=== PATIENT | female | born 1980 | race Caucasian/White ===

== ENCOUNTER → 2018-04-04 16:51 | Outpatient (REF) | payer MEDICAID, SELFPAY ==
--- NOTE | 2018-04-04 13:45 | PAPFT_PTH ---
PATIENT: Destiney Springer LOC: [facility] U#:[id number] AGE/SX: 45/F ROOM: RE04/04/[address]: Deidra Hawkins : 1980 BED: DIS: SPEC #: [id number] RECD: 04/08/18 12:56 STATUS: NINA GRADY #: [id number] MITCH: 04/04/18 13:[address]: Deidra Hawkins DEPT: [facility], [facility] Cytology RECD BY: Jovana Levine Tissues: 1 - CX/ENDOCX FOR PAP SMEARS Procedures: PAP THIN PREP/UVM Screening HPV DNA PROBE Comments: [id number] (CHLAMYDIA/GC)
[2018-04-09 14:48] LABS: GC Result Negative; Specimen Description SEE COMMENTS
[2018-04-09 14:59] LABS: Chlamydia Result Positive
== END ==
LOC: NCHCN 16:51
PROVIDERS: PCP Nurse Practitioner Family; Visit Provider Nurse Practitioner Family
DX: Z11.3 Encounter for screening for infections with a predominantly sexual mode of transmission (principal); Z12.4 Encounter for screening for malignant neoplasm of cervix; Z11.51 Encounter for screening for human papillomavirus (HPV)
CPT/HCPCS: 87491; 87591; 88142; 87624

== ENCOUNTER 2018-06-02 12:13 | Emergency (ER) | payer MEDICAID, SELFPAY ==
[2018-06-02 12:26] VITALS: BP 118/81; PULSE 96; RESP 16; TEMP 36.7; O2SAT 100
[2018-06-02 12:40] LABS: Bilirubin Negative (Negative); Blood Small (Negative); Glucose Negative (Negative); Ketones Negative (Negative); Leukocyte Esterase Trace (Negative); Nitrite Negative (Negative); Specific Gravity >= 1.030 (1.005-1.025); pH 5.5 (5-8)
[2018-06-02 12:45] LABS: Clarity Sl Cloudy
[2018-06-02 12:59] LABS: Bacteria Moderate HPF (Negative); C & S Indicated? No/Sq. Contamination; Epithelial Cells Many HPF (Negative); Mucus Moderate (Negative)
--- NOTE | 2018-06-02 13:11 | W.ED.GENAD ---
Discharge Plan Disposition Patient Disposition: HOME Condition: Fair Discharge Details Chief Complaint: Urinary Clinical Impression: UTI (urinary tract infection) Primary Care Provider: Deidra Hawkins ED Provider: Treasure Galdamez Home Meds and New Rx's Prescriptions: New cephalexin [Keflex] 500 mg capsule 500 mg PO BID Qty: 10 RF: 0 Continue venlafaxine [Effexor XR] 150 MG capsule,extended release 24hr 150 mg PO HS RF: 0 topiramate [Topamax] 100 MG tablet 100 mg PO BID RF: 0 alprazolam [Xanax] 1 MG tablet 3 mg PO DAILY RF: 0 aripiprazole [Abilify] 5 MG tablet 10 mg PO .QHS RF: 0 Discharge Instructions Instructions: Urinary Tract Infection in Women (ED) Additional Instructions: Encourage hydration. Take Keflex as prescribed for urinary tract infection. Pyridium may be used as needed to help with symptomatic management. If you develop back pain, fevers, inability to stay hydrated or other new/worsening symptoms please seek care urgently once again. Otherwise, please follow-up with primary in 1 week if symptoms have not completely resolved Referrals: Deidra Hawkins [Primary Care Provider] - Discharge Data Discharge Date/Time-TO BE ENTERED AT DEPARTURE: 06/02/18 13:28 Medical Decision Making Patient 38-year-old female presenting today with chief complaint of urinary tract infection. She reports that she woke this morning with dysuria, increased frequency and urgency. Denies any hematuria. Denies any vaginal discharge, dyspareunia. Denies any flank pain. On exam, she appears nontoxic, resting comfortably. She does have some low central abdominal pain. No CVA tenderness. Patient is currently afebrile. Does report that she felt warm this morning. Patient has had multiple urinary tract infections in the past, none within the past several months. Urinalysis is heavily contaminated. However, she does have leukocyte esterase small amount of blood noted with moderate bacteria. I feel that given these findings as well as the patient's history and symptoms, it is appropriate to treat her at this point for urinary tract infection. Plan to send urine for culture. Plan to treat with Keflex. I encouraged hydration. Patient also be prescribed Pyridium to help with symptomatic management. She was given strict return precautions. Advise follow-up with primary care in 1 week if symptoms have not completely resolved. All of her questions and concerns were addressed and she is in agreement this plan HPI General Mode of arrival: ambulatory. Date/Time Provider Initiated Documentation: 06/02/18 12:49. Limitations to Documentation: no limitations. Information obtained by: patient. History of Present Illness 38 year old F presents to the emergency department with the chief complaint of dysurea, described as moderate, with intensity rated at 7. Quality is described as aching, and is localized to the abdomen (low central abdomen). Patient reports no radiation; denies radiation to back. Patient started experiencing this hour(s) (awoke with discomfort) and it has been constant. No relieving factors improve symptom(s), No exacerbating factors reported . Patient notes fever/chills (feels warm) and loss of appetite; denies chest pain, cough, malaise, nausea/vomiting, rash and shortness of breath. Patient did receive the following treatments prior to arrival, none Related Data Home Medications Medication Instructions Recorded Confirmed venlafaxine [Effexor XR] 150 mg PO HS 03/02/13 06/02/18 topiramate [Topamax] 100 mg PO BID 01/27/14 06/02/18 alprazolam [Xanax] 3 mg PO DAILY 09/11/14 06/02/18 aripiprazole [Abilify] 10 mg PO .QHS 11/18/17 06/02/18 cephalexin [Keflex] 500 mg PO BID #10 cap 06/02/18 Previous Rx's Medication Instructions Recorded cephalexin [Keflex] 500 mg PO BID #10 cap 06/02/18 Allergies Allergy/AdvReac Type Severity Reaction Status Date / Time No Known Allergies Allergy Unverified 06/02/18 12:29 General Stated Complaint: Urinary RAJEEV: 4 Review of Systems Constitutional Reports as per HPI Cardiovascular Reports as per HPI and Denies chest pain Respiratory Denies cough Gastrointestinal Reports as per HPI, Reports abdominal pain (low central abdominal pain over bladder), Denies change in stool character, Denies nausea and Denies vomiting Genitourinary Reports as per HPI Musculoskeletal Denies back pain Integumentary/Breasts Denies rash PFSH Medical History Endometriosis GERD (gastroesophageal reflux disease) Hiatal hernia Social History Smoking/Tobacco Use Status: Current every day Surgical History Extracorporeal shock wave lithotripsy Ligation of fallopian tube Exam Const General: cooperative, healthy appearing, comfortable, no acute distress, well developed and well groomed Nutritional Appearance: average body habitus and well nourished Orientation: alert and awake Resp Effort & Inspection: normal respiratory effort, able to speak in complete sentences and no respiratory distress Auscultation: clear to auscultation bilaterally Cardio Rate: regular rate Rhythm: regular rhythm Heart Sounds: S1 normal and S2 normal GI Inspection: no edema and non-distended Palpation: soft, no hepatosplenomegaly, no guarding and nontender Auscultation: normal bowel sounds Back/Spine/Pelvis Back: no CVA tenderness Skin General skin exam: no rashes or lesions noted Neuro General: alert and awake Cognition: normal cognition Speech: speech normal Gait: normal gait Psych Appearance: grossly normal and well kempt Mental Status: mental status grossly normal Speech and Movement: speech and movement normal Course Vital Signs Temperature 36.7 C 06/02/18 12:26 Pulse 96 H 06/02/18 12:26 Respiratory Rate 16 06/02/18 12:26 Blood Pressure 118/81 06/02/18 12:26 Pulse Oximetry 100 06/02/18 12:26 Temperature 36.7 C 06/02/18 12:26 Temperature Source Temporal Artery Scan 06/02/18 12:26 Pulse 96 H 06/02/18 12:26 Respiratory Rate 16 06/02/18 12:26 Respiratory Effort 06/02/18 12:54 Blood Pressure 118/81 06/02/18 12:26 Blood Pressure Position Sitting 06/02/18 12:26 Pulse Oximetry 100 06/02/18 12:26 Oxygen Delivery Method Room Air 06/02/18 12:26 Oxygen Flow Rate 0 06/02/18 12:26 Pain Level 7 06/02/18 12:58 Lab/Test Results Lab/Test Results: Laboratory Tests Range/Units 06/02/18 12:35 Urine Color (Yellow) Yellow Urine Clarity Sl cloudy Urine pH (5-8) 5.5 Ur Specific [place] (1.005-1.025) >= 1.030 H Urine Protein (Negative) mg/dL 30 H Urine Ketones (Negative) mg/dL Negative Urine Blood (Negative) Small H Urine Nitrite (Negative) Negative Urine Bilirubin (Negative) Negative Urine Urobilinogen (Up TO 0.2) EU/dL 1.0 H Ur Leukocyte Esterase (Negative) Trace H Urine RBC Not Applicable Urine WBC (0-5) HPF 5-10 Ur Epithelial Cells (Negative) HPF Many Urine Crystals Not Applicable Urine Bacteria (Negative) HPF Moderate Urine Mucus (Negative) Moderate Ur Culture Indicated? No/sq. contamination Urine Glucose (Negative) mg/dL Negative
== END 2018-06-02 13:28 | disposition home or self-care (01) ==
LOC: ER 13:31
PROVIDERS: Emergency Provider Physician Assistant; PCP Nurse Practitioner Family
DX: N39.0 Urinary tract infection, site not specified (principal); I10 Essential (primary) hypertension; Z87.440 Personal history of urinary (tract) infections
CPT/HCPCS: 99283; 81003; 81015

== ENCOUNTER 2018-06-25 12:52 | Outpatient (CLI) | payer MEDICAID, SELFPAY ==
[2018-06-25 14:20] LABS: ALT 17 U/L (12-78); AST 17 U/L (15-37); Albumin 3.8 g/dL (3.4-5.0); Alkaline Phosphatase 87 U/L (46-116); Anion Gap 10.1 mmol/L (3-11); BUN 8 mg/dL (7-18); Bilirubin, Total 0.4 mg/dL (0.2-1.0); CO2 23.9 mmol/L (21.0-32.0); CREATININE 0.81 mg/dL (0.55-1.02); Calcium 8.9 mg/dL (8.5-10.1); Chloride 106 mmol/L (98-107); Cholesterol 159 mg/dL (50-200); Glucose 125 mg/dL (70-100); HDL Cholesterol 40 mg/dL (40-60); LDL CHOLESTEROL 107 mg/dL (<100); Potassium 4.1 mmol/L (3.5-5.1); Sodium 140 mmol/L (136-145); Total Protein 7.1 g/dL (6.4-8.2); Triglyceride 71 mg/dL (30-150)
== END 2018-06-25 13:12 ==
PROVIDERS: PCP Nurse Practitioner Family; Visit Provider Nurse Practitioner Family
DX: F34.0 Cyclothymic disorder (principal); Z79.899 Other long term (current) drug therapy
CPT/HCPCS: 36415; 80053; 80061; 83721

== ENCOUNTER 2018-06-26 10:40 | Emergency (ER) | payer MEDICAID, SELFPAY ==
[2018-06-26 10:45] VITALS: BP 117/74; PULSE 77; RESP 16; TEMP 36.2; O2SAT 100
[2018-06-26 10:57] VITALS: PULSE 77; RESP 16; O2SAT 100
[2018-06-26] MEDS: predniSONE 20 MG TAB 60 MG PO (10:57)
[2018-06-26] MEDS: Albuterol 2.5 MG/3 ML INH SOLN VIAL UPD (10:57)
--- NOTE | 2018-06-26 10:58 | W.ED.GENAD ---
Discharge Plan Disposition Patient Disposition: HOME Condition: Good Discharge Details Chief Complaint: RespSymp Clinical Impression: Bronchitis, URI (upper respiratory infection), Sinusitis Primary Care Provider: Deidra Hawkins ED Provider: Jairo Sepulveda Home Meds and New Rx's Prescriptions: New azithromycin [Zithromax Z-Chad] 250 mg tablet See Label Instructions .ROUTE .COMPLEX Qty: 6 RF: 0 prednisone 20 mg tablet 40 mg PO DAILY Qty: 10 RF: 0 No Action venlafaxine [Effexor XR] 150 MG capsule,extended release 24hr 150 mg PO HS RF: 0 topiramate [Topamax] 100 MG tablet 100 mg PO BID RF: 0 alprazolam [Xanax] 1 MG tablet 3 mg PO DAILY RF: 0 cephalexin [Keflex] 500 mg capsule 500 mg PO BID Qty: 10 RF: 0 aripiprazole [Abilify] 5 MG tablet 10 mg PO .QHS RF: 0 Discharge Instructions Instructions: Sinusitis (ED), Upper Respiratory Infection (ED), Acute Bronchitis (ED) Referrals: [facility] Emergency Dept. [Outside] - Return if symptoms worsen Medical Decision Making Will start prednsione and albuterol here. X-ray to confirm pneumonia. Will dispense albuterol with spacer. Apprised of x-ray. RT came down and educated her on inhaler and spacer. We dispensed inhaler and assist device. Prescribed predinisone and Zithromax for the bronchitis in a smoker >1.5 weeks of symptoms. Advised to get plenty of rest and fluids. Return if symptoms worsen. Imaging Data Radiologic Study: My impression: No acute pathology Radiologist's impression: v-rad: IMPRESSION: No acute findings. HPI General Mode of arrival: ambulatory. Date/Time Provider Initiated Documentation: 06/26/18 10:45. Limitations to Documentation: no limitations. Information obtained by: patient. History of Present Illness 38 year old F presents to the emergency department with the chief complaint of URI, described as mild, HPI Narrative: 38y/o female here with c/o cough, wheezing, sinus congestion and SOB for over a week. She is a smoker. Denies fever but has felt warm. Denies CP. She tried her sons inhaler which did seem to help a little with her breathing. Related Data Home Medications Medication Instructions Recorded Confirmed venlafaxine [Effexor XR] 150 mg PO HS 03/02/13 06/26/18 topiramate [Topamax] 100 mg PO BID 01/27/14 06/26/18 alprazolam [Xanax] 3 mg PO DAILY 09/11/14 06/26/18 aripiprazole [Abilify] 10 mg PO .QHS 11/18/17 06/26/18 cephalexin [Keflex] 500 mg PO BID #10 cap 06/02/18 azithromycin [Zithromax Z-Chad] See Label Instructions .ROUTE 06/26/18 .COMPLEX #6 tab prednisone 40 mg PO DAILY #10 tab 06/26/18 Previous Rx's Medication Instructions Recorded cephalexin [Keflex] 500 mg PO BID #10 cap 06/02/18 azithromycin [Zithromax Z-Chad] See Label Instructions .ROUTE 06/26/18 .COMPLEX #6 tab prednisone 40 mg PO DAILY #10 tab 06/26/18 Allergies Allergy/AdvReac Type Severity Reaction Status Date / Time No Known Allergies Allergy Unverified 06/26/18 10:51 General Stated Complaint: RespSymp RAJEEV: 3 Review of Systems Eyes Reports system reviewed and no additional complaints, except as docu ENT Denies hoarseness, Reports nasal congestion, Reports nasal discharge and Reports sore throat Cardiovascular Reports system reviewed and no additional complaints, except as docu and Reports dyspnea Respiratory Reports cough, Reports dyspnea and Reports wheezing Gastrointestinal Reports system reviewed and no additional complaints, except as docu Genitourinary Reports system reviewed and no additional complaints, except as docu Musculoskeletal Reports system reviewed and no additional complaints, except as docu Integumentary/Breasts Reports system reviewed and no additional complaints, except as docu Neurologic Reports system reviewed and no additional complaints, except as docu Allergic/Immunologic Reports wheezing [facility] Medical History Endometriosis GERD (gastroesophageal reflux disease) Hiatal hernia Social History Smoking/Tobacco Use Status: Current every day Surgical History Extracorporeal shock wave lithotripsy Ligation of fallopian tube Exam Const General: cooperative, healthy appearing, comfortable and no acute distress Nutritional Appearance: average body habitus Orientation: alert, awake and oriented x3 HENMT Head: atraumatic Ears: hearing grossly normal bilaterally, external ears normal and TM abnormal (cerumen present in both canals) dull and with loss of landmarks General nose exam: external nose normal and nasal mucous membranes and turbinates normal Mouth: oral mucosae normal Throat: posterior oropharynx abnormal exudates Eyes General: appearance normal, both eyes and all related structures Pupils: PERRL Neck Neck: full ROM, supple and lymphadenopathy Resp Effort & Inspection: normal respiratory effort Auscultation: rhonchi and wheezes Cardio Rate: regular rate Rhythm: regular rhythm Heart Sounds: S1 normal, S2 normal and no murmurs Skin General skin exam: no rashes or lesions noted Extrem General: normal to inspection, full ROM and normal capillary refill Psych Appearance: grossly normal Speech and Movement: speech and movement normal Mood: congruent mood Affect: normal affect Attitude: cooperative Thought Process: normal Thought Content: normal Insight: insight good Judgment: judgment good Course Vital Signs Temperature 36.2 C L 06/26/18 10:45 Pulse 77 06/26/18 10:45 Respiratory Rate 16 06/26/18 10:45 Blood Pressure 117/74 06/26/18 10:45 Pulse Oximetry 100 06/26/18 10:45 Temperature 36.2 C L 06/26/18 10:45 Temperature Source Skin 06/26/18 10:45 Pulse 77 06/26/18 10:57 Respiratory Rate 16 06/26/18 10:57 Respiratory Effort 06/26/18 10:45 Blood Pressure 117/74 06/26/18 10:45 Blood Pressure Position Sitting 06/26/18 10:45 Pulse Oximetry 100 06/26/18 10:57 Oxygen Delivery Method Room Air 06/26/18 10:57 Oxygen Flow Rate 0 06/26/18 10:57 Pain Level 0 06/26/18 10:45
--- NOTE | 2018-06-26 11:03 | ED.GENADUL_ITS ---
Discharge Plan Disposition Patient Disposition: HOME Condition: Good Discharge Details Chief Complaint: RespSymp Clinical Impression: Bronchitis, URI (upper respiratory infection), Sinusitis Primary Care Provider: Deidra Hawkins ED Provider: Jairo Sepulveda Home Meds and New Rx's Prescriptions: New azithromycin [Zithromax Z-Chad] 250 mg tablet See Label Instructions .ROUTE .COMPLEX Qty: 6 RF: 0 prednisone 20 mg tablet 40 mg PO DAILY Qty: 10 RF: 0 No Action venlafaxine [Effexor XR] 150 MG capsule,extended release 24hr 150 mg PO HS RF: 0 topiramate [Topamax] 100 MG tablet 100 mg PO BID RF: 0 alprazolam [Xanax] 1 MG tablet 3 mg PO DAILY RF: 0 cephalexin [Keflex] 500 mg capsule 500 mg PO BID Qty: 10 RF: 0 aripiprazole [Abilify] 5 MG tablet 10 mg PO .QHS RF: 0 Discharge Instructions Instructions: Sinusitis (ED), Upper Respiratory Infection (ED), Acute Bronchitis (ED) Referrals: [facility] Emergency Dept. [Outside] - Return if symptoms worsen Medical Decision Making Will start prednsione and albuterol here. X-ray to confirm pneumonia. Will dispense albuterol with spacer. Apprised of x-ray. RT came down and educated her on inhaler and spacer. We dispensed inhaler and assist device. Prescribed predinisone and Zithromax for the bronchitis in a smoker >1.5 weeks of symptoms. Advised to get plenty of rest and fluids. Return if symptoms worsen. Imaging Data Radiologic Study: My impression: No acute pathology Radiologist's impression: v-rad: IMPRESSION: No acute findings. HPI General Mode of arrival: ambulatory . Date/Time Provider Initiated Documentation: 06/26/18 10:45 . Limitations to Documentation: no limitations . Information obtained by: patient . History of Present Illness 38 year old F presents to the emergency department with the chief complaint of URI, described as mild, HPI Narrative: 38y/o female here with c/o cough, wheezing, sinus congestion and SOB for over a week. She is a smoker. Denies fever but has felt warm. Denies CP. She tried her sons inhaler which did seem to help a little with her breathing. Related Data Home Medications Medication Instructions Recorded Confirmed venlafaxine [Effexor XR] 150 mg PO HS 03/02/13 06/26/18 topiramate [Topamax] 100 mg PO BID 01/27/14 06/26/18 alprazolam [Xanax] 3 mg PO DAILY 09/11/14 06/26/18 aripiprazole [Abilify] 10 mg PO .QHS 11/18/17 06/26/18 cephalexin [Keflex] 500 mg PO BID #10 cap 06/02/18 azithromycin [Zithromax Z-Chad] See Label Instructions .ROUTE 06/26/18 .COMPLEX #6 tab prednisone 40 mg PO DAILY #10 tab 06/26/18 Previous Rx's Medication Instructions Recorded cephalexin [Keflex] 500 mg PO BID #10 cap 06/02/18 azithromycin [Zithromax Z-Chad] See Label Instructions .ROUTE 06/26/18 .COMPLEX #6 tab prednisone 40 mg PO DAILY #10 tab 06/26/18 Allergies Allergy/AdvReac Type Severity Reaction Status Date / Time No Known Allergies Allergy Unverified 06/26/18 10:51 General Stated Complaint: RespSymp RAJEEV: 3 Review of Systems Eyes Reports system reviewed and no additional complaints, except as docu ENT Denies hoarseness, Reports nasal congestion, Reports nasal discharge and Reports sore throat Cardiovascular Reports system reviewed and no additional complaints, except as docu and Reports dyspnea Respiratory Reports cough, Reports dyspnea and Reports wheezing Gastrointestinal Reports system reviewed and no additional complaints, except as docu Genitourinary Reports system reviewed and no additional complaints, except as docu Musculoskeletal Reports system reviewed and no additional complaints, except as docu Integumentary/Breasts Reports system reviewed and no additional complaints, except as docu Neurologic Reports system reviewed and no additional complaints, except as docu Allergic/Immunologic Reports wheezing [facility] Medical History Endometriosis GERD (gastroesophageal reflux disease) Hiatal hernia Social History Smoking/Tobacco Use Status: Current every day Surgical History Extracorporeal shock wave lithotripsy Ligation of fallopian tube Exam Const General: cooperative, healthy appearing, comfortable and no acute distress Nutritional Appearance: average body habitus Orientation: alert, awake and oriented x3 HENMT Head: atraumatic Ears: hearing grossly normal bilaterally, external ears normal and TM abnormal ( cerumen present in both canals) dull and with loss of landmarks General nose exam: external nose normal and nasal mucous membranes and turbinates normal Mouth: oral mucosae normal Throat: posterior oropharynx abnormal exudates Eyes General: appearance normal, both eyes and all related structures Pupils: PERRL Neck Neck: full ROM, supple and lymphadenopathy Resp Effort & Inspection: normal respiratory effort Auscultation: rhonchi and wheezes Cardio Rate: regular rate Rhythm: regular rhythm Heart Sounds: S1 normal, S2 normal and no murmurs Skin General skin exam: no rashes or lesions noted Extrem General: normal to inspection, full ROM and normal capillary refill Psych Appearance: grossly normal Speech and Movement: speech and movement normal Mood: congruent mood Affect: normal affect Attitude: cooperative Thought Process: normal Thought Content: normal Insight: insight good Judgment: judgment good Course Vital Signs Temperature 36.2 C L 06/26/18 10:45 Pulse 77 06/26/18 10:45 Respiratory Rate 16 06/26/18 10:45 Blood Pressure 117/74 06/26/18 10:45 Pulse Oximetry 100 06/26/18 10:45 Temperature 36.2 C L 06/26/18 10:45 Temperature Source Skin 06/26/18 10:45 Pulse 77 06/26/18 10:57 Respiratory Rate 16 06/26/18 10:57 Respiratory Effort 06/26/18 10:45 Blood Pressure 117/74 06/26/18 10:45 Blood Pressure Position Sitting 06/26/18 10:45 Pulse Oximetry 100 06/26/18 10:57 Oxygen Delivery Method Room Air 06/26/18 10:57 Oxygen Flow Rate 0 06/26/18 10:57 Pain Level 0 06/26/18 10:45
[2018-06-26] MEDS: Inhaler, Assist Device 1 EACH MC (11:14)
[2018-06-26] MEDS: Albuterol HFA 8 GM 60 PUFF INH IH (11:14)
--- NOTE | 2018-06-26 11:25 | DI.RAD_ITS ---
SYMPTOMS/DIAGNOSIS: SHORTNESS OF BREATH, COUGH FOR OVER A WEEK PA AND LATERAL CHEST: The heart is normal in size. The lungs are clear. The mediastinal structures and pleura appear intact. CONCLUSION: Normal chest. No evidence of acute cardiopulmonary disease.
[2018-06-26] MEDS: Azithromycin 250 MG TAB 500 MG PO (11:42)
[2018-06-26 11:49] VITALS: BP 117/74; PULSE 76; RESP 16; TEMP 36.7; O2SAT 100
--- NOTE | 2018-06-26 13:04 | DI.VRAD_ITS ---
EXAM: XR Chest, 2 Views EXAM DATE/TIME: 06/26/2018 10:53 AM CLINICAL HISTORY: 38 years old, female; Signs and symptoms; Cough and shortness of breath; Patient HX: SOB and cough xover a week TECHNIQUE: XR of the chest, 2 views. COMPARISON: CR ABD FLAT UPRIGHT PA CHEST 09/11/2014 1:31 PM FINDINGS: Lungs: Unremarkable. No consolidation. Pleural space: Unremarkable. No pleural effusion. No pneumothorax. Heart/Mediastinum: Unremarkable. No cardiomegaly. Bones/joints: Unremarkable. IMPRESSION: No acute findings. Dictated and Authenticated by: Sabrina Greenfield MD. Ordering:ANNA CUEVAS MD
== END 2018-06-26 11:49 | disposition home or self-care (01) ==
PROVIDERS: Emergency Provider Nurse Practitioner Family; PCP Nurse Practitioner Family
DX: J20.9 Acute bronchitis, unspecified (principal); J01.90 Acute sinusitis, unspecified; J06.9 Acute upper respiratory infection, unspecified; F17.210 Nicotine dependence, cigarettes, uncomplicated; I10 Essential (primary) hypertension
CPT/HCPCS: 94640; 99283; 71046; J7512; J7613

== ENCOUNTER 2018-07-16 08:58 | Emergency (ER) | payer MEDICAID, SELFPAY ==
[2018-07-16 09:05] VITALS: BP 100/70; PULSE 88; RESP 16; TEMP 36.3; O2SAT 94
--- NOTE | 2018-07-16 09:32 | W.ED.GENAD ---
Discharge Plan Disposition Patient Disposition: HOME Condition: Fair Discharge Details Chief Complaint: RespSymp Clinical Impression: Bronchitis Primary Care Provider: Deidra Hawkins ED Provider: Treasure Galdamez Home Meds and New Rx's Prescriptions: New prednisone 5 mg tablet 5 mg PO DAILY Qty: 21 RF: 0 Continued venlafaxine [Effexor XR] 150 MG capsule,extended release 24hr 150 mg PO HS RF: 0 topiramate [Topamax] 100 MG tablet 100 mg PO BID RF: 0 alprazolam [Xanax] 1 MG tablet 3 mg PO DAILY RF: 0 cephalexin [Keflex] 500 mg capsule 500 mg PO BID Qty: 10 RF: 0 azithromycin [Zithromax Z-Chad] 250 mg tablet See Rx Instructions .ROUTE .COMPLEX Qty: 6 RF: 0 aripiprazole [Abilify] 5 MG tablet 10 mg PO .QHS RF: 0 Discharge Instructions Instructions: How to Stop Smoking (ED), Acute Bronchitis (ED) Additional Instructions: Encourage hydration. Stop smoking. Take prednisone as prescribed. Appointment has been made for you with PCP next Saturday at 11:20AM. If you are unable to keep this appointment or need to change, please call [phone]. If you develop shortness of breath, difficulty breathing or other new/worsening symptoms please seek care urgently once again. Referrals: Deidra Hawkins [Primary Care Provider] - Discharge Data Discharge Date/Time-TO BE ENTERED AT DEPARTURE: 07/16/18 10:51 Medical Decision Making Patient is a 38-year-old female, accompanied by her mother, with chief complaint of continued cough. Patient was seen here 3 weeks ago at which time she was diagnosed with bronchitis and given a burst of steroids and treated with azithromycin. She reports that despite these efforts, her cough has persisted and is remained unchanged. States she intermittently has sore throat, is not endorsing this at this time. Denies feeling short of breath or having chest pain. States that she does have discomfort when smoking but no pain with cough or deep inspiration. On exam, she is noted to have scattered expiratory wheezes. She has been using inhaler as prescribed which she states helped but she has not been using this frequently. Patient has history of hiatal hernia, endometriosis, GERD. Patient is status post tubal ligation. Given the length of symptoms, feel that imaging is appropriate at this time, will obtain chest x-ray. However, if this is clear, I plan to treat with steroids for persistent inflammatory response. I encouraged the patient to stop smoking X-ray reviewed by myself as well as radiology with no acute cardiopulmonary process noted. Discussed this with the patient. Advised this seems primarily inflammatory. At this point, the patient is afebrile, appears otherwise well, I do not feel that repeat antibiotics is appropriate. However, I did advise that steroid taper would likely benefit. I encouraged smoking cessation. Advise follow-up with primary care in 1 week. All of her questions and concerns were addressed and she is agreement with this plan. We discussed new/worsening symptoms and when to seek care urgently once again. HPI General Mode of arrival: ambulatory. Date/Time Provider Initiated Documentation: 07/16/18 09:23. Limitations to Documentation: no limitations. Information obtained by: patient and family (accompanied by mother). History of Present Illness 38 year old F presents to the emergency department with the chief complaint of cough, described as moderate, and is localized to the chest (has minimal discomfort when smoking, no pain at rest, no pain with inspiration or with cough). Patient reports no radiation. Patient started experiencing this month(s) (1) and it has been constant. No relieving factors improve symptom(s), Other factors that worsen symptoms (smoking) . Patient notes cough and shortness of breath (with cough); denies chest pain, fever/chills, headaches, loss of appetite, nausea/vomiting, rash and syncope. Patient did receive the following treatments prior to arrival, none Related Data Home Medications Medication Instructions Recorded Confirmed venlafaxine [Effexor XR] 150 mg PO HS 03/02/13 07/16/18 topiramate [Topamax] 100 mg PO BID 01/27/14 07/16/18 alprazolam [Xanax] 3 mg PO DAILY 09/11/14 07/16/18 aripiprazole [Abilify] 10 mg PO .QHS 11/18/17 07/16/18 cephalexin [Keflex] 500 mg PO BID #10 cap 06/02/18 07/16/18 azithromycin [Zithromax Z-Chad] See Rx Instructions .ROUTE 06/26/18 07/16/18 .COMPLEX #6 tab prednisone 5 mg PO DAILY #21 tab 07/16/18 Previous Rx's Medication Instructions Recorded cephalexin [Keflex] 500 mg PO BID #10 cap 06/02/18 azithromycin [Zithromax Z-Chad] See Rx Instructions .ROUTE 06/26/18 .COMPLEX #6 tab prednisone 5 mg PO DAILY #21 tab 07/16/18 Allergies Allergy/AdvReac Type Severity Reaction Status Date / Time No Known Allergies Allergy Unverified 07/16/18 09:09 General Stated Complaint: RespSymp RAJEEV: 4 Review of Systems Constitutional Reports as per HPI and Denies headache(s) Eyes Reports as per HPI, Denies eye discharge and Denies irritation ENT Reports as per HPI, Denies abnormal hearing, Denies ear discharge, Denies otalgia, Denies headache(s), Denies nasal congestion, Denies nasal discharge, Denies sinus pain, Denies sinus pressure and Reports sore throat (intermittent, no pain at this time) Cardiovascular Reports as per HPI, Denies chest pain and Denies dyspnea Respiratory Reports as per HPI, Reports cough, Denies hemoptysis, Denies pain on inspiration, Denies pain with cough, Denies dyspnea, Denies stridor and Reports wheezing Gastrointestinal Reports as per HPI, Denies abdominal pain, Denies change in bowel habits, Denies nausea and Denies vomiting Integumentary/Breasts Reports as per HPI and Denies rash Neurologic Denies abnormal hearing and Denies headache(s) Allergic/Immunologic Reports wheezing [facility] Medical History Endometriosis GERD (gastroesophageal reflux disease) Hiatal hernia Social History Smoking/Tobacco Use Status: Current every day Surgical History Extracorporeal shock wave lithotripsy Ligation of fallopian tube Social History Smoking/Tobacco Use Status: Current every day Exam Const General: cooperative, healthy appearing, comfortable, no acute distress, well developed and well groomed Nutritional Appearance: average body habitus and well nourished Orientation: alert and awake [facility] Head: normal to inspection, normocephalic and atraumatic Ears: hearing grossly normal bilaterally, external ears normal and TM's normal bilaterally General nose exam: external nose normal and nares normal Face and sinus: normal facial exam, sinuses nontender and face symmetric Mouth: oral mucosae normal, lip normal, tongue normal, oropharynx normal and moist mucous membranes Teeth and gingiva: dentition normal Throat: posterior oropharynx normal, tonsils normal and uvula midline Eyes General: appearance normal, both eyes and all related structures Neck Neck: normal visual inspection, full ROM, no lymphadenopathy and no meningeal signs Resp Effort & Inspection: normal respiratory effort, able to speak in complete sentences and no respiratory distress Auscultation: no rales, no rhonchi and wheezes (scattered, more on the right side) expiratory wheezes and scattered wheezes Cardio Rate: regular rate Rhythm: regular rhythm Heart Sounds: S1 normal and S2 normal Skin General skin exam: no rashes or lesions noted Neuro General: alert and awake Cognition: normal cognition Speech: speech normal Gait: normal gait Psych Appearance: grossly normal and well kempt Mental Status: mental status grossly normal Speech and Movement: speech and movement normal Course Vital Signs Temperature 36.3 C L 07/16/18 09:05 Pulse 88 07/16/18 09:05 Respiratory Rate 16 07/16/18 09:05 Blood Pressure 100/70 07/16/18 09:05 Pulse Oximetry 94 L 07/16/18 09:05 Temperature 36.3 C L 07/16/18 09:05 Temperature Source Skin 07/16/18 09:05 Pulse 88 07/16/18 09:05 Respiratory Rate 16 07/16/18 09:05 Respiratory Effort 07/16/18 09:11 Blood Pressure 100/70 07/16/18 09:05 Blood Pressure Position Supine 07/16/18 09:05 Pulse Oximetry 94 L 07/16/18 09:05 Oxygen Delivery Method Room Air 07/16/18 09:05 Oxygen Flow Rate 0 07/16/18 09:05 Pain Level 0 07/16/18 09:05 Comment 07/16/18 09:05
--- NOTE | 2018-07-16 09:38 | ED.GENADUL_ITS ---
Discharge Plan Disposition Patient Disposition: HOME Condition: Fair Discharge Details Chief Complaint: RespSymp Clinical Impression: Bronchitis Primary Care Provider: Deidra Hawkins ED Provider: Treasure Galdamez Home Meds and New Rx's Prescriptions: New prednisone 5 mg tablet 5 mg PO DAILY Qty: 21 RF: 0 Continued venlafaxine [Effexor XR] 150 MG capsule,extended release 24hr 150 mg PO HS RF: 0 topiramate [Topamax] 100 MG tablet 100 mg PO BID RF: 0 alprazolam [Xanax] 1 MG tablet 3 mg PO DAILY RF: 0 cephalexin [Keflex] 500 mg capsule 500 mg PO BID Qty: 10 RF: 0 azithromycin [Zithromax Z-Chad] 250 mg tablet See Rx Instructions .ROUTE .COMPLEX Qty: 6 RF: 0 aripiprazole [Abilify] 5 MG tablet 10 mg PO .QHS RF: 0 Discharge Instructions Instructions: How to Stop Smoking (ED), Acute Bronchitis (ED) Additional Instructions: Encourage hydration. Stop smoking. Take prednisone as prescribed. Appointment has been made for you with PCP next Saturday at 11:20AM. If you are unable to keep this appointment or need to change, please call [phone]. If you develop shortness of breath, difficulty breathing or other new/worsening symptoms please seek care urgently once again. Referrals: Deidra Hawkins [Primary Care Provider] - Discharge Data Discharge Date/Time-TO BE ENTERED AT DEPARTURE: 07/16/18 10:51 Medical Decision Making Patient is a 38-year-old female, accompanied by her mother, with chief complaint of continued cough. Patient was seen here 3 weeks ago at which time she was diagnosed with bronchitis and given a burst of steroids and treated with azithromycin. She reports that despite these efforts, her cough has persisted and is remained unchanged. States she intermittently has sore throat, is not endorsing this at this time. Denies feeling short of breath or having chest pain. States that she does have discomfort when smoking but no pain with cough or deep inspiration. On exam, she is noted to have scattered expiratory wheezes. She has been using inhaler as prescribed which she states helped but s he has not been using this frequently. Patient has history of hiatal hernia, endometriosis, GERD. Patient is status post tubal ligation. Given the length of symptoms, feel that imaging is appropriate at this time, will obtain chest x- ray. However, if this is clear, I plan to treat with steroids for persistent inflammatory response. I encouraged the patient to stop smoking X-ray reviewed by myself as well as radiology with no acute cardiopulmonary process noted. Discussed this with the patient. Advised this seems primarily inflammatory. At this point, the patient is afebrile, appears otherwise well, I do not feel that repeat antibiotics is appropriate. However, I did advise that steroid taper would likely benefit. I encouraged smoking cessation. Advise follow-up with primary care in 1 week. All of her questions and concerns were addressed and she is agreement with this plan. We discussed new/worsening symptoms and when to seek care urgently once again. HPI General Mode of arrival: ambulatory . Date/Time Provider Initiated Documentation: 07/16/18 09:23 . Limitations to Documentation: no limitations . Information obtained by: patient and family (accompanied by mother) . History of Present Illness 38 year old F presents to the emergency department with the chief complaint of cough, described as moderate, and is localized to the chest (has minimal discomfort when smoking, no pain at rest, no pain with inspiration or with cough). Patient reports no radiation. Patient started experiencing this month(s) (1) and it has been constant. No relieving factors improve symptom(s), Other factors that worsen symptoms (smoking) . Patient notes cough and shortness of breath (with cough); denies chest pain, fever/chills, headaches, loss of appetite, nausea/vomiting, rash and syncope. Patient did receive the following treatments prior to arrival, none Related Data Home Medications Medication Instructions Recorded Confirmed venlafaxine [Effexor XR] 150 mg PO HS 03/02/13 07/16/18 topiramate [Topamax] 100 mg PO BID 01/27/14 07/16/18 alprazolam [Xanax] 3 mg PO DAILY 09/11/14 07/16/18 aripiprazole [Abilify] 10 mg PO .QHS 11/18/17 07/16/18 cephalexin [Keflex] 500 mg PO BID #10 cap 06/02/18 07/16/18 azithromycin [Zithromax Z-Chad] See Rx Instructions .ROUTE 06/26/18 07/16/18 .COMPLEX #6 tab prednisone 5 mg PO DAILY #21 tab 07/16/18 Previous Rx's Medication Instructions Recorded cephalexin [Keflex] 500 mg PO BID #10 cap 06/02/18 azithromycin [Zithromax Z-Chad] See Rx Instructions .ROUTE 06/26/18 .COMPLEX #6 tab prednisone 5 mg PO DAILY #21 tab 07/16/18 Allergies Allergy/AdvReac Type Severity Reaction Status Date / Time No Known Allergies Allergy Unverified 07/16/18 09:09 General Stated Complaint: RespSymp RAJEEV: 4 Review of Systems Constitutional Reports as per HPI and Denies headache(s) Eyes Reports as per HPI, Denies eye discharge and Denies irritation ENT Reports as per HPI, Denies abnormal hearing, Denies ear discharge, Denies otalgia, Denies headache(s), Denies nasal congestion, Denies nasal discharge, Denies sinus pain, Denies sinus pressure and Reports sore throat (intermittent, no pain at this time) Cardiovascular Reports as per HPI, Denies chest pain and Denies dyspnea Respiratory Reports as per HPI, Reports cough, Denies hemoptysis, Denies pain on inspiration, Denies pain with cough, Denies dyspnea, Denies stridor and Reports wheezing Gastrointestinal Reports as per HPI, Denies abdominal pain, Denies change in bowel habits, Denies nausea and Denies vomiting Integumentary/Breasts Reports as per HPI and Denies rash Neurologic Denies abnormal hearing and Denies headache(s) Allergic/Immunologic Reports wheezing [facility] Medical History Endometriosis GERD (gastroesophageal reflux disease) Hiatal hernia Social History Smoking/Tobacco Use Status: Current every day Surgical History Extracorporeal shock wave lithotripsy Ligation of fallopian tube Social History Smoking/Tobacco Use Status: Current every day Exam Const General: cooperative, healthy appearing, comfortable, no acute distress, well developed and well groomed Nutritional Appearance: average body habitus and well nourished Orientation: alert and awake [facility] Head: normal to inspection, normocephalic and atraumatic Ears: hearing grossly normal bilaterally, external ears normal and TM's normal bilaterally General nose exam: external nose normal and nares normal Face and sinus: normal facial exam, sinuses nontender and face symmetric Mouth: oral mucosae normal, lip normal, tongue normal, oropharynx normal and moist mucous membranes Teeth and gingiva: dentition normal Throat: posterior oropharynx normal, tonsils normal and uvula midline Eyes General: appearance normal, both eyes and all related structures Neck Neck: normal visual inspection, full ROM, no lymphadenopathy and no meningeal signs Resp Effort & Inspection: normal respiratory effort, able to speak in complete sentences and no respiratory distress Auscultation: no rales, no rhonchi and wheezes (scattered, more on the right side) expiratory wheezes and scattered wheezes Cardio Rate: regular rate Rhythm: regular rhythm Heart Sounds: S1 normal and S2 normal Skin General skin exam: no rashes or lesions noted Neuro General: alert and awake Cognition: normal cognition Speech: speech normal Gait: normal gait Psych Appearance: grossly normal and well kempt Mental Status: mental status grossly normal Speech and Movement: speech and movement normal Course Vital Signs Temperature 36.3 C L 07/16/18 09:05 Pulse 88 07/16/18 09:05 Respiratory Rate 16 07/16/18 09:05 Blood Pressure 100/70 07/16/18 09:05 Pulse Oximetry 94 L 07/16/18 09:05 Temperature 36.3 C L 07/16/18 09:05 Temperature Source Skin 07/16/18 09:05 Pulse 88 07/16/18 09:05 Respiratory Rate 16 07/16/18 09:05 Respiratory Effort 07/16/18 09:11 Blood Pressure 100/70 07/16/18 09:05 Blood Pressure Position Supine 07/16/18 09:05 Pulse Oximetry 94 L 07/16/18 09:05 Oxygen Delivery Method Room Air 07/16/18 09:05 Oxygen Flow Rate 0 07/16/18 09:05 Pain Level 0 07/16/18 09:05 Comment 07/16/18 09:05
--- NOTE | 2018-07-16 09:56 | DI.RAD_ITS ---
SYMPTOM/DIAGNOSIS: COUGH PA AND LATERAL CHEST: Comparison is made with 06/26/18. The heart is normal in size. The lungs are clear. The mediastinal structures and pleura appear intact. CONCLUSION: Normal chest.
[2018-07-16 10:50] VITALS: RESP 16; TEMP 36.4
== END 2018-07-16 10:51 | disposition home or self-care (01) ==
PROVIDERS: Emergency Provider Physician Assistant; PCP Nurse Practitioner Family
DX: J20.9 Acute bronchitis, unspecified (principal); F17.210 Nicotine dependence, cigarettes, uncomplicated; I10 Essential (primary) hypertension
CPT/HCPCS: 99283; 71046

== ENCOUNTER 2018-07-21 13:38 | Outpatient (REF) | payer MEDICAID, SELFPAY ==
[2018-07-23 15:58] LABS: Chlamydia Result Negative; GC Result Negative; Specimen Description URINE
== END 2018-07-21 13:58 ==
LOC: NCHCN 13:38
PROVIDERS: PCP Nurse Practitioner Family; Visit Provider Nurse Practitioner Family
DX: A56.2 Chlamydial infection of genitourinary tract, unspecified (principal); R30.0 Dysuria
CPT/HCPCS: 87077; 87491; 87591; 87086

== ENCOUNTER 2018-10-08 11:59 | Emergency (ER) | payer MEDICAID, SELFPAY ==
[2018-10-08 12:10] VITALS: BP 124/91; PULSE 82; RESP 16; TEMP 36.5
[2018-10-08 13:10] LABS: Abs Immature Grans 0.02 k/cumm (0.0-0.09); Absolute Basophil Count 0.04 k/cumm (0.0-0.2); Absolute Eosinophil Count 0.04 k/cumm (0.0-0.7); Absolute Lymphocyte Count 2.68 k/cumm (1.2-3.4); Absolute Monocyte Count 0.91 k/cumm (0.11-0.7); Absolute Neutrophil Count 9.44 k/cumm (1.2-6.7); Basophils % 0.3; Eosinophils % 0.3; HCT 41.5 % (36.0-46.0); Immature Grans % 0.2; Lymphocytes % 20.4; Mean Corp. HGB Concentration 33.7 g/dL (32.0-36.0); Mean Corpuscular Hemoglobin 29.9 pg (27.0-33.0); Mean Corpuscular Volume 88.5 fL (80-95); Mean Platelet Volume 9.8 fL (8.0-11.0); Monocytes % 6.9; Neutrophils % 71.9; Platelet Count 314 x1000/uL (130-400); RBC 4.69 m/cumm (4.00-5.20); RBC Distribution Width 12.6 % (11.7-14.6); White Blood Cell Count 13.13 k/cumm (4.4-10.8)
[2018-10-08 13:21] LABS: ALT 15 U/L (12-78); AST 12 U/L (15-37); Albumin 4.1 g/dL (3.4-5.0); Alkaline Phosphatase 77 U/L (46-116); BUN 6 mg/dL (7-18); Bilirubin, Total 0.5 mg/dL (0.2-1.0); Calcium 9.1 mg/dL (8.5-10.1); Chloride 99 mmol/L (98-107); Glucose 100 mg/dL (70-100); Lipase 44 U/L (73-393); Potassium 3.1 mmol/L (3.5-5.1); Sodium 138 mmol/L (136-145); Total Protein 7.6 g/dL (6.4-8.2)
[2018-10-08 13:25] LABS: Bilirubin Small (Negative); Blood Trace-lysed (Negative); Clarity Cloudy; Glucose Negative (Negative); Ketones 15 mg/dL (Negative); Leukocyte Esterase Small (Negative); Nitrite Negative (Negative); Specific Gravity >= 1.030 (1.005-1.025)
[2018-10-08] MEDS: Ondansetron 4 MG/2 ML VIAL IVP (13:33)
[2018-10-08 13:35] LABS: C & S Indicated? No/Sq. Contamination; Epithelial Cells Many HPF (Negative)
--- NOTE | 2018-10-08 13:36 | NUR.NOTE ---
patient medicated per MD order Nursing Note:
[2018-10-08 14:14] VITALS: BP 121/83; PULSE 74; RESP 18; TEMP 36.8; O2SAT 97
--- NOTE | 2018-10-08 14:14 | NUR.NOTE ---
patient reports nausea improved Nursing Note:
[2018-10-08] MEDS: Omnipaque 350 MG/ML 100 ML BTL IJ (15:39)
--- NOTE | 2018-10-08 15:40 | DI.CT_ITS ---
SYMPTOMS/DIAGNOSIS: UPPER ABDOMINAL PAIN CT SCAN OF THE ABDOMEN AND PELVIS: CT scan of the abdomen and pelvis was performed following the uneventful administration of intravenous contrast material. Comparisons are 11/18/17 and 04/02/14. The visualized lung bases are clear. The liver is normal in size. There is focal fatty infiltration seen at the falciform ligament. No suspicious hepatic mass is seen. The portal, superior mesenteric and splenic veins are patent. The gallbladder is negative. There is no biliary ductal dilatation. The pancreas, spleen and adrenal glands are unremarkable. The kidneys show normal and symmetric enhancement. No evidence of a solid renal mass is seen. There are two nonobstructing stones seen in the mid pole of the left kidney and three small nonobstructing stones seen in the mid and lower pole of the right kidney. No ureterolithiasis or hydronephrosis is identified. The urinary bladder is intact. The reproductive organs are grossly unremarkable as visualized. There is a trace amount of free fluid in the cul-de-sac, which is likely physiologic. The abdominal aorta is of normal caliber. No significant abdominal or pelvic adenopathy or pneumoperitoneum is present. The bowel shows no evidence of obstruction or inflammation. There is a normal appendix present. IMPRESSION: No evidence of an acute abdomen. The findings were discussed with the Emergency Department on the date of the examination.
--- NOTE | 2018-10-08 16:12 | ED.GENADUL_ITS ---
Discharge Plan Disposition Patient Disposition: HOME Condition: Stable Discharge Details Chief Complaint: Abd Prob Clinical Impression: Abdominal pain Primary Care Provider: Deidra Hawkins ED Provider: Nicole Vora Home Meds and New Rx's Prescriptions: New pantoprazole [Protonix] 40 mg tablet,delayed release (DR/EC) 40 mg PO DAILY Qty: 30 RF: 0 ondansetron 4 mg tablet,disintegrating 4 mg PO .q8hr PRN (Reason: nausea and vomiting) Qty: 6 RF: 0 Continued venlafaxine [Effexor XR] 150 MG capsule,extended release 24hr 150 mg PO HS RF: 0 topiramate [Topamax] 100 MG tablet 100 mg PO BID RF: 0 alprazolam [Xanax] 1 MG tablet 3 mg PO DAILY RF: 0 aripiprazole [Abilify] 5 MG tablet 10 mg PO .QHS RF: 0 No Action famotidine [Pepcid] 20 mg tablet 20 mg PO BID 42 Days Qty: 84 RF: 0 Discharge Instructions Instructions: Diet for Stomach Ulcers and Gastritis (ED), Acute Nausea and Vomiting (ED), Abdominal Pain (ED) Additional Instructions: Please return immediately to the emergency department if you develop any new or worsening symptoms or if you become otherwise concerned. It is extremely important that you make an appointment to be seen in follow-up this visit as soon as possible by your primary care doctor and by a tone regulator. Referrals: Deidra Hawkins [Primary Care Provider] - Discharge Data Discharge Date/Time-TO BE ENTERED AT DEPARTURE: 10/08/18 16:25 Medical Decision Making Destiney Springer 38-year-old woman with history of hypertension, kidney stones, peptic ulcer disease in the past p who presented to the emergency department with chronic epigastric pain over the past few months worse in the past week and also vomiting the past 2-3 days. On exam patient is well and nontoxic appearing. She has tenderness across the upper abdomen without peritoneal signs. Concern for gastritis, peptic ulcer disease, metabolic/lyte, pancreatitis, bowel obstruction, less likely biliary disease, other. Exam/history not consistent with ACS, PE, sepsis, acute emergent intracranial process, gynecologic etiology. Plan for screening labs, CT abdomen/pelvis, IV fluid hydration, IV morphine, IV Zofran. Will monitor and reassess. Labs show hypokalemia, mild leukocytosis. CT abdomen pelvis negative per radiology. Patient reports feeling much better after medication and would like to go. Passed p.o. challenge without issue. Patient given GI cocktail, plan for outpatient Protonix for suspected gastritis versus PUD, and outpatient follow-up with surgery/GI for EGD. I had a lengthy discussion with the patient regarding return to emergency department precautions and importance of outpatient follow-up with PCP and GI/surgery. Patient verbalized understanding of plan and is amenable. All questions were answered. Potassium was not repleted during ED visit, and and her hypokalemia was not noted in her discharge instructions although we did discuss it prior to her discharge. I called the patient at home several hours after discharge from the emergency department. She reported that she was feeling very well without pain or nausea and has been eating and drinking without issue. I again discussed hypokalemia and need for repletion, potassium prescription was called in by me to [facility] as patient requested. All questions were answered. Medical Records Medical records reviewed: Yes I reviewed the patient's medical records. Imaging Data Radiologic Study: Attestation: I personally reviewed and interpreted this imaging study as follows: Radiologist's impression: CT SCAN OF THE ABDOMEN AND PELVIS: CT scan of the abdomen and pelvis was performed following the uneventful administration of intravenous contrast material. Comparisons are 11/18/17 and 04/02/14. The visualized lung bases are clear. The liver is normal in size. There is focal fatty infiltration seen at the falciform ligament. No suspicious hepatic mass is seen. The portal, superior mesenteric and splenic veins are patent. The gallbladder is negative. There is no biliary ductal dilatation. The pancreas, spleen and adrenal glands are unremarkable. The kidneys show normal and symmetric enhancement. No evidence of a solid renal mass is seen. There are two nonobstructing stones seen in the mid pole of the left kidney and three small nonobstructing stones seen in the mid and lower pole of the right kidney. No ureterolithiasis or hydronephrosis is identified. The urinary bladder is intact. The reproductive organs are grossly unremarkable as visualized. There is a trace amount of free fluid in the cul-de-sac, which is likely physiologic. The abdominal aorta is of normal caliber. No significant abdominal or pelvic adenopathy or pneumoperitoneum is present. The bowel shows no evidence of obstruction or inflammation. There is a normal appendix present. IMPRESSION: No evidence of an acute abdomen. Lab Data Lab results reviewed: Yes I reviewed the patient's lab results. HPI General Mode of arrival: ambulatory . Date/Time Provider Initiated Documentation: 10/08/18 12:18 . Limitations to Documentation: no limitations . Information obtained by: patient, RN notes reviewed and old records reviewed . HPI Narrative: Destiney Springer is a 48-year-old woman with history of depression, hypertension, kidney stones in the past, peptic ulcer disease who presents the emergency department epigastric pain and vomiting. Patient reports she has had 2 months of intermittent epigastric pain, this is similar to pain that she had the past when she was diagnosed with peptic ulcer disease. Patient reports that for the past 2 or 3 days she has been vomiting, and has been unable to hold food or fluids down. She reports that her epigastric pain has become much worse. She denies shortness of breath, cough, fevers, diarrhea, rash, any other pain. She has been constipated, and does not know when her last bowel movement was but believes it was several days ago. No history of abdominal surgery in the past. No other recent illness or recent travel. Related Data Home Medications Medication Instructions Recorded Confirmed venlafaxine [Effexor XR] 150 mg PO HS 03/02/13 10/09/18 topiramate [Topamax] 100 mg PO BID 01/27/14 10/09/18 alprazolam [Xanax] 3 mg PO DAILY 09/11/14 10/09/18 aripiprazole [Abilify] 10 mg PO .QHS 11/18/17 10/09/18 ondansetron 4 mg PO .q8hr PRN #6 tab 10/08/18 10/09/18 pantoprazole [Protonix] 40 mg PO DAILY #30 tab 10/08/18 10/09/18 famotidine [Pepcid] 20 mg PO BID 42 Days #84 tab 10/09/18 Previous Rx's Medication Instructions Recorded ondansetron 4 mg PO .q8hr PRN #6 tab 10/08/18 pantoprazole [Protonix] 40 mg PO DAILY #30 tab 10/08/18 famotidine [Pepcid] 20 mg PO BID 42 Days #84 tab 10/09/18 Allergies Allergy/AdvReac Type Severity Reaction Status Date / Time No Known Allergies Allergy Unverified 10/09/18 15:22 General Stated Complaint: Abd Prob RAJEEV: 3 Review of Systems Review of Systems Constitutional: denies fevers Eyes: denies eye pain ENT: denies facial pain, dental pain, sore throat Cardiovascular: denies chest pain, edema Respiratory: denies SOB, cough GI: Reports abdominal pain, vomiting constipation, denies diarrhea : denies flank pain, dysuria MSK: denies back pain, neck pain, arthralgias, myalgias Skin: denies rash Neuro: denies headaches, numbness, weakness PFSH Medical History Endometriosis GERD (gastroesophageal reflux disease) Hiatal hernia Social History Smoking/Tobacco Use Status: Current every day Drug use: Occasionally Do you feel safe in your relationship?: Yes Exam Narrative Exam Narrative: Constitutional: well and [id number], pleasant, conversing normally HENT: head atraumatic/normocephalic/normal inspection, mucous membranes moist Eyes: conjunctiva normal, sclera normal, pupils 3mm b/l Neck: no stridor, normal ROM, trachea midline Chest: normal inspection Resp: normal work of breathing, LCTAB Cardio: normal rate, normal rhythm, no murmur appreciated GI: abdomen soft, non-distended, tender across the upper abdomen, negative Alvarez sign, no rebound or guarding Back: normal inspection, no rash Skin: warm, dry, normal color, no rash Neuro: alert, not altered, grossly non-focal, normal tone Ext: no edema Psych: normal mood, normal affect, normal behavior
[2018-10-08 16:14] VITALS: O2SAT 97
[2018-10-08] MEDS: Mylanta Suspension 30 ML CUP (16:15)
[2018-10-08] MEDS: Ondansetron O.D.T. 4 MG TABEF (16:16)
[2018-10-08] MEDS: Lidocaine 2% Viscous 15 ML CUP (16:16)
== END 2018-10-08 16:25 | disposition home or self-care (01) ==
PROVIDERS: Emergency Provider Student in an Organized Health Care Education/Training Program; PCP Nurse Practitioner Family
DX: R10.13 Epigastric pain (principal); R11.2 Nausea with vomiting, unspecified; E87.6 Hypokalemia; I10 Essential (primary) hypertension
CPT/HCPCS: 36415; 80053; 81025; 83690; 96374; 96375; 99285; 74177; 81003; 81015; 85025; 99284; J2405; J3490

== ENCOUNTER 2018-10-09 11:13 | Emergency (ER) | payer MEDICAID, SELFPAY ==
[2018-10-09] VITALS (52 sets, daily range): BP systolic 108–166; BP diastolic 77–120; PULSE 51–98; RESP 9–23; TEMP 36.5–36.9; O2SAT 95–100
[2018-10-09] MEDS: Lactated Ringers 1,000 ML 1000 ML IV ×2 (11:55→13:39)
[2018-10-09] MEDS: Mylanta Suspension 30 ML CUP PO (12:04)
[2018-10-09] MEDS: Ondansetron 4 MG/2 ML VIAL IVP (12:04)
[2018-10-09 12:06] LABS: Abs Immature Grans 0.05 k/cumm (0.0-0.09); Absolute Eosinophil Count 0.14 k/cumm (0.0-0.7); Absolute Monocyte Count 0.84 k/cumm (0.11-0.7); Absolute Neutrophil Count 14.72 k/cumm (1.2-6.7); Basophils % 0.2; Eosinophils % 0.8; HCT 44.8 % (36.0-46.0); HGB 15.2 g/dL (12.0-15.5); Immature Grans % 0.3; Lymphocytes % 9.4; Mean Corp. HGB Concentration 33.9 g/dL (32.0-36.0); Mean Corpuscular Hemoglobin 29.9 pg (27.0-33.0); Mean Corpuscular Volume 88.2 fL (80-95); Mean Platelet Volume 10.1 fL (8.0-11.0); Monocytes % 4.8; Neutrophils % 84.5; Platelet Count 340 x1000/uL (130-400); RBC 5.08 m/cumm (4.00-5.20); RBC Distribution Width 12.6 % (11.7-14.6); White Blood Cell Count 17.42 k/cumm (4.4-10.8)
[2018-10-09 12:07] LABS: Absolute Basophil Count 0.03 k/cumm (0.0-0.2); Absolute Lymphocyte Count 1.64 k/cumm (1.2-3.4)
[2018-10-09] MEDS: FAMOTIDINE 20 MG/50 ML BAG 200 MG IVPB (12:08)
[2018-10-09 12:21] LABS: Lipase 56 U/L (73-393)
[2018-10-09 12:24] LABS: ALT 21 U/L (12-78); AST 16 U/L (15-37); Albumin 4.4 g/dL (3.4-5.0); Alkaline Phosphatase 83 U/L (46-116); Anion Gap 10.9 mmol/L (3-11); BUN 8 mg/dL (7-18); Bilirubin, Total 0.5 mg/dL (0.2-1.0); CO2 30.1 mmol/L (21.0-32.0); CREATININE 1.05 mg/dL (0.55-1.02); Calcium 9.3 mg/dL (8.5-10.1); Chloride 99 mmol/L (98-107); Estimated GFR 58.97 (mL/min/1.73m2); Glucose 100 mg/dL (70-100); Magnesium 1.9 mg/dL (1.8-2.4); Sodium 140 mmol/L (136-145); Total Protein 8.1 g/dL (6.4-8.2)
[2018-10-09] MEDS: POTASSIUM CHLORIDE 20 MEQ/100 ML BAG 50 MEQ IVPB ×2 (12:24→14:54)
--- NOTE | 2018-10-09 12:38 | ED.GENADUL_ITS ---
Discharge Plan Disposition Patient Disposition: HOME Discharge Details Chief Complaint: Abd Prob Clinical Impression: Epigastric abdominal pain, History of peptic ulcer disease Primary Care Provider: Deidra Hawkins ED Provider: Itz Vora Home Meds and New Rx's Prescriptions: New famotidine [Pepcid] 20 mg tablet 20 mg PO BID 42 Days Qty: 84 RF: 0 Continued venlafaxine [Effexor XR] 150 MG capsule,extended release 24hr 150 mg PO HS RF: 0 topiramate [Topamax] 100 MG tablet 100 mg PO BID RF: 0 alprazolam [Xanax] 1 MG tablet 3 mg PO DAILY RF: 0 pantoprazole [Protonix] 40 mg tablet,delayed release (DR/EC) 40 mg PO DAILY Qty: 30 RF: 0 ondansetron 4 mg tablet,disintegrating 4 mg PO .q8hr PRN (Reason: nausea and vomiting) Qty: 6 RF: 0 aripiprazole [Abilify] 5 MG tablet 10 mg PO .QHS RF: 0 Discharge Instructions Instructions: Epigastric Pain (ED) Additional Instructions: Please contact your primary care physician to arrange follow-up. Please contact gastroenterology to arrange follow-up. Please take medication as prescribed. Maintain a clear liquid diet tonight and tomorrow. Tomorrow evening, if you are feeling better, you can advance her diet slowly to bland soft foods. Return to the ER for any worsening or new concerning symptoms. Referrals: Deidra Hawkins [Primary Care Provider] - Discharge Data Discharge Date/Time-TO BE ENTERED AT DEPARTURE: 10/09/18 21:03 Medical Decision Making 12:00-- 38yo f with history of peptic ulcer disease, GERD, hypertension, here today with recurrent epigastric abdominal pain and tenderness with nausea and vomiting. Patient has no peritoneal findings on exam. Yesterday she had a CT of the abdomen pelvis was interpreted as follows: CT SCAN OF THE ABDOMEN AND PELVIS: CT scan of the abdomen and pelvis was performed following the uneventful administration of intravenous contrast material. Comparisons are 11/18/17 and 04/02/14. The visualized lung bases are clear. The liver is normal in size. There is focal fatty infiltration seen at the falciform ligament. No suspicious hepatic mass is seen. The portal, superior mesenteric and splenic veins are patent. The gallbladder is negative. There is no biliary ductal dilatation. The pancreas, spleen and adrenal glands are unremarkable. The kidneys show normal and symmetric enhancement. No evidence of a solid renal mass is seen. There are two nonobstructing stones seen in the mid pole of the left kidney and three small nonobstructing stones seen in the mid and lower pole of the right kidney. No ureterolithiasis or hydronephrosis is identified. The urinary bladder is intact. The reproductive organs are grossly unremarkable as visualized. There is a trace amount of free fluid in the cul-de-sac, which is likely physiologic. The abdominal aorta is of normal caliber. No significant abdominal or pelvic adenopathy or pneumoperitoneum is present. The bowel shows no evidence of obstruction or inflammation. There is a normal appendix present. IMPRESSION: No evidence of an acute abdomen. I suspect she is suffering from gastritis and that she needs longer bowel rest. She did have hypokalemia yesterday and is yet to start potassium. I will give her potassium IV at this time. Patient is having active nausea vomiting. I will give Zofran IV. Patient be treated with Pepcid IV. I will reassess. 13:00 --labs reviewed: LFTs and lipase normal, she continues to have jair kocytosis On reassessment, patient continues to have discomfort and is requesting opioid analgesia. Will give low-dose morphine and obtain upright chest x-ray. 14:52 -- Patient reassessed and was resting. Now with nausea again. Will give reglan. Labs reviewed and persistent hypokalemia. Will give additional potassium 20meq IV. cxr interpreted by radiology: PA CHEST: The heart is normal in size. The lungs are clear. The mediastinal structures and pleura appear intact Impression: Normal chest. FLAT AND UPRIGHT ABDOMEN: No pneumoperitoneum or organomegaly is seen. No evidence of bowel obstruction is present. The bones appear intact. Impression: No evidence of an acute abdomen. -- Patient given compazine and benadryl. 19:35 -- Pt reassessed multiple times. She has improved. Abdomen reexamined: continues to have pain epigastric, no tenderness, no rebound, soft. Patient tolerating PO fluids and ambulating to bathroom with no discomfort. Patient notes that she is feeling well enough to go home and would prefer to be discharged. Disposition decision was made weighing the risks and benefits of hospitalization versus outpatient treatment, the risk for further decompensation, and the patient's wishes. The patient was stable and requested discharge. Prior to discharge, my usual and customary return precautions were reviewed with the patient - this included follow-up instructions and reason to return to the emergency department if condition worsens, does not improve as expected, or other new concerns arise. Plan to continue PPI and start pepcid. Patient was advised to follow-up with gastroenterology at [facility] where she is been seen in the past for endoscopy. I will ask care management to assist in arranging this follow-up. HPI General Mode of arrival: ambulatory . Date/Time Provider Initiated Documentation: 10/09/18 11:16 . Limitations to Documentation: no limitations . Information obtained by: patient . HPI Narrative: 38-year-old female with history of peptic ulcer disease, GERD, hypertension, renal stones, presents today with chief complaint of epigastric abdominal pain. Patient notes pain is been worsening for the past few days. She was seen here yesterday in the emerge department for the same pain. She had a CT of the abdomen pelvis that was nondiagnostic. Laboratory workup did reveal mild hypokalemia. She was given analgesia, antiacids and antiemetic yesterday and significantly improved. She notes that she was doing well last night and advanced her diet and this morning after waking up she again developed recurrent pain same as yesterday as well as nausea. Patient denies melena or bright red blood per rectum. Related Data Home Medications Medication Instructions Recorded Confirmed venlafaxine [Effexor XR] 150 mg PO HS 03/02/13 10/09/18 topiramate [Topamax] 100 mg PO BID 01/27/14 10/09/18 alprazolam [Xanax] 3 mg PO DAILY 09/11/14 10/09/18 aripiprazole [Abilify] 10 mg PO .QHS 11/18/17 10/09/18 ondansetron 4 mg PO .q8hr PRN #6 tab 10/08/18 10/09/18 pantoprazole [Protonix] 40 mg PO DAILY #30 tab 10/08/18 10/09/18 famotidine [Pepcid] 20 mg PO BID 42 Days #84 tab 10/09/18 Previous Rx's Medication Instructions Recorded ondansetron 4 mg PO .q8hr PRN #6 tab 10/08/18 pantoprazole [Protonix] 40 mg PO DAILY #30 tab 10/08/18 famotidine [Pepcid] 20 mg PO BID 42 Days #84 tab 10/09/18 Allergies Allergy/AdvReac Type Severity Reaction Status Date / Time No Known Allergies Allergy Unverified 10/09/18 15:22 General Stated Complaint: Abd Prob RAJEEV: 3 Review of Systems Review of Systems All systems reviewed & are unremarkable except as noted in HPI and below Gastrointestinal Reports as per HPI, Reports abdominal pain, Denies melena, Denies hematochezia, Denies coffee ground emesis, Reports vomiting and Denies hematemesis PFSH Medical History Endometriosis GERD (gastroesophageal reflux disease) Hiatal hernia Surgical History Extracorporeal shock wave lithotripsy Ligation of fallopian tube Social History Smoking and Tabacco status: Current every day Exam Const General: cooperative and no acute distress HENMT Mouth: mucous membranes dry Eyes Conjunctivae: normal conjunctivae Sclera: normal sclerae EOM: EOM intact bilaterally Neck Neck: trachea midline and supple Resp Auscultation: clear to auscultation bilaterally, no rales, no rhonchi and no wheezes Cardio Jugular venous pressure: no JVD Rate: regular rate and not tachycardic Rhythm: regular rhythm GI Inspection: non-distended Palpation: soft, not firm, no guarding, no masses, not rigid and tender in the epigastrum Skin General skin exam: no rashes or lesions noted Neuro General: alert, awake, oriented x3 and tone normal Extrem General: no edema Psych Appearance: grossly normal Course Vital Signs Temperature 36.5 C 10/09/18 11:17 Pulse 81 10/09/18 11:17 Respiratory Rate 14 10/09/18 11:17 Blood Pressure 150/108 H 10/09/18 11:17 Pulse Oximetry 98 10/09/18 11:17 Temperature 36.6 C 10/09/18 12:30 Temperature Source Skin 10/09/18 12:30 Pulse 67 10/09/18 12:30 Respiratory Rate 12 10/09/18 12:30 Respiratory Effort Non-Labored 10/09/18 11:23 Blood Pressure 129/78 10/09/18 12:30 Blood Pressure Position Sitting 10/09/18 11:17 Pulse Oximetry 97 10/09/18 12:30 Oxygen Delivery Method Room Air 10/09/18 12:30 Oxygen Flow Rate 0 10/09/18 12:30 Pain Level 9 10/09/18 12:30 Lab/Test Results Lab/Test Results: Laboratory Tests Range/Units 10/09/18 10/09/18 10/09/18 11:55 11:55 11:55 WBC (4.4-10.8) k/cumm 17.42 H D RBC (4.00-5.20) m/cumm 5.08 Hgb (12.0-15.5) g/dL 15.2 Hct (36.0-46.0) % 44.8 MCV (80-95) fL 88.2 MCH (27.0-33.0) pg 29.9 MCHC (32.0-36.0) g/dL 33.9 RDW (11.7-14.6) % 12.6 Plt Count (130-400) x1000/uL 340 MPV (8.0-11.0) fL 10.1 Immature Gran % 0.3 Neutrophils % 84.5 Lymphocytes % 9.4 Monocytes % 4.8 Eosinophils % 0.8 Basophils % 0.2 Absolute Neutrophils (1.2-6.7) k/cumm 14.72 H Absolute Lymphocytes (1.2-3.4) k/cumm 1.64 Absolute Monocytes (0.11-0.7) k/cumm 0.84 H Absolute Eosinophils (0.0-0.7) k/cumm 0.14 Absolute Basophils (0.0-0.2) k/cumm 0.03 Sodium (136-145) mmol/L 140 Potassium (3.5-5.1) mmol/L 3.0 L Chloride (98-107) mmol/L 99 Carbon Dioxide (21.0-32.0) mmol/L 30.1 Anion Gap (3-11) mmol/L 10.9 BUN (7-18) mg/dL 8 Creatinine (0.55-1.02) mg/dL 1.05 H Estimated GFR/1.73 m2 (mL/min/1.73m2) 58.97 Glucose (70-100) mg/dL 100 Calcium (8.5-10.1) mg/dL 9.3 Magnesium (1.8-2.4) mg/dL 1.9 Total Bilirubin (0.2-1.0) mg/dL 0.5 AST (15-37) U/L 16 ALT (12-78) U/L 21 Alkaline Phosphatase (46-116) U/L 83 Troponin I Cancelled Total Protein (6.4-8.2) g/dL 8.1 Albumin (3.4-5.0) g/dL 4.4 Lipase (73-393) U/L 56 L
--- NOTE | 2018-10-09 12:38 | DI.RAD_ITS ---
SYMPTOMS/DIAGNOSIS: EPIGASTRIC ABDOMINAL PAIN, PUD ACUTE ABDOMINAL SERIES: Comparison 07/16/18. PA CHEST: The heart is normal in size. The lungs are clear. The mediastinal structures and pleura appear intact. IMPRESSION: Normal chest. FLAT AND UPRIGHT ABDOMEN: No pneumoperitoneum or organomegaly is seen. No evidence of bowel obstruction is present. The bones appear intact. IMPRESSION: No evidence of an acute abdomen.
[2018-10-09] MEDS: MORPHine 10 MG/ML VIAL 2 MG IVP (12:47)
[2018-10-09] MEDS: Lactated Ringers 1,000 ML 150 ML IV (14:48)
[2018-10-09] MEDS: Acetaminophen 325 MG TAB 650 MG PO (15:20)
[2018-10-09] MEDS: diphenhydrAMINE 50 MG/ML VIAL 25 MG IVP (15:32)
[2018-10-09] MEDS: Prochlorperazine 10 MG/2 ML VIAL IVP (15:34)
--- NOTE | 2018-10-09 18:52 | NUR.NOTE ---
Pt tolerating po fluids - water
[2018-10-09] MEDS: Famotidine 20 MG TAB PO (19:56)
--- NOTE | 2018-10-10 08:07 | CMPROGNOTE_ITS ---
Care Management Progress Note 10/10-Dr. Shaista Vora requested assistance with a PCP (Ross) f/u as soon as possible for peptic ulcer disease. Patient has been seen two consecutive days in the ED regarding this issue. Referral faxed to [facility] this am.
--- NOTE | 2018-10-10 20:48 | W.ED.FU ---
Mom called the ER multiple times today stating that patient had several episodes of vomiting. She stated that she only took the Zofran once today. She was instructed that she could take the 4 mg tab of Zofran she was given every 6-8 hours if needed. She was instructed to wait 20-30 minutes, and then to attempt p.o. Mom had requested an anti-emetic suppository. Upon review of patient medication list, there is an interaction of Effexor with Compazine or Phenergan suppository with risk of serotonin syndrome. Upon review of chart from 2 separate ED visits this week for vomiting and abdominal pain, she was noted to have a negative CT abdomen and chest and abdominal x-ray as well as leukocytosis and hypokalemia. Patient was prescribed Zofran after her ED visit this week. She has been otherwise tolerating it well with no complaint of other acute symptoms suggestive of serotonin syndrome per mom. Discussed with mom that if she is concerned about patient's persistent symptoms, and inability to take p.o., she should return patient immediately to the emergency department. Mom would rather not return to the ED at this time and instead is requesting an additional prescription for Zofran. I discussed that there is a risk of serotonin syndrome with Zofran and Effexor, but as she has previously tolerated this this week, will send a prescription to [facility] for an additional 5 tabs. She is instructed to have patient follow-up with primary care doctor as soon as possible and to return here immediately with any worsening symptoms.
== END 2018-10-09 21:03 | disposition home or self-care (01) ==
PROVIDERS: Emergency Provider Student in an Organized Health Care Education/Training Program; PCP Nurse Practitioner Family
DX: R10.13 Epigastric pain (principal); R11.2 Nausea with vomiting, unspecified; I10 Essential (primary) hypertension; K21.9 Gastro-esophageal reflux disease without esophagitis; Z87.11 Personal history of peptic ulcer disease
CPT/HCPCS: 36415; 80053; 83690; 96361; 96365; 96366; 96367; 96375; 99284; 74022; 83735; 84484; 85025; J0780; J1200; J2270; J2405; J3480

== ENCOUNTER 2018-10-14 16:54 | Outpatient (REF) | payer MEDICAID, SELFPAY ==
[2018-10-14 21:57] LABS: Bilirubin Small (Negative); Blood Trace-intact (Negative); Clarity Cloudy; Glucose Negative (Negative); Ketones 15 mg/dL (Negative); Leukocyte Esterase Trace (Negative); Nitrite Negative (Negative); Specific Gravity >= 1.030 (1.005-1.025); Urobilinogen 0.2 EU/dL (Up TO 0.2); pH 6.5 (5-8)
[2018-10-14 22:04] LABS: C & S Indicated? No/Sq. Contamination
== END 2018-10-14 17:14 ==
LOC: NCHCN 16:54
PROVIDERS: PCP Nurse Practitioner Family; Visit Provider Nurse Practitioner Family
DX: R10.9 Unspecified abdominal pain (principal)
CPT/HCPCS: 81003; 81015

== ENCOUNTER 2019-01-03 12:17 | Emergency (ER) | payer MEDICAID, SELFPAY ==
[2019-01-03 12:23] VITALS: BP 136/91; PULSE 112; RESP 16; TEMP 36.6; O2SAT 98
--- NOTE | 2019-01-03 12:51 | NUR.NOTE ---
Nursing Note: Per [facility] the patient stated to them that she did not have time to wait and left without being seen. Jessica Root.
== END 2019-01-03 12:45 | disposition left before discharge ==
PROVIDERS: PCP Nurse Practitioner Family
DX: Z53.21 Procedure and treatment not carried out due to patient leaving prior to being seen by health care provider (principal)

== ENCOUNTER 2019-01-04 11:04 | Emergency (ER) | payer MEDICAID, SELFPAY ==
--- NOTE | 2019-01-04 11:13 | NUR.NOTE ---
pt has had significant pain in top right molar for past month pt has anointment to have ti removed on Saturday. pt states that pain has greatly increased past 4 days
[2019-01-04 11:14] VITALS: BP 114/74; PULSE 88; RESP 17; TEMP 36.7; O2SAT 96
[2019-01-04 12:39] VITALS: RESP 16
--- NOTE | 2019-01-04 12:45 | ED.GENADUL_ITS ---
Discharge Plan Disposition Patient Disposition: HOME Condition: Stable Discharge Details Chief Complaint: DentalOral Clinical Impression: Pain due to dental caries Primary Care Provider: Deidra Hawkins ED Provider: John Luque Home Meds and New Rx's Prescriptions: Continued venlafaxine [Effexor XR] 150 MG capsule,extended release 24hr 150 mg PO HS RF: 0 topiramate [Topamax] 100 MG tablet 100 mg PO BID RF: 0 alprazolam [Xanax] 1 MG tablet 3 mg PO DAILY RF: 0 pantoprazole [Protonix] 40 mg tablet,delayed release (DR/EC) 40 mg PO DAILY Qty: 30 RF: 0 aripiprazole [Abilify] 5 MG tablet 10 mg PO .QHS RF: 0 Discharge Instructions Instructions: Dental Caries (ED) Additional Instructions: Return to the emergency department if you develop a fever, swelling to your face, significant change your symptoms. Otherwise continue to use acetaminophen 650 mg along with 600mg of ibuprofen every 6 hour. Keep your appointment with your oral surgeon as previously arranged for definitive treatment of your tooth. Referrals: Deidra Hawkins [Primary Care Provider] - (As needed for reassessment) Discharge Data Discharge Date/Time-TO BE ENTERED AT DEPARTURE: 01/04/19 12:53 Medical Decision Making Dental pain for 4 days now in right upper jaw. Patient states that she had seen a dentist and informed that she had a tooth extraction and was referred to a oral surgeon. Patient states increase of pain over these past 4 days. Patient denies any fever, swelling to the face, difficulty swallowing. She does state some of the pain radiates into the ear and neck. Physical exam shows a significant dental carry of tooth #2 with tooth loss. There is no erythema fluctuance or swelling surrounding the tooth and no signs of infection. Patient has no other emergent findings, no retropharyngeal or peritonsillar abscess, no Henry's angina, otherwise unremarkable exam. I feel that patient's discomfort is more associated to dental caries and tooth loss and possible nerve exposure. I do not feel the patient needs antibiotics at this time and she does state that she already has appointment arranged for oral surgeon on Saturday. I feel that it is appropriate to wait to start antibiotic unless patient has worsening symptoms or more obvious findings for infection. Patient was agreeable to dental block and gave verbal consent after discussion of risk versus benefit. And she was injected with 1.8 mL's of 1% lidocaine mixed with 0.5 of bupivacaine. Patient tolerated procedure well and had full resolution of pain after procedure. Patient encouraged use [id number] pain medication and return precautions were discussed HPI General Mode of arrival: ambulatory . Date/Time Provider Initiated Documentation: 01/04/19 12:45 . Limitations to Documentation: no limitations . Information obtained by: patient . History of Present Illness 38 year old F presents to the emergency department with the chief complaint of Dental pain, described as severe, with intensity rated at 8. Quality is described as sharp, and is localized to the mouth. Patient started experiencing this day(s) (4) and it has been constant. No relieving factors improve symptom(s), Patient notes no other symptoms.. Patient did receive the following treatments prior to arrival, NSAID Related Data Home Medications Medication Instructions Recorded Confirmed venlafaxine [Effexor XR] 150 mg PO HS 03/02/13 01/04/19 topiramate [Topamax] 100 mg PO BID 01/27/14 01/04/19 alprazolam [Xanax] 3 mg PO DAILY 09/11/14 01/04/19 aripiprazole [Abilify] 10 mg PO .QHS 11/18/17 01/04/19 pantoprazole [Protonix] 40 mg PO DAILY #30 tab 10/08/18 01/04/19 Previous Rx's Medication Instructions Recorded pantoprazole [Protonix] 40 mg PO DAILY #30 tab 10/08/18 Allergies Allergy/AdvReac Type Severity Reaction Status Date / Time No Known Allergies Allergy Unverified 01/04/19 11:16 General Stated Complaint: DentalOral RAJEEV: 3 Review of Systems Constitutional Denies chills and Denies fever(s) ENT Reports as per HPI, Denies change in voice, Reports dental pain, Denies dysphagia, Denies throat swelling and Denies tongue swelling Cardiovascular Denies chest pain and Denies dyspnea Respiratory Denies dyspnea, Denies stridor and Denies wheezing Gastrointestinal Denies abdominal pain, Denies dysphagia, Denies nausea and Denies vomiting Integumentary/Breasts Denies rash Allergic/Immunologic Denies throat swelling, Denies tongue swelling and Denies wheezing [facility] Social History Smoking/Tobacco Use Status: Current every day Tobacco Type: cigarettes Alcohol Intake: never Drug use: Occasionally Substance use type: does not use Do you feel safe at home: Yes Do you feel safe in your relationship?: Yes Exam Const General: cooperative Orientation: alert, awake and oriented x3 Limitations: mental status not altered [facility] Head: normal to inspection, normocephalic and atraumatic Ears: hearing grossly normal bilaterally, normal mastoids bilaterally and no periauricular adenopathy General nose exam: external nose normal Mouth: oropharynx normal, no drooling, no muffled voice, normal tongue and no trismus Teeth and gingiva: caries, poor dentition and other (Partially fractured tooth #2 ) Throat: posterior oropharynx normal, tonsils normal and uvula midline Eyes General: appearance normal, both eyes and all related structures Pupils: PERRL Neck Neck: normal visual inspection, full ROM, no lymphadenopathy, no meningeal signs, trachea midline, supple, no anterior neck swelling and no midline deformity Resp Effort & Inspection: normal respiratory effort and able to speak in complete sentences Course Vital Signs Temperature 36.7 C 01/04/19 11:14 Pulse 88 01/04/19 11:14 Respiratory Rate 17 01/04/19 11:14 Blood Pressure 114/74 01/04/19 11:14 Pulse Oximetry 96 01/04/19 11:14 Temperature 36.7 C 01/04/19 11:14 Temperature Source Skin 01/04/19 11:14 Pulse 88 01/04/19 11:14 Respiratory Rate 16 01/04/19 12:39 Respiratory Effort 01/04/19 11:17 Blood Pressure 114/74 01/04/19 11:14 Blood Pressure Position Sitting 01/04/19 11:14 Pulse Oximetry 96 01/04/19 11:14 Oxygen Delivery Method Room Air 01/04/19 11:14 Oxygen Flow Rate 0 01/04/19 11:14 Pain Level 8 01/04/19 11:14
[2019-01-04 12:57] VITALS: BP 114/74; PULSE 88; RESP 16; TEMP 36.7; O2SAT 96
== END 2019-01-04 12:53 | disposition home or self-care (01) ==
PROVIDERS: Emergency Provider Nurse Practitioner Family; PCP Nurse Practitioner Family
DX: K08.89 Other specified disorders of teeth and supporting structures (principal); K02.9 Dental caries, unspecified
CPT/HCPCS: 64400

== ENCOUNTER 2019-05-29 09:23 | Emergency (ER) | payer MEDICAID, SELFPAY ==
[2019-05-29 09:28] VITALS: BP 127/76; PULSE 101; RESP 18; TEMP 37.1; O2SAT 97
--- NOTE | 2019-05-29 09:37 | W.ED.GENAD ---
Discharge Plan Disposition Patient Disposition: HOME Condition: Stable Discharge Details Chief Complaint: RespSymp Clinical Impression: Bronchitis Primary Care Provider: Deidra Hawkins ED Provider: Jairo Hernández Home Meds and New Rx's Prescriptions: New prednisone 20 mg tablet 60 mg PO DAILY 4 Days Qty: 12 RF: 0 azithromycin 250 mg tablet See Rx Instructions .ROUTE .COMPLEX Qty: 6 RF: 0 Continued venlafaxine [Effexor XR] 150 MG capsule,extended release 24hr 150 mg PO HS RF: 0 topiramate [Topamax] 100 MG tablet 100 mg PO BID RF: 0 alprazolam [Xanax] 1 MG tablet 3 mg PO DAILY RF: 0 pantoprazole [Protonix] 40 mg tablet,delayed release (DR/EC) 40 mg PO DAILY Qty: 30 RF: 0 aripiprazole [Abilify] 5 MG tablet 10 mg PO .QHS RF: 0 Discharge Instructions Instructions: Acute Bronchitis (ED) Additional Instructions: drink fluids to stay hydrated if not better by next week see your primary care provider if you feel more ill or have worsening shortness of breath return to the emergency department Stand Alone Forms: Work Release Medical Decision Making 39 yo male with no chronic medical problems comes in with a week of productive cuogh. Denies any high fevers or recent travel. She is speaking in full sentences on exam in n odistress. Does have some mild wheezing at the right lung base otherwise clear lungs, does have clear rhinorrhea. Has stable vital signs and normal oxygenation so do not feel xray indicated. Will start on azithromycin to cover for mycoplasma and also prednisone. Advised f/u with pcp and return precautions given Differential Diagnosis Differential Diagnosis: uri, bronchitis, pna HPI General Mode of arrival: ambulatory. Date/Time Provider Initiated Documentation: 05/29/19 09:24. Limitations to Documentation: no limitations. Information obtained by: patient. History of Present Illness 39 year old F presents to the emergency department with the chief complaint of cough, described as moderate, Patient started experiencing this week(s) (1) and it has been constant. No relieving factors improve symptom(s), No exacerbating factors reported . Patient did receive the following treatments prior to arrival, none Related Data Home Medications Medication Instructions Recorded Confirmed venlafaxine [Effexor XR] 150 mg PO HS 03/02/13 05/29/19 topiramate [Topamax] 100 mg PO BID 01/27/14 05/29/19 alprazolam [Xanax] 3 mg PO DAILY 09/11/14 05/29/19 aripiprazole [Abilify] 10 mg PO .QHS 11/18/17 05/29/19 pantoprazole [Protonix] 40 mg PO DAILY #30 tab 10/08/18 01/04/19 azithromycin See Rx Instructions .ROUTE 05/29/19 .COMPLEX #6 tab prednisone 60 mg PO DAILY 4 Days #12 tab 05/29/19 Previous Rx's Medication Instructions Recorded pantoprazole [Protonix] 40 mg PO DAILY #30 tab 10/08/18 azithromycin See Rx Instructions .ROUTE 05/29/19 .COMPLEX #6 tab prednisone 60 mg PO DAILY 4 Days #12 tab 05/29/19 Allergies Allergy/AdvReac Type Severity Reaction Status Date / Time No Known Allergies Allergy Unverified 01/04/19 11:16 General Stated Complaint: RespSymp RAJEEV: 4 Review of Systems All systems reviewed & are unremarkable except as noted in HPI and below Constitutional Constitutional: Denies fever(s) and Denies weakness Cardiovascular Cardiovascular: Denies chest pain Gastrointestinal Gastrointestinal: Denies abdominal pain, Denies nausea and Denies vomiting Musculoskeletal Musculoskeletal: Denies joint swelling Neurologic Neurologic: Denies weakness [facility] Social History Smoking/Tobacco Use Status: Current every day Tobacco Type: cigarettes Alcohol Intake: never Substance use type: does not use Do you feel safe at home: Yes Do you feel safe in your relationship?: Yes Exam Const General: no acute distress Orientation: alert [facility] Head: normal to inspection Ears: external ears normal General nose exam: external nose normal Mouth: moist mucous membranes Eyes General: appearance normal, both eyes and all related structures Neck Neck: normal visual inspection Resp Effort & Inspection: normal respiratory effort and able to speak in complete sentences Cardio Rate: regular rate Skin General skin exam: no rashes or lesions noted Neuro General: alert and oriented x3 Extrem General: normal to inspection Psych Mental Status: mental status grossly normal Course Vital Signs Vital signs: Vital Signs Temperature 37.1 C 05/29/19 09:28 Pulse 101 H 05/29/19 09:28 Respiratory Rate 18 05/29/19 09:28 Blood Pressure 127/76 05/29/19 09:28 Pulse Oximetry 97 05/29/19 09:28 Temperature 37.1 C 05/29/19 09:28 Temperature Source Temporal Artery Scan 05/29/19 09:28 Pulse 101 H 05/29/19 09:28 Respiratory Rate 18 05/29/19 09:28 Respiratory Effort Non-Labored 05/29/19 09:28 Blood Pressure 127/76 05/29/19 09:28 Blood Pressure Position Sitting 05/29/19 09:28 Pulse Oximetry 97 05/29/19 09:28 Oxygen Delivery Method Room Air 05/29/19 09:28 Oxygen Flow Rate 0 05/29/19 09:28 Pain Level 6 05/29/19 09:28
== END 2019-05-29 09:45 | disposition home or self-care (01) ==
PROVIDERS: Emergency Provider Emergency Medicine; PCP Nurse Practitioner Family
DX: J20.9 Acute bronchitis, unspecified (principal)
CPT/HCPCS: 99283

== ENCOUNTER 2019-07-17 15:16 | Emergency (ER) | payer MEDICAID, SELFPAY ==
[2019-07-17 15:18] VITALS: BP 125/76; PULSE 104; RESP 14; TEMP 36.7; O2SAT 100
--- NOTE | 2019-07-17 16:19 | ED.GENADUL_ITS ---
Discharge Plan Disposition Patient Disposition: HOME Condition: Good Discharge Details Chief Complaint: Orthopedic Clinical Impression: Ankle sprain Primary Care Provider: Deidra Hawkins ED Provider: Treasure Galdamez Home Meds and New Rx's Prescriptions: Continued venlafaxine [Effexor XR] 150 MG capsule,extended release 24hr 150 mg PO HS RF: 0 topiramate [Topamax] 100 MG tablet 100 mg PO BID RF: 0 alprazolam [Xanax] 1 MG tablet 3 mg PO DAILY RF: 0 aripiprazole [Abilify] 5 MG tablet 10 mg PO .QHS RF: 0 Discharge Instructions Instructions: Ankle Sprain (ED) Additional Instructions: Encourage rest, ice, elevation. Tylenol and/or ibuprofen as needed for discomfort. Please continue with the brace while pain persists. Follow-up with primary care in 2 weeks if not improving. Develop new or worsening symptoms please seek care urgently once again. Avoid activities that has increased pain. Referrals: Deidra Hawkins [Primary Care Provider] - Medical Decision Making Patient is a 39-year-old female, status post tubal ligation, presenting today with chief complaint of right lateral ankle pain. She reports the pain began last night after a rotational injury. She reports that she was sitting on her bed last night and her right leg fell asleep. She states that when she stood up she suffered an internal rotational injury and since that time has had severe pain over the lateral malleolus. She denies any other injury at the time of the incident. Denies any numbness or tingling. No previous surgeries or injuries to this ankle. On exam, patient has swelling of the lateral malleolus and is point tender over this area. Pain is maximal over the ATFL. She has pain primarily with dorsiflexion. No pain or abnormality with palpation over the Achilles. No pain to palpation over the foot, no pain over the proximal fifth metatarsal. No pain over the proximal fibula. Plan for x-ray. She is been taken anything for discomfort. Patient is resting, icing, elevating and will g prashant ibuprofen. FINDINGS: Bones/joints: No acute fracture. Joint spaces are maintained. Trace ankle joint effusion. Soft tissues: Soft tissue swelling about the lateral malleolus. IMPRESSION: Soft tissue swelling about the lateral malleolus without underlying fracture or traumatic joint malalignment. Trace ankle joint effusion. Discussed these findings with the patient. Again, she was maximally tender over the ATFL making diagnosis of sprain most likely. Encourage rest, ice, elevation. Tylenol and/or ibuprofen as needed for discomfort. Patient will be fitted with a lace up ankle brace to help with discomfort. She will follow-up primary care in 2 weeks if not improving. I did discuss ankle strengthening exercises to begin once the pain begins to diminish. She was given return precautions. All of her questions and concerns were addressed and she is in agreement this plan. HPI General Mode of arrival: ambulatory . Date/Time Provider Initiated Documentation: 07/17/19 16:18 . Limitations to Documentation: no limitations . Information obtained by: patient and RN notes reviewed . History of Present Illness 39 year old F presents to the emergency department with the chief complaint of Right ankle pain, described as severe, with intensity rated at 8. Quality is described as aching, and is localized to the right and lower extremity. Patient reports no radiation. Patient started experiencing this day(s) (1) and it has been constant. Immobilization improves symptom(s), Movement worsens symptoms . Patient notes no other symptoms.. Patient did receive the following treatments prior to arrival, none Related Data Home Medications Medication Instructions Recorded Confirmed venlafaxine [Effexor XR] 150 mg PO HS 03/02/13 07/17/19 topiramate [Topamax] 100 mg PO BID 01/27/14 07/17/19 alprazolam [Xanax] 3 mg PO DAILY 09/11/14 07/17/19 aripiprazole [Abilify] 10 mg PO .QHS 11/18/17 07/17/19 Allergies Allergy/AdvReac Type Severity Reaction Status Date / Time No Known Allergies Allergy Unverified 07/17/19 15:22 General Stated Complaint: Orthopedic RAJEEV: 4 Review of Systems Constitutional Constitutional: Reports as per HPI, Denies chills, Denies fever(s), Denies headache(s) and Denies weakness ENT Ears, Nose, Mouth, and Throat: Denies headache(s) Cardiovascular Cardiovascular: Reports as per HPI Respiratory Respiratory: Reports as per HPI and Denies cough Musculoskeletal Musculoskeletal: Reports as per HPI and Denies tingling Integumentary/Breasts Skin/Breast: Reports as per HPI, Denies rash and Denies wounds Neurologic Neurologic: Reports as per HPI, Denies headache(s), Denies tingling, Denies paresthesias and Denies weakness [facility] Medical History Endometriosis GERD (gastroesophageal reflux disease) Hiatal hernia Surgical History Extracorporeal shock wave lithotripsy Ligation of fallopian tube Social History Smoking/Tobacco Use Status: Current every day Tobacco Type: cigarettes Alcohol Intake: never Drug use: Never Substance use type: does not use Do you feel safe at home: Yes Do you feel safe in your relationship?: Yes Exam Const General: cooperative, healthy appearing, comfortable, no acute distress, well developed and well groomed Nutritional Appearance: average body habitus and well nourished Orientation: alert and awake Resp Effort & Inspection: normal respiratory effort, able to speak in complete sentences and no respiratory distress Cardio Rate: regular rate Rhythm: regular rhythm Skin General skin exam: no rashes or lesions noted Lesions: no lesions Rashes: no rashes Trauma: no lacerations or abrasions Neuro General: alert and awake Cognition: normal cognition Speech: speech normal Gait: normal gait Motor: muscle tone normal throughout Sensory Exam: no sensory deficits noted Extrem General: normal capillary refill, no pedal edema, no calf tenderness, normal gait and no calf tenderness bilaterally Right lower extremity: normal capillary refill, lower leg Details: normal to inspection; no tenderness (No pain over proximal fibula), ankle Details: tenderness Location: of the lateral malleolus and of the anterior talofibular ligament; not of the achilles tendon, not anteromedially, not anterolaterally, not posteriorly and not anteriorly, swelling Details: laterally, no edema and ecchymosis (Over the lateral malleolus); inspection normal (Notable swelling to the lateral malleolus), ROM abnormal (Pain worse with dorsiflexion), no unusual warmth, no abrasions, no lacerations, no crepitus and achilles tendon exam normal and foot Details: normal capillary refill, normal to inspection, toes with normal ROM, no edema, vascular exam Details: dorsalis pedis pulse present and normal capillary refill and motor-sensory exam Details: light-touch normal; no tenderness, no unusual warmth, no abrasion, no laceration, no ecchymosis and no crepitus; abnormal to inspection and ROM limited Psych Appearance: grossly normal and well kempt Mental Status: mental status grossly normal Speech and Movement: speech and movement normal Course Vital Signs Vital signs: Vital Signs Temperature 36.7 C 07/17/19 15:18 Pulse 104 H 07/17/19 15:18 Respiratory Rate 14 07/17/19 15:18 Blood Pressure 125/76 07/17/19 15:18 Pulse Oximetry 100 07/17/19 15:18 Temperature 36.7 C 07/17/19 15:18 Temperature Source Skin 07/17/19 15:18 Pulse 104 H 07/17/19 15:18 Respiratory Rate 14 07/17/19 15:18 Respiratory Effort 07/17/19 15:23 Blood Pressure 125/76 07/17/19 15:18 Blood Pressure Position Sitting 07/17/19 15:18 Pulse Oximetry 100 07/17/19 15:18 Oxygen Delivery Method Room Air 07/17/19 15:18 Oxygen Flow Rate 0 07/17/19 15:18 Pain Level 8 07/17/19 15:18 Comment no ice 07/17/19 15:18
--- NOTE | 2019-07-17 16:50 | DI.RAD_ITS ---
EXAM: XR ANKLE RT COMPLETE INDICATION: lateral malleolar pain after rotational injury. COMPARISON: No exams were available for comparison TECHNIQUE: 2D digital imaging was performed. FINDINGS: There is soft tissue swelling around the lateral malleolus. No fracture or ankle mortise widening i s seen. No talar dome defect is present. IMPRESSION: Soft tissue swelling.
--- NOTE | 2019-07-17 16:59 | DI.VRAD_ITS ---
PROCEDURE INFORMATION: Exam: XR Right Ankle Exam date and time: 07/17/2019 4:27 PM Age: 39 years old Clinical history: Ankle; Right; Patient HX: Lateral malleolar pain after rotational injury TECHNIQUE: Imaging protocol: XR Right ankle. Views: 3 or more views. COMPARISON: No relevant prior studies available. FINDINGS: Bones/joints: No acute fracture. Joint spaces are maintained. Trace ankle joint effusion. Soft tissues: Soft tissue swelling about the lateral malleolus. IMPRESSION: Soft tissue swelling about the lateral malleolus without underlying fracture or traumatic joint malalignment. Trace ankle joint effusion. Dictated and Authenticated by: Troy Noyola MD. Ordering:MAYRA Amanda MD
== END 2019-07-17 17:17 | disposition home or self-care (01) ==
PROVIDERS: Emergency Provider Physician Assistant; PCP Nurse Practitioner Family
DX: S93.491A Sprain of other ligament of right ankle, initial encounter (principal); X50.9XXA Other and unspecified overexertion or strenuous movements or postures, initial encounter
CPT/HCPCS: 29515; 99284; 73610; 99283; L1902

== ENCOUNTER 2019-09-11 10:50 | Emergency (ER) | payer MEDICAID, SELFPAY ==
[2019-09-11 10:54] VITALS: BP 128/83; PULSE 97; RESP 18; TEMP 36.4; O2SAT 100
--- NOTE | 2019-09-11 11:02 | ED.GENADUL_ITS ---
Discharge Plan Disposition Patient Disposition: HOME Condition: Stable Discharge Details Chief Complaint: EarProblem Clinical Impression: Acute otalgia Primary Care Provider: Deidra Hawkins ED Provider: Arelis Wallis Home Meds and New Rx's Prescriptions: New amoxicillin-pot clavulanate [Augmentin] 875-125 mg tablet 1 tab PO BID 7 Days Qty: 14 RF: 0 Continued venlafaxine [Effexor XR] 150 MG capsule,extended release 24hr 150 mg PO HS RF: 0 topiramate [Topamax] 100 MG tablet 100 mg PO BID RF: 0 alprazolam [Xanax] 1 MG tablet 3 mg PO DAILY RF: 0 aripiprazole [Abilify] 5 MG tablet 10 mg PO .QHS RF: 0 Discharge Instructions Instructions: Earache (ED) Additional Instructions: Follow up with primary care provider in 3-5 days. Return to ED sooner if any worsening or concerns. Increase oral fluids. Please take Tylenol or Ibuprofen with food every 4-6 hours as needed for pain and swelling. Referrals: Deidra Hawkins [Primary Care Provider] - Medical Decision Making 39-year-old female presents with right ear pain began this morning. On exam unable to visualize tympanic membrane on the right due to cerumen impaction. Discussed irrigation or manual removal of cerumen which patient refused at this time due to tenderness. Will presume otitis media and treat as such. Patient verbalizes understanding. HPI General Mode of arrival: ambulatory . Date/Time Provider Initiated Documentation: 09/11/19 10:51 . Limitations to Documentation: no limitations . Information obtained by: patient . HPI Narrative: 39-year-old female presents with right ear pain which began suddenly this morning. She also states that she was coughing yesterday. Denies fever, shortness of breath, chest pain or any other symptoms. On exam the right ear canal is impacted with cerumen unable to visualize TM. Left tympanic membrane is within normal limits landmarks identified non-erythemic. No mastoid tenderness, no redness around the ear, no cervical lymphadenopathy. Related Data Home Medications Medication Instructions Recorded Confirmed venlafaxine [Effexor XR] 150 mg PO HS 03/02/13 07/17/19 topiramate [Topamax] 100 mg PO BID 01/27/14 07/17/19 alprazolam [Xanax] 3 mg PO DAILY 09/11/14 07/17/19 aripiprazole [Abilify] 10 mg PO .QHS 11/18/17 07/17/19 amoxicillin-pot clavulanate 1 tab PO BID 7 Days #14 tab 09/11/19 [Augmentin] Previous Rx's Medication Instructions Recorded amoxicillin-pot clavulanate 1 tab PO BID 7 Days #14 tab 09/11/19 [Augmentin] Allergies Allergy/AdvReac Type Severity Reaction Status Date / Time No Known Allergies Allergy Unverified 09/11/19 10:57 General Stated Complaint: EarProblem RAJEEV: 4 Review of Systems Narrative: Constitutional: Negative for weight loss, alert and oriented, well groomed, normal body habitus, appears comfortable. HEENT: Denies trauma, headaches, blurry vision, nasal discharge, sore throat, trouble swallowing. Positive ear pain. Chest: Denies chest pain, palpitations, irregular rhythm, hypertension. Respiratory: Denies Shortness of breath, cough, hemoptysis. GI: Denies abdominal pain, nausea, vomiting, diarrhea, constipation. : Denies dysuria, hematuria, flank pain, rectal bleeding. Neuro: Denies dizziness, blurry vision, weakness, syncope, headache or facial numbness. Hematologic: Denies easy bruising, intolerance to heat or cold, hair loss. [facility] Medical History Endometriosis GERD (gastroesophageal reflux disease) Hiatal hernia Surgical History Extracorporeal shock wave lithotripsy Ligation of fallopian tube Social History Smoking/Tobacco Use Status: Current every day Tobacco Type: cigarettes Alcohol Intake: never Drug use: Occasionally Substance use type: marijuana Do you feel safe at home: Yes Do you feel safe in your relationship?: Yes Exam Narrative Exam Narrative: Constitutional: Allert and oriented x3. Appears stated age. Normal body habitus. Head: Normocephalic, no trauma. Eyes: Pupils PERRLA, Red reflex noted, EOM's intact. Eyelids symmetrical withour lesions, discharge, or swelling. ENT: Right TM not visualized due to cerumen impaction. Ear is tender to the touch. Left tympanic membrane within normal limits, no erythema landmarks identified., External ear normal to inspection, no mastoid TTP, swelling, Nasal turbinates WNL, no nasal discharge. Normal dentition, Posterior pharynx WNL, no exudate. Chest: RRR, Normal S1, S2, distal pulses intact. Resp: Lungs clear to auscultation bilaterally, no wheezes, rales, or rhonchi. Musculoskeletal: Normal gait, 5/5 strength to all four extremities. Skin: No suspicious rashes or lesions. Capillary refill ?2 sec. Neurologic: Cranial nerves II-XII intact. Alert and oriented x 3. DTR's intact. Hematologic/Lymphatic: No ecchymosis, no lymphadenopathy. Course Vital Signs Vital signs: Vital Signs Temperature 36.4 C L 09/11/19 10:54 Pulse 97 H 09/11/19 10:54 Respiratory Rate 18 09/11/19 10:54 Blood Pressure 128/83 09/11/19 10:54 Pulse Oximetry 100 09/11/19 10:54 Temperature 36.4 C L 09/11/19 10:54 Temperature Source Temporal Artery Scan 09/11/19 10:54 Pulse 97 H 09/11/19 10:54 Respiratory Rate 18 09/11/19 10:54 Respiratory Effort Non-Labored 09/11/19 10:58 Blood Pressure 128/83 09/11/19 10:54 Blood Pressure Position Supine 09/11/19 10:54 Pulse Oximetry 100 09/11/19 10:54 Oxygen Delivery Method Room Air 09/11/19 10:54 Oxygen Flow Rate 0 09/11/19 10:54 Pain Level 7 09/11/19 10:54
== END 2019-09-11 11:15 | disposition home or self-care (01) ==
PROVIDERS: Emergency Provider Registered Nurse Emergency; PCP Nurse Practitioner Family
DX: H66.91 Otitis media, unspecified, right ear (principal); H61.21 Impacted cerumen, right ear
CPT/HCPCS: 99283

== ENCOUNTER 2019-12-02 06:36 | Emergency (ER) | payer MEDICAID, SELFPAY ==
[2019-12-02 06:38] VITALS: BP 136/95; PULSE 102; RESP 16; TEMP 36.1; O2SAT 98
--- NOTE | 2019-12-02 06:42 | W.ED.GENAD ---
Discharge Plan Disposition Patient Disposition: HOME Condition: Good Discharge Details Chief Complaint: Orthopedic Clinical Impression: Chronic left shoulder pain Primary Care Provider: Deidra Hawkins ED Provider: Jesus Han Home Meds and New Rx's Prescriptions: New carisoprodol 250 mg tablet 250 mg PO QID PRNQty: 20 RF: 0 Continued venlafaxine [Effexor XR] 150 MG capsule,extended release 24hr 150 mg PO HS RF: 0 topiramate [Topamax] 100 MG tablet 100 mg PO BID RF: 0 alprazolam [Xanax] 1 MG tablet 3 mg PO DAILY RF: 0 clonidine HCl 0.2 mg Tablet 0.2 mg PO QHS RF: 0 aripiprazole [Abilify] 5 MG tablet 10 mg PO QHS RF: 0 Discharge Instructions Additional Instructions: Continue taking ibuprofen and acetaminophen as previously directed. Add the carisoprodol on a as needed basis but there may be interaction with your other medications which could make you sleepy so obviously no driving or working. Contact primary care to see if they can help get your orthopedic referral moved up. Return to ED for discoloration of your hand, persistent numbness, weakness. Referrals: Deidra Hawkins [Primary Care Provider] - Medical Decision Making Patient here with worsening left chronic shoulder pain. Not tolerating the cyclobenzaprine previously tried. Gabapentin and lidocaine patches with little relief. Continues ibuprofen and acetaminophen. Has orthopedic referral but not for a few weeks. She is neurovascularly intact distally. There were no acute traumatic injuries requiring imaging. She wants an injection but this should be determined by orthopedics whether would even be beneficial. Cannot prescribe narcotics for chronic pain. Agreed to try a different muscle relaxer. After interaction check with her chronic psychiatric meds best possible choice would be Robaxin or Soma. Insurance will cover for Soma. Prescription written. Patient asked to contact primary care to see if they could help get her into orthopedics sooner. Return to ED for persistent numbness distally, discoloration distally, weakness. HPI General Mode of arrival: ambulatory. Date/Time Provider Initiated Documentation: 12/02/19 06:40. Limitations to Documentation: no limitations. Information obtained by: patient and RN notes reviewed. HPI Narrative: Patient presents to ED for evaluation of left shoulder pain. Patient has had this pain for months. She has tried ibuprofen, acetaminophen, cyclobenzaprine, gabapentin, lidocaine patches with essentially no relief. She has been referred to orthopedics but does not see them until the . She has chronic pain in the left shoulder which is getting increasingly worse. It inhibits her ability to work. Lifting or reaching causes increased pain in the shoulder. She occasionally has shooting pain down the arm. She sometimes has numbness in her hands though it resolved. She has no weakness. There is no direct injury. This morning her pain was so bad she could not go to work and came here in hopes of finding some resolution. Related Data Home Medications Medication Instructions Recorded Confirmed venlafaxine [Effexor XR] 150 mg PO HS 03/02/13 12/02/19 topiramate [Topamax] 100 mg PO BID 01/27/14 12/02/19 alprazolam [Xanax] 3 mg PO DAILY 09/11/14 12/02/19 aripiprazole [Abilify] 10 mg PO QHS 11/18/17 12/02/19 carisoprodol 250 mg PO QID PRN #20 tab 12/02/19 clonidine HCl 0.2 mg PO QHS 12/02/19 12/02/19 Previous Rx's Medication Instructions Recorded carisoprodol 250 mg PO QID PRN #20 tab 12/02/19 Allergies Allergy/AdvReac Type Severity Reaction Status Date / Time No Known Allergies Allergy Unverified 09/11/19 10:57 General Stated Complaint: Orthopedic RAJEEV: 4 Review of Systems Cardiovascular Cardiovascular: Denies chest pain and Denies dyspnea Respiratory Respiratory: Denies dyspnea Musculoskeletal Musculoskeletal: Denies back pain, Reports arthralgias, Reports limited range of motion and Reports numbness Neurologic Neurologic: Reports numbness [facility] Medical History (Updated 12/02/19 @ 07:15 by Jesus Han MD) Endometriosis GERD (gastroesophageal reflux disease) Hiatal hernia Psychiatric disorder (Chronic) Surgical History Extracorporeal shock wave lithotripsy Ligation of fallopian tube Social History Smoking/Tobacco Use Status: Current every day Tobacco Type: cigarettes Alcohol Intake: never Drug use: Occasionally Substance use type: marijuana Do you feel safe at home: Yes Do you feel safe in your relationship?: Yes Exam Narrative Exam Narrative: Vitals: Afebrile. Slight elevated blood pressure and heart rate. Normal room air pulse oximetry. Const: WDWN female in NAD. HEENT: NC/AT. Normal facial exam. Eyes: Normal conjunctiva and sclera. Neck: Supple. Trachea midline. Lungs: Normal respiratory effort. Cor: Good radial pulses. Neuro: A+O x 3. Normal speech, mentation, gait. Cranial nerves II - XII grossly intact. No gross motor or sensory deficit. Ext: Decreased range of motion left shoulder. Able to get above her head but with significant difficulty due to pain. Tenderness along the anterior superior aspect of the left shoulder. Has 5 out of 5 strength distally. Has sensation distally. Has normal pulses and cap refill distally. Course Vital Signs Vital signs: Vital Signs Temperature 97.0 F L 12/02/19 06:38 Pulse 102 H 12/02/19 06:38 Respiratory Rate 16 12/02/19 06:38 Blood Pressure 136/95 H 12/02/19 06:38 Pulse Oximetry 98 12/02/19 06:38 Temperature 97.0 F L 12/02/19 06:38 Temperature Source Skin 12/02/19 06:38 Pulse 102 H 12/02/19 06:38 Respiratory Rate 16 12/02/19 06:38 Blood Pressure 136/95 H 12/02/19 06:38 Blood Pressure Position Supine 12/02/19 06:38 Pulse Oximetry 98 12/02/19 06:38 Oxygen Delivery Method Room Air 12/02/19 06:38 Oxygen Flow Rate 0 12/02/19 06:38 Pain Level 9 12/02/19 06:38
== END 2019-12-02 07:22 | disposition home or self-care (01) ==
LOC: ER 07:16
PROVIDERS: Emergency Provider Emergency Medicine; PCP Nurse Practitioner Family
DX: M25.512 Pain in left shoulder (principal); G89.29 Other chronic pain
CPT/HCPCS: 99283

== ENCOUNTER 2019-12-08 11:41 | Outpatient (CLI) | payer MEDICAID, SELFPAY ==
--- NOTE | 2019-12-08 11:29 | DI.RAD_ITS ---
EXAM: XR SHOULDER LT COMPLETE 2+V CLINICAL HISTORY: L shoulder pain. TECHNIQUE: 2D digital imaging was performed. COMPARISON: No exams were available for comparison FINDINGS: BONES: No acute fracture is present. No bony destructive lesion is seen. JOINTS: No dislocation present. No tendon or joint space calcifications are seen. There are no signi ficant degenerative changes. SOFT TISSUE: Normal. IMPRESSION: Unremarkable radiographs of the left shoulder. DATA REPOSITORY: RADIATION DOSE DELIVERED:
== END 2019-12-08 12:01 ==
PROVIDERS: PCP Nurse Practitioner Family; Visit Provider Physician Assistant
DX: M25.512 Pain in left shoulder (principal); G89.29 Other chronic pain
CPT/HCPCS: 73030

== ENCOUNTER 2020-05-15 20:03 | Emergency (ER) | payer MEDICAID, SELFPAY ==
[2020-05-15 20:08] VITALS: BP 141/94; PULSE 101; RESP 18; TEMP 36.5; O2SAT 99
--- NOTE | 2020-05-15 20:08 | ED.GENADUL_ITS ---
Discharge Plan Disposition Patient Disposition: HOME Condition: Improving Discharge Details Clinical Impression: Dental caries Primary Care Provider: Deidra Hawkins ED Provider: Kaur Horta Home Meds and New Rx's Prescriptions: Continued venlafaxine [Effexor XR] 150 MG capsule,extended release 24hr 150 mg PO HS RF: 0 topiramate [Topamax] 100 MG tablet 100 mg PO BID RF: 0 alprazolam [Xanax] 1 MG tablet 3 mg PO DAILY RF: 0 clonidine HCl 0.2 mg Tablet 0.2 mg PO QHS RF: 0 metronidazole 500 mg tablet 500 mg PO BID RF: 0 amoxicillin 500 mg tablet 500 mg PO TID RF: 0 Discharge Instructions Instructions: Dental Caries (ED) Additional Instructions: Continue antibiotics as described by your dentist please call Saturday morning for follow-up appointment Referrals: Deidra Hawkins [Primary Care Provider] - (Follow-up with primary care and dentist as soon as possible) Discharge Data Discharge Date/Time-TO BE ENTERED AT DEPARTURE: 05/15/20 20:35 Medical Decision Making Patient is on antibiotics for known dental infection. She comes to the emergency department reporting pain and sensitivity. There is no area of fluctuance that looks amenable to I&D. There is no evidence of untreated infection. I did offer her a dental block which she is agreeable to. Used bup ivacaine 0.25% with good effect. patient is stable for discharge to home. will contact pcp and dentist in the am. Medical Records Medical records reviewed: Yes I reviewed the patient's medical records. HPI General Mode of arrival: ambulatory . Date/Time Provider Initiated Documentation: 05/15/20 20:08 . Limitations to Documentation: no limitations . Information obtained by: patient . HPI Narrative: Patient presents for evaluation of dental pain. Has obvious decay at base of #24. She has been seen by her dentist who has prescribed amoxicillin and Flagyl. She is also been seen by her primary care provider who is recommended Tylenol and ibuprofen for pain she states she is not scheduled for extraction until July. She has had no fevers no chills she states it is sensitive to temperature Related Data Home Medications Medication Instructions Recorded Confirmed venlafaxine [Effexor XR] 150 mg PO HS 03/02/13 05/15/20 topiramate [Topamax] 100 mg PO BID 01/27/14 05/15/20 alprazolam [Xanax] 3 mg PO DAILY 09/11/14 05/15/20 clonidine HCl 0.2 mg PO QHS 12/02/19 05/15/20 amoxicillin 500 mg PO TID 05/15/20 05/15/20 metronidazole 500 mg PO BID 05/15/20 05/15/20 Allergies Allergy/AdvReac Type Severity Reaction Status Date / Time No Known Allergies Allergy Unverified 12/08/19 10:42 General RAJEEV: 4 Review of Systems All systems reviewed & are unremarkable except as noted in HPI and below ENT Ears, Nose, Mouth, and Throat: Reports dental pain [facility] Medical History (Updated 05/15/20 @ 20:35 by Kaur Horta NP) Endometriosis GERD (gastroesophageal reflux disease) Hiatal hernia Psychiatric disorder Surgical History Extracorporeal shock wave lithotripsy Ligation of fallopian tube Social History Smoking/Tobacco Use Status: Current every day Tobacco Type: cigarettes Alcohol Intake: never Drug use: Current Sobriety Substance use type: marijuana Do you feel safe at home: Yes Do you feel safe in your relationship?: Yes Exam Const General: cooperative and in distress moderate (Crying) Nutritional Appearance: overweight HENMT Teeth and gingiva: caries, poor dentition and other (no area of fluctuance or obvious abscess) Teeth image: 1. decay
== END 2020-05-15 20:35 | disposition home or self-care (01) ==
LOC: ER 20:44
PROVIDERS: Emergency Provider Nurse Practitioner Acute Care; PCP Nurse Practitioner Family
DX: R68.84 Jaw pain (principal); K02.9 Dental caries, unspecified
CPT/HCPCS: 64450

== ENCOUNTER 2020-06-14 17:27 | Outpatient (REF) | payer MEDICAID, SELFPAY ==
[2020-06-14 21:32] LABS: HCT 39.7 % (36.0-46.0); MCHC 32.7 % (32.0-36.0); MCV 91.5 fL (80-95); MPV 10.1 fL (8.0-11.0); Platelet Count 287 10^3/uL (130-400); RBC 4.34 10^6/uL (3.93-5.22); RDW 12.6 % (11.7-14.6); RDW-SD 42.1 fL; WBC 11.33 10^3/uL (4.4-10.8)
[2020-06-14 22:16] LABS: ALT 28 U/L (14-59); AST 13 U/L (15-37); Anion Gap 12.9 mmol/L (3-11); BUN 10 mg/dL (7-18); CO2 20.1 mmol/L (21.0-32.0); CREATININE 0.97 mg/dL (0.55-1.02); Calcium 8.7 mg/dL (8.5-10.1); Chloride 108 mmol/L (98-107); Glucose 123 mg/dL (74-106); Potassium 3.8 mmol/L (3.5-5.1); Sodium 141 mmol/L (136-145); TSH (W/Ref FT4) 2.33 uIU/mL (0.36-3.74)
[2020-06-19 13:00] LABS: Patient Race White; SARS-CoV-2 RNA Undetected (Undetected); SARS-CoV-2 Specimen Source Nasal
== END 2020-06-14 17:47 ==
LOC: NCHCN 17:27
PROVIDERS: PCP Nurse Practitioner Family; Visit Provider Nurse Practitioner Family
DX: R50.9 Fever, unspecified (principal); R63.5 Abnormal weight gain
CPT/HCPCS: 80048; 85027; U0003; 84443; 84450; 84460

== ENCOUNTER 2020-06-15 07:31 | Emergency (ER) | payer MEDICAID, SELFPAY ==
[2020-06-15] VITALS (11 sets, daily range): BP systolic 107–123; BP diastolic 64–84; PULSE 88–101; RESP 13–26; TEMP 37.2; O2SAT 96–99
--- NOTE | 2020-06-15 07:30 | RT.EKG_ITS ---
APPROVED REPORT Exam: Resting ECG Patient Location: E HR:93 bpm ECG Measurements Heart Rate 93 AXIS MT 129 P 14 QRSd 93 QRS 42 QT 351 T 26 QTc 437 Conclusion Sinus rhythm...normal P axis, V-rate 60- 99 Physician:No STEMI, [id number], or significant abnormality
--- NOTE | 2020-06-15 08:00 | DI.RAD_ITS ---
EXAM: XR PORTABLE CHEST AP CLINICAL HISTORY: chest pain TECHNIQUE: 2D digital imaging was performed. COMPARISON: No exams were available for comparison FINDINGS: MEDIASTINUM: Normal. HEART: Normal. PULMONARY VASCULATURE: Normal. LUNGS: Clear. PLEURAL SPACE: No pleural effusion or pneumothorax. BONE:Within normal limits for the patient's age. OTHER FINDINGS:Normal. IMPRESSION: No acute pulmonary findings. DATA REPOSITORY: RADIATION DOSE DELIVERED:
[2020-06-15 08:15] LABS: Abs Immature Grans 0.05 10^3/uL (0.0-0.06); Absolute Basophil Count 0.05 10^3/uL (0.0-0.2); Absolute Eosinophil Count 0.33 10^3/uL (0.0-0.7); Absolute Lymphocyte Count 2.43 10^3/uL (1.2-3.4); Absolute Monocyte Count 0.64 10^3/uL (0.1-0.8); Absolute Neutrophil Count 6.38 10^3/uL (1.2-6.7); Basophils % 0.5; Eosinophils % 3.3; HGB 12.9 g/dL (11.2-15.7); Immature Grans % 0.5; Lymphocytes % 24.6; MCHC 33.1 % (32.0-36.0); MCV 90.7 fL (80-95); MPV 9.3 fL (8.0-11.0); Monocytes % 6.5; Neutrophils % 64.6; Nucleated RBC 0 %; Platelet Count 270 10^3/uL (130-400); RDW 12.5 % (11.7-14.6); RDW-SD 40.8 fL; WBC 9.88 10^3/uL (4.4-10.8)
[2020-06-15] MEDS: Normal Saline Flush 10 ML SYR IVP (08:21)
[2020-06-15] MEDS: Normal Saline 1,000 ML 125 ML IV (08:21)
[2020-06-15] MEDS: Aspirin 81 MG CHEW 324 MG CH (08:21)
[2020-06-15 08:32] LABS: ALT 25 U/L (14-59); AST 11 U/L (15-37); Albumin 3.4 g/dL (3.4-5.0); Alkaline Phosphatase 64 U/L (46-116); Anion Gap 9.9 mmol/L (3-11); BUN 10 mg/dL (7-18); Bilirubin, Total 0.3 mg/dL (0.2-1.0); CO2 21.1 mmol/L (21.0-32.0); CREATININE 0.91 mg/dL (0.55-1.02); Calcium 8.3 mg/dL (8.5-10.1); Chloride 107 mmol/L (98-107); Glucose 111 mg/dL (74-106); Magnesium 1.9 mg/dL (1.8-2.4); Potassium 3.8 mmol/L (3.5-5.1); Sodium 138 mmol/L (136-145); Total Protein 7.1 g/dL (6.4-8.2)
[2020-06-15 08:33] LABS: Troponin I < 0.05 ng/mL (<0.06)
[2020-06-15 08:49] LABS: Bilirubin Negative (Negative); Blood Negative (Negative); Clarity Cloudy (Clear); Glucose Negative (Negative); Ketones Negative (Negative); Leukocyte Esterase Negative (Negative); Nitrite Negative (Negative); Specific Gravity 1.025 (1.005-1.025); Urobilinogen 0.2 EU/dL (Up TO 0.2); pH 7.5 (5-8)
--- NOTE | 2020-06-15 09:11 | W.ED.GENAD ---
Discharge Plan Disposition Patient Disposition: AGAINST MEDICAL ADVICE Condition: Stable Discharge Details Chief Complaint: Chest Pain Clinical Impression: Chest pain Primary Care Provider: Deidra Hawkins ED Provider: Candelario Leal Home Meds and New Rx's Prescriptions: No Action venlafaxine [Effexor XR] 150 MG capsule,extended release 24hr 150 mg PO HS RF: 0 topiramate [Topamax] 100 MG tablet 100 mg PO BID RF: 0 alprazolam [Xanax] 1 MG tablet 3 mg PO DAILY RF: 0 clonidine HCl 0.2 mg Tablet 0.2 mg PO QHS RF: 0 pantoprazole 20 mg tablet,delayed release (DR/EC) 40 mg PO DAILY RF: 0 Discharge Instructions Additional Instructions: Patient discharged AMA with verbal discharge instructions Medical Decision Making 40-year-old female presents with multiple subjective complaints. They do cross multiple review of systems. Her primary complaint is that of left sided chest pain-pressure that traveled down her left arm. She has not had the symptoms in 3 days. She also reports fever at her primary care office yesterday, shortness of breath, headaches, fatigue, increased urination. The differential is quite long but includes Covid, pneumonia, bronchitis, ACS, UTI, anemia, JOHN, electrolyte abnormality, etc. Given the PERC criteria, will not obtain D-dimer. Will obtain IV access, give IV fluids, give full dose aspirin and initiate cardiac work-up. Patient is comfortable with this plan. I did explain to the patient that given her complaints today I do believe that a minimum of 3-hour troponin would be indicated here in the ER for a work-up so that she would not be surprised given the length of her ER visit. Initial laboratory values were unremarkable for emergent process. Urinalysis was unremarkable. Chest x-ray is unremarkable per radiology. EKG read by Dr. Crawley, sinus rhythm, ventricular rate of 93, no STEMI. I discussed the initial work-up with patient. She is relieved and now tells me that she does not want to wait until a repeat troponin and EKG in 3 hours. She has a ride, her boyfriend in the parking lot, and she will not have a ride later today. I explained to her that given her wide range of complaints, specifically chest pain as one of them, I did believe that observation in the ER including a repeat troponin and EKG at 3 hours was prudent and would be considered standard of care. Patient understands this and continues to request to be discharged. Patient appears clinically sober, is of sound mind, and based upon my clinical examination has the capacity to make their own decisions. We have offered treatment options and discussed the the risks and benefits of these options and refusing these options, including and/or disability specific to the patient's pathology. Pt is able to discuss and understands the risks and benefits and alternatives of treatment and refusing treatment. The patient still chooses to leave before evaluation and treatment can be completed AGAINST MEDICAL ADVICE. She was encouraged to return to the ER for new or worsening symptoms, otherwise contact her primary care provider for prompt outpatient reevaluation. We discussed the importance of quarantining while her Covid test is pending. Medical Records Medical records reviewed: Yes I reviewed the patient's medical records. Imaging Data Radiologic Study: Attestation: I personally reviewed and interpreted this imaging study as follows: Imaging: X-Ray Radiologist's impression: Chest x-ray negative Lab Data Lab results reviewed: Yes I reviewed the patient's lab results. Labs: Laboratory Tests Range/Units 06/15/20 06/15/20 06/15/20 07:46 07:46 08:30 WBC (4.4-10.8) 10^3/uL 9.88 RBC (3.93-5.22) 10^6/uL 4.30 Hgb (11.2-15.7) g/dL 12.9 Hct (36.0-46.0) % 39.0 MCV (80-95) fL 90.7 MCH (27.0-33.0) pg 30.0 MCHC (32.0-36.0) % 33.1 RDW (11.7-14.6) % 12.5 Plt Count (130-400) 10^3/uL 270 MPV (8.0-11.0) fL 9.3 Immature Gran % 0.5 Neutrophils % 64.6 Lymphocytes % 24.6 Monocytes % 6.5 Eosinophils % 3.3 Basophils % 0.5 Nucleated RBC % % 0 Absolute Neutrophils (1.2-6.7) 10^3/uL 6.38 Absolute Lymphocytes (1.2-3.4) 10^3/uL 2.43 Absolute Monocytes (0.1-0.8) 10^3/uL 0.64 Absolute Eosinophils (0.0-0.7) 10^3/uL 0.33 Absolute Basophils (0.0-0.2) 10^3/uL 0.05 Sodium (136-145) mmol/L 138 Potassium (3.5-5.1) mmol/L 3.8 Chloride (98-107) mmol/L 107 Carbon Dioxide (21.0-32.0) mmol/L 21.1 Anion Gap (3-11) mmol/L 9.9 BUN (7-18) mg/dL 10 Creatinine (0.55-1.02) mg/dL 0.91 Estimated GFR/1.73 m2 (mL/min/1.73m2) >= 60.00 Glucose (74-106) mg/dL 111 H Calcium (8.5-10.1) mg/dL 8.3 L Magnesium (1.8-2.4) mg/dL 1.9 Total Bilirubin (0.2-1.0) mg/dL 0.3 AST (15-37) U/L 11 L ALT (14-59) U/L 25 Alkaline Phosphatase (46-116) U/L 64 Troponin I (<0.06) ng/mL < 0.05 Total Protein (6.4-8.2) g/dL 7.1 Albumin (3.4-5.0) g/dL 3.4 Urine Color (Yellow) Yellow Urine Clarity (Clear) Cloudy Urine pH (5-8) 7.5 Ur Specific [place] (1.005-1.025) 1.025 Urine Protein (Negative) mg/dL Negative Urine Ketones (Negative) mg/dL Negative Urine Blood (Negative) Negative Urine Nitrite (Negative) Negative Urine Bilirubin (Negative) Negative Urine Urobilinogen (Up TO 0.2) EU/dL 0.2 Ur Leukocyte Esterase (Negative) Negative Urine Glucose (Negative) mg/dL Negative ECG Data Attestation: I personally reviewed and interpreted this ECG (s) as follows: Interpretation: Sinus rhythm, ventricular of 93. No STEMI HPI General Mode of arrival: ambulatory. Date/Time Provider Initiated Documentation: 06/15/20 07:32. Limitations to Documentation: no limitations. Information obtained by: patient. HPI Narrative: This is a 40-year-old female with past medical history of anxiety, depression, GERD, 2 pack a day smoker, presenting to the ER for evaluation of multiple complaints. She states that she went to see her primary care provider yesterday, was noted to have 100.3 fever, was tested for Covid, and was then discharged before she could bring up any of her other concerns. She states that she has been getting mild global headaches for the past couple of weeks, increased fatigue, increased urination. On Saturday she developed left lateral chest pain-pressure but she states radiated like lightening down her left arm. She was laying around, no physical activity when this occurred. It resolved in approximately 10 minutes on its own. Then again on Saturday she developed very similar symptoms that resolved on its own and under 10 minutes. She states that she has not had back pain and the last few days. She felt like her left hand had tingling but not true numbness. There was no weakness. She also states that her temperature is typically 97.0 so that 100.3 is really high. She feels as though there may be a small component of dyspnea with exertion. She denies any productive cough. Reports that she has a mild baseline smoker's cough which is unchanged. She states that her boyfriend has been having difficulty with smell and taste over the past week and she was tested for Covid, that test is pending. She denies any change in smell or taste. She denies any cardiac history. Denies pain or swelling in her legs. Denies history of DVT or PE. Related Data Home Medications Medication Instructions Recorded Confirmed venlafaxine [Effexor XR] 150 mg PO HS 03/02/13 06/15/20 topiramate [Topamax] 100 mg PO BID 01/27/14 06/15/20 alprazolam [Xanax] 3 mg PO DAILY 09/11/14 06/15/20 clonidine HCl 0.2 mg PO QHS 12/02/19 06/15/20 pantoprazole 40 mg PO DAILY 06/15/20 06/15/20 Allergies Allergy/AdvReac Type Severity Reaction Status Date / Time No Known Allergies Allergy Unverified 06/15/20 07:47 General Stated Complaint: Chest Pain RAJEEV: 2 Review of Systems Constitutional Constitutional: Reports fatigue, Reports fever(s), Reports headache(s) and Denies weakness Eyes Eyes: Denies change in vision ENT Ears, Nose, Mouth, and Throat: Reports headache(s) and Denies neck pain Cardiovascular Cardiovascular: Reports chest pain and Reports dyspnea Respiratory Respiratory: Reports cough and Reports dyspnea Gastrointestinal Gastrointestinal: Denies abdominal pain, Reports nausea and Denies vomiting Genitourinary Genitourinary: Denies hematuria and Denies dysuria Musculoskeletal Musculoskeletal: Denies back pain, Denies neck pain, Denies numbness and Reports tingling Integumentary/Breasts Skin/Breast: Denies rash Neurologic Neurologic: Reports headache(s), Denies numbness, Reports tingling and Denies weakness Psychiatric Psychiatric: Reports anxiety and Reports depression Endocrine Endocrine: Reports fatigue [facility] Medical History (Updated 06/15/20 @ 09:26 by NELLY Estes) Endometriosis GERD (gastroesophageal reflux disease) Hiatal hernia Psychiatric disorder Surgical History Extracorporeal shock wave lithotripsy Ligation of fallopian tube Social History Smoking/Tobacco Use Status: Current every day Tobacco Type: cigarettes Smoking risk assessment performed?: Yes Alcohol Intake: never Drug use: Current Sobriety Substance use type: marijuana Do you feel safe at home: Yes Do you feel safe in your relationship?: Yes Exam Const General: cooperative, healthy appearing, comfortable and no acute distress Orientation: alert, awake and oriented x3 HENMT Head: normal to inspection, normocephalic and atraumatic Ears: external ears normal, TM's normal bilaterally and EAC's normal General nose exam: external nose normal Face and sinus: normal facial exam Mouth: moist mucous membranes Throat: posterior oropharynx normal Eyes General: appearance normal, both eyes and all related structures Conjunctivae: conjunctivae normal Sclera: sclerae normal Neck Neck: normal visual inspection, full ROM, no lymphadenopathy, no meningeal signs, trachea midline, supple and nontender Chest Chest: normal palpation of entire chest wall Resp Effort & Inspection: normal respiratory effort and able to speak in complete sentences Auscultation: clear to auscultation bilaterally Cardio Rate: regular rate Rhythm: regular rhythm GI Palpation: soft and nontender Back/Spine/Pelvis Back: No back tenderness Skin General skin exam: no rashes or lesions noted Neuro General: patient alert, patient awake, patient oriented x3, moves all extremities and no focal motor deficits Cognition: normal cognition Speech: speech normal Gait: normal gait Motor: muscle tone normal throughout and strength 5/5 throughout Sensory Exam: no sensory deficits noted Extrem General: normal to inspection, full ROM, capillary refill normal, no pedal edema and no calf tenderness Psych Appearance: grossly normal Mental Status: mental status grossly normal Course Vital Signs Vital signs: Vital Signs Temperature 37.2 C 06/15/20 07:38 Pulse 89 06/15/20 07:38 Respiratory Rate 23 06/15/20 07:38 Blood Pressure 111/64 06/15/20 07:38 Pulse Oximetry 96 06/15/20 07:38 Temperature 37.2 C 06/15/20 07:38 Temperature Source Oral 06/15/20 07:38 Pulse 92 H 06/15/20 08:32 Pulse 88 06/15/20 08:32 Respiratory Rate 20 06/15/20 08:32 Respiratory Effort Non-Labored 06/15/20 07:50 Respiratory Depth Normal 06/15/20 07:50 Respiratory Pattern Normal 06/15/20 07:50 Blood Pressure 123/84 06/15/20 08:32 Blood Pressure Mean 92 06/15/20 08:32 Blood Pressure Position Sitting 06/15/20 07:38 Pulse Oximetry 99 06/15/20 08:32 Oxygen Delivery Method Room Air 06/15/20 07:38 Oxygen Flow Rate 0 06/15/20 07:38 Pain Level 10 06/15/20 07:50 Lab/Test Results Lab/Test Results: Laboratory Tests Range/Units 06/15/20 06/15/20 06/15/20 07:46 07:46 08:30 WBC (4.4-10.8) 10^3/uL 9.88 RBC (3.93-5.22) 10^6/uL 4.30 Hgb (11.2-15.7) g/dL 12.9 Hct (36.0-46.0) % 39.0 MCV (80-95) fL 90.7 MCH (27.0-33.0) pg 30.0 MCHC (32.0-36.0) % 33.1 RDW (11.7-14.6) % 12.5 Plt Count (130-400) 10^3/uL 270 MPV (8.0-11.0) fL 9.3 Immature Gran % 0.5 Neutrophils % 64.6 Lymphocytes % 24.6 Monocytes % 6.5 Eosinophils % 3.3 Basophils % 0.5 Nucleated RBC % % 0 Absolute Neutrophils (1.2-6.7) 10^3/uL 6.38 Absolute Lymphocytes (1.2-3.4) 10^3/uL 2.43 Absolute Monocytes (0.1-0.8) 10^3/uL 0.64 Absolute Eosinophils (0.0-0.7) 10^3/uL 0.33 Absolute Basophils (0.0-0.2) 10^3/uL 0.05 Sodium (136-145) mmol/L 138 Potassium (3.5-5.1) mmol/L 3.8 Chloride (98-107) mmol/L 107 Carbon Dioxide (21.0-32.0) mmol/L 21.1 Anion Gap (3-11) mmol/L 9.9 BUN (7-18) mg/dL 10 Creatinine (0.55-1.02) mg/dL 0.91 Estimated GFR/1.73 m2 (mL/min/1.73m2) >= 60.00 Glucose (74-106) mg/dL 111 H Calcium (8.5-10.1) mg/dL 8.3 L Magnesium (1.8-2.4) mg/dL 1.9 Total Bilirubin (0.2-1.0) mg/dL 0.3 AST (15-37) U/L 11 L ALT (14-59) U/L 25 Alkaline Phosphatase (46-116) U/L 64 Troponin I (<0.06) ng/mL < 0.05 Total Protein (6.4-8.2) g/dL 7.1 Albumin (3.4-5.0) g/dL 3.4 Urine Color (Yellow) Yellow Urine Clarity (Clear) Cloudy Urine pH (5-8) 7.5 Ur Specific [place] (1.005-1.025) 1.025 Urine Protein (Negative) mg/dL Negative Urine Ketones (Negative) mg/dL Negative Urine Blood (Negative) Negative Urine Nitrite (Negative) Negative Urine Bilirubin (Negative) Negative Urine Urobilinogen (Up TO 0.2) EU/dL 0.2 Ur Leukocyte Esterase (Negative) Negative Urine Glucose (Negative) mg/dL Negative
--- NOTE | 2020-06-15 09:29 | NUR.NOTE ---
Noted to Care Management patient left amaNursing Note:
--- NOTE | 2020-06-15 14:20 | NUR.NOTE ---
Copy to Care Management. Pt left AMA.Nursing Note:
== END 2020-06-15 09:20 | disposition left against medical advice (07) ==
PROVIDERS: Emergency Provider Physician Assistant; PCP Nurse Practitioner Family
DX: R07.89 Other chest pain (principal); R50.9 Fever, unspecified; Z53.29 Procedure and treatment not carried out because of patient's decision for other reasons; F17.210 Nicotine dependence, cigarettes, uncomplicated
CPT/HCPCS: 36415; 80053; 93005; 96360; 99285; 71045; 81003; 83735; 84484; 85025; 93010

== ENCOUNTER 2020-07-01 04:57 | Outpatient (CLI) | payer MEDICAID, SELFPAY ==
[2020-07-03 08:54] LABS: SARS-CoV-2 RNA Source Nasal/Nares
[2020-07-03 08:55] LABS: SARS-CoV-2 RNA Not Detected (NotDetected)
== END 2020-07-01 05:17 ==
PROVIDERS: PCP Nurse Practitioner Family; Visit Provider Family Medicine
DX: Z11.59 Encounter for screening for other viral diseases (principal); Z01.811 Encounter for preprocedural respiratory examination
CPT/HCPCS: U0003

== ENCOUNTER 2020-07-04 04:16 | Outpatient (CLI) | payer MEDICAID, SELFPAY ==
[2020-07-04] MEDS: Inhaler, Assist Device 1 EACH MC (16:17)
[2020-07-04] MEDS: Albuterol HFA 18 GM 200 PUFF INH IH (16:17)
--- NOTE | 2020-07-06 09:56 | W.PFT ---
Date of service: 07/04/20 Time of Service: 03:00 Pulmonary Function Test Result Interpretation Spirometry: No evidence of obstructive airways disease, no bronchodilator response Lung Volumes: No evidence of restriction Diffusion Capacity: Normal Airway Pressure: Normal Impression Normal pulmonary function test Clinical Correlation therefore is recommended.
== END 2020-07-04 04:36 ==
PROVIDERS: PCP Nurse Practitioner Family; Visit Provider Nurse Practitioner Family
DX: R05 Cough (principal); R06.2 Wheezing; R06.09 Other forms of dyspnea; F17.200 Nicotine dependence, unspecified, uncomplicated
CPT/HCPCS: 94060; 94726; 94729

== ENCOUNTER 2020-09-05 17:07 | Outpatient (REF) | payer MEDICAID, SELFPAY ==
--- NOTE | 2020-09-05 16:00 | PAPFT_PTH ---
PATIENT: Destiney Springer LOC: [facility] U#:[id number] AGE/SX: 40/F ROOM: RE09/05/[address]: Deidra Hawkins : 1980 BED: DIS: 09/05/2020 SPEC #: [id number] RECD: 09/06/20 12:55 STATUS: NINA GRADY #: [id number] MITCH: 09/05/20 16:[address]: Deidra Hawkins DEPT: [facility] Cytology RECD BY: Jovana Levine Tissues: 1 - CX/ENDOCX FOR PAP SMEARS Procedures: PAP THIN PREP/UVM Screening HPV DNA PROBE Comments: [id number] (CHLAMYDIA/GC)
[2020-09-05 21:14] LABS: Iron 70 ug/dL (50-170); Total Iron Binding Capacity 360 ug/dL (250-450); Transferrin Sat 19 % (15-50)
[2020-09-05 21:17] LABS: Hemoglobin A1C 5.5 % (<5.7)
[2020-09-05 21:42] LABS: Cholesterol 249 mg/dL (<200); HDL Cholesterol 33 mg/dL (40-60); Triglyceride 452 mg/dL (<150); Vitamin B12 492 pg/mL (193-986)
[2020-09-05 21:59] LABS: LDL CHOLESTEROL 114 mg/dL (<100)
[2020-09-07 14:09] LABS: Chlamydia Result Negative (Negative); GC Result Negative (Negative)
== END 2020-09-05 17:27 ==
LOC: NCHCN 17:07
PROVIDERS: PCP Nurse Practitioner Family; Visit Provider Nurse Practitioner Family
DX: R53.83 Other fatigue (principal); R73.03 Prediabetes; R05 Cough; B97.7 Papillomavirus as the cause of diseases classified elsewhere; F19.21 Other psychoactive substance dependence, in remission; M54.5 Low back pain; G43.909 Migraine, unspecified, not intractable, without status migrainosus; Z11.3 Encounter for screening for infections with a predominantly sexual mode of transmission; Z12.4 Encounter for screening for malignant neoplasm of cervix; Z01.411 Encounter for gynecological examination (general) (routine) with abnormal findings; Z11.51 Encounter for screening for human papillomavirus (HPV)
CPT/HCPCS: 80061; 83721; 87491; 87591; 88142; 82607; 83036; 83540; 83550; 87624

== ENCOUNTER 2021-04-19 11:27 | Emergency (ER) | payer OTHER, SELFPAY ==
[2021-04-19 11:29] VITALS: BP 132/96; PULSE 95; RESP 18; TEMP 36.6; O2SAT 99
--- NOTE | 2021-04-19 11:30 | DI.RAD_ITS ---
Exam(s) XR FINGER LT RING EXAM: XR FINGER LT RING EXAM DATE/TIME: CLINICAL HISTORY: trauma, pain. TECHNIQUE: 2D digital imaging was performed. COMPARISON: None. FINDINGS: BONES: There is an acute nondisplaced fracture the medial aspect of the terminal tuft. There is asso ciated soft tissue swelling. No bony destructive lesion is seen. JOINTS: No dislocation is present. SOFT TISSUE: Soft tissue swelling of the distal aspect of the ring finger. IMPRESSION: Acute nondisplaced fracture of the terminal tuft of the left ring finger. DATA REPOSITORY: RADIATION DOSE DELIVERED:
[2021-04-19] MEDS: Acetaminophen 325 MG TAB 650 MG PO (11:37)
--- NOTE | 2021-04-19 12:10 | ED.GENADUL_ITS ---
Discharge Plan Disposition Patient Disposition: HOME Condition: Good Discharge Details Clinical Impression: Open fracture of tuft of distal phalanx of finger Primary Care Provider: Deidra Hawkins ED Provider: Jovana Kimball Home Meds and New Rx's Prescriptions: New cephalexin 500 mg tablet 500 mg PO Q6H 7 Days Qty: 28 RF: 0 fluconazole [Diflucan] 150 mg tablet 150 mg PO ONCE Qty: 1 RF: 0 Continued venlafaxine [Effexor XR] 150 MG capsule,extended release 24hr 150 mg PO HS RF: 0 topiramate [Topamax] 100 MG tablet 100 mg PO BID RF: 0 alprazolam [Xanax] 1 MG tablet 3 mg PO DAILY RF: 0 clonidine HCl 0.2 mg Tablet 0.2 mg PO QHS RF: 0 pantoprazole 20 mg tablet,delayed release (DR/EC) 40 mg PO DAILY RF: 0 Discharge Instructions Instructions: Finger Fracture (ED) Additional Instructions: Antibiotic daily Yogurt daily while on antibiotic Diflucan only if you develop signs or symptoms of a yeast infection If you do not hear from orthopedics tomorrow, give them a call as you will need close outpatient follow-up within the next 48 to 72 hours Ibuprofen and Tylenol control Please return earlier should you have redness, swelling, discharge, fever, suture removal in 12 days Stand Alone Forms: Work Release Referrals: Curry Starkey MD [ [facility] STAFF PHYSICIAN] - Discharge Data Discharge Date/Time-TO BE ENTERED AT DEPARTURE: 04/19/21 13:39 Medical Decision Making Patient appears well, she has no additional evidence of trauma, her tetanus was updated She has an open tuft fracture and will need close outpatient follow-up, initiated on Keflex Ibuprofen or Tylenol for pain Work note supplied We will need to follow-up with orthopedics tomorrow Placed in a large bulky dressing for protection in place with splint Given a threshold to return with new or worsening complaints Medical Records Medical records reviewed: Yes I reviewed the patient's medical records. HPI General Mode of arrival: ambulatory . Date/Time Provider Initiated Documentation: 04/19/21 11:39 . Limitations to Documentation: no limitations . Information obtained by: patient . HPI Narrative: This 41-year-old female presents with a laceration to her left fourth digit which occurred at work. Denies any additional complaints. Denies any strength or sensation change. She reports that her finger was caught in a machine. Denies . Related Data Home Medications Medication Instructions Recorded Confirmed venlafaxine [Effexor XR] 150 mg PO HS 03/02/13 06/15/20 topiramate [Topamax] 100 mg PO BID 01/27/14 06/15/20 alprazolam [Xanax] 3 mg PO DAILY 09/11/14 06/15/20 clonidine HCl 0.2 mg PO QHS 12/02/19 06/15/20 pantoprazole 40 mg PO DAILY 06/15/20 06/15/20 cephalexin 500 mg PO Q6H 7 Days #28 tab 04/19/21 fluconazole [Diflucan] 150 mg PO ONCE #1 tab 04/19/21 Previous Rx's Medication Instructions Recorded cephalexin 500 mg PO Q6H 7 Days #28 tab 04/19/21 fluconazole [Diflucan] 150 mg PO ONCE #1 tab 04/19/21 Allergies Allergy/AdvReac Type Severity Reaction Status Date / Time No Known Allergies Allergy Unverified 06/15/20 07:47 General Stated Complaint: Orthopedic RAJEEV: 4 Review of Systems Narrative: This is negative x3 aside from where indicated in HPI [facility] Medical History (Updated 04/19/21 @ 13:22 by NELLY Tierney) Endometriosis GERD (gastroesophageal reflux disease) Hiatal hernia Psychiatric disorder Surgical History Extracorporeal shock wave lithotripsy Ligation of fallopian tube Social History Smoking/Tobacco Use Status: Current every day Tobacco Type: cigarettes Smoking risk assessment performed?: Yes Alcohol Intake: never Drug use: Current Sobriety Substance use type: marijuana Do you feel safe at home: Yes Do you feel safe in your relationship?: Yes Exam Extrem Hand/finger images: 1. Laceration noted, 1 inch Other: strength and sensation intact, brisk capillary refill Course Vital Signs Vital signs: Vital Signs Temperature 36.6 C 04/19/21 11:29 Pulse 95 H 04/19/21 11:29 Respiratory Rate 18 04/19/21 11:29 Blood Pressure 132/96 H 04/19/21 11:29 Pulse Oximetry 99 04/19/21 11:29 Temperature 36.6 C 04/19/21 11:29 Temperature Source Skin 04/19/21 11:29 Pulse 95 H 04/19/21 11:29 Respiratory Rate 18 04/19/21 11:29 Blood Pressure 132/96 H 04/19/21 11:29 Blood Pressure Position Sitting 04/19/21 11:29 Pulse Oximetry 99 04/19/21 11:29 Oxygen Delivery Method Room Air 04/19/21 11:29 Oxygen Flow Rate 0 04/19/21 11:29 Pain Level 9 04/19/21 11:29 Procedures Laceration Laceration 1: Site: hand Size (cm): 2.5 Description: linear Depth: simple, single layer Local Anesthetic: Bupivicaine 0.5% Amount of anesthesia used (mL): 3 Pre-repair: wound explored and irrigated extensively Skin layer closed with: nylon Size (cm): 5-0 Number of sutures: 4 Technique: simple, interrupted
[2021-04-19] MEDS: Cephalexin 500 MG CAP PO (13:27)
--- NOTE | 2021-04-19 13:38 | NUR.NOTE ---
left 3 rd finger dressed per MD order. Nursing Note:
== END 2021-04-19 13:39 | disposition home or self-care (01) ==
PROVIDERS: Emergency Provider Physician Assistant; PCP Nurse Practitioner Family
DX: S62.635B Displaced fracture of distal phalanx of left ring finger, initial encounter for open fracture (principal); W31.89XA Contact with other specified machinery, initial encounter; Y99.0 Civilian activity done for income or pay
CPT/HCPCS: 12001; 26750; 73140

== ENCOUNTER 2021-05-23 10:22 | Outpatient (REF) | payer MEDICAID, SELFPAY ==
[2021-05-23 14:45] LABS: Anion Gap 11.8 mmol/L (3-11); BUN 13 mg/dL (7-18); CO2 22.2 mmol/L (21.0-32.0); CREATININE 0.9 mg/dL (0.55-1.02); Calcium 9.1 mg/dL (8.5-10.1); Chloride 106 mmol/L (98-107); Glucose 104 mg/dL (74-106); Magnesium 1.9 mg/dL (1.8-2.4); Potassium 4.4 mmol/L (3.5-5.1); Sodium 140 mmol/L (136-145); Vitamin B12 537 pg/mL (193-986)
== END 2021-05-23 10:23 | disposition home or self-care (01) ==
LOC: NCHCN 10:22
PROVIDERS: PCP Nurse Practitioner Family; Visit Provider Nurse Practitioner Family
DX: E78.5 Hyperlipidemia, unspecified (principal); R73.03 Prediabetes; R19.7 Diarrhea, unspecified; Z80.3 Family history of malignant neoplasm of breast; F19.21 Other psychoactive substance dependence, in remission
CPT/HCPCS: 80048; 82607; 83735

== ENCOUNTER 2021-06-01 01:28 | Outpatient (CLI) | payer MEDICAID, SELFPAY ==
--- NOTE | 2021-06-01 09:03 | DI.MAMMO_ITS ---
Exam(s) MAMMO SCREENING EXAM: MAMMO SCREENING CLINICAL HISTORY: SCREENING, Z12.39, FAMILY H/O BREAST CA,Z80.3. TECHNIQUE: Bilateral full field digital CC and MLO mammographic images were obtained with 3D tomosyn thesis and utilizing computer aided detection (CAD). COMPARISON: None. This is a baseline mammogram on this 41-year-old patient. FINDINGS: There are no significant radiograph findings in the right breast. In the left breast the cc view there is an asymmetric density possible nodule measuring 6 x 7 millime ters and located 6 cm in from the nipple. Spot compression view/ ultrasound recommended There are no malignant-appearing microcalcification groups is region or elsewhere in either breast. There is no significant architectural distortion nor skin thickening-retraction. IMPRESSION: 1. No radiographic evidence of malignancy in right breast. 2. 6 x 7 millimeter asymmetric density possible nodule in the left breast. Spot compression CC view and ultrasound recommended. BI-RADS Category 0 - Assessment Incomplete: Need additional imaging evaluation Breast Density - Category B - Scattered areas of fibroglandular density Breast density Category C or D implies that the patient has dense breast tissue. Dense breast tissue can make it harder to find cancer on a mammogram. Dense breast tissue is also associated with an incr eased risk of breast cancer. This information about the result of the mammogram report was provided to the patient to raise their awareness. Use this report when you speak with the patient about their risks for breast cancer, which includes their family history. At that time, you may recommend additional screening tests (Ultrasoun d or MRI) as these tests may add significant information. A negative radiographic report should not delay biopsy if a dominant or clinically suspicious mass is present. Up to ten percent of cancers are not identified on mammography. A negative report may reinforce clinical impression. Adenosis and dense breasts may obscure an underlying neoplasm. False positive reports average 6 to 10%. Patient will receive a letter notifying them of these results.
== END 2021-06-01 01:48 ==
PROVIDERS: PCP Nurse Practitioner Family; Visit Provider Nurse Practitioner Family
DX: Z12.31 Encounter for screening mammogram for malignant neoplasm of breast (principal); Z80.3 Family history of malignant neoplasm of breast; R92.8 Other abnormal and inconclusive findings on diagnostic imaging of breast
CPT/HCPCS: 77063; 77067

== ENCOUNTER 2021-06-22 01:28 | Outpatient (CLI) | payer MEDICAID, SELFPAY ==
--- NOTE | 2021-06-22 09:00 | DI.MAMMO_ITS ---
Exam(s) MAMMO SCREEN CALL BACK UNI EXAM: MAMMO SCREEN CALL BACK UNI-LEFT CLINICAL HISTORY: ASYMMETRIC DENSITY POSSIBLE NODULE LT BREAST. TECHNIQUE: Unilateral spot mammographic CC image obtained with 3D tomosynthesisand utilizing compute r aided detection (CAD). . COMPARISON: Prior mammograms were reviewed. This additional imaging was performed due to findings described on the recent screening mammogram of . FINDINGS: Additional mammographic views performed todayactually reveal 3 separate nodules in the same region. T hese have benign appearance. Ultrasound performed today reveals 2 findings at the 3 o'clock position and 1 finding at 4 o'clock po sition which have the appearance of a combination of intramammary lymph nodes and benign microcyst. P fátima see that separate ultrasound report dictated today. IMPRESSION: Benign-appearing left breast findings. Appropriate follow-up , as discussed by myself with the patient today, is repeat left breast MAMMOGRA M in 6 months. The patient was informed of these findings and recommendations prior to leaving the department today. BI-RADS Category 2 - Benign Findings Breast Density - Category B - Scattered areas of fibroglandular density Breast density Category C or D implies that the patient has dense breast tissue. Dense breast tissue can make it harder to find cancer on a mammogram. Dense breast tissue is also associated with an incr eased risk of breast cancer. This information about the result of the mammogram report was provided to the patient to raise their awareness. Use this report when you speak with the patient about their risks for breast cancer, which includes their family history. At that time, you may recommend additional screening tests (Ultrasoun d or MRI) as these tests may add significant information. A negative radiographic report should not delay biopsy if a dominant or clinically suspicious mass is present. Up to ten percent of cancers are not identified on mammography. A negative report may reinforce clinical impression. Adenosis and dense breasts may obscure an underlying neoplasm. False positive reports average 6 to 10%. Patient will receive a letter notifying them of these results.
--- NOTE | 2021-06-22 09:30 | DI.US_ITS ---
Exam(s) US BREAST LT COMPLETE EXAM: US BREAST LT COMPLETE CLINICAL HISTORY: ASYMMETRIC DENSITY POSSIBLE NODULE LT BREAST. TECHNIQUE: Complete ultrasound of the left breast was performed including all 4 quadrants, the retro areolar region, and the ipsilateral axilla. COMPARISON: Prior recent baseline screening mammogram was reviewed. FINDINGS: At 3 o'clock position there is a 5 x 3 millimeter benign-appearing nodule which is probably benign ly mph node and corresponds to the finding on the mammogram. Also at 3 o'clock position, somewhat closer to the nipple is another finding which measures approxima tely 3 x 3 millimeter and is probably a small benign microcyst. At the 4 o'clock position there is a 3 x 2 millimeter benign microcyst. IMPRESSION: Three benign-appearing ultrasound findings which correspond to the findings on the the recent mammogr am. Appropriate follow-up is repeat left breast mammogram in 6 months. BI-RADS Category 3 - 6 month - Probably Benign Finding: Recommend follow-up mammography in 6 months Breast Density - Category B - Scattered areas of fibroglandular density Breast density Category C or D implies that the patient has dense breast tissue. Dense breast tissue can make it harder to find cancer on a mammogram. Dense breast tissue is also associated with an incr eased risk of breast cancer. This information about the result of the mammogram report was provided to the patient to raise their awareness. Use this report when you speak with the patient about their risks for breast cancer, which includes their family history. At that time, you may recommend additional screening tests (Ultrasoun d or MRI) as these tests may add significant information. A negative radiographic report should not delay biopsy if a dominant or clinically suspicious mass is present. Up to ten percent of cancers are not identified on mammography. A negative report may reinforce clinical impression. Adenosis and dense breasts may obscure an underlying neoplasm. False positive reports average 6 to 10%. Patient will receive a letter notifying them of these results.
== END 2021-06-22 01:48 ==
PROVIDERS: PCP Nurse Practitioner Family; Visit Provider Nurse Practitioner Family
DX: Z12.31 Encounter for screening mammogram for malignant neoplasm of breast (principal); R92.8 Other abnormal and inconclusive findings on diagnostic imaging of breast; N60.12 Diffuse cystic mastopathy of left breast; N64.59 Other signs and symptoms in breast
CPT/HCPCS: 76642; 77063; 77067

== ENCOUNTER 2021-06-27 08:17 | Emergency (ER) | payer MEDICAID, SELFPAY ==
[2021-06-27] VITALS (26 sets, daily range): BP systolic 128–156; BP diastolic 75–111; PULSE 45–88; RESP 12–66; TEMP 36.1; O2SAT 98–100
--- NOTE | 2021-06-27 08:45 | RT.EKG_ITS ---
APPROVED REPORT Exam: Resting ECG Reason for Exam: nausea Patient Location: E HR:52 bpm ECG Measurements Heart Rate 52 AXIS NE 148 P 17 QRSd 82 QRS 46 QT 484 T 46 QTc 438 Conclusion Sinus bradycardia...rate< 60 Atrial premature complexes...SV complexes w/ short R-R intvls. Sinus. No STEMI. I have reviewed and interpreted ECG and agree with software generated interpretation.
--- NOTE | 2021-06-27 09:01 | W.ED.GENAD ---
Discharge Plan Disposition Patient Disposition: HOME Condition: Improving Discharge Details Clinical Impression: Vomiting, Epigastric abdominal pain Primary Care Provider: Deidra Hawkins ED Provider: Karla Jarrell Home Meds and New Rx's Prescriptions: New ondansetron 4 mg tablet,disintegrating 4 mg PO TID PRN (Reason: nausea and vomiting) Qty: 6 RF: 0 sucralfate [Carafate] 1 gram tablet 1 gm PO QACHS Qty: 14 RF: 0 Continued venlafaxine [Effexor XR] 150 MG capsule,extended release 24hr 150 mg PO HS RF: 0 topiramate [Topamax] 100 MG tablet 100 mg PO BID RF: 0 alprazolam [Xanax] 1 MG tablet 3 mg PO DAILY RF: 0 clonidine HCl 0.2 mg Tablet 0.2 mg PO QHS RF: 0 pantoprazole 20 mg tablet,delayed release (DR/EC) 40 mg PO DAILY RF: 0 Discharge Instructions Instructions: Acute Nausea and Vomiting (ED), Epigastric Pain (ED) Additional Instructions: Your lab work and imaging is reassuring today and did not note evidence of acute abnormal significant findings. Drink plenty of fluids and get plenty of rest. Prescriptions for Zofran and Carafate have been sent electronically to your pharmacy. Try to avoid potential triggers for GERD or a stomach ulcer which may be smoking, alcohol, spicy or fatty foods, chocolate or peppermint. Call your real estate lawyer at [place] to schedule a follow-up appointment for reevaluation within the next week. Return to the emergency department with any worsening or new concerning symptoms such as fever, persistent vomiting, worsening pain or any other concerns. Discharge Data Discharge Date/Time-TO BE ENTERED AT DEPARTURE: 06/27/21 14:05 Discharge Physician: Karla Jarrell Medical Decision Making 8864 -- 41-year-old female with a history of anxiety and GERD presents with nausea and urge to defecate this morning. Patient is significantly anxious and difficult to obtain a history. She is sitting up in bed with a vomit bag and tachypneic. She frequently states I do not know and I think I am going to . She cannot specifically endorse pain but mainly complains of nausea. Her abdomen is soft and nontender. Differential diagnosis includes GERD, gastritis, gastroenteritis, pancreatitis, cholecystitis. She has a history of a tubal ligation and denies . Will place an IV, bolus IV fluids, screening labs, urinalysis, urine , Zofran, Pepcid, Ativan and GI cocktail and reassess. 1000 -- Labs reviewed. Ketones but no white blood cell count 13. Normal electrolytes. Troponin negative. Lipase normal. Urinalysis notes ketones but no evidence of infection. 1130 -- Patient reassessed and she denies any improvement. She appears less anxious but is still nauseous. We will give a dose of IV Phenergan, oral Valium and Carafate and reassess. Patient still is unable to state if she has pain. Nursing did state that she complained of epigastric pain on arrival. Will obtain an abdominal ultrasound. 1330 -- Abdominal ultrasound negative for acute findings. Patient was given a dose of Reglan and morphine and had improvement of her symptoms and felt good to go home. She was advised to continue her Protonix and watch potential GERD triggers. She has had a previous EGD at [facility]. She is advised to call her real estate lawyer for follow-up. Prescriptions for Carafate and Zofran sent electronically to her pharmacy. Usual and customary return precautions given prior to discharge. Medical Records Medical records reviewed: Yes I reviewed the patient's medical records. Imaging Data Radiologic Study: Radiologist's impression: US ABDOMEN LIMITED CLINICAL HISTORY: epigastric pain, r/o cholecystitis/cholelithiasis TECHNIQUE: Ultrasound performed using standard protocol. COMPARISON: No exams were available for comparison FINDINGS: The hepatic parenchyma is echogenic consistent with hepatic steatosis. There is no evidence of cholelithiasis or biliary dilatation. Pancreas is not well seen due to overlying bowel gas. Right kidney contains couple of small nonobstructing calculi inferior pole kidney. No hydronephrosis. IMPRESSION: No evidence of cholelithiasis. Probable hepatic steatosis. Lab Data Lab results reviewed: Yes I reviewed the patient's lab results. Labs: Laboratory Tests Range/Units 06/27/21 06/27/21 06/27/21 08:45 08:45 10:16 WBC (4.4-10.8) 10^3/uL 13.53 H RBC (3.93-5.22) 10^6/uL 4.67 Hgb (11.2-15.7) g/dL 13.6 Hct (36.0-46.0) % 41.9 MCV (80-95) fL 89.7 MCH (27.0-33.0) pg 29.1 MCHC (32.0-36.0) % 32.5 RDW (11.7-14.6) % 12.7 Plt Count (130-400) 10^3/uL 387 MPV (8.0-11.0) fL 9.4 Immature Gran % 0.5 Neutrophils % 73.6 Lymphocytes % 18.7 Monocytes % 4.7 Eosinophils % 2.1 Basophils % 0.4 Nucleated RBC % % 0 Absolute Neutrophils (1.2-6.7) 10^3/uL 9.96 H Absolute Lymphocytes (1.2-3.4) 10^3/uL 2.53 Absolute Monocytes (0.1-0.8) 10^3/uL 0.64 Absolute Eosinophils (0.0-0.7) 10^3/uL 0.28 Absolute Basophils (0.0-0.2) 10^3/uL 0.05 Sodium (136-145) mmol/L 140 Potassium (3.5-5.1) mmol/L 3.7 Chloride (98-107) mmol/L 106 Carbon Dioxide (21.0-32.0) mmol/L 22.2 Anion Gap (3-11) mmol/L 11.8 H BUN (7-18) mg/dL 9 Creatinine (0.55-1.02) mg/dL 0.8 Estimated GFR/1.73 m2 (mL/min/1.73m2) >= 60.00 Glucose (74-106) mg/dL 156 H Calcium (8.5-10.1) mg/dL 8.9 Magnesium (1.8-2.4) mg/dL 2.0 Total Bilirubin (0.2-1.0) mg/dL 0.3 AST (15-37) U/L 20 ALT (14-59) U/L 38 Alkaline Phosphatase (46-116) U/L 82 Troponin I (<0.06) ng/mL < 0.05 Total Protein (6.4-8.2) g/dL 7.4 Albumin (3.4-5.0) g/dL 3.7 Lipase (73-393) U/L 43 Urine Color (Yellow) Yellow Urine Clarity (Clear) Sl Cloudy Urine pH (5-8) 8.5 H Ur Specific [place] (1.005-1.025) 1.020 Urine Protein (Negative) mg/dL Negative Urine Ketones (Negative) mg/dL 40 H Urine Blood (Negative) Negative Urine Nitrite (Negative) Negative Urine Bilirubin (Negative) Negative Urine Urobilinogen (Up TO 0.2) EU/dL 0.2 Ur Leukocyte Esterase (Negative) Negative Urine Glucose (Negative) mg/dL Negative ECG Data Attestation: I personally reviewed and interpreted this ECG (s) as follows: Interpretation: Rate of 52, sinus, no acute ST elevation or depression. VA 148. QTc 438. HPI General Mode of arrival: ambulatory. Date/Time Provider Initiated Documentation: 06/27/21 08:23. Limitations to Documentation: no limitations. Information obtained by: patient. HPI Narrative: Patient is a 41-year-old female with a history of anxiety and GERD who presents for nausea and urge to defecate this morning. Patient is significantly anxious and difficult to obtain history. When asked of her symptoms, she states I do not know and she also states I think I am going to . She cannot endorse that she has pain but can vaguely endorse that she feels nauseous. She also states she feels an urge to defecate. She states she felt fine going to bed last evening. She states she awoke this morning and her symptoms started a little bit after. She denies any recent antibiotics or recent travel. Related Data Home Medications Medication Instructions Recorded Confirmed venlafaxine [Effexor XR] 150 mg PO HS 03/02/13 06/27/21 topiramate [Topamax] 100 mg PO BID 01/27/14 06/27/21 alprazolam [Xanax] 3 mg PO DAILY 09/11/14 06/27/21 clonidine HCl 0.2 mg PO QHS 12/02/19 06/27/21 pantoprazole 40 mg PO DAILY 06/15/20 06/27/21 ondansetron 4 mg PO TID PRN #6 tab 06/27/21 sucralfate [Carafate] 1 gm PO QACHS #14 tab 06/27/21 Previous Rx's Medication Instructions Recorded ondansetron 4 mg PO TID PRN #6 tab 06/27/21 sucralfate [Carafate] 1 gm PO QACHS #14 tab 06/27/21 Allergies Allergy/AdvReac Type Severity Reaction Status Date / Time No Known Allergies Allergy Unverified 06/27/21 08:30 General Stated Complaint: Abd Prob RAJEEV: 3 Review of Systems All systems reviewed & are unremarkable except as noted in HPI and below Constitutional Constitutional: Reports as per HPI, Denies chills and Denies fever(s) Eyes Eyes: Denies blurry vision ENT Ears, Nose, Mouth, and Throat: Denies dizziness, Denies sore throat and Denies throat swelling Cardiovascular Cardiovascular: Denies chest pain and Denies dyspnea Respiratory Respiratory: Denies cough and Denies dyspnea Gastrointestinal Gastrointestinal: Denies abdominal pain, Denies diarrhea, Reports nausea, Denies vomiting and Reports other (fecal urge) Genitourinary Genitourinary: Denies hematuria and Denies dysuria Musculoskeletal Musculoskeletal: Denies back pain and Denies numbness Integumentary/Breasts Skin/Breast: Denies lesions and Denies rash Neurologic Neurologic: Denies dizziness, Denies localized weakness and Denies numbness Allergic/Immunologic Allergic/Immunologic: Denies throat swelling [facility] Active Problem List (Updated 06/27/21 @ 13:36 by Karla Jarrell DO) Vomiting (Acute) Epigastric abdominal pain (Acute) Open fracture of tuft of distal phalanx of finger (Acute) Tendonitis of left rotator cuff (Chronic) Psychiatric disorder (Chronic) Acute otalgia (Acute) Medical History (Updated 06/27/21 @ 13:36 by Karla Jarrell DO) Endometriosis GERD (gastroesophageal reflux disease) Hiatal hernia Surgical History Extracorporeal shock wave lithotripsy Ligation of fallopian tube Social History Smoking/Tobacco Use Status: Current every day Tobacco Type: cigarettes Smoking risk assessment performed?: Yes Alcohol Intake: never Drug use: Current Sobriety Substance use type: marijuana Current gender identity: female Do you feel safe at home: Yes Do you feel safe in your relationship?: Yes Exam Const General: cooperative, no acute distress and anxious Orientation: alert, awake and oriented x3 HENMT Head: normal to inspection Face and sinus: normal facial exam Eyes General: appearance normal, both eyes and all related structures EOM: EOM intact bilaterally Neck Neck: normal visual inspection and No submandibular swelling Lymphatic: no lymphadenopathy noted Chest Chest: normal inspection of the chest and no tenderness Resp Effort & Inspection: normal respiratory effort and able to speak in complete sentences Auscultation: clear to auscultation bilaterally Cardio Rate: regular rate Rhythm: regular rhythm GI Inspection: normal to inspection Palpation: soft, not firm, not rigid and nontender Auscultation: normal bowel sounds Skin General skin exam: no rashes or lesions noted Neuro General: patient alert, patient awake and patient oriented x3 Cognition: normal cognition Speech: speech normal Motor: muscle tone normal throughout Sensory Exam: no sensory deficits noted Extrem General: normal to inspection, full ROM, capillary refill normal, no calf tenderness bilaterally and no edema Psych Appearance: grossly normal Mental Status: mental status grossly normal Speech and Movement: speech and movement normal Affect: normal affect Course Vital Signs Vital signs: Vital Signs Temperature 97.0 F L 06/27/21 08:20 Pulse 76 06/27/21 08:20 Respiratory Rate 66 H 06/27/21 08:20 Blood Pressure 135/111 H 06/27/21 08:20 Pulse Oximetry 100 06/27/21 08:20 Temperature 97.0 F L 06/27/21 08:20 Temperature Source Skin 06/27/21 08:20 Pulse 76 06/27/21 08:20 Respiratory Rate 66 H 06/27/21 08:20 Blood Pressure 135/111 H 06/27/21 08:20 Pulse Oximetry 100 06/27/21 08:20 Oxygen Delivery Method Room Air 06/27/21 08:20 Oxygen Flow Rate 0 06/27/21 08:20 Pain Level 10 06/27/21 08:20
[2021-06-27] MEDS: LORazepam 2 MG/ML VIAL 1 MG IVP (09:12)
[2021-06-27] MEDS: Ondansetron 4 MG/2 ML VIAL IVP (09:12)
[2021-06-27] MEDS: Normal Saline 1,000 ML 1000 ML IV ×2 (09:26→11:05)
[2021-06-27 09:34] LABS: Abs Immature Grans 0.07 10^3/uL (0.0-0.06); Absolute Basophil Count 0.05 10^3/uL (0.0-0.2); Absolute Eosinophil Count 0.28 10^3/uL (0.0-0.7); Absolute Lymphocyte Count 2.53 10^3/uL (1.2-3.4); Absolute Monocyte Count 0.64 10^3/uL (0.1-0.8); Absolute Neutrophil Count 9.96 10^3/uL (1.2-6.7); Basophils % 0.4; Eosinophils % 2.1; HCT 41.9 % (36.0-46.0); HGB 13.6 g/dL (11.2-15.7); Immature Grans % 0.5; Lymphocytes % 18.7; MCH 29.1 pg (27.0-33.0); MCHC 32.5 % (32.0-36.0); MCV 89.7 fL (80-95); MPV 9.4 fL (8.0-11.0); Monocytes % 4.7; Neutrophils % 73.6; Nucleated RBC 0 %; Platelet Count 387 10^3/uL (130-400); RBC 4.67 10^6/uL (3.93-5.22); RDW 12.7 % (11.7-14.6); RDW-SD 41.4 fL; WBC 13.53 10^3/uL (4.4-10.8)
[2021-06-27 09:57] LABS: ALT 38 U/L (14-59); AST 20 U/L (15-37); Albumin 3.7 g/dL (3.4-5.0); Alkaline Phosphatase 82 U/L (46-116); Anion Gap 11.8 mmol/L (3-11); BUN 9 mg/dL (7-18); Bilirubin, Total 0.3 mg/dL (0.2-1.0); CO2 22.2 mmol/L (21.0-32.0); CREATININE 0.8 mg/dL (0.55-1.02); Calcium 8.9 mg/dL (8.5-10.1); Chloride 106 mmol/L (98-107); Glucose 156 mg/dL (74-106); Lipase 43 U/L (73-393); Potassium 3.7 mmol/L (3.5-5.1); Sodium 140 mmol/L (136-145); Total Protein 7.4 g/dL (6.4-8.2)
[2021-06-27 09:58] LABS: Troponin I < 0.05 ng/mL (<0.06)
[2021-06-27 10:35] LABS: Bilirubin Negative (Negative); Blood Negative (Negative); Clarity Sl Cloudy (Clear); Glucose Negative (Negative); Ketones 40 mg/dL (Negative); Leukocyte Esterase Negative (Negative); Nitrite Negative (Negative); Urobilinogen 0.2 EU/dL (Up TO 0.2); pH 8.5 (5-8)
[2021-06-27] MEDS: diazePAM 5 MG TAB PO (11:08)
[2021-06-27] MEDS: Sucralfate 1 GM TAB PO (11:08)
--- NOTE | 2021-06-27 11:15 | DI.US_ITS ---
Exam(s) US ABDOMEN LIMITED EXAM: US ABDOMEN LIMITED CLINICAL HISTORY: epigastric pain, r/o cholecystitis/cholelithiasis TECHNIQUE: Ultrasound performed using standard protocol. COMPARISON: No exams were available for comparison FINDINGS: The hepatic parenchyma is echogenic consistent with hepatic steatosis. There is no evidence of anabella lithiasis or biliary dilatation. Pancreas is not well seen due to overlying bowel gas. Right kidney contains couple of small nonobstructing calculi inferior pole kidney. No hydronephrosis. IMPRESSION: No evidence of cholelithiasis. Probable hepatic steatosis. DATA REPOSITORY:
[2021-06-27] MEDS: Metoclopramide 10 MG/2 ML VIAL IVP (12:03)
[2021-06-27] MEDS: Ondansetron O.D.T. 4 MG TABEF, 3 TABS/BTL PO (13:50)
== END 2021-06-27 14:05 | disposition home or self-care (01) ==
PROVIDERS: Emergency Provider Physician Assistant; PCP Nurse Practitioner Family
DX: R11.10 Vomiting, unspecified (principal); R10.13 Epigastric pain; K21.9 Gastro-esophageal reflux disease without esophagitis
CPT/HCPCS: 80053; 81025; 83690; 93005; 96361; 96365; 96367; 96375; 99284; 76705; 81003; 83735; 84484; 85025; 93010; J2060; J2405; J2765

== ENCOUNTER 2021-06-29 09:30 | Emergency (ER) | payer MEDICAID, SELFPAY ==
[2021-06-29] VITALS (52 sets, daily range): BP systolic 104–167; BP diastolic 70–119; PULSE 56–112; RESP 11–30; TEMP 35.9–37; O2SAT 93–100
--- NOTE | 2021-06-29 09:31 | W.ED.GENAD ---
Discharge Plan Disposition Patient Disposition: HOME Condition: Stable Discharge Details Clinical Impression: Vomiting, Epigastric abdominal pain Primary Care Provider: Deidra Hawkins ED Provider: Karla Jarrell Home Meds and New Rx's Prescriptions: New sucralfate 100 mg/mL suspension 10 ml PO QACHS Qty: 400 RF: 0 prochlorperazine maleate [Compazine] 10 mg tablet 10 mg PO TID PRN (Reason: nausea and vomiting) Qty: 7 RF: 0 Continued venlafaxine [Effexor XR] 150 MG capsule,extended release 24hr 150 mg PO HS RF: 0 topiramate [Topamax] 100 MG tablet 100 mg PO BID RF: 0 alprazolam [Xanax] 1 MG tablet 3 mg PO DAILY RF: 0 clonidine HCl 0.2 mg Tablet 0.2 mg PO QHS RF: 0 pantoprazole 20 mg tablet,delayed release (DR/EC) 40 mg PO DAILY RF: 0 sucralfate [Carafate] 1 gram tablet 1 gm PO QACHS Qty: 14 RF: 0 Discontinued ondansetron 4 mg tablet,disintegrating 4 mg PO TID PRN (Reason: nausea and vomiting) Qty: 6 RF: 0 Discharge Instructions Instructions: Acute Nausea and Vomiting (ED), Epigastric Pain (ED) Additional Instructions: Drink plenty of fluids and get plenty of rest. Take the Compazine as needed and directed for nausea and vomiting. Take the Carafate daily as directed. A prescription for Carafate solution has been sent electronically to your pharmacy. You can stop taking the pill form of this medication if you are able to fill the Carafate solution prescription. Take the pain medication as needed and directed for pain not relieved with Tylenol or Carafate. Call your elevator operator freight at [facility] tomorrow to schedule a follow-up appointment for reevaluation. Return immediately to the emergency department if you develop any worsening or new concerning symptoms. Discharge Data Discharge Physician: Karla Jarrell Medical Decision Making 1228 -- 41-year-old female presents with vomiting and intermittent epigastric pain for the past few days. Seen here 2 days ago with reassuring labs and improvement of symptoms in the emergency department and discharged home. She has not taken any of her prescription medication including Zofran and Carafate this morning. Blood pressure hypertensive. She is afebrile and appears uncomfortable but nontoxic. As she had an unremarkable abdominal ultrasound 2 days ago, will obtain a CT abdomen and pelvis for further evaluation. Will place an IV, bolus IV fluids, IV Compazine, Benadryl, Ativan, Pepcid and reassess. 1100 --labs and imaging reviewed. White blood cell count 16. Potassium 3.1, will replete. Bicarb 20, anion gap 18, suspect secondary to dehydration. Lipase within normal limits. CT negative for acute findings. Patient reassessed and states her nausea is improved but still has epigastric pain. We will give a dose of Carafate, additional fluids and reassess. 1420 --labs reviewed and near normalized. Patient told nurse that she felt better. Patient reassessed by me and she states her nausea and epigastric pain have returned. Suspect most likely GERD, gastritis or PUD. She states she has had similar episodes over the past 2 years associated with her GERD. Will give a Phenergan and Dilaudid as she is already received Carafate, antiemetics and Pepcid. She does not want a GI cocktail. 1545 --patient reassessed and she feels much better and is requesting to go home. She denied relief with Zofran so she was given Compazine to go and a prescription sent electronically to her pharmacy. She also requested Carafate solution which was also sent electronically to her pharmacy. She was also given oxycodone bottle to go for pain. Advised to call her elevator operator freight at [facility] for follow-up for reevaluation and consideration for upper endoscopy. Usual and customary return precautions given prior to discharge. Medical Records Medical records reviewed: Yes I reviewed the patient's medical records. Imaging Data Radiologic Study: Radiologist's impression: CT Abdomen And Pelvis With Contrast Exam date and time: 06/29/2021 9:57 AM Age: 41 years old Clinical indication: Abdominal pain; Patient HX: Epigastric abd. Pain, nausea, vomiting TECHNIQUE: Imaging protocol: Computed tomography of the abdomen and pelvis with contrast. Radiation optimization: All CT scans at this facility use at least one of these dose optimization techniques: automated exposure control; mA and/or kV adjustment per patient size (includes targeted exams where dose is matched to clinical indication); or iterative reconstruction. Contrast material: OMNI-PAQUE 350; Contrast volume: 100 ml; Contrast route: INTRAVENOUS (IV); COMPARISON: CT ABDOMEN PELVIS W 10/08/2018 3:20 PM FINDINGS: Liver: Diffuse fatty infiltration of the liver. Gallbladder and bile ducts: Normal. No calcified stones. No ductal dilation. Pancreas: Normal. No ductal dilation. Spleen: Normal. No splenomegaly. Adrenal glands: Normal. No mass. Kidneys and ureters: Nonobstructing stones in both kidneys. There are least 2 on the right the largest measuring 6 mm. There are least 2 on the left the largest measuring 7 mm. Stomach and bowel: Unremarkable. No obstruction. No mucosal thickening. Appendix: No evidence of appendicitis. Intraperitoneal space: Unremarkable. No free air. No significant fluid collection. Vasculature: Unremarkable. No abdominal aortic aneurysm. Lymph nodes: Unremarkable. No enlarged lymph nodes. Urinary bladder: Unremarkable as visualized. Reproductive: Unremarkable as visualized. Bones/joints: Unremarkable. No acute fracture. Soft tissues: Tiny fat containing umbilical hernia. IMPRESSION: 1. No acute findings 2. Diffuse fatty infiltration of the liver 3. Nonobstructing stones in both kidneys. Lab Data Lab results reviewed: Yes I reviewed the patient's lab results. Labs: Laboratory Tests Range/Units 06/29/21 06/29/21 06/29/21 09:54 09:54 09:55 WBC (4.4-10.8) 10^3/uL 16.96 H RBC (3.93-5.22) 10^6/uL 5.12 Hgb (11.2-15.7) g/dL 15.1 Hct (36.0-46.0) % 44.6 MCV (80-95) fL 87.1 MCH (27.0-33.0) pg 29.5 MCHC (32.0-36.0) % 33.9 RDW (11.7-14.6) % 12.5 Plt Count (130-400) 10^3/uL 448 H MPV (8.0-11.0) fL 9.2 Immature Gran % 0.5 Neutrophils % 74.0 Lymphocytes % 17.5 Monocytes % 6.8 Eosinophils % 0.7 Basophils % 0.5 Nucleated RBC % % 0 Absolute Neutrophils (1.2-6.7) 10^3/uL 12.55 H Absolute Lymphocytes (1.2-3.4) 10^3/uL 2.97 Absolute Monocytes (0.1-0.8) 10^3/uL 1.15 H Absolute Eosinophils (0.0-0.7) 10^3/uL 0.12 Absolute Basophils (0.0-0.2) 10^3/uL 0.08 Sodium (136-145) mmol/L 140 Potassium (3.5-5.1) mmol/L 3.0 L Chloride (98-107) mmol/L 103 Carbon Dioxide (21.0-32.0) mmol/L 20.6 L Anion Gap (3-11) mmol/L 16.4 H BUN (7-18) mg/dL 15 D Creatinine (0.55-1.02) mg/dL 1.0 Estimated GFR/1.73 m2 (mL/min/1.73m2) >= 60.00 Glucose (74-106) mg/dL 158 H Calcium (8.5-10.1) mg/dL 9.2 Total Bilirubin (0.2-1.0) mg/dL 0.9 AST (15-37) U/L 27 ALT (14-59) U/L 55 Alkaline Phosphatase (46-116) U/L 90 Total Protein (6.4-8.2) g/dL 8.1 Albumin (3.4-5.0) g/dL 4.1 Lipase (73-393) U/L 27 Serum HCG, Qual Cancelled Beta HCG, Quant (1-3) mIU/mL < 1 L HPI General Mode of arrival: ambulatory. Date/Time Provider Initiated Documentation: 06/29/21 09:31. Limitations to Documentation: no limitations. Information obtained by: patient. HPI Narrative: Pt is a 41yo F who presents to the ED with a complaint of nausea vomiting for the past 2 days. She does endorse intermittent epigastric pain that occurs with and just prior to vomiting. Patient was seen here 2 days ago for the same complaint and diagnosed with possible GI illness with reassuring labs, and felt better prior to discharge. Patient states she has been vomiting multiple times daily which is mainly clear and sometimes bilious. Patient went to [facility] after discharge from here 2 days ago and states she was given IV medication in the ED and felt better and was discharged home. She is presenting today as she has continued nausea and vomiting. She has been having small formed bowel movements. She denies any recent fever, recent antibiotics, recent travel or known sick contacts. Related Data Home Medications Medication Instructions Recorded Confirmed venlafaxine [Effexor XR] 150 mg PO HS 03/02/13 06/29/21 topiramate [Topamax] 100 mg PO BID 01/27/14 06/29/21 alprazolam [Xanax] 3 mg PO DAILY 09/11/14 06/29/21 clonidine HCl 0.2 mg PO QHS 12/02/19 06/29/21 pantoprazole 40 mg PO DAILY 06/15/20 06/29/21 sucralfate [Carafate] 1 gm PO QACHS #14 tab 06/27/21 06/29/21 prochlorperazine maleate 10 mg PO TID PRN #7 tab 06/29/21 [Compazine] sucralfate 10 ml PO QACHS #400 ml 06/29/21 Previous Rx's Medication Instructions Recorded sucralfate [Carafate] 1 gm PO QACHS #14 tab 06/27/21 prochlorperazine maleate 10 mg PO TID PRN #7 tab 06/29/21 [Compazine] sucralfate 10 ml PO QACHS #400 ml 06/29/21 Allergies Allergy/AdvReac Type Severity Reaction Status Date / Time No Known Allergies Allergy Unverified 06/29/21 09:44 General RAJEEV: 3 Review of Systems All systems reviewed & are unremarkable except as noted in HPI and below Constitutional Constitutional: Reports as per HPI, Denies chills and Denies fever(s) Eyes Eyes: Denies blurry vision ENT Ears, Nose, Mouth, and Throat: Denies dizziness, Denies sore throat and Denies throat swelling Cardiovascular Cardiovascular: Denies chest pain and Denies dyspnea Respiratory Respiratory: Denies cough and Denies dyspnea Gastrointestinal Gastrointestinal: Reports abdominal pain, Denies diarrhea and Reports vomiting Genitourinary Genitourinary: Denies hematuria and Denies dysuria Musculoskeletal Musculoskeletal: Denies back pain and Denies numbness Integumentary/Breasts Skin/Breast: Denies lesions and Denies rash Neurologic Neurologic: Denies dizziness, Denies localized weakness and Denies numbness Allergic/Immunologic Allergic/Immunologic: Denies throat swelling [facility] Active Problem List (Updated 06/29/21 @ 15:46 by Karla Jarrell DO) Vomiting (Acute) Epigastric abdominal pain (Acute) Vomiting (Acute) Epigastric abdominal pain (Acute) Open fracture of tuft of distal phalanx of finger (Acute) Tendonitis of left rotator cuff (Chronic) Psychiatric disorder (Chronic) Acute otalgia (Acute) Medical History (Updated 06/29/21 @ 15:46 by Karla Jarrell DO) Endometriosis GERD (gastroesophageal reflux disease) Hiatal hernia Surgical History Extracorporeal shock wave lithotripsy Ligation of fallopian tube Social History Smoking/Tobacco Use Status: Current every day Tobacco Type: cigarettes Smoking risk assessment performed?: Yes Alcohol Intake: never Drug use: Current Sobriety Substance use type: marijuana Current gender identity: female Do you feel safe at home: Yes Do you feel safe in your relationship?: Yes Exam Const General: cooperative, uncomfortable and no acute distress Orientation: alert, awake and oriented x3 HENMT Head: normal to inspection Face and sinus: normal facial exam Eyes General: appearance normal, both eyes and all related structures EOM: EOM intact bilaterally Neck Neck: normal visual inspection and No submandibular swelling Lymphatic: no lymphadenopathy noted Chest Chest: normal inspection of the chest and no tenderness Resp Effort & Inspection: normal respiratory effort and able to speak in complete sentences Auscultation: clear to auscultation bilaterally Cardio Rate: regular rate Rhythm: regular rhythm GI Inspection: normal to inspection Palpation: soft, not firm, not rigid and nontender Auscultation: normal bowel sounds Skin General skin exam: no rashes or lesions noted Neuro General: patient alert, patient awake and patient oriented x3 Cognition: normal cognition Speech: speech normal Motor: muscle tone normal throughout Sensory Exam: no sensory deficits noted Extrem General: normal to inspection, full ROM, capillary refill normal, no calf tenderness bilaterally and no edema Psych Appearance: grossly normal Mental Status: mental status grossly normal Speech and Movement: speech and movement normal Affect: normal affect
[2021-06-29] MEDS: Normal Saline 1,000 ML 1000 ML IV ×2 (09:56→11:33)
[2021-06-29 09:58] LABS: Abs Immature Grans 0.08 10^3/uL (0.0-0.06); Absolute Eosinophil Count 0.12 10^3/uL (0.0-0.7); Absolute Lymphocyte Count 2.97 10^3/uL (1.2-3.4); Basophils % 0.5; Eosinophils % 0.7; HCT 44.6 % (36.0-46.0); HGB 15.1 g/dL (11.2-15.7); Immature Grans % 0.5; Lymphocytes % 17.5; MCH 29.5 pg (27.0-33.0); MCHC 33.9 % (32.0-36.0); MCV 87.1 fL (80-95); MPV 9.2 fL (8.0-11.0); Monocytes % 6.8; Nucleated RBC 0 %; Platelet Count 448 10^3/uL (130-400); RBC 5.12 10^6/uL (3.93-5.22); RDW 12.5 % (11.7-14.6); RDW-SD 39.8 fL; WBC 16.96 10^3/uL (4.4-10.8)
[2021-06-29 10:05] LABS: Absolute Basophil Count 0.08 10^3/uL (0.0-0.2); Absolute Monocyte Count 1.15 10^3/uL (0.1-0.8); Absolute Neutrophil Count 12.55 10^3/uL (1.2-6.7)
[2021-06-29] MEDS: diphenhydrAMINE 50 MG/ML VIAL 25 MG IVP (10:13)
[2021-06-29] MEDS: FAMOTIDINE 20 MG/50 ML BAG 200 MG IVPB (10:13)
[2021-06-29] MEDS: Prochlorperazine 10 MG/2 ML VIAL IVP (10:14)
[2021-06-29] MEDS: LORazepam 2 MG/ML VIAL 1 MG IVP (10:14)
--- NOTE | 2021-06-29 10:14 | DI.CT_ITS ---
Exam(s) CT ABDOMEN PELVIS W EXAM: CT ABDOMEN PELVIS W CLINICAL HISTORY: epigastric abd pain, nausea, vomiting. TECHNIQUE: Imaging Protocol: Axial computed tomography images with coronal and sagittal reformatted images were created and reviewed CONTRAST MATERIAL: Intravenous: Omnipaque 350 Contrast volume:100 ml Oral: / no COMPARISON: CT CT ABDOMEN PELVIS W from 10/08/2018 FINDINGS: ABDOMEN: Lung Bases: Normal where visualized. Liver: Mild to moderate fatty infiltration.. No measurable mass. Gallbladder and biliary tract: No radiodense calculus or dilation. Pancreas: Normal density, no abnormal calcifications or inflammatory process. Spleen: Normal. Kidneys: Normal size, contour and axis. Bilateral renal calculi. No obstructive uropathy. No masses seen. Adrenal glands: No masses seen. Abdominal Aorta: Abdominal portion non-dilated. PELVIS: Bladder: No gross wall thickening. No calculi.No focal mass. Bowel: No obstruction or bowel wall thickening. Appendix normal. Peritoneal cavity: No ascites, collection or mesenteric inflammatory response. Bones: Within normal limits for age. Reproductive organs: Within normal limits. Lymph nodes: Unremarkable. Impression: stable appearance of bilateral nonobstructing renal calculi. No acute abnormality is identified.. RADIATION DOSE DELIVERED: 1,082.25mGy.cm Total DLP DATA REPOSITORY: All CT scans at this facility are submitted to the National Radiology Data Registry (NRDR) Dose Index Registry (DIR) with the [employer] (A[employer]). RADIATION OPTIMIZATION: All CT scans at this facility use at least one of these dose optimization te chniques: automated exposure control; mA and/or kV adjustment per patient size (includes targeted exa ms where dose is matched to clinical indication); or iterative reconstruction.
[2021-06-29] MEDS: Omnipaque 350 MG/ML 100 ML BTL IJ (10:25)
[2021-06-29 10:34] LABS: ALT 55 U/L (14-59); AST 27 U/L (15-37); Albumin 4.1 g/dL (3.4-5.0); Alkaline Phosphatase 90 U/L (46-116); Anion Gap 16.4 mmol/L (3-11); BUN 15 mg/dL (7-18); Bilirubin, Total 0.9 mg/dL (0.2-1.0); CO2 20.6 mmol/L (21.0-32.0); Calcium 9.2 mg/dL (8.5-10.1); Chloride 103 mmol/L (98-107); Glucose 158 mg/dL (74-106); Lipase 27 U/L (73-393); Sodium 140 mmol/L (136-145); Total Protein 8.1 g/dL (6.4-8.2)
--- NOTE | 2021-06-29 10:44 | DI.VRAD_ITS ---
PROCEDURE INFORMATION: Exam: CT Abdomen And Pelvis With Contrast Exam date and time: 06/29/2021 9:57 AM Age: 41 years old Clinical indication: Abdominal pain; Patient HX: Epigastric abd. Pain, nausea, vomiting TECHNIQUE: Imaging protocol: Computed tomography of the abdomen and pelvis with contrast. Radiation optimization: All CT scans at this facility use at least one of these dose optimization techniques: automated exposure control; mA and/or kV adjustment per patient size (includes targeted exams where dose is matched to clinical indication); or iterative reconstruction. Contrast material: OMNI-PAQUE 350; Contrast volume: 100 ml; Contrast route: INTRAVENOUS (IV); COMPARISON: CT ABDOMEN PELVIS W 10/08/2018 3:20 PM FINDINGS: Liver: Diffuse fatty infiltration of the liver. Gallbladder and bile ducts: Normal. No calcified stones. No ductal dilation. Pancreas: Normal. No ductal dilation. Spleen: Normal. No splenomegaly. Adrenal glands: Normal. No mass. Kidneys and ureters: Nonobstructing stones in both kidneys. There are least 2 on the right the largest measuring 6 mm. There are least 2 on the left the largest measuring 7 mm. Stomach and bowel: Unremarkable. No obstruction. No mucosal thickening. Appendix: No evidence of appendicitis. Intraperitoneal space: Unremarkable. No free air. No significant fluid collection. Vasculature: Unremarkable. No abdominal aortic aneurysm. Lymph nodes: Unremarkable. No enlarged lymph nodes. Urinary bladder: Unremarkable as visualized. Reproductive: Unremarkable as visualized. Bones/joints: Unremarkable. No acute fracture. Soft tissues: Tiny fat containing umbilical hernia. IMPRESSION: 1. No acute findings 2. Diffuse fatty infiltration of the liver 3. Nonobstructing stones in both kidneys. Dictated and Authenticated by: Phyllis Newton MD. Ordering:ERNESTO Acosta MD
[2021-06-29 10:47] LABS: HCG Quant, Pregnancy < 1 mIU/mL (1-3)
[2021-06-29] MEDS: Potassium Chloride Liquid 20 MEQ PKT 40 MEQ PO (10:56)
[2021-06-29] MEDS: POTASSIUM CHLORIDE 20 MEQ/100 ML BAG 50 MEQ IVPB (10:56)
--- NOTE | 2021-06-29 11:10 | NUR.NOTE ---
Pt given K+ PO and IV per orders. groundwater monitoring technician & VSS monitored while on infusion, VSS, NAD noted, pt resting on stretcher with eyes closed, only complaint at this time except cold, warm blanket given, continue to monitor. Nursing Note:
[2021-06-29] MEDS: Sucralfate 1 GM TAB PO (11:33)
--- NOTE | 2021-06-29 11:37 | NUR.NOTE ---
Pt medicated with carafate as ordered, 2nd liter NS hung as ordered. Pt assisted to bedside commode, denies nausea, cont. to monitor.Nursing Note:
[2021-06-29 13:17] LABS: Anion Gap 11.7 mmol/L (3-11); BUN 11 mg/dL (7-18); CO2 21.3 mmol/L (21.0-32.0); CREATININE 0.7 mg/dL (0.55-1.02); Chloride 108 mmol/L (98-107); Glucose 119 mg/dL (74-106); Potassium 3.5 mmol/L (3.5-5.1); Sodium 141 mmol/L (136-145)
--- NOTE | 2021-06-29 13:43 | NUR.NOTE ---
Pt sitting up, offered PO fluids, request & recieve ice chips, provider in to see pt. Nursing Note:
[2021-06-29] MEDS: HYDROmorphone 2 MG/ML VIAL 1 MG IVP (15:08)
--- NOTE | 2021-06-29 15:12 | NUR.NOTE ---
Pt medicated as ordered with phenergan/dilaudid, tolerating well, remains on monitor. Taking PO ice chips, cont. to monitor Nursing Note:
--- NOTE | 2021-06-29 15:46 | NUR.NOTE ---
Pt reports feeling much better states the last medicine she was given really helped alot provider notified. Nursing Note:
[2021-06-29] MEDS: Prochlorperazine 10 MG TAB 30 MG PO (16:02)
== END 2021-06-29 16:07 | disposition home or self-care (01) ==
PROVIDERS: Emergency Provider Physician Assistant; PCP Nurse Practitioner Family
DX: R11.2 Nausea with vomiting, unspecified (principal); R10.13 Epigastric pain; E87.6 Hypokalemia
CPT/HCPCS: 36415; 80048; 80053; 81025; 83690; 96361; 96365; 96366; 96367; 96375; 99285; 74177; 84702; 84703; 85025; J0780; J1200; J2060; J3480; J3490

== ENCOUNTER 2021-09-17 19:43 | Emergency (ER) | payer MEDICAID, SELFPAY ==
[2021-09-17 19:48] VITALS: BP 142/101; PULSE 105; RESP 20; TEMP 36.5; O2SAT 99
--- NOTE | 2021-09-17 20:02 | ED.GENADUL_ITS ---
Discharge Plan Disposition Patient Disposition: HOME Condition: Stable Discharge Details Clinical Impression: Pain, dental Primary Care Provider: Deidra Hawkins ED Provider: Arelis Wallis Home Meds and New Rx's Prescriptions: New amoxicillin-pot clavulanate [Augmentin] 500-125 mg tablet 1 tab PO BID 7 Days Qty: 14 0RF No Action venlafaxine [Effexor XR] 150 MG capsule,extended release 24hr 150 mg PO HS 0RF topiramate [Topamax] 100 MG tablet 100 mg PO BID 0RF alprazolam [Xanax] 1 MG tablet 3 mg PO DAILY 0RF clonidine HCl 0.2 mg Tablet 0.2 mg PO QHS 0RF pantoprazole 20 mg tablet,delayed release (DR/EC) 40 mg PO DAILY 0RF Label Comments: TK 1 T PO D Discharge Instructions Instructions: Toothache (ED) Additional Instructions: You do still need to see a dentist. Please take the antibiotics medications as directed. A prescription for the Augmentin was sent to the pharmacy on file. You may use the Hurricaine gel up to 4 5 times daily as needed. Take the tramadol 1 tablet every 4-6 hours as needed for pain. Follow up with primary care provider in 3-5 days. Return to ED sooner if any worsening or concerns. Increase oral fluids. Please take Tylenol or Ibuprofen with food every 4-6 hours as needed for pain and swelling. Stand Alone Forms: Work Release Referrals: Deidra Hawkins [Primary Care Provider] - 5 days Medical Decision Making 41-year-old female presents to the ER with chief complaint of left upper tooth pain which has been on and off for the last month. She does have a broken tooth noted with a dental carry approximately #14. No surrounding induration, or area of fluctuance to suggest abscess. She reports taking Tylenol ibuprofen at home with little to no relief. She does have a history of dental caries and has had a dental block in the past. I did discuss the importance of following up with his dentist she verbalizes understanding. I did discuss with her that the treatments are just temporary and not definitive. She has a past medical history of endometriosis, GERD, hiatal hernia. Patient was given Hurricaine gel, tramadol and Augmentin here in the department. Prescription written for Augmentin I did discuss again the importance of following up with a dentist patient verbalizes understanding HPI General Mode of arrival: ambulatory . Date/Time Provider Initiated Documentation: 09/17/21 19:45 . Limitations to Documentation: no limitations . Information obtained by: patient, RN notes reviewed and old records reviewed . HPI Narrative: 41-year-old female presents to the ER with chief complaint of left upper tooth pain which has been on and off for the last month. She does have a broken tooth noted with a dental carry approximately #14. No surrounding induration, or area of fluctuance to suggest abscess. She reports taking Tylenol ibuprofen at home with little to no relief. She does have a history of dental caries and has had a dental block in the past. I did discuss the importance of following up with his dentist she verbalizes understanding. I did discuss with her that the treatments are just temporary and not definitive. She has a past medical history of endometriosis, GERD, hiatal hernia. I did offer a dental block patient declined at this time. Related Data Home Medications Medication Instructions Recorded Confirmed venlafaxine 150 mg 150 mg PO HS 03/02/13 06/29/21 capsule,extended release 24 hr (Effexor XR) topiramate 100 mg tablet (Topamax) 100 mg PO BID 01/27/14 06/29/21 alprazolam 1 mg tablet (Xanax) 3 mg PO DAILY 09/11/14 06/29/21 clonidine HCl 0.2 mg tablet 0.2 mg PO QHS 12/02/19 06/29/21 pantoprazole 20 mg tablet,delayed 40 mg PO DAILY 06/15/20 06/29/21 release amoxicillin 500 mg-potassium 1 tab PO BID 7 Days #14 tab 09/17/21 clavulanate 125 mg tablet (Augmentin) Previous Rx's Medication Instructions Recorded amoxicillin 500 mg-potassium 1 tab PO BID 7 Days #14 tab 09/17/21 clavulanate 125 mg tablet (Augmentin) Allergies Allergy/AdvReac Type Severity Reaction Status Date / Time No Known Allergies Allergy Unverified 09/17/21 19:53 General Stated Complaint: DentalOral RAJEEV: 4 Review of Systems All systems reviewed & are unremarkable except as noted in HPI and below Constitutional Constitutional: Denies headache(s) ENT Ears, Nose, Mouth, and Throat: Reports dental pain, Denies dysphagia, Denies otalgia, Denies facial pain and Denies headache(s) Gastrointestinal Gastrointestinal: Denies dysphagia Neurologic Neurologic: Denies headache(s) PFSH All Active Problems (Updated 09/17/21 @ 20:11 by Arelis Wallis) Vomiting (Acute) Epigastric abdominal pain (Acute) Vomiting (Acute) Epigastric abdominal pain (Acute) Pain, dental (Acute) Open fracture of tuft of distal phalanx of finger (Acute) LRF Tendonitis of left rotator cuff (Chronic) Injected: 12/08/2019 Psychiatric disorder (Chronic) Acute otalgia (Acute) Medical History (Updated 09/17/21 @ 20:11 by Arelis Wallis) Endometriosis GERD (gastroesophageal reflux disease) Hiatal hernia Surgical History Extracorporeal shock wave lithotripsy Ligation of fallopian tube Social History Smoking/Tobacco Use Status: Current every day Tobacco Type: cigarettes Smoking risk assessment performed?: Yes Alcohol Intake: never Drug use: Current Sobriety Substance use type: marijuana Current gender identity: female Do you feel safe at home: Yes Do you feel safe in your relationship?: Yes Exam HENMT Teeth and gingiva: abnormal tooth or associated gingiva upper left third molar tender and dentin fractured; Negative for without sulcal bleeding, well fixed and without associated gingival fluctuance Throat: posterior oropharynx normal, tonsils normal and uvula midline Course Vital Signs Vital signs: Vital Signs Temperature 36.5 C 09/17/21 19:48 Pulse 105 H 09/17/21 19:48 Respiratory Rate 20 09/17/21 19:48 Blood Pressure 142/101 H 09/17/21 19:48 Pulse Oximetry 99 09/17/21 19:48 Temperature 36.5 C 09/17/21 19:48 Temperature Source Oral 09/17/21 19:48 Pulse 105 H 09/17/21 19:48 Respiratory Rate 20 09/17/21 19:48 Respiratory Effort 09/17/21 19:55 Blood Pressure 142/101 H 09/17/21 19:48 Blood Pressure Position Sitting 09/17/21 19:48 Pulse Oximetry 99 09/17/21 19:48 Oxygen Delivery Method Room Air 09/17/21 19:48 Oxygen Flow Rate 0 09/17/21 19:48 Pain Level 10 09/17/21 19:48
[2021-09-17] MEDS: Amoxicillin 875/Clav. 125 TAB PO (20:09)
[2021-09-17] MEDS: traMADol 50 MG TAB PO (20:09)
[2021-09-17] MEDS: Benzocaine 20% Gel 30 GM JAR MM (20:09)
== END 2021-09-17 20:18 | disposition home or self-care (01) ==
PROVIDERS: Emergency Provider Registered Nurse Emergency; PCP Nurse Practitioner Family
DX: K08.89 Other specified disorders of teeth and supporting structures (principal); K02.9 Dental caries, unspecified; F17.210 Nicotine dependence, cigarettes, uncomplicated
CPT/HCPCS: 99283

== ENCOUNTER 2021-11-19 16:31 | Emergency (ER) | payer MEDICAID, SELFPAY ==
--- NOTE | 2021-11-19 16:30 | DI.CT_ITS ---
Exam(s) CT RENAL COLIC WO EXAM: CT RENAL COLIC WO CLINICAL HISTORY: right sided flank pain. TECHNIQUE: Imaging Protocol: Axial computed tomography images with coronal and sagittal reformatted images were created and reviewed. CONTRAST MATERIAL: Noncontrast COMPARISON: CT CT ABDOMEN PELVIS W from 06/29/2021 FINDINGS: ABDOMEN: Lung Bases: Minimal atelectasis. Liver: Mild fatty infiltration.. No measurable mass. Gallbladder and biliary tract: No radiodense calculus or dilation. Pancreas: Stable fatty changes of the head. No calcifications or inflammatory process. Spleen: Normal. Kidneys: Normal size, contour and axis. Moderate right hydronephrosis secondary to 7 millimeter stone in the ureteropelvic junction. 2 additional nonobstructing stones are noted on the right measuring 3 millimeters in size. Two additional stones are noted in the left kidney, nonobstructing. No miguel s seen. Adrenal glands: No masses seen. Abdominal Aorta: Abdominal portion non-dilated. PELVIS: Bladder: Symmetric distention, no gross wall thickening. Bowel: Mild diverticulosis. No obstruction or bowel wall thickening. Appendix normal. Peritoneal cavity: No ascites, collection or mesenteric inflammatory response. Bones: Within normal limits. IMPRESSION: Moderate right hydronephrosis secondary to a 7 millimeter stone at the ureteropelvic junction. Addit ional bilateral nonobstructing stones. RADIATION DOSE DELIVERED: 954.62mGy.cm Total DLP DATA REPOSITORY: All CT scans at this facility are submitted to the National Radiology Data Registry (NRDR) Dose Index Registry (DIR) with the [employer] ([employer]). RADIATION OPTIMIZATION: All CT scans at this facility use at least one of these dose optimization te chniques: automated exposure control; mA and/or kV adjustment per patient size (includes targeted exa ms where dose is matched to clinical indication); or iterative reconstruction.
[2021-11-19 16:36] VITALS: BP 148/105; PULSE 80; RESP 22; TEMP 35.6; O2SAT 98
--- NOTE | 2021-11-19 16:43 | ED.GENADUL_ITS ---
Discharge Plan Disposition Patient Disposition: AGAINST MEDICAL ADVICE Condition: Serious Discharge Details Clinical Impression: Kidney stone, UTI (urinary tract infection), Infection of kidney Primary Care Provider: Deidra Hawkins ED Provider: Rodney Claros Home Meds and New Rx's Prescriptions: New cephalexin 500 mg capsule 500 mg PO QID 7 Days Qty: 28 0RF Continued ibuprofen 800 mg tablet 800 mg PO TID PRN (Reason: pain) Qty: 60 0RF Rx Instructions: May take 1 tab every 8 hours as needed for pain. Make sure to take with food. alprazolam [Xanax] 1 mg tablet 3 mg PO DAILY Qty: 3 0RF Rx Instructions: called in venlafaxine [Effexor XR] 150 MG capsule,extended release 24hr 150 mg PO HS 0RF topiramate [Topamax] 100 MG tablet 100 mg PO BID 0RF clonidine HCl 0.2 mg Tablet 0.2 mg PO QHS 0RF pantoprazole 20 mg tablet,delayed release (DR/EC) 40 mg PO DAILY 0RF Label Comments: TK 1 T PO D Discharge Instructions Instructions: Kidney Stones (ED), Kidney Infection (ED) Additional Instructions: At this time you have a kidney stone and an infection in your urine and kidney. Although you have been given a dose of antibiotic, the stone needs to come out urgently. It is wisest to stay here to be monitored in case you decompensate. It is our recommendation that you stay overnight for continued monitoring. It is not our recommendation that you leave or go home. There is a risk that you could , or be permanently disabled from this infection if it is not monitored or managed on an inpatient basis. In spite of this you have decided to go home against my recommendation. If you have any change in your mind please return immediately and I will be happy to reassess you at any moment. Additionally it is imperative that you come back as soon as possible to have the stone removed. Please come back as soon as you are willing to the emergency department so that we can schedule the stone to be removed. Although this is not the ideal treatment modality, out of an abundance of precaution I have sent you home with a small bottle of antibiotics and a prescription continued antibiotics. Let me be unequivocally clear that this is not standard therapy, and this is not what you truly need. You truly need to have the stone removed be on IV antibiotics. However please take these antibiotics as directed in the meantime. If you notice any worsening of your symptoms, or any new symptoms such as vomiting, diarrhea, fever, chills, shortness of breath, chest pain, numbness, weakness, or fainting , please return immediately to the emergency department for reevaluation. Please follow up with your primary care provider as soon as possible for reassessment and reevaluation. As always, it was a pleasure participating in your medical care today. Referrals: Deidra Hawkins [Primary Care Provider] - Kelby Dai MD [ [facility]FF PHYSICIAN] - Medical Decision Making 41 yo female with hx of prior kidney stones comes in with acute onset right lower flank/back pain similar to prior kidney stones starting about 2 hours ago. Denies any symptoms earlier today such as fevers, chills, chest pain. In addition to the pain she has n/v. She arrives dry heaving and localizes the pain to the right lower back. She has no abdomen tenderness, no cva tenderness, no saddle anesthesia. Given rapid onset of symptoms and history suspect kidney sto ne, will obtain ua, basic blood work and ct renal colic to further evaluate. ct confirms right sided stone, 6.8mm right upj stone with moderate hydro. She is stable and feeling better, awaiting ua to evaluate for infection. UA positive for nitrites, hemodynamically stable so doubt sepsis but given coinfection will discuss with hospitalist about admission and urology consult and possible intervention tomorrow. Attempted contacting Dr. Dai but no call back. Dr Claros's Documentation 9 PM Patient was not signed out to me. The patient was admitted to the hospitalist service but still remained in the emergency department just prior to going stairs. She was still down here when my shift began. While down here the patient reached out to nursing staff and told them that she wanted to go home. I came and discussed the case with the patient. I made it unequivocally clear that it was against my recommendations to go home. Made it very clear that she had a urine infection and possible kidney infection in conjunction with a kidney stone which puts her at extremely high risk for , permanent disability, or other negative consequences. Patient stated that the previous medical team had insinuated that she could go home or stay, and the choice is up to her. I made it very clear that that is not the case, and it is not our recommendations in any way that she goes home. I described the pathophysiology of her current medical ailment, as well as the reasons that indicate admission, close monitoring, and urgent neurologic evaluation tomorrow morning. I discussed this with the hospitalist Dr. Barrios as well, who also recommended to the patient that she be admitted for appropriate medical care. Patient is of a appropriate age to make decisions. The patient is of sound mind, appears clinically sober, and has capacity to make decisions by my clinical exam. We have provided options for treatment and discussed the risks and benefits of these options and refusing these options, including and disability specific to the patient's pathology. Patient is able to discuss the risks and benefits and alternatives of treatment and refusing treatment. We have tried to involve the patient's family or support group that was present here or by contacting them on the phone. The patient chooses to leave before evaluation and treatment is complete AGAINST MEDICAL ADVICE. Understanding that the patient has made a choice that we do not recommend, as a less ideal alternative we we will give the patient a bottle of Keflex to go home with and recommend that she continue to take this. I discussed with her that this is not standard of care, or the ideal treatment, that she is putting herself at huge risk by going home and choosing this. She states that she will be back in the morning, or she will be back earlier if her symptoms return or worsen, I still made clear that there is high risk with this for any of the aforementioned complications. She understands this. Patient is leaving AGAINST MEDICAL ADVICE. Differential Diagnosis Differential Diagnosis: kidney stone, pyelo Imaging Data Radiologic Study: Attestation: I personally reviewed and interpreted this imaging study as follows: Imaging: CT Scan Radiologist's impression: IMPRESSION: 1. There is a 6.8 mm right UPJ stone with moderate right hydronephrosis. 2. There are additional nonobstructive bilateral renal stones present. 3. Additional nonemergent findings detailed above. Lab Data Lab results reviewed: Yes I reviewed the patient's lab results. HPI General Mode of arrival: ambulatory . Date/Time Provider Initiated Documentation: 11/19/21 16:32 . Limitations to Documentation: no limitations . Information obtained by: patient . History of Present Illness 41 year old F presents to the emergency department with the chief complaint of right lower back pain, described as severe, Quality is described as sharp, and is localized to the back. Patient started experiencing this hour(s) (2) and it has been constant. improves with No relieving factors improve symptom(s), No exacerbating factors reported . Patient notes nausea/vomiting. Patient did receive the following treatments prior to arrival, none Related Data Home Medications Medication Instructions Recorded Confirmed venlafaxine 150 mg 150 mg PO HS 03/02/13 11/19/21 capsule,extended release 24 hr (Effexor XR) topiramate 100 mg tablet (Topamax) 100 mg PO BID 01/27/14 11/19/21 clonidine HCl 0.2 mg tablet 0.2 mg PO QHS 12/02/19 11/19/21 pantoprazole 20 mg tablet,delayed 40 mg PO DAILY 06/15/20 11/19/21 release alprazolam 1 mg tablet (Xanax) 3 mg PO DAILY #3 tab 09/30/21 11/19/21 ibuprofen 800 mg tablet 800 mg PO TID PRN #60 tab 10/25/21 11/19/21 cephalexin 500 mg capsule 500 mg PO QID 7 Days #28 cap 11/19/21 Previous Rx's Medication Instructions Recorded alprazolam 1 mg tablet (Xanax) 3 mg PO DAILY #3 tab 09/30/21 ibuprofen 800 mg tablet 800 mg PO TID PRN #60 tab 10/25/21 cephalexin 500 mg capsule 500 mg PO QID 7 Days #28 cap 11/19/21 Allergies Allergy/AdvReac Type Severity Reaction Status Date / Time No Known Allergies Allergy Unverified 11/19/21 16:40 General Stated Complaint: FlankPain RAJEEV: 3 Review of Systems All systems reviewed & are unremarkable except as noted in HPI and below Constitutional Constitutional: Denies chills, Denies fever(s) and Denies weakness Eyes Eyes: Denies loss of vision Cardiovascular Cardiovascular: Denies chest pain and Denies dyspnea Respiratory Respiratory: Denies cough and Denies dyspnea Gastrointestinal Gastrointestinal: Denies abdominal pain Genitourinary Genitourinary: Denies dysuria Musculoskeletal Musculoskeletal: Denies joint swelling Integumentary/Breasts Skin/Breast: Denies rash Neurologic Neurologic: Denies loss of vision and Denies weakness PFSH All Active Problems (Updated 11/19/21 @ 21:02 by Rodney Claros DO) Infection of kidney (Acute) Kidney stone (Chronic) UTI (urinary tract infection) (Acute) Vomiting (Acute) Epigastric abdominal pain (Acute) Vomiting (Acute) Epigastric abdominal pain (Acute) Open fracture of tuft of distal phalanx of finger (Acute) LRF Tendonitis of left rotator cuff (Chronic) Injected: 12/08/2019 Psychiatric disorder (Chronic) Acute otalgia (Acute) Medical History (Updated 11/19/21 @ 21:02 by Rodney Claros DO) Endometriosis GERD (gastroesophageal reflux disease) Hiatal hernia Surgical History Extracorporeal shock wave lithotripsy Ligation of fallopian tube Social History Smoking/Tobacco Use Status: Current every day Tobacco Type: cigarettes Smoking risk assessment performed?: Yes Alcohol Intake: never Drug use: Current Sobriety Substance use type: marijuana Current gender identity: female Do you feel safe at home: Yes Do you feel safe in your relationship?: Yes Exam Const General: well developed and well groomed Orientation: alert and oriented x3 HENMT Head: normal to inspection Ears: external ears normal General nose exam: external nose normal Mouth: moist mucous membranes Eyes General: appearance normal, both eyes and all related structures Neck Neck: normal visual inspection Resp Effort & Inspection: normal respiratory effort and able to speak in complete sentences Cardio Rate: regular rate GI Palpation: soft and nontender Back/Spine/Pelvis Back: no CVA tenderness Skin General skin exam: no rashes or lesions noted Neuro General: patient alert and patient oriented x3 Extrem General: normal to inspection Psych Mental Status: mental status grossly normal Course Vital Signs Vital signs: Vital Signs Temperature 35.6 C L 11/19/21 16:36 Pulse 80 11/19/21 16:36 Respiratory Rate 11/19/21 16:36 Blood Pressure 148/105 H 11/19/21 16:36 Pulse Oximetry 98 11/19/21 16:36 Temperature 35.6 C L 11/19/21 16:36 Temperature Source Temporal Artery Scan 11/19/21 16:36 Pulse 80 11/19/21 16:36 Respiratory Rate 22 11/19/21 16:36 Respiratory Effort Non-Labored 11/19/21 16:39 Blood Pressure 148/105 H 11/19/21 16:36 Blood Pressure Position Sitting 11/19/21 16:36 Pulse Oximetry 98 11/19/21 16:36 Oxygen Delivery Method Room Air 11/19/21 16:36 Oxygen Flow Rate 0 11/19/21 16:36 Pain Level 10 11/19/21 16:36
[2021-11-19] MEDS: Ketorolac 15 MG/ML VIAL IVP (16:49)
[2021-11-19] MEDS: Normal Saline 1,000 ML 1000 ML IV (16:49)
[2021-11-19] MEDS: Ondansetron 4 MG/2 ML VIAL IVP ×2 (16:49→19:05)
[2021-11-19 16:53] LABS: Abs Immature Grans 0.05 10^3/uL (0.0-0.06); Absolute Basophil Count 0.08 10^3/uL (0.0-0.2); Absolute Lymphocyte Count 4.05 10^3/uL (1.2-3.4); Basophils % 0.6; Eosinophils % 3.5; HCT 43.4 % (36.0-46.0); HGB 14.1 g/dL (11.2-15.7); Immature Grans % 0.4; Lymphocytes % 29.3; MCH 29.4 pg (27.0-33.0); MCHC 32.5 % (32.0-36.0); MCV 90.6 fL (80-95); MPV 9.7 fL (8.0-11.0); Monocytes % 5.9; Neutrophils % 60.3; Platelet Count 399 10^3/uL (130-400); RBC 4.79 10^6/uL (3.93-5.22); RDW 12.4 % (11.7-14.6); RDW-SD 41.4 fL; WBC 13.83 10^3/uL (4.4-10.8)
[2021-11-19 16:55] VITALS: PULSE 64; O2SAT 100
[2021-11-19 16:57] LABS: Absolute Eosinophil Count 0.48 10^3/uL (0.0-0.7); Absolute Monocyte Count 0.82 10^3/uL (0.1-0.8); Absolute Neutrophil Count 8.34 10^3/uL (1.2-6.7)
[2021-11-19 17:07] LABS: ALT 27 U/L (14-59); AST 11 U/L (15-37); Albumin 3.7 g/dL (3.4-5.0); Alkaline Phosphatase 101 U/L (46-116); Anion Gap 10.4 mmol/L (3-11); BUN 12 mg/dL (7-18); Bilirubin, Total 0.4 mg/dL (0.2-1.0); CO2 21.6 mmol/L (21.0-32.0); CREATININE 1.1 mg/dL (0.55-1.02); Calcium 8.4 mg/dL (8.5-10.1); Chloride 108 mmol/L (98-107); Estimated GFR 55.01 (mL/min/1.73m2); Glucose 103 mg/dL (74-106); Lipase 35 U/L (73-393); Magnesium 2.2 mg/dL (1.8-2.4); Potassium 3.6 mmol/L (3.5-5.1); Sodium 140 mmol/L (136-145); Total Protein 7.3 g/dL (6.4-8.2)
[2021-11-19] MEDS: HYDROmorphone 2 MG/ML VIAL 1 MG IVP ×2 (17:16→19:18)
[2021-11-19 17:46] VITALS: BP 141/90; PULSE 68; RESP 16; O2SAT 100
--- NOTE | 2021-11-19 17:47 | NUR.NOTE ---
pt is a lot more comfortable after receiving medication. pt is less anxious and pain has decreased from a 9/10 to a 5/10.
--- NOTE | 2021-11-19 18:05 | DI.VRAD_ITS ---
PROCEDURE INFORMATION: Exam: CT Abdomen And Pelvis Without Contrast Exam date and time: 11/19/2021 5:40 PM Age: 41 years old Clinical indication: Other: Right sided flank pain TECHNIQUE: Imaging protocol: Computed tomography of the abdomen and pelvis without contrast. Total images: 1255 COMPARISON: CT ABDOMEN PELVIS W 06/29/2021 10:10 AM FINDINGS: Lungs: Minor atelectasis in the lingula and right middle lobe. Heart: Heart size normal. Mediastinal space: The visualized distal esophagus is largely contracted without gross abnormality. Liver: Question mild generalized fatty infiltration of the liver. Normal contour. No mass lesions. No intrahepatic biliary ductal dilatation. Gallbladder and bile ducts: Normal. No calcified stones. No ductal dilation. Pancreas: Mild fatty infiltration of the pancreatic head. No acute findings. No ductal dilatation or evidence of pancreatitis. Spleen: Normal. No splenomegaly. Adrenal glands: Normal. No adrenal mass. Kidneys and ureters: Moderate right hydronephrosis with a 6.8 by 4.4 by 5.5 mm right UPJ stone on series 2, image 60. There are 2 nonobstructive right renal stones measuring 3 mm each. There are 2 nonobstructive left renal stones measuring 3 mm and 9 mm. No left-sided ureteral stones or hydronephrosis. Stomach and bowel: The stomach is unremarkable. The small bowel is nondilated with no gross abnormality. There are few diverticula present in the distal colon without evidence of acute diverticulitis. Appendix: The appendix is normal in caliber and demonstrates no evidence of appendicitis. Intraperitoneal space: No free fluid or air. Arteries: Vasculature: No acute process. No abdominal aortic aneurysm. Lymph nodes: No adenopathy. Urinary bladder: Unremarkable as visualized. Reproductive: Unremarkable as visualized. Bones/joints: No acute osseous abnormalities. Soft tissues: Unremarkable. IMPRESSION: 1. There is a 6.8 mm right UPJ stone with moderate right hydronephrosis. 2. There are additional nonobstructive bilateral renal stones present. 3. Additional nonemergent findings detailed above. Dictated and Authenticated by: Michael Gomes MD. Ordering:HILARIO Gill MD
[2021-11-19 18:35] LABS: Bilirubin Negative (Negative); Blood Large (Negative); Clarity Cloudy (Clear); Glucose Negative (Negative); Ketones 15 mg/dL (Negative); Leukocyte Esterase Trace (Negative); Nitrite Positive (Negative); Specific Gravity >= 1.030 (1.005-1.025); Urobilinogen 0.2 EU/dL (Up TO 0.2)
[2021-11-19] MEDS: cefTRIAXone 2 GM/50 ML BAG IVPB (18:43)
--- NOTE | 2021-11-19 18:51 | NUR.NOTE ---
pt was given gingerale, sandwich, pb and crackers.
[2021-11-19 18:53] LABS: RBC >50 HPF (0-2)
[2021-11-19 18:55] LABS: Bacteria Many HPF (Negative); C & S Indicated? Yes
--- NOTE | 2021-11-19 19:22 | NUR.NOTE ---
pt was experiencing more nausea and increased pain. provider notified, pt given zofran and dilauded forpain. SAV
[2021-11-19 19:23] VITALS: BP 145/72; PULSE 82; RESP 16; O2SAT 99
--- NOTE | 2021-11-19 19:52 | HPE_ITS ---
Date of service: 11/19/21 Time of Service: 19:52 Assessment and Plan Assessment and plan (1) Kidney stone: Status: Chronic Assessment and plan: Kidney stone. By size unlikely to pass. Will consult Urology, in interim push IVF, single dose Flomax and prn analgesics and antiemetics. Unclear whether inf ection may be present, has received single dose Rocephin which would be adequate for next 24 hours, will reassess need for continued antibiotics thereafter. History of Present Illness History of Present Illness Chief Complaint: flank pain Narrative: 41 female with h/o kidney stones, here with several hours of sudden onset right flank pain asociatd wih nausea. In ER findings of note for absence of fever; white count 13; urinalysis showing >50 RBC, trface leukocytes (unable to assess field for WBC due to packed RBC) and many bacteria. CT shows 6.8 mm stone right ureter with moderate hydronephrosis. Patient given Dilaudid x2, Zofran and 2 gm Rocephin. I was asked to evaluate for admission. Patient states Dilaudid controls the pain, though temporarily. Review of Systems Narrative: per HPI PFSH All Active Problems Kidney stone (Chronic) UTI (urinary tract infection) (Acute) Vomiting (Acute) Epigastric abdominal pain (Acute) Vomiting (Acute) Epigastric abdominal pain (Acute) Open fracture of tuft of distal phalanx of finger (Acute) LRF Tendonitis of left rotator cuff (Chronic) Injected: 12/08/2019 Psychiatric disorder (Chronic) Acute otalgia (Acute) Medical History Endometriosis GERD (gastroesophageal reflux disease) Hiatal hernia Surgical History Extracorporeal shock wave lithotripsy Ligation of fallopian tube Social History Smoking/Tobacco Use Status: Current every day Tobacco Type: cigarettes Smoking risk assessment performed?: Yes Alcohol Intake: never Drug use: Current Sobriety Substance use type: marijuana Current gender identity: female Do you feel safe at home: Yes Do you feel safe in your relationship?: Yes Meds Allergies and Home Medications Allergies Allergy/AdvReac Type Severity Reaction Status Date / Time No Known Allergies Allergy Unverified 11/19/21 16:40 Home Medications Medication Instructions Recorded Confirmed Type venlafaxine 150 mg 150 mg PO HS 03/02/13 11/19/21 History capsule,extended release 24 hr (Effexor XR) topiramate 100 mg tablet (Topamax) 100 mg PO BID 01/27/14 11/19/21 History clonidine HCl 0.2 mg tablet 0.2 mg PO QHS 12/02/19 11/19/21 History pantoprazole 20 mg tablet,delayed 40 mg PO DAILY 06/15/20 11/19/21 History release alprazolam 1 mg tablet (Xanax) 3 mg PO DAILY #3 tab 09/30/21 11/19/21 Rx ibuprofen 800 mg tablet 800 mg PO TID PRN #60 tab 10/25/21 11/19/21 Rx Exam Narrative Exam Narrative: 145/72, 82, 35.6, 16, 99% RA. HEENT atraumatic; neck supple; lungs clear; heart RRR; abdomen soft and NT; back positive right CVAT; extremities w/o edema; neuro Ox3, lucid, non-focal Results Labs Result diagrams: 11/19/21 16:43 11/19/21 16:43 Labs: Laboratory Results - last 24 hr 11/19/21 11/19/21 11/19/21 16:43 16:43 18:15 WBC 13.83 H RBC 4.79 Hgb 14.1 Hct 43.4 MCV 90.6 MCH 29.4 MCHC 32.5 RDW 12.4 Plt Count 399 MPV 9.7 Immature Gran % 0.4 Neutrophils % 60.3 Lymphocytes % 29.3 Monocytes % 5.9 Eosinophils % 3.5 Basophils % 0.6 Nucleated RBC % 0.0 Absolute Neutrophils 8.34 H Absolute Lymphocytes 4.05 H Absolute Monocytes 0.82 H Absolute Eosinophils 0.48 Absolute Basophils 0.08 Sodium 140 Potassium 3.6 Chloride 108 H Carbon Dioxide 21.6 Anion Gap 10.4 BUN 12 Creatinine 1.1 H Estimated GFR/1.73 m2 55.01 Glucose 103 Calcium 8.4 L Magnesium 2.2 Total Bilirubin 0.4 AST 11 L ALT 27 Alkaline Phosphatase 101 Total Protein 7.3 Albumin 3.7 Lipase 35 Urine Color Yellow Urine Clarity Cloudy Urine pH 7.0 Ur Specific [place] >= 1.030 H Urine Protein 100 H Urine Ketones 15 H Urine Blood Large H Urine Nitrite Positive H Urine Bilirubin Negative Urine Urobilinogen 0.2 Ur Leukocyte Esterase Trace H Urine RBC >50 H Urine WBC Not Applicable Ur Epithelial Cells Not Applicable Urine Crystals Not Applicable Urine Bacteria Many Urine Mucus Not Applicable Ur Culture Indicated? Yes Urine Glucose Negative Last Vital Signs Temp 35.6 C L 11/19/21 16:36 Pulse 82 11/19/21 19:23 Resp 16 11/19/21 19:23 BP 145/72 H 11/19/21 19:23 Pulse Ox 99 11/19/21 19:23
[2021-11-19 20:13] LABS: Source Nasal/Nares
--- NOTE | 2021-11-19 20:54 | NUR.NOTE ---
pt is asking to leave, wants to comeback in the am. provider wanted to speak with her. report was given to MED surg, waiting to get response on if she will be leaving ornot.SAV
[2021-11-19 21:34] LABS: COVID-19 PCR Negative (Negative)
== END 2021-11-19 21:15 | disposition left against medical advice (07) ==
PROVIDERS: Emergency Medicine; Emergency Provider Student in an Organized Health Care Education/Training Program; PCP Nurse Practitioner Family
DX: N20.0 Calculus of kidney (principal); N39.0 Urinary tract infection, site not specified; B96.20 Unspecified Escherichia coli [E. coli] as the cause of diseases classified elsewhere; Z53.29 Procedure and treatment not carried out because of patient's decision for other reasons; Z87.442 Personal history of urinary calculi
CPT/HCPCS: 36415; 80053; 81025; 83690; 87077; 87635; 96361; 96365; 96375; 96376; 99283; 99285; 74176; 81003; 81015; 83735; 85025; 87086; 87186; J1885; J2405

== ENCOUNTER 2021-11-20 07:53 | Day surgery (SDC) | payer MEDICAID, SELFPAY ==
[2021-11-20 07:56] VITALS: BP 137/91; PULSE 91; RESP 18; TEMP 36.5; O2SAT 97
--- NOTE | 2021-11-20 08:23 | W.ED.GENAD ---
Discharge Plan Disposition Patient Disposition: [facility] INPATIENT Condition: Stable Discharge Details Chief Complaint: Abd Prob Clinical Impression: Kidney stone, Urinary tract infection, Hydronephrosis Primary Care Provider: Deidra Hawkins ED Provider: Jaime Nova Home Meds and New Rx's Prescriptions: No Action ibuprofen 800 mg tablet 800 mg PO TID PRN (Reason: pain) Qty: 60 0RF Rx Instructions: May take 1 tab every 8 hours as needed for pain. Make sure to take with food. alprazolam [Xanax] 1 mg tablet 3 mg PO DAILY Qty: 3 0RF Rx Instructions: called in venlafaxine [Effexor XR] 150 MG capsule,extended release 24hr 150 mg PO HS 0RF topiramate [Topamax] 100 MG tablet 100 mg PO BID 0RF clonidine HCl 0.2 mg Tablet 0.2 mg PO QHS 0RF pantoprazole 20 mg tablet,delayed release (DR/EC) 40 mg PO DAILY 0RF Label Comments: TK 1 T PO D cephalexin 500 mg capsule 500 mg PO QID 7 Days Qty: 28 0RF Medical Decision Making 41-year-old female history of kidney stones presents returning for evaluation by urology for obstructing infected right ureteral stone found to have mild elevation of white count last night as well as UTI and 6.8 mm stone in the UPJ. Resting comfortably no acute distress afebrile nontoxic no CVA tenderness. Was given a dose of ceftriaxone and discharged AGAINST MEDICAL ADVICE on Keflex. Will touch base with urology to see if they want any repeat labs or imaging. Patient likely to be admitted to the OR for stent/lithotripsy 9: 01 Dr. Dai, urologist, is plan to take patient to the OR for stenting around 1030 this morning. Patient be taken from ER to the OR, likely to be discharged from PACU. Patient resting comfortably no acute distress. HPI General Date/Time Provider Initiated Documentation: 11/20/21 08:03. HPI Narrative: 41-year-old female history of kidney stones presents returning for evaluation of obstructing right kidney stone with UTI. Patient left AGAINST MEDICAL ADVICE after being admitted yesterday evening. Returning for evaluation by Dr. Dai of urology. Has been taking antibiotics as prescribed. Denies fevers chills nausea vomiting or other systemic signs of illness still has some right flank discomfort Related Data Home Medications Medication Instructions Recorded Confirmed venlafaxine 150 mg 150 mg PO HS 03/02/13 11/20/21 capsule,extended release 24 hr (Effexor XR) topiramate 100 mg tablet (Topamax) 100 mg PO BID 01/27/14 11/19/21 clonidine HCl 0.2 mg tablet 0.2 mg PO QHS 12/02/19 11/19/21 pantoprazole 20 mg tablet,delayed 40 mg PO DAILY 06/15/20 11/19/21 release alprazolam 1 mg tablet (Xanax) 3 mg PO DAILY #3 tab 09/30/21 11/19/21 ibuprofen 800 mg tablet 800 mg PO TID PRN #60 tab 10/25/21 11/19/21 cephalexin 500 mg capsule 500 mg PO QID 7 Days #28 cap 11/19/21 11/20/21 Previous Rx's Medication Instructions Recorded alprazolam 1 mg tablet (Xanax) 3 mg PO DAILY #3 tab 09/30/21 ibuprofen 800 mg tablet 800 mg PO TID PRN #60 tab 10/25/21 cephalexin 500 mg capsule 500 mg PO QID 7 Days #28 cap 11/19/21 Allergies Allergy/AdvReac Type Severity Reaction Status Date / Time No Known Allergies Allergy Unverified 11/20/21 07:59 General Stated Complaint: Abd Prob RAJEEV: 3 Review of Systems Narrative: Review of Systems Constitutional: negative Eyes: negative ENT: negative Cardiovascular: negative Respiratory: negative Gastrointestinal: negative : Flank pain Musculoskeletal: negative Skin: negative Neurologic: negative Psych: negative PFSH All Active Problems (Updated 11/20/21 @ 09:03 by Jaime Nova MD) Infection of kidney (Acute) Kidney stone (Chronic) Urinary tract infection (Acute) Hydronephrosis (Acute) Kidney stone (Chronic) UTI (urinary tract infection) (Acute) Vomiting (Acute) Epigastric abdominal pain (Acute) Vomiting (Acute) Epigastric abdominal pain (Acute) Open fracture of tuft of distal phalanx of finger (Acute) LRF Tendonitis of left rotator cuff (Chronic) Injected: 12/08/2019 Psychiatric disorder (Chronic) Acute otalgia (Acute) Medical History (Updated 11/20/21 @ 09:03 by Jaime Nova MD) Endometriosis GERD (gastroesophageal reflux disease) Hiatal hernia Surgical History Extracorporeal shock wave lithotripsy Ligation of fallopian tube Social History Smoking/Tobacco Use Status: Current every day Tobacco Type: cigarettes Smoking risk assessment performed?: Yes Alcohol Intake: never Drug use: Current Sobriety Substance use type: marijuana Current gender identity: female Do you feel safe at home: Yes Do you feel safe in your relationship?: Yes Exam Narrative Exam Narrative: Physical Examination General: alert, awake, cooperative, resting comfortably, no acute distress HEENT: normocephalic, atraumatic; PERRL, EOM intact, conjunctiva normal; no nasal discharge; moist mucous membranes, oral and pharyngeal mucosa normal, tolerating secretions Neck: supple, trachea midline; full ROM Chest: normal to inspection Respiratory: normal respiratory effort, speaking in full sentences, clear to auscultation, no wheezing, rales or rhonchi Cardiac: regular rate, regular rhythm, S1S2 intact, no murmurs rubs or gallops GI: abdomen soft, non-tender, non-distended; no palpable mass or hepatosplenomegaly : No CVA tenderness Skin: no lesions, rashes or trauma appreciated Neuro: AAOx3, normal speech, moving all extremities Extremities: Psych: Appropriate mood and affect Course Vital Signs Vital signs: Vital Signs Temperature 36.5 C 11/20/21 07:56 Pulse 91 H 11/20/21 07:56 Respiratory Rate 18 11/20/21 07:56 Blood Pressure 137/91 H 11/20/21 07:56 Pulse Oximetry 97 11/20/21 07:56 Temperature 36.5 C 11/20/21 07:56 Temperature Source Temporal Artery Scan 11/20/21 07:56 Pulse 91 H 11/20/21 07:56 Respiratory Rate 18 11/20/21 07:56 Respiratory Effort Non-Labored 11/20/21 08:00 Blood Pressure 137/91 H 11/20/21 07:56 Blood Pressure Position Sitting 11/20/21 07:56 Pulse Oximetry 97 11/20/21 07:56 Oxygen Delivery Method Room Air 11/20/21 07:56 Oxygen Flow Rate 0 11/20/21 07:56 Pain Level 5 11/20/21 08:13
[2021-11-20] MEDS: Normal Saline Flush 10 ML SYR IV (10:12)
[2021-11-20] MEDS: ceFAZolin 2 GM/50 ML BAG IVPB (10:12)
--- NOTE | 2021-11-20 10:15 | DI.RAD_ITS ---
Exam(s) XR RETROGRADE IN OR EXAM: XR RETROGRADE IN OR CLINICAL HISTORY: KIDNEY STONE. TECHNIQUE: Fluoroscopy was provided for the referring physician for guidance with performing retrogr martine procedure. COMPARISON: No exams were available for comparison FINDINGS: A single hard copy image shows placement of a ureteral stent. Please see procedure note for detail s. Fluoro time: 16.5 seconds RADIATION DOSE DELIVERED: Ka,r=4.48 mGy
--- NOTE | 2021-11-20 10:28 | W.PM.HP.N ---
Date of service: 11/20/21 Time of Service: 11:46 Assessment and Plan Assessment and plan (1) Obstruction of right ureteropelvic junction (UPJ) due to stone: Status: Acute Assessment and plan: With the presence of an obstructing right ureteral stone and laboratory signs of infection, I would recommend placing a ureteral stent while she completes her antibiotic. We would then bring her back into the operating room for a ureteroscopy and holmium laser lithotripsy of her stones after the infection has cleared. History of Present Illness History of Present Illness Chief Complaint: Right UPJ stone Narrative: This is a 41-year-old woman who has a past history of kidney stones. She underwent ESWL at our facility back in 2012. She presented to the emergency room last evening with pain similar to her previous renal colic episodes. She was identified as having a right proximal ureteral stone causing hydronephrosis. She also had bilateral nonobstructing stones. Her urinalysis was suggestive of an infection. She was given a dose of IV ceftriaxone. It was recommended that she stay in the hospital and have a stent placed, but the patient left AGAINST MEDICAL ADVICE last evening. She returned this morning and is agreeable to a stent placement. She continues to have right flank pain and nausea. She does not have fever or chills. Review of Systems Narrative: No fevers or chills No vision change or dysphasia No diabetes or thyroid No shortness of breath, cough or hemoptysis No chest pain or palpitations No hepatitis, ulcers, jaundice, diarrhea or constipation No seizures, strokes or peripheral neuropathy No bleeding disorders or anemia No gout PFSH All Active Problems (Updated 11/20/21 @ 11:18 by Marisela Gonzalez) Acute otalgia (Acute) Psychiatric disorder (Chronic) Tendonitis of left rotator cuff (Chronic) Injected: 12/08/2019 Open fracture of tuft of distal phalanx of finger (Acute) LRF Vomiting (Acute) Epigastric abdominal pain (Acute) Vomiting (Acute) Epigastric abdominal pain (Acute) Kidney stone (Chronic) UTI (urinary tract infection) (Acute) Infection of kidney (Acute) Kidney stone (Chronic) Urinary tract infection (Acute) Hydronephrosis (Acute) Obstruction of right ureteropelvic junction (UPJ) due to stone (Acute) Medical History (Updated 11/20/21 @ 11:18 by Marisela Gonzalez) Endometriosis GERD (gastroesophageal reflux disease) Hiatal hernia Hx of sleep apnea pt. reports she has a machine, uses some Surgical History (Updated 11/20/21 @ 11:17 by Marisela Gonzalez) Extracorporeal shock wave lithotripsy Hx of esophagogastroduodenoscopy Hx of laparoscopy pt. reports for endometriosos Hx of submucous nasal surgery pt. reports she has a nasal cyst removed at age 9-10 under anesthesia Ligation of fallopian tube Social History Smoking/Tobacco Use Status: Current every day Tobacco Type: cigarettes Smoking risk assessment performed?: Yes Alcohol Intake: never Drug use: Current Sobriety Substance use type: marijuana Details: marijuana: [id number] Current gender identity: female Do you feel safe at home: Yes Do you feel safe in your relationship?: Yes Meds Allergies and Home Medications Allergies Allergy/AdvReac Type Severity Reaction Status Date / Time No Known Allergies Allergy Unverified 11/20/21 11:12 Home Medications Medication Instructions Recorded Confirmed Type venlafaxine 150 mg 150 mg PO HS 03/02/13 11/20/21 History capsule,extended release 24 hr (Effexor XR) topiramate 100 mg tablet (Topamax) 100 mg PO BID 01/27/14 11/20/21 History clonidine HCl 0.2 mg tablet 0.2 mg PO QHS 12/02/19 11/20/21 History pantoprazole 20 mg tablet,delayed 40 mg PO DAILY 06/15/20 11/20/21 History release alprazolam 1 mg tablet (Xanax) 3 mg PO DAILY #3 tab 09/30/21 11/20/21 Rx ibuprofen 800 mg tablet 800 mg PO TID PRN #60 tab 10/25/21 11/20/21 Rx cephalexin 500 mg capsule 500 mg PO QID 7 Days #28 cap 11/19/21 11/20/21 Rx Exam Const General: cooperative Neck Neck: supple Resp Effort & Inspection: normal respiratory effort Auscultation: clear to auscultation bilaterally Cardio Rate: regular rate Rhythm: regular rhythm GI Palpation: soft and no guarding Neuro General: patient alert, patient awake and patient oriented x3 Results Last Vital Signs Temp 36.5 C 11/20/21 07:56 Pulse 91 H 11/20/21 07:56 Resp 18 11/20/21 07:56 BP 137/91 H 11/20/21 07:56 Pulse Ox 97 11/20/21 07:56
[2021-11-20] MEDS: Lactated Ringers 1,000 ML 80 ML IV (11:10)
--- NOTE | 2021-11-20 11:18 | W.ANESPRE ---
General Info Date of Service Date Performed: 11/20/21 Height: 5 ft 5 in Weight: 81.647 kg Body Mass Index (BMI): 29.9 Surgical Procedure: Operation Date: 11/20/21 11:40 Proposed Procedure Side Surgeon p Cystoscopy with Stent Insertion Right Kelby Dai MD Actual Procedure Side Surgeon p Cystoscopy with Stent Insertion Right Kelby Dai MD Meds Allergies and Home Medications Allergies Allergy/AdvReac Type Severity Reaction Status Date / Time No Known Allergies Allergy Unverified 11/20/21 11:12 Home Medication Medication Instructions Recorded venlafaxine 150 mg 150 mg PO HS 03/02/13 capsule,extended release 24 hr (Effexor XR) topiramate 100 mg tablet (Topamax) 100 mg PO BID 01/27/14 clonidine HCl 0.2 mg tablet 0.2 mg PO QHS 12/02/19 pantoprazole 20 mg tablet,delayed 40 mg PO DAILY 06/15/20 release alprazolam 1 mg tablet (Xanax) 3 mg PO DAILY #3 tab 09/30/21 ibuprofen 800 mg tablet 800 mg PO TID PRN #60 tab 10/25/21 cephalexin 500 mg capsule 500 mg PO QID 7 Days #28 cap 11/19/21 Current Visit Medications: Current Medications Generic Name Dose Route Start Last Admin Trade Name Freq PRN Reason Stop Dose Admin Ringer's Solution 1,000 mls @ 80 mls/hr 11/20/21 06:00 IV 12/02/21 23:59 INFUSION DENISE Cefazolin Sodium/Dextrose 2 gm in 50 mls @ 100 mls/hr 11/20/21 06:00 11/20/21 10:40 Ancef Duplex IVPB 11/21/21 23:59 Infused PREOP DENISE Infusion Sodium Chloride 500 mls @ 0 mls/hr 11/20/21 10:41 Saline 500ml Bag IV PRN PRN As Directed IV Miscellaneous Supplies 1 each 11/20/21 06:00 Iv Access IV 12/02/21 23:59 DIRECTED DENISE IV Miscellaneous Supplies 1 each 11/20/21 10:45 Iv Access IV DIRECTED DENISE Sodium Chloride 0 ml 11/20/21 06:00 11/20/21 10:12 Normal Saline Flush 10 Ml Syr IV 12/02/21 23:59 30 ml PRN PRN Administration Sodium Chloride 0 ml 11/20/21 06:00 Normal Saline 10 Ml Vial IJ 12/02/21 23:59 DIRECTED PRN Sodium Chloride 0 ml 11/20/21 10:41 Normal Saline Flush 10 Ml Syr IVP PRN PRN Sterile Water 0 ml 11/20/21 06:00 Water,Injection,Sterile 10 Ml Vial IJ 12/02/21 23:59 DIRECTED PRN PFSH Active Problems Active Problems: Problem Status Onset Code Obstruction of right ureteropelvic junction (UPJ) due to stone N20.1 Infection of kidney N15.9 Kidney stone N20.0 Urinary tract infection N39.0 Hydronephrosis N13.30 Kidney stone N20.0 UTI (urinary tract infection) N39.0 Vomiting R11.10 Epigastric abdominal pain R10.13 Vomiting R11.10 Epigastric abdominal pain R10.13 Open fracture of tuft of distal phalanx of finger S62.639B Tendonitis of left rotator cuff M75.82 Psychiatric disorder F99 Acute otalgia H92.09 Medical History Medical History (Updated 11/20/21 @ 11:18 by Marisela Gonzalez) Endometriosis GERD (gastroesophageal reflux disease) Hiatal hernia Hx of sleep apnea pt. reports she has a machine, uses some Surgical History Surgical History (Updated 11/20/21 @ 11:17 by Marisela Gonzalez) Extracorporeal shock wave lithotripsy Hx of esophagogastroduodenoscopy Hx of laparoscopy pt. reports for endometriosos Hx of submucous nasal surgery pt. reports she has a nasal cyst removed at age 9-10 under anesthesia Ligation of fallopian tube Tobacco Smoking/Tobacco Use Status: Current every day Tobacco Type: cigarettes Alcohol Alcohol Intake: never Substance Use Substance use: Current Sobriety Substance use type: marijuana Vital Signs and Lab Results Vital Signs Most Recent Vital Signs in EMR: Most Recent Vital Signs Temp Pulse Resp BP Pulse Ox 36.5 C 91 H 18 137/91 H 97 11/20/21 07:56 11/20/21 07:56 11/20/21 07:56 11/20/21 07:56 11/20/21 07:56 Lab Results Blood Type / Crossmatch: No Data to Display Complete Blood Count: White Blood Count 13.83 10^3/uL (4.4-10.8) H 11/19/21 16:43 11/19/21 Red Blood Count 4.79 10^6/uL (3.93-5.22) 11/19/21 16:43 11/19/21 Hemoglobin 14.1 g/dL (11.2-15.7) 11/19/21 16:43 11/19/21 Hematocrit 43.4 % (36.0-46.0) 11/19/21 16:43 11/19/21 Platelet Count 399 10^3/uL (130-400) 11/19/21 16:43 11/19/21 Complete Metabolic Panel: Sodium Level 140 mmol/L (136-145) 11/19/21 16:43 11/19/21 Potassium Level 3.6 mmol/L (3.5-5.1) 11/19/21 16:43 11/19/21 Chloride Level 108 mmol/L (98-107) H 11/19/21 16:43 11/19/21 Carbon Dioxide Level 21.6 mmol/L (21.0-32.0) 11/19/21 16:43 11/19/21 Blood Urea Nitrogen 12 mg/dL (7-18) 11/19/21 16:43 11/19/21 Creatinine 1.1 mg/dL (0.55-1.02) H 11/19/21 16:43 11/19/21 Estimated GFR/1.73 m2 55.01 (mL/min/1.73m2) 11/19/21 16:43 11/19/21 Magnesium Level 2.2 mg/dL (1.8-2.4) 11/19/21 16:43 11/19/21 Calcium Level 8.4 mg/dL (8.5-10.1) L 11/19/21 16:43 11/19/21 Albumin 3.7 g/dL (3.4-5.0) 11/19/21 16:43 11/19/21 Glucose Level 103 mg/dL (74-106) 11/19/21 16:43 11/19/21 Liver Function Panel: Alanine Aminotransferase (ALT/SGPT) 27 U/L (14-59) 11/19/21 16:43 11/19/21 Aspartate Amino Transf (AST/SGOT) 11 U/L (15-37) L 11/19/21 16:43 11/19/21 Coagulation Panel: No Data to Display Cardiac Panel: No Data to Display Arterial Blood Gas: No Data to Display Venous Blood Gas: No Data to Display Pancreas Panel: Lipase 35 U/L (73-393) 11/19/21 16:43 11/19/21 Thyroid Panel: No Data to Display Infectious Disease: Coronavirus (COVID-19)(PCR) Negative (Negative) 11/19/21 20:07 11/19/21 Coronavirus 2019 Source Nasal/Nares 11/19/21 20:07 11/19/21 Blood Cultures: No Data to Display Toxicology Panel: No Data to Display Panel: No Data to Display Imaging and Studies Imaging and Studies Study information below may be from another EMR and interpreted by another provider. Please see original notes in EMR for more complete details. EKG Summary: Conclusion Sinus bradycardia...rate< 60 Atrial premature complexes...SV complexes w/ short R-R intvls. 06/27/21 Pulmonary Function Summary: Impression Normal pulmonary function test Clinical Correlation therefore is recommended. 07/06/20 Anesthesia Assessment and Plan Anesthesia History Personal History: No History of Anesthesia Complications Family History: No Family History of Anesthesia Complications Exercise Tolerance Exercise Tolerance: Metabolic Equivalents>4 Pertinent Negatives Pertinent Negatives: No Symptoms of GERD, No Major Cardiovascular Symptoms or Complaints, No Major Pulmonary Symptoms or Complaints and No History of CVA/TIA Cardiac & Pulmonary Exam Cardiac Exam: Normal S1/S2 Heart Sounds Pulmonary Exam: Clear Bilateral Breath Sounds Implantable Cardiac Device Does patient have a Pacemaker or an ICD?: No Airway Exam Known Difficult Airway: No Mallampati Class: 3 Mouth Opening: Normal (> 3cm) Thyromental Distance: Greater than 3 cm Neck Range of Motion: Full ROM Neck Circumference: Normal Teeth Condition: Normal Dentition ASA Classification ASA Score: ASA 2 Emergency Case?: No NPO Status NPO Status: NPO Clears >2 hours, Solids >8 hours Status Status: Not Relevant due to Medical History and Negative HCG Anesthesia Plan Resuscitation Status: Full Code Anesthesia Technique: General Anesthesia Airway Planned: Natural Airway Monitors Used: Standard Monitors
[2021-11-20 11:34] VITALS: BP 133/97; PULSE 79; RESP 18; TEMP 36.7; O2SAT 98
[2021-11-20 11:55] VITALS: BMI 29.9
[2021-11-20] MEDS: Lidocaine 2% Jelly 6 ML SYR (12:11)
[2021-11-20] MEDS: Omnipaque 300 MG/ML 50 ML BTL (12:18)
--- NOTE | 2021-11-20 12:23 | W.PM.DSUDISC ---
Discharge Plan Disposition Patient Disposition: HOME Condition: Stable Discharge Details Attending Provider: Kelby Dai Primary Care Provider: Deidra Hawkins Home Meds and New Rx's Prescriptions: New tramadol 50 mg tablet 50 mg PO Q6H PRN (Reason: pain) Qty: 30 0RF No Action ibuprofen 800 mg tablet 800 mg PO TID PRN (Reason: pain) Qty: 60 0RF Rx Instructions: May take 1 tab every 8 hours as needed for pain. Make sure to take with food. alprazolam [Xanax] 1 mg tablet 3 mg PO DAILY Qty: 3 0RF Rx Instructions: called in venlafaxine [Effexor XR] 150 MG capsule,extended release 24hr 150 mg PO HS 0RF topiramate [Topamax] 100 MG tablet 100 mg PO BID 0RF clonidine HCl 0.2 mg Tablet 0.2 mg PO QHS 0RF pantoprazole 20 mg tablet,delayed release (DR/EC) 40 mg PO DAILY 0RF Label Comments: TK 1 T PO D cephalexin 500 mg capsule 500 mg PO QID 7 Days Qty: 28 0RF Discharge Instructions Additional Instructions: expect a phone call from my office to arrange her followup outpatient surgery prescription for pain medication sent to pharmacy complete antibiotics given to you in the ER Activity:: Activity as Tolerated Shower/Bathe:: 24 hours Diet:: As Tolerated Discharge Orders Discharge Orders: Discharge Order (Routine); Ordered 11/20/21 Ordered By: Kelby Dai DS: Diagnosis Discharge Diagnosis (1) Obstruction of right ureteropelvic junction (UPJ) due to stone: Status: Acute
[2021-11-20 12:27] VITALS: BP 129/103; PULSE 91; RESP 18; TEMP 36.4; O2SAT 100
--- NOTE | 2021-11-20 12:41 | W.PM.OP ---
Date of service: 11/20/21 Time of Service: 12:41 Operative Note Operative Note DATE OF PROCEDURE: 11/20/21 PRE-OP DIAGNOSIS: Right UPJ stone POST-OP DIAGNOSIS: same UTI PROCEDURE: cystoscopy, right retrograde pyelogram, insert right ureteral stent SURGEON: Kelby Dai ANESTHESIA TYPE: General:No Airway Refer to Anesthesia Record ESTIMATED BLOOD LOSS: 0 PATHOLOGY: none sent COMPLICATIONS: None Patient was transported to: same day Patient's condition: stable Implants: 4.8 Slovenian by 22 to 30 cm right ureteral stent Indications: This is a 41-year-old woman who has a history of kidney stones. She presented to the emergency department last evening with right-sided flank pain. She was identified as having an obstructing right UPJ stone. In addition to the stone, her urinalysis was very suggestive of a urinary tract infection. She was given IV Rocephin and admission was recommended, but the patient left the emergency department AGAINST MEDICAL ADVICE. She returned this morning agreeable to placement of a ureteral stent Findings: right UPJ stone with hydronephrosis above Procedure Description: The patient was brought to the operating room on 11/20/2021. After successful induction of general anesthesia without intubation, she was placed in the dorsal lithotomy position. Her genitalia was prepped and draped. 2% Xylocaine jelly was instilled into the urethra to act as a local anesthetic. A 22 Slovenian rigid cystoscope was passed through the urethra into the bladder. The bladder was inspected with a 30 degree lens. Both ureteral orifices appeared normal. No blood was seen coming from either side. The right orifice was then cannulated with a 6 Slovenian access catheter. A retrograde film was obtained by injecting Omnipaque through the access catheter under fluoroscopic guidance. The ureter appeared normal up to the level of the ureteropelvic junction. In this location, a filling defect was identified and very little contrast was seen above the level of the filling defect. I then passed a guidewire through the access catheter and was able to maneuver the wire above the level of the filling defect. Once that was accomplished, a large amount of fluid could be seen draining from the ureteral orifice. We then removed the access catheter and passed a 4.8 Slovenian variable length stent over the wire. The proximal end of the stent was curled within the renal pelvis and the distal end was curled within the bladder. The bladder was emptied and the scope was withdrawn. The patient tolerated this procedure well. There were no complications. She will return to the operating room for ureteroscopy and holmium laser lithotripsy once her urinary tract infection has cleared.
--- NOTE | 2021-11-20 12:42 | W.ANESPOSTOP ---
Postoperative Evaluation Date, Time and Location Date Performed: 11/20/21 Time Performed: 12:42 Patient Location: Day Surgery Unit Vital Signs Most Recent Imported Vital Signs: Most Recent Vital Signs Temp Pulse Resp BP Pulse Ox 36.4 C L 91 H 18 129/103 H 100 11/20/21 12:27 11/20/21 12:27 11/20/21 12:27 11/20/21 12:27 11/20/21 12:27 Pain Score Most Recent Pain Score: Most Recent Pain Score Pain Level [Right Back] 5 11/20/21 11:30 Pain Level 5 11/20/21 11:34 Assessment Mental Status: Awake (Alert & Oriented to Patient Baseline) Airway and Respiratory Function: Patent airway with normal (patient baseline) respiratory exam Cardiovascular Function: Hemodynamically Stable Hydration Status: Adequately Hydrated Nausea & Vomiting: No Nausea or Vomiting Pain: Pain is tolerable per patient Peripheral Nerve Block: Patient did not receive a nerve block
--- NOTE | 2021-11-20 12:48 | W.PM.DSUDISC ---
Discharge Plan Disposition Patient Disposition: HOME Condition: Stable Discharge Details Attending Provider: Kelby Dai Primary Care Provider: Deidra Hawkins Home Meds and New Rx's Prescriptions: New oxycodone 5 mg capsule 5 mg PO Q6H PRN (Reason: pain) Qty: 20 0RF tamsulosin 0.4 mg capsule 0.4 mg PO DAILY Qty: 7 0RF No Action ibuprofen 800 mg tablet 800 mg PO TID PRN (Reason: pain) Qty: 60 0RF Rx Instructions: May take 1 tab every 8 hours as needed for pain. Make sure to take with food. alprazolam [Xanax] 1 mg tablet 3 mg PO DAILY Qty: 3 0RF Rx Instructions: called in venlafaxine [Effexor XR] 150 MG capsule,extended release 24hr 150 mg PO HS 0RF topiramate [Topamax] 100 MG tablet 100 mg PO BID 0RF clonidine HCl 0.2 mg Tablet 0.2 mg PO QHS 0RF pantoprazole 20 mg tablet,delayed release (DR/EC) 40 mg PO DAILY 0RF Label Comments: TK 1 T PO D cephalexin 500 mg capsule 500 mg PO QID 7 Days Qty: 28 0RF Discharge Instructions Additional Instructions: expect a phone call from my office to arrange her followup outpatient surgery prescription for pain medication sent to pharmacy complete antibiotics given to you in the ER Stand Alone Forms: Anesthesia Discharge Inst., [facility] Sne[facility] Mejia ([facility]) Activity:: Activity as Tolerated Shower/Bathe:: 24 hours Diet:: As Tolerated Discharge Orders Discharge Orders: Discharge Order (Routine); Ordered 11/20/21 Ordered By: Kelby Dai DS: Diagnosis Discharge Diagnosis (1) Obstruction of right ureteropelvic junction (UPJ) due to stone: Status: Acute
[2021-11-20 12:49] VITALS: BP 143/108; PULSE 80; RESP 18; TEMP 36.4; O2SAT 100
[2021-11-20] MEDS: Phenazopyridine 200 MG TAB PO (13:03)
[2021-11-20] MEDS: oxyCODONE 5 MG TAB PO (13:04)
== END 2021-11-20 13:54 | disposition home or self-care (01) ==
LOC: ER 09:19 → SUR 10:54
PROVIDERS: Emergency Provider Emergency Medicine; PCP Nurse Practitioner Family; Visit Provider Urology
PROC: 0T9680Z Drainage of Right Ureter with Drainage Device, Via Natural or Artificial Opening Endoscopic (ICD-10-PCS; CPT 52332; principal; 2021-11-20 11:30)
DX: N13.2 Hydronephrosis with renal and ureteral calculous obstruction (principal); K21.9 Gastro-esophageal reflux disease without esophagitis; G47.30 Sleep apnea, unspecified; N39.0 Urinary tract infection, site not specified
CPT/HCPCS: 52332; 36415; 81025; 96365; 99285; 74420; J0690; J1100; J1885; J2001; J2250; J2405; Q9967

== ENCOUNTER 2021-11-20 19:21 | Emergency (ER) | payer MEDICAID, SELFPAY ==
[2021-11-20] VITALS (12 sets, daily range): BP systolic 143–178; BP diastolic 87–108; PULSE 52–99; RESP 13–25; TEMP 36.6; O2SAT 99–100
--- NOTE | 2021-11-20 19:30 | RT.EKG_ITS ---
APPROVED REPORT Exam: Resting ECG Reason for Exam: palpitations Patient Location: E HR:54 bpm ECG Measurements Heart Rate 54 AXIS IA 125 P 12 QRSd 89 QRS 47 QT 441 T 45 QTc 418 Conclusion Sinus bradycardia...rate< 60
--- NOTE | 2021-11-20 19:39 | ED.GENADUL_ITS ---
Discharge Plan Disposition Patient Disposition: HOME Condition: Stable Discharge Details Clinical Impression: Vomiting, UTI (urinary tract infection) Primary Care Provider: Deidra Hawkins ED Provider: Jairo Hernández Home Meds and New Rx's Prescriptions: New prochlorperazine maleate [Compazine] 10 mg tablet 10 mg PO TID PRN (Reason: nausea and vomiting) Qty: 14 0RF Continued ibuprofen 800 mg tablet 800 mg PO TID PRN (Reason: pain) Qty: 60 0RF Rx Instructions: May take 1 tab every 8 hours as needed for pain. Make sure to take with food. alprazolam [Xanax] 1 mg tablet 3 mg PO DAILY Qty: 3 0RF Rx Instructions: called in venlafaxine [Effexor XR] 150 MG capsule,extended release 24hr 150 mg PO HS 0RF topiramate [Topamax] 100 MG tablet 100 mg PO BID 0RF clonidine HCl 0.2 mg Tablet 0.2 mg PO QHS 0RF pantoprazole 20 mg tablet,delayed release (DR/EC) 40 mg PO DAILY 0RF Label Comments: TK 1 T PO D cephalexin 500 mg capsule 500 mg PO QID 7 Days Qty: 28 0RF oxycodone 5 mg capsule 5 mg PO Q6H PRN (Reason: pain) Qty: 20 0RF tamsulosin 0.4 mg capsule 0.4 mg PO DAILY Qty: 7 0RF Discharge Instructions Additional Instructions: Your cat scan showed the stent is in good position you don't have to take a dose of your antibiotic cephalexin until tomorrow night follow up with your primary care provider within 1 week if you feel more ill, have fevers or severe worsening symptoms return to the emergency department for reevaluation Medical Decision Making 41 yo female with hx of anxiety, kidney stones who had a stent placed earlier today after leaving [facility] last night when diagnosed with uti along with her kidney stone, who comes in stating since the procedure today she has felt anxious/panic attacks, n/v and flank pain on the rigth where she has the stent. She also has noted like her heart is racing, denies pain or pressure nor any dyspnea. She does appear to be anxious on exam and dry heaving. SHe is caox4 moving all extremities equally, no abdominal tenderness, localizes her discomfort to the right lower back where her pain was last night. Suspect comination of anxiety/panic attack along with post procedure pain, will treat her symptoms with toradol, ativan and zofran and obtain ecg, troponin, cbc, cmp and reassess. labs show mild leukocytosis similar to yesterday, still having n/v and pain so compazine ordered and will do another ct to evaluate for new stones vs stent migration Pt stable, ct shows stent in proper place and no other acute findings. She was given a dose of ceftriaxone and is hemodynamically stable so do not feel she requires hospitalization. She will resume antibiotics tomorrow and return precautions given Differential Diagnosis Differential Diagnosis: anxiety, panic attack, post op pain Medical Records Medical records reviewed: Yes I reviewed the patient's medical records. Imaging Data Radiologic Study: Attestation: I personally reviewed and interpreted this imaging study as follows: Imaging: CT Scan Radiologist's impression: IMPRESSION: 1. Indwelling ureteral stent on the right extending from the renal pelvis into the urinary bladder. No hydronephrosis to suggest stent malfunction. 2. Nonobstructing renal calculi with the largest measuring 4 mm on the right. Lab Data Lab results reviewed: Yes I reviewed the patient's lab results. ECG Data Attestation: I personally reviewed and interpreted this ECG (s) as follows: Prior ECG tracings: available for review Interpretation: sinus bradycardia, rate of 54, no acute st t wave ischemic findings HPI General Mode of arrival: ambulatory . Date/Time Provider Initiated Documentation: 11/20/21 19:22 . Limitations to Documentation: no limitations . Information obtained by: patient . History of Present Illness 41 year old F presents to the emergency department with the chief complaint of n/v, described as moderate, Patient reports no radiation. Patient started experiencing this hour(s) (5) and it has been constant. improves with No relieving factors improve symptom(s), No exacerbating factors reported . Patient notes other (anxious, palpitations). Patient did receive the following treatments prior to arrival, none Related Data Home Medications Medication Instructions Recorded Confirmed venlafaxine 150 mg 150 mg PO HS 03/02/13 11/20/21 capsule,extended release 24 hr (Effexor XR) topiramate 100 mg tablet (Topamax) 100 mg PO BID 01/27/14 11/20/21 clonidine HCl 0.2 mg tablet 0.2 mg PO QHS 12/02/19 11/20/21 pantoprazole 20 mg tablet,delayed 40 mg PO DAILY 06/15/20 11/20/21 release alprazolam 1 mg tablet (Xanax) 3 mg PO DAILY #3 tab 09/30/21 11/20/21 ibuprofen 800 mg tablet 800 mg PO TID PRN #60 tab 10/25/21 11/20/21 cephalexin 500 mg capsule 500 mg PO QID 7 Days #28 cap 11/19/21 11/20/21 oxycodone 5 mg capsule 5 mg PO Q6H PRN #20 cap 11/20/21 11/20/21 prochlorperazine maleate 10 mg 10 mg PO TID PRN #14 tab 11/20/21 tablet (Compazine) tamsulosin 0.4 mg capsule 0.4 mg PO DAILY #7 cap 11/20/21 11/20/21 Previous Rx's Medication Instructions Recorded alprazolam 1 mg tablet (Xanax) 3 mg PO DAILY #3 tab 09/30/21 ibuprofen 800 mg tablet 800 mg PO TID PRN #60 tab 10/25/21 cephalexin 500 mg capsule 500 mg PO QID 7 Days #28 cap 11/19/21 oxycodone 5 mg capsule 5 mg PO Q6H PRN #20 cap 11/20/21 prochlorperazine maleate 10 mg 10 mg PO TID PRN #14 tab 11/20/21 tablet (Compazine) tamsulosin 0.4 mg capsule 0.4 mg PO DAILY #7 cap 11/20/21 Allergies Allergy/AdvReac Type Severity Reaction Status Date / Time No Known Allergies Allergy Unverified 11/20/21 11:12 General Stated Complaint: Nausea/Vomit/Diar RAJEEV: 3 Review of Systems All systems reviewed & are unremarkable except as noted in HPI and below Constitutional Constitutional: Denies chills, Denies fever(s) and Denies weakness Cardiovascular Cardiovascular: Denies chest pain and Denies dyspnea Respiratory Respiratory: Denies cough and Denies dyspnea Neurologic Neurologic: Denies weakness PFSH All Active Problems (Updated 11/20/21 @ 22:09 by Jairo Hernández MD) Acute otalgia (Acute) Psychiatric disorder (Chronic) Tendonitis of left rotator cuff (Chronic) Injected: 12/08/2019 Open fracture of tuft of distal phalanx of finger (Acute) LRF Vomiting (Acute) Epigastric abdominal pain (Acute) Vomiting (Acute) Epigastric abdominal pain (Acute) Kidney stone (Chronic) UTI (urinary tract infection) (Acute) Infection of kidney (Acute) Kidney stone (Chronic) Urinary tract infection (Acute) Hydronephrosis (Acute) Obstruction of right ureteropelvic junction (UPJ) due to stone (Acute) Medical History (Updated 11/20/21 @ 22:09 by Jairo Hernández MD) Endometriosis GERD (gastroesophageal reflux disease) Hiatal hernia Hx of sleep apnea pt. reports she has a machine, uses some Surgical History (Updated 11/20/21 @ 11:17 by Marisela Gonzalez) Extracorporeal shock wave lithotripsy Hx of esophagogastroduodenoscopy Hx of laparoscopy pt. reports for endometriosos Hx of submucous nasal surgery pt. reports she has a nasal cyst removed at age 9-10 under anesthesia Ligation of fallopian tube Social History Smoking/Tobacco Use Status: Current every day Tobacco Type: cigarettes Smoking risk assessment performed?: Yes Alcohol Intake: never Drug use: Current Sobriety Substance use type: marijuana Details: marijuana: t-[id number] Current gender identity: female Do you feel safe at home: Yes Do you feel safe in your relationship?: Yes Exam Const General: anxious Orientation: alert HENMT Head: normal to inspection Ears: external ears normal General nose exam: external nose normal Mouth: moist mucous membranes Eyes General: appearance normal, both eyes and all related structures Neck Neck: normal visual inspection Resp Effort & Inspection: normal respiratory effort and able to speak in complete sentences Cardio Rate: regular rate GI Palpation: soft and nontender Skin General skin exam: no rashes or lesions noted Neuro General: patient alert and patient oriented x3 Extrem General: normal to inspection Psych Mental Status: mental status grossly normal Course Vital Signs Vital signs: Vital Signs Temperature 36.6 C 11/20/21 19:26 Pulse 79 11/20/21 19:26 Respiratory Rate 18 11/20/21 19:26 Blood Pressure 173/105 H 11/20/21 19:26 Pulse Oximetry 100 11/20/21 19:26 Temperature 36.6 C 11/20/21 19:26 Temperature Source Skin 11/20/21 19:26 Pulse 79 11/20/21 19:26 Respiratory Rate 18 11/20/21 19:26 Respiratory Effort 11/20/21 19:37 Blood Pressure 173/105 H 11/20/21 19:26 Pulse Oximetry 100 11/20/21 19:26 Oxygen Delivery Method Room Air 11/20/21 19:26 Oxygen Flow Rate 0 11/20/21 19:26 Pain Level 10 11/20/21 19:26
[2021-11-20] MEDS: Ondansetron 4 MG/2 ML VIAL IVP (19:55)
[2021-11-20] MEDS: Ketorolac 15 MG/ML VIAL IVP (19:56)
[2021-11-20] MEDS: LORazepam 2 MG/ML VIAL 1 MG IVP (19:59)
[2021-11-20 20:05] LABS: Abs Immature Grans 0.08 10^3/uL (0.0-0.06); Absolute Basophil Count 0.03 10^3/uL (0.0-0.2); Absolute Lymphocyte Count 1.12 10^3/uL (1.2-3.4); Basophils % 0.2; HCT 44.3 % (36.0-46.0); HGB 14.5 g/dL (11.2-15.7); Immature Grans % 0.5; Lymphocytes % 7.5; MCH 29.3 pg (27.0-33.0); MCHC 32.7 % (32.0-36.0); MCV 89.5 fL (80-95); MPV 9.9 fL (8.0-11.0); Monocytes % 1.9; Neutrophils % 89.9; Platelet Count 405 10^3/uL (130-400); RBC 4.95 10^6/uL (3.93-5.22); RDW 12.2 % (11.7-14.6); RDW-SD 40.4 fL; WBC 14.94 10^3/uL (4.4-10.8)
[2021-11-20 20:06] LABS: Absolute Monocyte Count 0.28 10^3/uL (0.1-0.8); Absolute Neutrophil Count 13.43 10^3/uL (1.2-6.7)
[2021-11-20 20:13] LABS: ALT 30 U/L (14-59); AST 16 U/L (15-37); Albumin 4.1 g/dL (3.4-5.0); Alkaline Phosphatase 108 U/L (46-116); Anion Gap 11.1 mmol/L (3-11); BUN 8 mg/dL (7-18); Bilirubin, Total 0.5 mg/dL (0.2-1.0); CO2 22.9 mmol/L (21.0-32.0); CREATININE 1.1 mg/dL (0.55-1.02); Calcium 9.1 mg/dL (8.5-10.1); Chloride 105 mmol/L (98-107); Estimated GFR 55.01 (mL/min/1.73m2); Glucose 135 mg/dL (74-106); Lipase 20 U/L (73-393); Potassium 3.5 mmol/L (3.5-5.1); Sodium 139 mmol/L (136-145); Total Protein 8.2 g/dL (6.4-8.2); Troponin I < 50 ng/L (<or=60)
--- NOTE | 2021-11-20 20:28 | NUR.NOTE ---
Patient with episode of vomiting. Diaphoretic. Heart rate >115. Pt HR returned to baseline after episode of emesis, pt felt better
--- NOTE | 2021-11-20 21:00 | DI.CT_ITS ---
Exam(s) CT RENAL COLIC WO EXAM: CT RENAL COLIC WO CLINICAL HISTORY: n/v and pain s/p stent for kidney stone. TECHNIQUE: Imaging Protocol: Axial computed tomography images with coronal and sagittal reformatted images were created and reviewed CONTRAST MATERIAL: Intravenous: none Oral: None COMPARISON: CT CT RENAL COLIC WO from 11/19/2021 FINDINGS: VISUALIZED LUNG BASES: No nodules nor pleural effusions evident. ABDOMEN: There is no ascites. LIVER: There are no obvious focal hepatic lesions evident of this noninfused study. GALLBLADDER/BILIARY: No obvious gallbladder pathology. CBD is not dilated. PANCREAS: Relatively hypodense pancreatic head and neck. Pancreatic body and tail appear unremarkabl e. The pancreatic duct is not dilated. Uncinate process retains normal triangular configuration. T here are no pancreatic parenchymal calcifications. SPLEEN: Spleen is not enlarged. No obvious intrasplenic lesions. ADRENALS: There are no significant adrenal masses. KIDNEYS:There has been interval placement of a double pigtail right ureteral stent extending from the renal pelvis down into the urinary bladder. There decompression right side. The culprit calculus w hich was previously present after the right ureteropelvic junction is now in the lower pole calyx of the ipsilateral-right kidney. Other smaller nonobstructive calculi are seen in both kidneys, as seen on the prior study. There are no obvious calculi seen along the course of the stent nor within the relatively collapsed urinary bladder. Few small nonobstructive calculi are again noted in the opposi te-left kidney. ABDOMINAL AORTA: Abdominal aorta is not enlarged. LYMPH NODES: There is no retroperitoneal nor paraaortic adenopathy. ABDOMINAL WALL: No evidence of significant anterior abdominal wall nor inguinal hernia. GI: There is no evidence of bowel obstruction, free air, nor abscess. PELVIS: LYMPH NODES: There is no intrapelvic nor inguinal adenopathy. GI: No evidence of appendicitis.No evidence of sigmoid diverticulitis. URINARY BLADDER: Relatively collapsed. Stent in place. REPRODUCTIVE: Uterus and adnexal regions appear unremarkable. No free fluid OSSEOUS: No significant osseous lesions. IMPRESSION: 1. Compared to the CT scan of 11/19/2021 there has been interval placement of a double pigtail right ureteral stent which appears appear in satisfactory position. There has been decompression of the ri ght side and there are no calculi seen along the course of the stent. The culprit calculus which was previously located at the right UPJ is now located in the lower pole calyx of the right kidney. 2. There smaller nonobstructive calculi also again evident in both kidneys. There are no calculi mona dent in the relatively collapsed urinary bladder. RADIATION DOSE DELIVERED: 983.61mGy.cm Total DLP DATA REPOSITORY: All CT scans at this facility are submitted to the National Radiology Data Registry (NRDR) Dose Index Registry (DIR) with the [employer] ([employer]). RADIATION OPTIMIZATION: All CT scans at this facility use at least one of these dose optimization te chniques: automated exposure control; mA and/or kV adjustment per patient size (includes targeted exa ms where dose is matched to clinical indication); or iterative reconstruction.
[2021-11-20] MEDS: Prochlorperazine 10 MG/2 ML VIAL IVP (21:13)
[2021-11-20] MEDS: cefTRIAXone 1 GM/50 ML BAG IVPB (21:44)
--- NOTE | 2021-11-20 21:44 | DI.VRAD_ITS ---
PROCEDURE INFORMATION: Exam: CT Abdomen And Pelvis Without Contrast Exam date and time: 11/20/2021 9:16 PM Age: 41 years old Clinical indication: Nausea and vomiting; Abdominal pain; Generalized; Prior surgery; Surgery date: Post-operative (0-2 days); Surgery type: R renal stent placed today; Patient HX: N/v and pain S/P stent for kidney stone TECHNIQUE: Imaging protocol: Computed tomography of the abdomen and pelvis without contrast. Radiation optimization: All CT scans at this facility use at least one of these dose optimization techniques: automated exposure control; mA and/or kV adjustment per patient size (includes targeted exams where dose is matched to clinical indication); or iterative reconstruction. COMPARISON: CT RENAL COLIC WO 11/19/2021 5:40 PM FINDINGS: Limitations: Upper abdomen excluded from view. Liver: Upper liver excluded from view and not evaluated. No abnormality seen through the visualized portion of the liver. Gallbladder and bile ducts: Gallbladder moderately distended. No calcified gallstones or biliary dilatation. Pancreas: Prominent fatty atrophy through the pancreatic head and proximal body. Normal-appearing distal pancreatic body and tail. Spleen: Spleen partially excluded from view. No abnormality seen through the visualized lower portion of the spleen. Adrenal glands: Normal appearing adrenal glands. Kidneys and ureters: Nonobstructing renal calculi with the largest measuring 4 mm on the right. Renal cortical scarring on the right. Otherwise, normal-appearing unenhanced kidneys. No hydronephrosis. Double pigtail ureteral stent on the right extending from the renal collecting system into the urinary bladder. No ureteral stones or ureterectasis. Stomach and bowel: Proximal stomach not imaged. Gastric antrum largely decompressed. No oral contrast. No small bowel dilatation to suggest obstruction. Distal transverse colon excluded from view. Otherwise, normal-appearing colon. No evidence of diverticulitis or colitis. Rectum well evacuated and collapsed. Appendix: Normal retrocecal appendix. Intraperitoneal space: No gross ascites or free air. Arteries: Normal caliber abdominal aorta. Lymph nodes: No pathologically enlarged mesenteric, retroperitoneal, or pelvic sidewall lymph nodes. Urinary bladder: Urinary bladder partially collapsed but grossly unremarkable, as seen. Reproductive: Anteverted uterus, normal in size. Normal-sized ovaries. Bones/joints: No acute fracture seen among the bones of the abdomen or pelvis. Soft tissues: No significant ventral or inguinal hernia. IMPRESSION: 1. Indwelling ureteral stent on the right extending from the renal pelvis into the urinary bladder. No hydronephrosis to suggest stent malfunction. 2. Nonobstructing renal calculi with the largest measuring 4 mm on the right. Dictated and Authenticated by: Juan Mccarthy MD. Ordering:HILARIO Gill MD
[2021-11-20] MEDS: Normal Saline 1,000 ML 1000 ML IV (21:45)
== END 2021-11-20 22:36 | disposition home or self-care (01) ==
PROVIDERS: Emergency Provider Emergency Medicine; PCP Nurse Practitioner Family
DX: R11.2 Nausea with vomiting, unspecified (principal); N39.0 Urinary tract infection, site not specified; R00.2 Palpitations
CPT/HCPCS: 80053; 83690; 93005; 96361; 96365; 96375; 99284; 74176; 83735; 84484; 85025; 93010; J0696; J0780; J1885; J2060; J2405

== ENCOUNTER 2021-11-28 04:49 | Outpatient (CLI) | payer MEDICAID, SELFPAY ==
[2021-11-28 13:32] LABS: Source Nasal/Nares
[2021-11-28 15:38] LABS: COVID-19 PCR Negative (Negative)
== END 2021-11-28 04:50 | disposition home or self-care (01) ==
LOC: LBO 04:51
PROVIDERS: PCP Nurse Practitioner Family; Visit Provider Urology
DX: Z20.822 Contact with and (suspected) exposure to COVID-19 (principal); Z01.818 Encounter for other preprocedural examination
CPT/HCPCS: 87635

== ENCOUNTER 2021-11-30 07:33 | Day surgery (SDC) | payer MEDICAID, SELFPAY ==
[2021-11-30] VITALS (15 sets, daily range): BP systolic 132–188; BP diastolic 94–118; PULSE 71–105; RESP 13–20; TEMP 36–36.7; O2SAT 95–100; BMI 33.7
[2021-11-30] MEDS: Lactated Ringers 1,000 ML 80 ML IV ×2 (08:21→13:29)
--- NOTE | 2021-11-30 08:22 | W.PM.HP.N ---
Date of service: 11/30/21 Time of Service: 08:23 Assessment and Plan Assessment and plan (1) Kidney stone: Status: Chronic Assessment and plan: Now that her UTI has been treated, we can move forward with ureteroscopy and holmium laser lithotripsy of her stones. History of Present Illness History of Present Illness Chief Complaint: Right ureteral stone Narrative: This is a 41 year old woman who presented to the ED last week with an obstructing ureteral stone and a UTI (E Coli). We placed a ureteral stent urgently and she has completed her antibiotics. She comes in now for ureteroscopy and stone manipulation. She has had stent pain since her initial procedure. She had an ER visit and a followup CT showed the stent in good position. She has had no fever or chills. Review of Systems Narrative: No fevers or chills No vision change or dysphasia No diabetes or thyroid Hx sleep apnea. No shortness of breath, cough or hemoptysis No chest pain or palpitations Abdominal pain, nausea and vomiting. No hepatitis, ulcers, jaundice No seizures, strokes or peripheral neuropathy No bleeding disorders or anemia No gout PFSH All Active Problems (Updated 11/30/21 @ 08:34 by Kelby Dai MD) Acute otalgia (Acute) Psychiatric disorder (Chronic) Tendonitis of left rotator cuff (Chronic) Injected: 12/08/2019 Open fracture of tuft of distal phalanx of finger (Acute) LRF Vomiting (Acute) Epigastric abdominal pain (Acute) Vomiting (Acute) Epigastric abdominal pain (Acute) Kidney stone (Chronic) Medical History (Updated 11/30/21 @ 08:34 by Kelby Dai MD) Endometriosis GERD (gastroesophageal reflux disease) Hiatal hernia Hx of sleep apnea pt. reports she has a machine, uses some Hydronephrosis Infection of kidney Obstruction of right ureteropelvic junction (UPJ) due to stone UTI (urinary tract infection) Surgical History Extracorporeal shock wave lithotripsy Hx of esophagogastroduodenoscopy Hx of laparoscopy pt. reports for endometriosos Hx of submucous nasal surgery pt. reports she has a nasal cyst removed at age 9-10 under anesthesia Ligation of fallopian tube S/P cystoscopy with ureteral stent placement 11/20/21, right Social History Smoking/Tobacco Use Status: Current every day Tobacco Type: cigarettes Smoking risk assessment performed?: Yes Alcohol Intake: never Drug use: Current Sobriety Substance use type: marijuana Details: marijuana: t-180 Current gender identity: female Do you feel safe at home: Yes Do you feel safe in your relationship?: Yes Meds Allergies and Home Medications Allergies Allergy/AdvReac Type Severity Reaction Status Date / Time No Known Allergies Allergy Unverified 11/30/21 07:48 Home Medications Medication Instructions Recorded Confirmed Type venlafaxine 150 mg 150 mg PO HS 03/02/13 11/30/21 History capsule,extended release 24 hr (Effexor XR) topiramate 100 mg tablet (Topamax) 100 mg PO BID 01/27/14 11/30/21 History clonidine HCl 0.2 mg tablet 0.2 mg PO QHS 12/02/19 11/30/21 History pantoprazole 20 mg tablet,delayed 40 mg PO DAILY 06/15/20 11/30/21 History release alprazolam 1 mg tablet (Xanax) 3 mg PO DAILY #3 tab 09/30/21 11/30/21 Rx ibuprofen 800 mg tablet 800 mg PO TID PRN #60 tab 10/25/21 11/30/21 Rx oxycodone 5 mg capsule 5 mg PO Q6H PRN #20 cap 11/20/21 11/30/21 Rx prochlorperazine maleate 10 mg 10 mg PO TID PRN #14 tab 11/20/21 11/30/21 Rx tablet (Compazine) Lactobacillus acidoph-L.bulgaricus 1 tab PO DAILY 11/28/21 11/30/21 History 1 million cell tablet (Floranex) tramadol 50 mg tablet 50 mg PO Q6H PRN PRN 11/30/21 11/30/21 History zolpidem 5 mg tablet 5 mg PO HS 11/30/21 11/30/21 History Exam Const General: cooperative and anxious Neck Neck: supple Resp Effort & Inspection: normal respiratory effort Auscultation: clear to auscultation bilaterally Cardio Rate: regular rate Rhythm: regular rhythm GI Palpation: soft and no masses Neuro General: patient alert, patient awake and patient oriented x3 Results Last Vital Signs Temp 36.4 C L 11/30/21 07:54 Pulse 98 H 11/30/21 07:54 Resp 18 11/30/21 07:54 BP 142/106 H 11/30/21 07:54 Pulse Ox 98 11/30/21 07:54
--- NOTE | 2021-11-30 08:30 | DI.RAD_ITS ---
Exam(s) XR RETROGRADE IN OR EXAM: XR RETROGRADE IN OR CLINICAL HISTORY: Kidney stone TECHNIQUE: 2D and realtime digital imaging was performed. COMPARISON: No exams were available for comparison FINDINGS: C-arm fluoroscopy SP was utilized by Dr. Dai during reported retrograde ureterography agger fee. H arminda copies show retrograde ureterography gram. Please see Dr. Dai procedure note. IMPRESSION: RADIATION DOSE DELIVERED: Lainer=4.55 mGy
--- NOTE | 2021-11-30 08:39 | W.ANESPRE ---
General Info Date of Service Date Performed: 11/30/21 Height: 5 ft 5 in Weight: 91.8 kg Body Mass Index (BMI): 33.7 Surgical Procedure: Operation Date: 11/30/21 08:40 Proposed Procedure Side Surgeon p Cystoscopy/Laser/Retrograde/Ureteroscopy/Ureteral Stent Removal Right Kelby Dai MD Meds Allergies and Home Medications Allergies Allergy/AdvReac Type Severity Reaction Status Date / Time No Known Allergies Allergy Unverified 11/30/21 07:48 Home Medication Medication Instructions Recorded venlafaxine 150 mg 150 mg PO HS 03/02/13 capsule,extended release 24 hr (Effexor XR) topiramate 100 mg tablet (Topamax) 100 mg PO BID 01/27/14 clonidine HCl 0.2 mg tablet 0.2 mg PO QHS 12/02/19 pantoprazole 20 mg tablet,delayed 40 mg PO DAILY 06/15/20 release alprazolam 1 mg tablet (Xanax) 3 mg PO DAILY #3 tab 09/30/21 ibuprofen 800 mg tablet 800 mg PO TID PRN #60 tab 10/25/21 oxycodone 5 mg capsule 5 mg PO Q6H PRN #20 cap 11/20/21 prochlorperazine maleate 10 mg 10 mg PO TID PRN #14 tab 11/20/21 tablet (Compazine) Lactobacillus acidoph-L.bulgaricus 1 tab PO DAILY 11/28/21 1 million cell tablet (Floranex) tramadol 50 mg tablet 50 mg PO Q6H PRN PRN 11/30/21 zolpidem 5 mg tablet 5 mg PO HS 11/30/21 Current Visit Medications: Current Medications Generic Name Dose Route Start Last Admin Trade Name Freq PRN Reason Stop Dose Admin Ringer's Solution 1,000 mls @ 80 mls/hr 11/30/21 06:00 11/30/21 08:21 IV 12/29/21 23:59 80 mls/hr [facility] Administration Cefazolin Sodium/Dextrose 2 gm in 50 mls @ 100 mls/hr 11/30/21 08:00 Ancef Duplex IVPB 11/30/21 16:00 PREOP DENISE IV Miscellaneous Supplies 1 each 11/30/21 06:00 Iv Access IV 12/29/21 23:59 DIRECTED DENISE Sodium Chloride 0 ml 11/30/21 06:00 Normal Saline Flush 10 Ml Syr IV 12/29/21 23:59 PRN PRN Sodium Chloride 0 ml 11/30/21 06:00 Normal Saline 10 Ml Vial IJ 12/29/21 23:59 DIRECTED PRN Sterile Water 0 ml 11/30/21 06:00 Water,Injection,Sterile 10 Ml Vial IJ 12/29/21 23:59 DIRECTED PRN PFSH Active Problems Active Problems: Problem Status Onset Code Acute otalgia H92.09 Psychiatric disorder 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 reports she has a machine, uses some Hydronephrosis Infection of kidney Obstruction of right ureteropelvic junction (UPJ) due to stone UTI (urinary tract infection) Medical History Comments:: no mervinjauna for a year Surgical History Surgical History Extracorporeal shock wave lithotripsy Hx of esophagogastroduodenoscopy Hx of laparoscopy pt. reports for endometriosos Hx of submucous nasal surgery pt. reports she has a nasal cyst removed at age 9-10 under anesthesia Ligation of fallopian tube S/P cystoscopy with ureteral stent placement 11/20/21, right Tobacco Smoking/Tobacco Use Status: Current every day Tobacco Type: cigarettes Alcohol Alcohol Intake: never Substance Use Substance use: Current Sobriety Substance use type: marijuana Details: marijuana: t-[id number] Vital Signs and Lab Results Vital Signs Most Recent Vital Signs in EMR: Most Recent Vital Signs Temp Pulse Resp BP Pulse Ox 36.4 C L 98 H 18 142/106 H 98 11/30/21 07:54 11/30/21 07:54 11/30/21 07:54 11/30/21 07:54 11/30/21 07:54 Point of Care Results Point of Care Results: POC- Test(urine) Negative 11/30/21 08:26 Lab Results Blood Type / Crossmatch: No Data to Display Complete Blood Count: White Blood Count 14.94 10^3/uL (4.4-10.8) H 11/20/21 19:50 11/20/21 Red Blood Count 4.95 10^6/uL (3.93-5.22) 11/20/21 19:50 11/20/21 Hemoglobin 14.5 g/dL (11.2-15.7) 11/20/21 19:50 11/20/21 Hematocrit 44.3 % (36.0-46.0) 11/20/21 19:50 11/20/21 Platelet Count 405 10^3/uL (130-400) H 11/20/21 19:50 11/20/21 Complete Metabolic Panel: Sodium Level 139 mmol/L (136-145) 11/20/21 19:50 11/20/21 Potassium Level 3.5 mmol/L (3.5-5.1) 11/20/21 19:50 11/20/21 Chloride Level 105 mmol/L (98-107) 11/20/21 19:50 11/20/21 Carbon Dioxide Level 22.9 mmol/L (21.0-32.0) 11/20/21 19:50 11/20/21 Blood Urea Nitrogen 8 mg/dL (7-18) 11/20/21 19:50 11/20/21 Creatinine 1.1 mg/dL (0.55-1.02) H 11/20/21 19:50 11/20/21 Estimated GFR/1.73 m2 55.01 (mL/min/1.73m2) 11/20/21 19:50 11/20/21 Magnesium Level 2.0 mg/dL (1.8-2.4) 11/20/21 19:50 11/20/21 Calcium Level 9.1 mg/dL (8.5-10.1) 11/20/21 19:50 11/20/21 Albumin 4.1 g/dL (3.4-5.0) 11/20/21 19:50 11/20/21 Glucose Level 135 mg/dL (74-106) H 11/20/21 19:50 11/20/21 Liver Function Panel: Alanine Aminotransferase (ALT/SGPT) 30 U/L (14-59) 11/20/21 19:50 11/20/21 Aspartate Amino Transf (AST/SGOT) 16 U/L (15-37) 11/20/21 19:50 11/20/21 Coagulation Panel: No Data to Display Cardiac Panel: Troponin I < 50 ng/L (<or=60) 11/20/21 Arterial Blood Gas: No Data to Display Venous Blood Gas: No Data to Display Pancreas Panel: Lipase 20 U/L (73-393) 11/20/21 19:50 11/20/21 Thyroid Panel: No Data to Display Infectious Disease: Coronavirus (COVID-19)(PCR) Negative (Negative) 11/28/21 08:38 11/28/21 Coronavirus 2019 Source Nasal/Nares 11/28/21 08:38 11/28/21 Blood Cultures: No Data to Display Toxicology Panel: No Data to Display Panel: No Data to Display Imaging and Studies Imaging and Studies Study information below may be from another EMR and interpreted by another provider. Please see original notes in EMR for more complete details. EKG Summary: Conclusion Sinus bradycardia...rate< 60 Atrial premature complexes...SV complexes w/ short R-R intvls. 06/27/21 Pulmonary Function Summary: Impression Normal pulmonary function test Clinical Correlation therefore is recommended. 07/06/20 Anesthesia Assessment and Plan Anesthesia History Personal History: No History of Anesthesia Complications Family History: No Family History of Anesthesia Complications Exercise Tolerance Exercise Tolerance: Metabolic Equivalents>4 Pertinent Negatives Pertinent Negatives: No Major Cardiovascular Symptoms or Complaints and No Major Pulmonary Symptoms or Complaints Cardiac & Pulmonary Exam Cardiac Exam: Normal S1/S2 Heart Sounds Pulmonary Exam: Clear Bilateral Breath Sounds Implantable Cardiac Device Does patient have a Pacemaker or an ICD?: No Airway Exam Known Difficult Airway: No Mallampati Class: 3 Mouth Opening: Normal (> 3cm) Thyromental Distance: Greater than 3 cm Neck Range of Motion: Full ROM Neck Circumference: Normal Teeth Condition: Normal Dentition ASA Classification ASA Score: ASA 2 Emergency Case?: No NPO Status NPO Status: NPO Clears >2 hours, Solids >8 hours Status Status: Not Per Patient Anesthesia Plan Resuscitation Status: Full Code Anesthesia Technique: General Anesthesia Airway Planned: LMA Monitors Used: Standard Monitors
[2021-11-30] MEDS: ceFAZolin 2 GM/50 ML BAG IVPB (09:14)
[2021-11-30] MEDS: Lidocaine 2% Jelly 6 ML SYR (09:31)
[2021-11-30] MEDS: Omnipaque 300 MG/ML 50 ML BTL (09:33)
--- NOTE | 2021-11-30 09:48 | PDOC.DSDIS_ITS ---
Discharge Plan Disposition Patient Disposition: HOME Condition: Stable Discharge Details Reason For Visit: ureteroscopy Attending Provider: Kelby Dai Primary Care Provider: Deidra Hawkins [place] Meds and New Rx's Prescriptions: New hydrocodone-acetaminophen 5-325 mg tablet 1 - 2 tab PO Q6H PRN (Reason: pain) Qty: 30 0RF Rx Instructions: may take NSAIDs along with this med Discontinued tramadol 50 mg tablet 50 mg PO Q6H PRN PRN0RF Label Comments: TAKE ONE TABLET EVERY 6 HOURS NEEDED FOR PAIN oxycodone 5 mg capsule 5 mg PO Q6H PRN (Reason: pain) Qty: 20 0RF No Action ibuprofen 800 mg tablet 800 mg PO TID PRN (Reason: pain) Qty: 60 0RF Rx Instructions: May take 1 tab every 8 hours as needed for pain. Make sure to take with food. alprazolam [Xanax] 1 mg tablet 3 mg PO DAILY Qty: 3 0RF Rx Instructions: called in venlafaxine [Effexor XR] 150 MG capsule,extended release 24hr 150 mg PO HS 0RF topiramate [Topamax] 100 MG tablet 100 mg PO BID 0RF clonidine HCl 0.2 mg Tablet 0.2 mg PO QHS 0RF pantoprazole 20 mg tablet,delayed release (DR/EC) 40 mg PO DAILY 0RF Label Comments: TK 1 T PO D Lactobacillus acidoph-L.bulgar [Floranex] 1 million cell tablet 1 tab PO DAILY 0RF zolpidem 5 mg tablet 5 mg PO HS 0RF prochlorperazine maleate [Compazine] 10 mg tablet 10 mg PO TID PRN (Reason: nausea and vomiting) Qty: 14 0RF Discharge Instructions Additional Instructions: no need to strain urine followup 6 to 8 weeks with renal US Activity:: Activity as Tolerated Shower/Bathe:: 24 hours Diet:: As Tolerated Discharge Orders Discharge Orders: Discharge Order (Routine); Ordered 11/30/21 Ordered By: Kelby Dai DS: Diagnosis Discharge Diagnosis (1) Kidney stone: Status: Chronic
--- NOTE | 2021-11-30 09:54 | W.PM.OP ---
Date of service: 11/30/21 Time of Service: 09:54 Operative Note Operative Note DATE OF PROCEDURE: 11/30/21 PRE-OP DIAGNOSIS: Right renal stones POST-OP DIAGNOSIS: same PROCEDURE: cystoscopy, remove right ureteral stent, right retrograde pyelogram, right flexible ureteroscopy with stone extraction SURGEON: Kelby Dai ANESTHESIA TYPE: General:No Airway Refer to Anesthesia Record ESTIMATED BLOOD LOSS: 5 PATHOLOGY: other (stones for chemical analysis) Patient was transported to: PACU Patient's condition: stable Implants: none Indications: This is a 41-year-old woman who was previously seen in our emergency department. She presented with renal colic. Her urinalysis was suggestive of a urinary tract infection and she had an obstructing stone at the right ureteropelvic junction. She was treated with a right ureteral stent placement. The urine culture grew E. coli and she has completed her course of antibiotics. She presents now for stone manipulation. She has had quite a bit of stent discomfort and actually had a repeat visit to the emergency department. A repeat CT shows the stent in good position and the previous UPJ stone now in one of the lower pole calyces. Findings: Stone in right lower pole calyx Procedure Description: Patient was brought to the operating room on 11/30/2021. After successful induction of general anesthesia, she was placed in the dorsal lithotomy position. Her genitalia was prepped and draped. She was given a dose of preoperative IV antibiotics. 2% Xylocaine jelly was instilled into the urethra to act as a local anesthetic. A 22 [place] rigid cystoscope was passed through the urethra into the bladder. The bladder was inspected with a 30 degree lens. The left ureteral orifice appeared normal. The stent could be seen protruding from the right ureteral orifice. Large amount of bullous edema was seen around the orifice. The stent was grasped with alligator forceps and brought to the level of the urethral meatus. A Glidewire was advanced through the lumen of the stent and the stent was removed leaving the wire in place. A dual-lumen catheter was then advanced over the wire. I injected Omnipaque through the second lumen of the catheter and the collecting system was outlined. I then passed a second Glidewire through the dual lumen catheter and the catheter was removed leaving the wires in place. One of the wires was chosen as a working wire and the other was chosen as a safety wire. A ureteral access sheath was then advanced over the working wire leaving the safety wire in place. The flexible ureteroscope was passed through the lumen of the access sheath and the calyces were then inspected directly. We identified 2 stones in lower pole calyces. The first stone was the large stone that had been embedded at the UPJ on her initial presentation. I was able to grasp the stone in a 0 tip stone basket and remove it in its entirety. The second scope was still adherent to one of the renal papillae. I was able to grasp the stone off the papilla and extract that stone fragment as well. Both stone fragments were sent to pathology for chemical analysis. We elected not to place a ureteral stent back after this procedure. She tolerated this procedure well with no complications. She was taken to the recovery room in stable condition.
[2021-11-30] MEDS: LORazepam 2 MG/ML VIAL 0.5 MG IVP (10:07)
[2021-11-30] MEDS: fentaNYL 100 MCG/2 ML VIAL IVP (10:17)
[2021-11-30] MEDS: Normal Saline 10 ML VIAL IJ (10:45)
[2021-11-30] MEDS: HYDROmorphone 2 MG/ML VIAL IVP ×2 (10:46→11:08)
--- NOTE | 2021-11-30 10:48 | W.PM.DSUDISC ---
Discharge Plan Disposition Patient Disposition: HOME Condition: Stable Discharge Details Reason For Visit: ureteroscopy Attending Provider: Kelby Dai Primary Care Provider: Deidra Hawkins [place] Meds and New Rx's Prescriptions: New hydrocodone-acetaminophen 5-325 mg tablet 1 - 2 tab PO Q6H PRN (Reason: pain) Qty: 30 0RF Rx Instructions: may take NSAIDs along with this med Continued prochlorperazine maleate [Compazine] 10 mg tablet 10 mg PO TID PRN (Reason: nausea and vomiting) Qty: 10 0RF Discontinued tramadol 50 mg tablet 50 mg PO Q6H PRN PRN0RF Label Comments: TAKE ONE TABLET EVERY 6 HOURS NEEDED FOR PAIN oxycodone 5 mg capsule 5 mg PO Q6H PRN (Reason: pain) Qty: 20 0RF No Action ibuprofen 800 mg tablet 800 mg PO TID PRN (Reason: pain) Qty: 60 0RF Rx Instructions: May take 1 tab every 8 hours as needed for pain. Make sure to take with food. alprazolam [Xanax] 1 mg tablet 3 mg PO DAILY Qty: 3 0RF Rx Instructions: called in venlafaxine [Effexor XR] 150 MG capsule,extended release 24hr 150 mg PO HS 0RF topiramate [Topamax] 100 MG tablet 100 mg PO BID 0RF clonidine HCl 0.2 mg Tablet 0.2 mg PO QHS 0RF pantoprazole 20 mg tablet,delayed release (DR/EC) 40 mg PO DAILY 0RF Label Comments: TK 1 T PO D Lactobacillus acidoph-L.bulgar [Floranex] 1 million cell tablet 1 tab PO DAILY 0RF zolpidem 5 mg tablet 5 mg PO HS 0RF Discharge Instructions Additional Instructions: no need to strain urine followup 6 to 8 weeks with renal US Activity:: Activity as Tolerated Shower/Bathe:: 24 hours Diet:: As Tolerated Discharge Orders Discharge Orders: Discharge Order (Routine); Ordered 11/30/21 Ordered By: Kelby Dai DS: Diagnosis Discharge Diagnosis (1) Kidney stone: Status: Chronic
[2021-11-30] MEDS: Ketorolac 15 MG/ML VIAL IVP (10:50)
[2021-11-30] MEDS: Phenazopyridine 200 MG TAB PO (11:04)
[2021-11-30] MEDS: HYDROmorphone 2 MG/ML VIAL 1 MG IVP (12:03)
[2021-11-30] MEDS: Tamsulosin 0.4 MG CAPCR PO (13:07)
--- NOTE | 2021-11-30 14:15 | W.ANESPOSTOP ---
Postoperative Evaluation Date, Time and Location Date Performed: 11/30/21 Time Performed: 14:15 Patient Location: Day Surgery Unit Vital Signs Most Recent Imported Vital Signs: Most Recent Vital Signs Temp Pulse Resp BP Pulse Ox 36 C L 71 16 173/102 H 95 11/30/21 13:46 11/30/21 13:46 11/30/21 13:46 11/30/21 13:46 11/30/21 13:46 Pain Score Most Recent Pain Score: Most Recent Pain Score Pain Level 5 11/30/21 13:46 Assessment Mental Status: Awake (Alert & Oriented to Patient Baseline) Airway and Respiratory Function: Patent airway with normal (patient baseline) respiratory exam Cardiovascular Function: Hemodynamically Stable Hydration Status: Adequately Hydrated Nausea & Vomiting: No Nausea or Vomiting Pain: Pain is tolerable per patient Peripheral Nerve Block: Patient did not receive a nerve block Teaching Patient Teaching: Advised to seek followup for the following concerns (See explanation) (Hypertension, patient reports related to anxiety. Encouraged patient to follow up with PCP.) Concerns: Poorly Controlled Hypertension
== END 2021-11-30 14:37 | disposition home or self-care (01) ==
PROVIDERS: PCP Nurse Practitioner Family; Visit Provider Urology
PROC: (CPT 52352; principal; 2021-11-30 08:30)
DX: N20.0 Calculus of kidney (principal)
CPT/HCPCS: 52352; 81025; 74420; 82365; J0690; J1100; J1885; J2060; J2250; J2405; J2704; J3010; Q9967

== ENCOUNTER → 2021-12-28 02:33 | Outpatient (CLI) | payer MEDICAID, SELFPAY | PROVIDERS: PCP Nurse Practitioner Family; Visit Provider Nurse Practitioner Family ==

== ENCOUNTER → 2022-01-05 00:18 | Outpatient (CLI) | payer MEDICAID, SELFPAY | PROVIDERS: PCP Nurse Practitioner Family; Visit Provider Urology ==

== ENCOUNTER 2022-05-05 20:02 | Emergency (ER) | payer MEDICAID, SELFPAY ==
[2022-05-05 20:08] VITALS: BP 138/101; PULSE 104; RESP 16; TEMP 36.7; O2SAT 97
--- NOTE | 2022-05-05 20:30 | DI.RAD_ITS ---
Exam(s) XR PORTABLE CHEST AP EXAM: XR PORTABLE CHEST AP CLINICAL HISTORY: cough, sob, r/o acute disease. TECHNIQUE: 2D digital imaging was performed. COMPARISON: CR XR PORTABLE CHEST AP from 06/15/2020 FINDINGS: Single AP portable view. Heart size is upper normal. The mediastinum is not widened. Right lung is clear. There is platelike atelectasis in the lingular segment of the left lung, not pr eviously present. There are no pleural effusions. IMPRESSION: There is platelike atelectasis in the lingular segment of the left lung. DATA REPOSITORY: RADIATION DOSE DELIVERED:
--- NOTE | 2022-05-05 20:38 | ED.GENADUL_ITS ---
Discharge Plan Disposition Patient Disposition: HOME Condition: Improving Discharge Details Clinical Impression: Viral URI with cough, Acute bronchitis Primary Care Provider: Deidra Hawkins ED Provider: Karla Jarrell Home Meds and New Rx's Prescriptions: New prednisone 20 mg tablet 40 mg PO DAILY 4 Days Qty: 8 0RF benzonatate 100 mg capsule 100 mg PO TID PRN (Reason: cough) Qty: 10 0RF Continued ibuprofen 800 mg tablet 800 mg PO TID PRN (Reason: pain) Qty: 60 0RF Rx Instructions: May take 1 tab every 8 hours as needed for pain. Make sure to take with food. clindamycin HCl 300 mg capsule 300 mg PO TID Qty: 30 0RF ibuprofen 600 mg tablet 600 mg PO Q8H PRN (Reason: pain) Qty: 30 0RF venlafaxine [Effexor XR] 150 MG capsule,extended release 24hr 150 mg PO HS topiramate [Topamax] 100 MG tablet 100 mg PO BID clonidine HCl 0.2 mg Tablet 0.2 mg PO QHS pantoprazole 20 mg tablet,delayed release (DR/EC) 40 mg PO DAILY Label Comments: TK 1 T PO D Lactobacillus acidoph-L.bulgar [Floranex] 1 million cell tablet 1 tab PO DAILY zolpidem 5 mg tablet 5 mg PO HS Discharge Instructions Instructions: Upper Respiratory Infection (ED), Acute Bronchitis (ED) Additional Instructions: Your rapid strep test today is negative. Your COVID test result is pending and you will be notified once it is available. Please quarantine until your COVID test result is available and if confirmed to be negative. Drink plenty of fluids and get plenty of rest. Alternate tylenol and motrin as needed and directed for pain. Prescriptions for steroids and cough medication have been sent electronically to your pharmacy. Use the inhaler as needed and directed for shortness of breath, cough or wheezing. Follow-up with your upcoming scheduled appointment with your primary care doctor for reevaluation and if your symptoms do not improve or worsen, for consideration for antibiotics. Return immediately to the emergency department if you develop any worsening or new concerning symptoms. Stand Alone Forms: PENDING COVID-19 TESTING Discharge Data Discharge Physician: Karla Jarrell Medical Decision Making 42-year-old female who is a chronic tobacco smoker presents for sore throat, nasal congestion, rhinorrhea, productive cough and shortness of breath for the past few days. Heart rate and oxygen saturation within normal limits on my assessment. She is afebrile. Normal oropharynx. She has no sinus tenderness. She has a minimal inspiratory wheeze in the right upper lobe. Differential diagnosis includes viral URI, COVID, bronchitis, pneumonia. A send out COVID swab was obtained. Rapid strep was negative. We will obtain a portable chest x-ray and give a dose of ibuprofen and DuoNeb. She has a history of a tubal ligation and denies chance of and is currently on her menses. CXR reviewed and no obvious evidence of pneumonia. Pt reassessed and she states she feels a little better. O2 saturation 100% on RA. Reassessment of lungs note slight increase in wheezing right upper lobe. Patient declines any additional neb treatments and would like to go home. Discussed that her symptoms could be viral related to upper respiratory tract infection, bronchitis or COVID. Discussed that although she is a smoker, there is no obvious evidence of pneumonia on chest x-ray so we will hold on antibiotics at this time but if her symptoms do not improve or worsen, she may require antibiotics. We will add steroids secondary to wheezing. She was given cough medication and an inhaler to go. Prescriptions for steroids and Tessalon Perles sent electronically to her pharmacy. She states she has an upcoming appointment with her primary care doctor. Usual and customary return precautions given prior to discharge. Medical Records Medical records reviewed: Yes I reviewed the patient's medical records. Imaging Data Radiologic Study: Radiologist's impression: XR PORTABLE CHEST AP CLINICAL HISTORY: ? cough, sob, r/o acute disease. ? TECHNIQUE:? 2D digital imaging was performed. COMPARISON:? CR XR PORTABLE CHEST AP from 06/15/2020 FINDINGS: Single AP portable view. Heart size is upper normal.? The mediastinum is not widened. Right lung is clear.? There is platelike atelectasis in the lingular segment of the left lung, not previously present. There are no pleural effusions. IMPRESSION: There is platelike atelectasis in the lingular segment of the left lung. HPI General Mode of arrival: ambulatory . Date/Time Provider Initiated Documentation: 05/05/22 20:03 . Limitations to Documentation: no limitations . Information obtained by: patient . HPI Narrative: Patient is a 42-year-old female who is a daily tobacco smoker who presents for a complaint of sore throat, nasal congestion, runny nose, cough and shortness of breath for the past few days. Patient states her symptoms started as sore throat 3 days ago which has since improved and now mainly has nasal congestion, cough and shortness of breath. She denies any known fever. She denies any significant headache or neck pain. She states she took an at home COVID test today which was negative. She states she has received 2 Moderna vaccines but has not received a booster. Related Data Home Medications Medication Instructions Recorded Confirmed venlafaxine 150 mg 150 mg PO HS 03/02/13 01/16/22 capsule,extended release 24 hr (Effexor XR) topiramate 100 mg tablet (Topamax) 100 mg PO BID 01/27/14 01/16/22 clonidine HCl 0.2 mg tablet 0.2 mg PO QHS 12/02/19 01/16/22 pantoprazole 20 mg tablet,delayed 40 mg PO DAILY 06/15/20 01/16/22 release ibuprofen 800 mg tablet 800 mg PO TID PRN pain #60 tabs 10/25/21 01/16/22 Lactobacillus acidoph-L.bulgaricus 1 tab PO DAILY 11/28/21 01/16/22 1 million cell tablet (Floranex) zolpidem 5 mg tablet 5 mg PO HS 11/30/21 01/16/22 clindamycin HCl 300 mg capsule 300 mg PO TID #30 caps 01/08/22 01/12/22 ibuprofen 600 mg tablet 600 mg PO Q8H PRN pain #30 tabs 01/08/22 01/12/22 benzonatate 100 mg capsule 100 mg PO TID PRN cough #10 caps 05/05/22 prednisone 20 mg tablet 40 mg PO DAILY 4 days #8 tabs 05/05/22 Previous Rx's Medication Instructions Recorded ibuprofen 800 mg tablet 800 mg PO TID PRN pain #60 tabs 10/25/21 clindamycin HCl 300 mg capsule 300 mg PO TID #30 caps 01/08/22 ibuprofen 600 mg tablet 600 mg PO Q8H PRN pain #30 tabs 01/08/22 benzonatate 100 mg capsule 100 mg PO TID PRN cough #10 caps 10/01/22 prednisone 20 mg tablet 40 mg PO DAILY 4 days #8 tabs 05/05/22 Allergies Allergy/AdvReac Type Severity Reaction Status Date / Time No Known Allergies Allergy Unverified 05/05/22 20:14 General Stated Complaint: RespSymp RAJEEV: 3 Review of Systems All systems reviewed & are unremarkable except as noted in HPI and below Constitutional Constitutional: Reports as per HPI, Denies chills, Denies fever(s) and Reports malaise Eyes Eyes: Denies blurry vision ENT Ears, Nose, Mouth, and Throat: Denies dizziness, Reports nasal congestion, Reports nasal discharge, Reports sore throat and Denies throat swelling Cardiovascular Cardiovascular: Denies chest pain and Reports dyspnea Respiratory Respiratory: Reports cough and Reports dyspnea Gastrointestinal Gastrointestinal: Denies abdominal pain, Denies diarrhea and Denies vomiting Genitourinary Genitourinary: Denies hematuria and Denies dysuria Musculoskeletal Musculoskeletal: Denies back pain and Denies numbness Integumentary/Breasts Skin/Breast: Denies lesions and Denies rash Neurologic Neurologic: Denies dizziness, Denies localized weakness and Denies numbness Allergic/Immunologic Allergic/Immunologic: Denies throat swelling PFSH All Active Problems (Updated 05/05/22 @ 22:02 by Karla Jarrell DO) Viral URI with cough (Acute) Acute bronchitis (Acute) Acute otalgia (Acute) Psychiatric disorder (Chronic) Tendonitis of left rotator cuff (Chronic) Injected: 12/08/2019 Open fracture of tuft of distal phalanx of finger (Acute) LRF Vomiting (Acute) Epigastric abdominal pain (Acute) Vomiting (Acute) Epigastric abdominal pain (Acute) Kidney stone (Chronic) Medical History Endometriosis GERD (gastroesophageal reflux disease) Hiatal hernia Hx of sleep apnea pt. reports she has a machine, uses some Hydronephrosis Infection of kidney Obstruction of right ureteropelvic junction (UPJ) due to stone UTI (urinary tract infection) Surgical History Extracorporeal shock wave lithotripsy Hx of esophagogastroduodenoscopy Hx of laparoscopy pt. reports for endometriosos Hx of submucous nasal surgery pt. reports she has a nasal cyst removed at age 9-10 under anesthesia Ligation of fallopian tube S/P cystoscopy with ureteral stent placement 11/20/21, right Social History Smoking/Tobacco Use Status: Current every day Tobacco Type: cigarettes Smoking risk assessment performed?: Yes Alcohol Intake: never Drug use: Current Sobriety Substance use type: marijuana Current gender identity: female Do you feel safe at home: Yes Do you feel safe in your relationship?: Yes Exam Const General: cooperative, healthy appearing and no acute distress Orientation: alert, awake and oriented x3 HENMT Head: normal to inspection Ears: hearing grossly normal bilaterally, external ears normal and TM's normal bilaterally General nose exam: external nose normal Face and sinus: no sinus tenderness Mouth: oral mucosae normal Throat: posterior oropharynx normal Eyes General: appearance normal, both eyes and all related structures Neck Neck: normal visual inspection Resp Effort & Inspection: normal respiratory effort and able to speak in complete sentences Auscultation: wheezes inspiratory wheezes (Right upper lobe) Cardio Rate: regular rate Rhythm: regular rhythm Skin General skin exam: no rashes or lesions noted Neuro General: patient alert, patient awake and patient oriented x3 Motor: muscle tone normal throughout Extrem General: normal to inspection and full ROM Psych Appearance: grossly normal Affect: normal affect Course Vital Signs Vital signs: Vital Signs Temperature 98.1 F 05/05/22 20:08 Pulse 104 H 05/05/22 20:08 Respiratory Rate 16 05/05/22 20:08 Blood Pressure 138/101 H 05/05/22 20:08 Pulse Oximetry 97 05/05/22 20:08 Temperature 98.1 F 05/05/22 20:08 Temperature Source Skin 05/05/22 20:08 Pulse 104 H 05/05/22 20:08 Respiratory Rate 16 05/05/22 20:08 Respiratory Effort 05/05/22 20:19 Respiratory Depth Normal 05/05/22 20:19 Blood Pressure 138/101 H 05/05/22 20:08 Blood Pressure Position Sitting 05/05/22 20:08 Pulse Oximetry 97 05/05/22 20:08 Oxygen Delivery Method Room Air 05/05/22 20:08 Oxygen Flow Rate 0 05/05/22 20:08 Pain Level 4 05/05/22 20:08 Lab/Test Results Lab/Test Results: 05/05/22 20:25 Pharynx Group A Streptococcus Culture - Pending POC Strep Test-[facility](Rapid) Start: 05/05/22 20:35 Freq: Status: Active Protocol: Document 05/05/22 20:35 CT (Rec: 05/05/22 20:35 CT [id number]) Strep test-[facility](Rapid)-POC POC-Strep test-[facility] (Rapid) Negative POC-Strep test-[facility] (Rapid) Negative
[2022-05-05 20:51] VITALS: TEMP 36.7
[2022-05-05] MEDS: Ibuprofen 600 MG TAB PO (20:51)
[2022-05-05] MEDS: Benzonatate 100 MG CAP 200 MG PO (21:50)
[2022-05-05] MEDS: Albuterol/Ipratropium 3 ML UPD VIAL UPD (21:50)
[2022-05-05] MEDS: Albuterol HFA 8 GM 60 PUFF INH IH (21:50)
[2022-05-05] MEDS: predniSONE 20 MG TAB 40 MG PO (22:08)
--- NOTE | 2022-05-05 22:27 | DI.VRAD_ITS ---
PROCEDURE INFORMATION: Exam: XR Chest Exam date and time: 05/05/2022 8:38 PM Age: 42 years old Clinical indication: Other: Cough, SOB, R/O acute disease TECHNIQUE: Imaging protocol: Radiologic exam of the chest. Views: 1 view. COMPARISON: CR XR PORTABLE CHEST AP 06/15/2020 8:37 AM FINDINGS: Lungs: Lungs are adequately inflated. There is streaky left basilar opacity favored to represent subsegmental atelectasis/scarring versus prominent epicardial fat. No focal consolidation or pulmonary edema. Pleural spaces: No visible pleural effusion. No pneumothorax. Heart/Mediastinum: Cardiomediastinal contours within normal limits. Diaphragm: Mild asymmetric elevation of the right hemidiaphragm. Bones/joints: No acute osseous finding. IMPRESSION: Streaky left basilar opacity favored to represent subsegmental atelectasis/scarring versus prominent epicardial fat. Nonspecific. Dictated and Authenticated by: Shawn Orellana MD. Ordering:ERNESTO Acosta MD
[2022-05-07 13:02] LABS: COVID-19 RT-PCR UVMMC Result Negative (Negative)
== END 2022-05-05 22:16 | disposition home or self-care (01) ==
PROVIDERS: Emergency Provider Physician Assistant; PCP Nurse Practitioner Family
DX: J06.9 Acute upper respiratory infection, unspecified (principal); J20.8 Acute bronchitis due to other specified organisms; F17.210 Nicotine dependence, cigarettes, uncomplicated; Z20.822 Contact with and (suspected) exposure to COVID-19
CPT/HCPCS: 87880; 94640; 99283; U0003; 71045; 87081; 99284; J7512; J7620

== ENCOUNTER 2022-06-18 10:43 | Emergency (ER) | payer MEDICAID, SELFPAY ==
[2022-06-18 10:59] VITALS: BP 163/115; PULSE 110; RESP 20; TEMP 37.7; O2SAT 99
--- NOTE | 2022-06-18 17:22 | NUR.NOTE ---
Nursing Note: Pt was called from waiting room multiple times no response
== END 2022-06-18 13:07 | disposition left before discharge ==
PROVIDERS: PCP Nurse Practitioner Family
DX: Z53.21 Procedure and treatment not carried out due to patient leaving prior to being seen by health care provider (principal)

== ENCOUNTER 2022-07-01 14:01 | Observation (INO) | payer MEDICAID, SELFPAY ==
[2022-07-01] VITALS (46 sets, daily range): BP systolic 133–178; BP diastolic 86–112; PULSE 106–140; RESP 0–26; TEMP 36.9–37.1; O2SAT 93–98
--- NOTE | 2022-07-01 14:00 | RT.EKG_ITS ---
APPROVED REPORT Exam: Resting ECG Reason for Exam: Tachy / Palpitations Patient Location: E HR:122 bpm ECG Measurements Heart Rate 122 AXIS WA 135 P 37 QRSd 77 QRS 47 QT 314 T -13 QTc 448 Conclusion Sinus tachycardia...rate> 99
--- NOTE | 2022-07-01 14:30 | DI.RAD_ITS ---
Exam(s) XR CHEST 2V PA LATERAL EXAM: XR CHEST 2V PA LATERAL CLINICAL HISTORY: Tachycardia TECHNIQUE: 2D digital imaging was performed. COMPARISON: CR XR CHEST 2V PA LATERAL from 07/16/2018 CR Abdomen Series from 10/09/2018 CR XR PORTABLE CHEST AP from 06/15/[address] ABDOMEN PELVIS W from 06/29/[address] RENAL COLIC WO from 11/20/2021 CR,XR XR PORTABLE CHEST AP from 05/05/2022 FINDINGS: HEART: Normal size. Aorta: Normal diameter PULMONARY VASCULATURE: Normal. LUNGS: Question prominent epicardial fat pad versus scar in or atelectasis, similar to previous exam. Clear. PLEURAL SPACE: No pleural effusion or pneumothorax. BONE:Unremarkable for age. IMPRESSION: No acute abnormality. DATA REPOSITORY: RADIATION DOSE DELIVERED:
[2022-07-01 14:44] LABS: Abs Immature Grans 0.03 10^3/uL (0.0-0.06); Absolute Basophil Count 0.08 10^3/uL (0.0-0.2); Absolute Eosinophil Count 0.62 10^3/uL (0.0-0.7); Absolute Lymphocyte Count 3.04 10^3/uL (1.2-3.4); Absolute Neutrophil Count 5.43 10^3/uL (1.2-6.7); Basophils % 0.8; Eosinophils % 6.3; HCT 43.9 % (36.0-46.0); HGB 14.3 g/dL (11.2-15.7); Immature Grans % 0.3; Lymphocytes % 30.7; MCH 28.5 pg (27.0-33.0); MCHC 32.6 % (32.0-36.0); MCV 88 fL (80-95); MPV 9.3 fL (8.0-11.0); Monocytes % 7.1; Neutrophils % 54.8; Platelet Count 396 10^3/uL (130-400); RBC 5.01 10^6/uL (3.93-5.22); RDW 12.6 % (11.7-14.6); RDW-SD 40.6 fL
[2022-07-01] MEDS: Aspirin 81 MG CHEW 324 MG CH (14:53)
[2022-07-01] MEDS: LORazepam 2 MG/ML VIAL 1 MG IVP (14:54)
--- NOTE | 2022-07-01 14:59 | ED.GENADUL_ITS ---
Discharge Plan Discharge Details Chief Complaint: GenMedical Primary Care Provider: Deidra Hawkins ED Provider: Candelario Leal Home Meds and New Rx's Prescriptions: No Action ibuprofen 800 mg tablet 800 mg PO TID PRN (Reason: pain) Qty: 60 0RF Rx Instructions: May take 1 tab every 8 hours as needed for pain. Make sure to take with food. clindamycin HCl 300 mg capsule 300 mg PO TID Qty: 30 0RF ibuprofen 600 mg tablet 600 mg PO Q8H PRN (Reason: pain) Qty: 30 0RF venlafaxine [Effexor XR] 150 MG capsule,extended release 24hr 150 mg PO HS topiramate [Topamax] 100 MG tablet 100 mg PO BID clonidine HCl 0.2 mg Tablet 0.2 mg PO QHS pantoprazole 20 mg tablet,delayed release (DR/EC) 40 mg PO DAILY Label Comments: TK 1 T PO D Lactobacillus acidoph-L.bulgar [Floranex] 1 million cell tablet 1 tab PO DAILY zolpidem 5 mg tablet 5 mg PO HS benzonatate 100 mg capsule 100 mg PO TID PRN (Reason: cough) Qty: 10 0RF amlodipine 5 mg tablet 5 tab PO 1XD Medical Decision Making This is a 42-year-old female with a past medical history of hypertension, tachycardia, anxiety, history of drug use, presenting to the ER for persistent tachycardia, occasional chest pressure, dyspnea with exertion. Clinically she does appear anxious, heart rate in the 130s, blood pressure 178/102. Plan is to initiate a cardiac work-up including a D-dimer. I would like to provide full dose aspirin given her chest pressure although no chest pain or pressure now. We will also provide 1 mg IV Ativan given her anxiety. Patient was on Xanax for nearly 15 years and this was discontinued over the last few months. Repeat heart rate of 112. Blood pressure is trending downward. She continues to have no chest pain. Laboratory values reveal a troponin of 82. Laboratory values otherwise unremarkable, D-dimer normal, will not pursue CTA of the chest. Discussed work- up with patient and mother. Patient denies any chest pain. Heart rate currently 108. Patient remains hypertensive but improved from her initial presentation. Plan is to obtain delta troponin and then final disposition whether that be transferred to cardiology or admit here to our facility for cardiac rule out. This documentation was generated using [employer] dictation system, please disregard any oddities of phrase or misspellings. Medical Records Medical records reviewed: Yes I reviewed the patient's medical records. Imaging Data Radiologic Study: Attestation: I personally reviewed and interpreted this imaging study as follows: Imaging: X-Ray Radiologist's impression: Exam(s) XR CHEST 2V PA LATERAL EXAM: XR CHEST 2V PA LATERAL CLINICAL HISTORY: Tachycardia TECHNIQUE: 2D digital imaging was performed. COMPARISON: CR XR CHEST 2V PA LATERAL from 07/16/2018 CR Abdomen Series from 10/09/2018 CR XR PORTABLE CHEST AP from 06/15/[address] ABDOMEN PELVIS W from 06/29/[address] RENAL COLIC WO from 11/20/2021 CR,XR XR PORTABLE CHEST AP from 05/05/2022 FINDINGS: HEART: Normal size. Aorta: Normal diameter PULMONARY VASCULATURE: Normal. LUNGS: Question prominent epicardial fat pad versus scar in or atelectasis, similar to previous exam. Clear. PLEURAL SPACE: No pleural effusion or pneumothorax. BONE:Unremarkable for age. IMPRESSION: No acute abnormality. Lab Data Lab results reviewed: Yes I reviewed the patient's lab results. Labs: Laboratory Tests Range/Units 07/01/22 07/01/22 07/01/22 14:30 14:30 14:30 WBC (4.4-10.8) 10^3/uL 9.90 RBC (3.93-5.22) 10^6/uL 5.01 Hgb (11.2-15.7) g/dL 14.3 Hct (36.0-46.0) % 43.9 MCV (80-95) fL 88 MCH (27.0-33.0) pg 28.5 MCHC (32.0-36.0) % 32.6 RDW (11.7-14.6) % 12.6 Plt Count (130-400) 10^3/uL 396 MPV (8.0-11.0) fL 9.3 Immature Gran % 0.3 Neutrophils % 54.8 Lymphocytes % 30.7 Monocytes % 7.1 Eosinophils % 6.3 Basophils % 0.8 Nucleated RBC % (0.0-0.3) % 0.0 Absolute Neutrophils (1.2-6.7) 10^3/uL 5.43 Absolute Lymphocytes (1.2-3.4) 10^3/uL 3.04 Absolute Monocytes (0.1-0.8) 10^3/uL 0.70 Absolute Eosinophils (0.0-0.7) 10^3/uL 0.62 Absolute Basophils (0.0-0.2) 10^3/uL 0.08 PT (9.3-11.0) sec 9.3 INR (0.9-1.1) 0.9 APTT (21.0-27.5) sec 25.8 D-Dimer (<500) ng/mlFEU 233 Sodium (136-145) mmol/L 138 Potassium (3.5-5.1) mmol/L 3.5 Chloride (98-107) mmol/L 103 Carbon Dioxide (21.0-32.0) mmol/L 27.3 Anion Gap (3-11) mmol/L 7.7 BUN (7-18) mg/dL 9 Creatinine (0.55-1.02) mg/dL 1.0 Est GFR (CKD-EPI 2020) (mL/min/1.73m2) 72.58 Glucose (74-106) mg/dL 189 H Calcium (8.5-10.1) mg/dL 8.9 Magnesium (1.8-2.4) mg/dL 1.9 Total Bilirubin (0.2-1.0) mg/dL 0.2 AST (15-37) U/L 11 L ALT (14-59) U/L 23 Alkaline Phosphatase (46-116) U/L 103 Troponin I (<or=60) ng/L 82 H* NT-Pro-B Natriuret Pep (<300) pg/mL 13 Total Protein (6.4-8.2) g/dL 7.8 Albumin (3.4-5.0) g/dL 3.8 TSH (0.36-3.74) uIU/mL 1.74 COVID-19 Source Range/Units 07/01/22 15:30 WBC (4.4-10.8) 10^3/uL RBC (3.93-5.22) 10^6/uL Hgb (11.2-15.7) g/dL Hct (36.0-46.0) % MCV (80-95) fL MCH (27.0-33.0) pg MCHC (32.0-36.0) % RDW (11.7-14.6) % Plt Count (130-400) 10^3/uL MPV (8.0-11.0) fL Immature Gran % Neutrophils % Lymphocytes % Monocytes % Eosinophils % Basophils % Nucleated RBC % (0.0-0.3) % Absolute Neutrophils (1.2-6.7) 10^3/uL Absolute Lymphocytes (1.2-3.4) 10^3/uL Absolute Monocytes (0.1-0.8) 10^3/uL Absolute Eosinophils (0.0-0.7) 10^3/uL Absolute Basophils (0.0-0.2) 10^3/uL PT (9.3-11.0) sec INR (0.9-1.1) APTT (21.0-27.5) sec D-Dimer (<500) ng/mlFEU Sodium (136-145) mmol/L Potassium (3.5-5.1) mmol/L Chloride (98-107) mmol/L Carbon Dioxide (21.0-32.0) mmol/L Anion Gap (3-11) mmol/L BUN (7-18) mg/dL Creatinine (0.55-1.02) mg/dL Est GFR (CKD-EPI 2020) (mL/min/1.73m2) Glucose (74-106) mg/dL Calcium (8.5-10.1) mg/dL Magnesium (1.8-2.4) mg/dL Total Bilirubin (0.2-1.0) mg/dL AST (15-37) U/L ALT (14-59) U/L Alkaline Phosphatase (46-116) U/L Troponin I (<or=60) ng/L NT-Pro-B Natriuret Pep (<300) pg/mL Total Protein (6.4-8.2) g/dL Albumin (3.4-5.0) g/dL TSH (0.36-3.74) uIU/mL COVID-19 Source Nasal/Nares ECG Data Attestation: I personally reviewed and interpreted this ECG (s) as follows: Interpretation: Sinus tachycardia, ventricular is 122, no STEMI. Sign Out Yes HPI General Mode of arrival: ambulatory . Date/Time Provider Initiated Documentation: 07/01/22 14:12 . Limitations to Documentation: no limitations . Information obtained by: patient . HPI Narrative: This is a 42-year-old female who reports a past medical history of hypertension, tachycardia, anxiety, drug use, most recently used cocaine a couple of months ago, current smoker, denies any history of IV drug use, presented to the ER for ongoing hypertension and tachycardia. She reports yesterday when her heart was racing she did feel some chest pressure but denies any chest pain or pressure now. Also reports when her heart is racing, she does have a sensation of shortness of breath. She denies recent illness or trauma. She denies headache, visual change, neck pain, chest pain, cough, abdominal pain, nausea vomiting or swelling in her lower extremities. She tells me that several months ago they discontinued her Xanax which she had been on for approximately 15 years. She denies any cardiac history. Related Data Home Medications Medication Instructions Recorded Confirmed venlafaxine 150 mg 150 mg PO HS 03/02/13 07/01/22 capsule,extended release 24 hr (Effexor XR) topiramate 100 mg tablet (Topamax) 100 mg PO BID 01/27/14 01/16/22 clonidine HCl 0.2 mg tablet 0.2 mg PO QHS 12/02/19 07/01/22 pantoprazole 20 mg tablet,delayed 40 mg PO DAILY 06/15/20 07/01/22 release ibuprofen 800 mg tablet 800 mg PO TID PRN pain #60 tabs 10/25/21 01/16/22 Lactobacillus acidoph-L.bulgaricus 1 tab PO DAILY 11/28/21 01/16/22 1 million cell tablet (Floranex) zolpidem 5 mg tablet 5 mg PO HS 11/30/21 07/01/22 clindamycin HCl 300 mg capsule 300 mg PO TID #30 caps 01/08/22 01/12/22 ibuprofen 600 mg tablet 600 mg PO Q8H PRN pain #30 tabs 01/08/22 07/01/22 benzonatate 100 mg capsule 100 mg PO TID PRN cough #10 caps 05/05/22 amlodipine 5 mg tablet 5 tab PO 1XD 07/01/22 07/01/22 Previous Rx's Medication Instructions Recorded ibuprofen 800 mg tablet 800 mg PO TID PRN pain #60 tabs 10/25/21 clindamycin HCl 300 mg capsule 300 mg PO TID #30 caps 01/08/22 ibuprofen 600 mg tablet 600 mg PO Q8H PRN pain #30 tabs 01/08/22 benzonatate 100 mg capsule 100 mg PO TID PRN cough #10 caps 05/05/22 Allergies Allergy/AdvReac Type Severity Reaction Status Date / Time No Known Allergies Allergy Unverified 06/18/22 17:11 General Stated Complaint: GenMedical RAJEEV: 3 Review of Systems Constitutional Constitutional: Denies fever(s) and Denies headache(s) Eyes Eyes: Denies change in vision ENT Ears, Nose, Mouth, and Throat: Denies headache(s) and Denies neck pain Cardiovascular Cardiovascular: Reports chest pain (Pressure), Reports palpitations and Reports dyspnea Respiratory Respiratory: Denies cough and Reports dyspnea Gastrointestinal Gastrointestinal: Denies abdominal pain, Denies nausea and Denies vomiting Genitourinary Genitourinary: Denies dysuria Musculoskeletal Musculoskeletal: Denies back pain and Denies neck pain Integumentary/Breasts Skin/Breast: Denies rash Neurologic Neurologic: Denies headache(s) Psychiatric Psychiatric: Reports anxiety Endocrine Endocrine: Reports palpitations Hematologic/Lymphatic Hematologic/Lymphatic: Denies easy bleeding and Denies easy bruising PFSH All Active Problems Acute otalgia (Acute) Psychiatric disorder (Chronic) Tendonitis of left rotator cuff (Chronic) Injected: 12/08/2019 Open fracture of tuft of distal phalanx of finger (Acute) LRF Vomiting (Acute) Epigastric abdominal pain (Acute) Vomiting (Acute) Epigastric abdominal pain (Acute) Kidney stone (Chronic) Medical History Endometriosis GERD (gastroesophageal reflux disease) Hiatal hernia Hx of sleep apnea pt. reports she has a machine, uses some Hydronephrosis Infection of kidney Obstruction of right ureteropelvic junction (UPJ) due to stone UTI (urinary tract infection) Surgical History Extracorporeal shock wave lithotripsy Hx of esophagogastroduodenoscopy Hx of laparoscopy pt. reports for endometriosos Hx of submucous nasal surgery pt. reports she has a nasal cyst removed at age 9-10 under anesthesia Ligation of fallopian tube S/P cystoscopy with ureteral stent placement 11/20/21, right Social History Smoking/Tobacco Use Status: Current every day Tobacco Type: cigarettes Smoking risk assessment performed?: Yes Alcohol Intake: never Drug use: Current Sobriety Substance use type: marijuana Current gender identity: female Do you feel safe at home: Yes Do you feel safe in your relationship?: Yes Exam Const General: cooperative, healthy appearing, comfortable, no acute distress and anxious Orientation: alert and awake [facility] Head: normal to inspection, normocephalic and atraumatic Face and sinus: normal facial exam Mouth: oral mucosae normal and moist mucous membranes Eyes General: appearance normal, both eyes and all related structures Conjunctivae: conjunctivae normal Neck Neck: normal visual inspection, full ROM, no meningeal signs, trachea midline and supple Chest Chest: normal inspection of the chest and normal palpation of entire chest wall Resp Effort & Inspection: normal respiratory effort and able to speak in complete sentences Auscultation: clear to auscultation bilaterally Cardio Rate: tachycardic (130s) Rhythm: regular rhythm GI Palpation: soft and nontender Back/Spine/Pelvis Back: no CVA tenderness and No back tenderness Skin General skin exam: no rashes or lesions noted Neuro General: patient alert, patient awake, patient oriented x3, moves all extremities and no focal motor deficits Cognition: normal cognition Speech: speech normal Gait: normal gait Motor: muscle tone normal throughout Sensory Exam: no sensory deficits noted Extrem General: normal to inspection, full ROM, capillary refill normal, no pedal edema and no calf tenderness Psych Appearance: grossly normal Mental Status: mental status grossly normal Course Vital Signs Vital signs: Vital Signs Temperature 36.9 C 07/01/22 14:11 Pulse 140 H 07/01/22 14:11 Respiratory Rate 20 07/01/22 14:11 Blood Pressure 178/102 H 07/01/22 14:11 Pulse Oximetry 98 07/01/22 14:11 Temperature 36.9 C 07/01/22 14:11 Temperature Source Oral 07/01/22 14:11 Pulse 140 H 07/01/22 14:11 Respiratory Rate 18 07/01/22 14:27 Respiratory Effort 07/01/22 14:30 Blood Pressure 178/102 H 07/01/22 14:11 Blood Pressure Position Sitting 07/01/22 14:11 Pulse Oximetry 98 07/01/22 14:11 Oxygen Delivery Method Room Air 07/01/22 14:11 Oxygen Flow Rate 0 07/01/22 14:11 Pain Level 0 07/01/22 14:11 Lab/Test Results Lab/Test Results: Laboratory Tests Range/Units 07/01/22 14:30 WBC (4.4-10.8) 10^3/uL 9.90 RBC (3.93-5.22) 10^6/uL 5.01 Hgb (11.2-15.7) g/dL 14.3 Hct (36.0-46.0) % 43.9 MCV (80-95) fL 88 MCH (27.0-33.0) pg 28.5 MCHC (32.0-36.0) % 32.6 RDW (11.7-14.6) % 12.6 Plt Count (130-400) 10^3/uL 396 MPV (8.0-11.0) fL 9.3 Immature Gran % 0.3 Neutrophils % 54.8 Lymphocytes % 30.7 Monocytes % 7.1 Eosinophils % 6.3 Basophils % 0.8 Nucleated RBC % (0.0-0.3) % 0.0 Absolute Neutrophils (1.2-6.7) 10^3/uL 5.43 Absolute Lymphocytes (1.2-3.4) 10^3/uL 3.04 Absolute Monocytes (0.1-0.8) 10^3/uL 0.70 Absolute Eosinophils (0.0-0.7) 10^3/uL 0.62 Absolute Basophils (0.0-0.2) 10^3/uL 0.08
[2022-07-01 15:00] LABS: INR 0.9 (0.9-1.1); PTT Activated 25.8 sec (21.0-27.5); Prothrombin Time 9.3 sec (9.3-11.0)
[2022-07-01 15:07] LABS: ALT 23 U/L (14-59); AST 11 U/L (15-37); Albumin 3.8 g/dL (3.4-5.0); Alkaline Phosphatase 103 U/L (46-116); Anion Gap 7.7 mmol/L (3-11); BUN 9 mg/dL (7-18); Bilirubin, Total 0.2 mg/dL (0.2-1.0); CO2 27.3 mmol/L (21.0-32.0); Calcium 8.9 mg/dL (8.5-10.1); Chloride 103 mmol/L (98-107); Estimated GFR 72.58 (mL/min/1.73m2); Glucose 189 mg/dL (74-106); Magnesium 1.9 mg/dL (1.8-2.4); NT-proBNP 13 pg/mL (<300); Potassium 3.5 mmol/L (3.5-5.1); Sodium 138 mmol/L (136-145); TSH (W/Ref FT4) 1.74 uIU/mL (0.36-3.74); Total Protein 7.8 g/dL (6.4-8.2)
[2022-07-01 15:09] LABS: Troponin I 82 ng/L (<or=60)
[2022-07-01 15:14] LABS: D-Dimer 233 ng/mlFEU (<500)
--- NOTE | 2022-07-01 15:25 | DI.VRAD_ITS ---
PROCEDURE INFORMATION: Exam: XR Chest Exam date and time: 07/01/2022 3:08 PM Age: 42 years old Clinical indication: Other: Tachycardia TECHNIQUE: Imaging protocol: Radiologic exam of the chest. Views: 2 views. COMPARISON: XR PORTABLE CHEST AP 05/05/2022 8:38 PM FINDINGS: Lungs: Unremarkable. No consolidation. Pleural spaces: Unremarkable. No pleural effusion. No pneumothorax. Heart/Mediastinum: Unremarkable. No cardiomegaly. Bones/joints: Mild multilevel degenerative changes of the spine. IMPRESSION: No acute findings. Dictated and Authenticated by: eClio Ragland MD. Ordering:ANABELA Palomino MD
[2022-07-01 15:43] LABS: Source Nasal/Nares
--- NOTE | 2022-07-01 15:56 | W.EDPROG ---
Date of service: 07/01/22 Time of Service: 15:57 Medical Decision Making Care assumed from provider (NELLY Hamilton) Please see their initial HPI, PE, and documentation. Discussed patient details and case and pending workup and disposition. Patient is hemodynamically stable, and alert and oriented. At the time of signout awaiting serial troponin initial troponin is slightly elevated 82 patient presented to the ER tachycardic with a heart rate in the 140s. Patient was given Ativan and fluid. Repeat troponin is 79 which is down from 80s, I did discuss the results with patient who verbalized understanding. She is 115 she is on her second liter of fluid. In short patient has had chest pain over the last couple days with palpitations which have been keeping her up at night. She reports that she days ago she had some left arm pain. Will page hospitalist for admission request. 180: Spoke with Dr. Barrios, he agrees to accept patient if we have bed availability. Patient informed of plan of care is agreement with plan. Medical Records Medical records reviewed: Yes I reviewed the patient's medical records. Lab Data Lab results reviewed: Yes I reviewed the patient's lab results. Labs: Laboratory Tests Range/Units 07/01/22 07/01/22 07/01/22 14:30 14:30 14:30 WBC (4.4-10.8) 10^3/uL 9.90 RBC (3.93-5.22) 10^6/uL 5.01 Hgb (11.2-15.7) g/dL 14.3 Hct (36.0-46.0) % 43.9 MCV (80-95) fL 88 MCH (27.0-33.0) pg 28.5 MCHC (32.0-36.0) % 32.6 RDW (11.7-14.6) % 12.6 Plt Count (130-400) 10^3/uL 396 MPV (8.0-11.0) fL 9.3 Immature Gran % 0.3 Neutrophils % 54.8 Lymphocytes % 30.7 Monocytes % 7.1 Eosinophils % 6.3 Basophils % 0.8 Nucleated RBC % (0.0-0.3) % 0.0 Absolute Neutrophils (1.2-6.7) 10^3/uL 5.43 Absolute Lymphocytes (1.2-3.4) 10^3/uL 3.04 Absolute Monocytes (0.1-0.8) 10^3/uL 0.70 Absolute Eosinophils (0.0-0.7) 10^3/uL 0.62 Absolute Basophils (0.0-0.2) 10^3/uL 0.08 PT (9.3-11.0) sec 9.3 INR (0.9-1.1) 0.9 APTT (21.0-27.5) sec 25.8 D-Dimer (<500) ng/mlFEU 233 Sodium (136-145) mmol/L 138 Potassium (3.5-5.1) mmol/L 3.5 Chloride (98-107) mmol/L 103 Carbon Dioxide (21.0-32.0) mmol/L 27.3 Anion Gap (3-11) mmol/L 7.7 BUN (7-18) mg/dL 9 Creatinine (0.55-1.02) mg/dL 1.0 Est GFR (CKD-EPI 2020) (mL/min/1.73m2) 72.58 Glucose (74-106) mg/dL 189 H Calcium (8.5-10.1) mg/dL 8.9 Magnesium (1.8-2.4) mg/dL 1.9 Total Bilirubin (0.2-1.0) mg/dL 0.2 AST (15-37) U/L 11 L ALT (14-59) U/L 23 Alkaline Phosphatase (46-116) U/L 103 Troponin I (<or=60) ng/L 82 H* NT-Pro-B Natriuret Pep (<300) pg/mL 13 Total Protein (6.4-8.2) g/dL 7.8 Albumin (3.4-5.0) g/dL 3.8 TSH (0.36-3.74) uIU/mL 1.74 COVID-19 Source Range/Units 07/01/22 15:30 WBC (4.4-10.8) 10^3/uL RBC (3.93-5.22) 10^6/uL Hgb (11.2-15.7) g/dL Hct (36.0-46.0) % MCV (80-95) fL MCH (27.0-33.0) pg MCHC (32.0-36.0) % RDW (11.7-14.6) % Plt Count (130-400) 10^3/uL MPV (8.0-11.0) fL Immature Gran % Neutrophils % Lymphocytes % Monocytes % Eosinophils % Basophils % Nucleated RBC % (0.0-0.3) % Absolute Neutrophils (1.2-6.7) 10^3/uL Absolute Lymphocytes (1.2-3.4) 10^3/uL Absolute Monocytes (0.1-0.8) 10^3/uL Absolute Eosinophils (0.0-0.7) 10^3/uL Absolute Basophils (0.0-0.2) 10^3/uL PT (9.3-11.0) sec INR (0.9-1.1) APTT (21.0-27.5) sec D-Dimer (<500) ng/mlFEU Sodium (136-145) mmol/L Potassium (3.5-5.1) mmol/L Chloride (98-107) mmol/L Carbon Dioxide (21.0-32.0) mmol/L Anion Gap (3-11) mmol/L BUN (7-18) mg/dL Creatinine (0.55-1.02) mg/dL Est GFR (CKD-EPI 2020) (mL/min/1.73m2) Glucose (74-106) mg/dL Calcium (8.5-10.1) mg/dL Magnesium (1.8-2.4) mg/dL Total Bilirubin (0.2-1.0) mg/dL AST (15-37) U/L ALT (14-59) U/L Alkaline Phosphatase (46-116) U/L Troponin I (<or=60) ng/L NT-Pro-B Natriuret Pep (<300) pg/mL Total Protein (6.4-8.2) g/dL Albumin (3.4-5.0) g/dL TSH (0.36-3.74) uIU/mL COVID-19 Source Nasal/Nares Sign Out Yes Sign Out Sign Out Data: Sign Out Comment: Presented for ongoing tachycardia, hypertension, dyspnea with exertion. Given 1 mg Ativan as well as full dose aspirin. Initial troponin 82. Denies any chest pain now. Will need delta troponin and final disposition either admission here or transfer to higher level of care. Last updated by Candelario Leal PA at 07/01/22 15:46 Discharge Plan Disposition Patient Disposition: Admit to [facility] Condition: Stable Discharge Details Clinical Impression: Elevated troponin, Tachycardia Admit Date/Time: 07/01/22 19:12 Admit Provider: Howard Barrios Attending Provider: Howard Barrios Primary Care Provider: Deidra Hawkins ED Provider: Arelis Wallis
[2022-07-01 16:02] LABS: *AMPHETAMINES SCREEN URINE Negative (Negative); *BARBITURATES SCREEN URINE Negative (Negative); *BENZODIAZEPINES SCREEN URINE Negative (Negative); Cannabinoids THC Negative (Negative); Cocaine Screen,Urine Negative (Negative); METHADONE URINE SCREEN Negative (Negative); OPIATES URINE SCREEN Negative (Negative)
[2022-07-01] MEDS: Normal Saline 1,000 ML 1000 ML IV (16:07)
[2022-07-01 16:08] LABS: Tricyclic Antidepressants Negative (Negative)
[2022-07-01 16:17] LABS: COVID-19 PCR Negative (Negative)
[2022-07-01] MEDS: Normal Saline 250 ML IV (17:47)
[2022-07-01 17:51] LABS: Troponin I 79 ng/L (<or=60)
--- NOTE | 2022-07-01 18:54 | HPE_ITS ---
Date of service: 07/01/22 Time of Service: 18:54 Assessment and Plan Assessment and plan (1) Palpitations: Status: Acute Assessment and plan: Palpitations, stemming from sinus tachycardia, along with HTN, all in setting of known anxiety disorder and symptom onset correlating precisely with discontinu ation of Xanax. I think this is very likely the operative factor here and will reinstitute Xanax along with trial dose of beta eli. The minimal troponin level, and flat, is of doubtful significance, CAD very unlikely, possibly an element of demand ischemia from prolonged tachycardia. Might consider stress test. Also, for sake of completeness, one can mention the possibility of pheo, but I would regard this as so unlikely that I don't feel we need to pursue this at this time and would watch for response to above regimen. Palps, HTN, anxiety: Xanax 1 mg, Lopressor 25 Troponin: complete series, consider ETT Tobacco: prn nictotine patch History of Present Illness History of Present Illness Chief Complaint: palpitations Narrative: 42 female with h/o anxiety, substance abuse. Had been on Xanax for many years, reports she stopped taking it about 6 months ago in p[reparation for going into a Rehab center (for cocaine abuse); states a subsequent drug screen was negative for benzos (in consequence of her stopping her Xanax) but was interpreted by her PCP as indicating that she may have been selling it and he declined to prescribe further. Since stopping the Xanax ()6 months ago) she has been experiencing palpitations and anxiety. Two days ago0 she had some vague chest and/or LUE discomfort, lasting approx one hour, none before or since. What precipitated her visit tonight was that she felt her palpitations were more bothersome, she was getting anxious about what it might portend.In ER w/u of note for EKG with sinus tachycardia without ischemic changes, troponin 1 and 2 of 69 and 72, negative d-Dimer and normal CXR, and negative UDS. Patient given ASA 325 and Ativan 1 mg. States the Ativan has hlped. I was asked to evaluate for admission. Review of Systems Narrative: per HPI PFSH All Active Problems (Updated 07/01/22 @ 19:03 by Howard Barrios MD) Palpitations (Acute) Acute otalgia (Acute) Psychiatric disorder (Chronic) Tendonitis of left rotator cuff (Chronic) Injected: 12/08/2019 Open fracture of tuft of distal phalanx of finger (Acute) LRF Vomiting (Acute) Epigastric abdominal pain (Acute) Vomiting (Acute) Epigastric abdominal pain (Acute) Kidney stone (Chronic) Medical History Endometriosis GERD (gastroesophageal reflux disease) Hiatal hernia Hx of sleep apnea pt. reports she has a machine, uses some Hydronephrosis Infection of kidney Obstruction of right ureteropelvic junction (UPJ) due to stone UTI (urinary tract infection) Surgical History Extracorporeal shock wave lithotripsy Hx of esophagogastroduodenoscopy Hx of laparoscopy pt. reports for endometriosos Hx of submucous nasal surgery pt. reports she has a nasal cyst removed at age 9-10 under anesthesia Ligation of fallopian tube S/P cystoscopy with ureteral stent placement 11/20/21, right Social History Smoking/Tobacco Use Status: Current every day Tobacco Type: cigarettes Smoking risk assessment performed?: Yes Alcohol Intake: never Drug use: Current Sobriety Substance use type: marijuana Current gender identity: female Do you feel safe at home: Yes Do you feel safe in your relationship?: Yes Meds Allergies and Home Medications Allergies Allergy/AdvReac Type Severity Reaction Status Date / Time No Known Allergies Allergy Unverified 06/18/22 17:11 Home Medications Medication Instructions Recorded Confirmed Type venlafaxine 150 mg 150 mg PO HS 03/02/13 07/01/22 History capsule,extended release 24 hr (Effexor XR) clonidine HCl 0.2 mg tablet 0.2 mg PO QHS 12/02/19 07/01/22 History pantoprazole 20 mg tablet,delayed 40 mg PO DAILY 06/15/20 07/01/22 History release zolpidem 5 mg tablet 5 mg PO HS 11/30/21 07/01/22 History ibuprofen 600 mg tablet 600 mg PO Q8H PRN pain #30 tabs 01/08/22 07/01/22 Rx amlodipine 5 mg tablet 5 tab PO 1XD 07/01/22 07/01/22 History Exam Narrative Exam Narrative: 147/95, 111, 36.9, 20 98% RA. Patient sitting comfortably in bed eating dinner. HEENT atraumatic; neck supple; lungs clear; heart tachy/regu;lar; abdomen soft and NT; extremities w/o edema; neuro Ox3, lucid, moves all 4s Results Labs Result diagrams: 07/01/22 14:30 07/01/22 14:30 Labs: Laboratory Results - last 24 hr 07/01/22 07/01/22 07/01/22 14:30 14:30 14:30 WBC 9.90 RBC 5.01 Hgb 14.3 Hct 43.9 MCV 88 MCH 28.5 MCHC 32.6 RDW 12.6 Plt Count 396 MPV 9.3 Immature Gran % 0.3 Neutrophils % 54.8 Lymphocytes % 30.7 Monocytes % 7.1 Eosinophils % 6.3 Basophils % 0.8 Nucleated RBC % 0.0 Absolute Neutrophils 5.43 Absolute Lymphocytes 3.04 Absolute Monocytes 0.70 Absolute Eosinophils 0.62 Absolute Basophils 0.08 PT 9.3 INR 0.9 APTT 25.8 D-Dimer 233 Sodium 138 Potassium 3.5 Chloride 103 Carbon Dioxide 27.3 Anion Gap 7.7 BUN 9 Creatinine 1.0 Est GFR (CKD-EPI 2020) 72.58 Glucose 189 H Calcium 8.9 Magnesium 1.9 Total Bilirubin 0.2 AST 11 L ALT 23 Alkaline Phosphatase 103 Troponin I 82 H* NT-Pro-B Natriuret Pep 13 Total Protein 7.8 Albumin 3.8 TSH 1.74 Urine Opiates Screen Urine Methadone Screen Ur Barbiturates Screen Ur Tricyclics Screen Ur Amphetamines Screen U Benzodiazepines Scrn Urine Cocaine Screen Ur THC Screen COVID-19 Source SARS-CoV-2 (PCR) 07/01/22 07/01/22 07/01/22 15:30 15:30 17:25 WBC RBC Hgb Hct MCV MCH MCHC RDW Plt Count MPV Immature Gran % Neutrophils % Lymphocytes % Monocytes % Eosinophils % Basophils % Nucleated RBC % Absolute Neutrophils Absolute Lymphocytes Absolute Monocytes Absolute Eosinophils Absolute Basophils PT INR APTT D-Dimer Sodium Potassium Chloride Carbon Dioxide Anion Gap BUN Creatinine Est GFR (CKD-EPI 2020) Glucose Calcium Magnesium Total Bilirubin AST ALT Alkaline Phosphatase Troponin I 79 H* NT-Pro-B Natriuret Pep Total Protein Albumin TSH Urine Opiates Screen Negative Urine Methadone Screen Negative Ur Barbiturates Screen Negative Ur Tricyclics Screen Negative Ur Amphetamines Screen Negative U Benzodiazepines Scrn Negative Urine Cocaine Screen Negative Ur THC Screen Negative COVID-19 Source Nasal/Nares SARS-CoV-2 (PCR) Negative Last Vital Signs Temp 36.9 C 07/01/22 14:11 Pulse 111 H 07/01/22 17:26 Resp 0 L 07/01/22 17:26 BP 147/95 H 07/01/22 17:26 Pulse Ox 98 07/01/22 17:26
[2022-07-01 20:53] LABS: Troponin I 80 ng/L (<or=60)
[2022-07-01] MEDS: Labetalol 100 MG TAB PO (21:18)
[2022-07-01] MEDS: ALPRAZolam 0.25 MG TAB 0.5 MG PO (21:18)
[2022-07-01] MEDS: Zolpidem 5 MG TAB PO (22:33)
[2022-07-01] MEDS: Venlafaxine 150 MG CAPCR PO (22:33)
[2022-07-01] MEDS: cloNIDine 0.1 MG TAB PO (22:33)
[2022-07-02] VITALS (7 sets, daily range): BP systolic 124–131; BP diastolic 87–91; PULSE 100–106; RESP 18–20; TEMP 36.2–37.1; O2SAT 95–96
[2022-07-02 07:32] LABS: Troponin I 78 ng/L (<or=60)
[2022-07-02] MEDS: ALPRAZolam 0.5 MG TAB PO (08:42)
[2022-07-02] MEDS: Pantoprazole 20 MG TABCR 40 MG PO (08:43)
[2022-07-02] MEDS: Labetalol 100 MG TAB PO (08:43)
[2022-07-02] MEDS: Venlafaxine 150 MG CAPCR PO (11:39)
[2022-07-02] MEDS: Nicotine 21 MG/24 HR PATCH TD (14:51)
--- NOTE | 2022-07-02 14:52 | DI.US_ITS ---
APPROVED REPORT EXAM: Comprehensive 2D, Doppler, and color-flow Echocardiogram Patient Location: In-Patient Room/Bed: [facility] [employer] As[employer]er: Maria M Escalera RDCS (AE) Indications: Elevated troponin, Evaluate LV, Papitations Other Information Study Quality: Adequate Conclusion Normal left ventricular wall thickness and chamber size. Estimated ejection fraction is 60%. Wall m otion is normal Normal right ventricular size and systolic function Both atria are normal in size There is no structural or hemodynamically significant valvular disease Wall motion Left Ventricle The left ventricle is normal size. The left ventricular systolic function is normal. The left ventric ular ejection fraction is within the normal range. There is normal left ventricular wall thickness. T here is normal LV segmental wall motion. There is no ventricular septal defect visualized. LVEF is 60 %. Right Ventricle The right ventricle is normal size. The right ventricular systolic function is normal. Atria The left atrium size is normal. The right atrium size is normal. The interatrial septum is intact wit h no evidence for an atrial septal defect. Aortic Valve The aortic valve is normal in structure. Aortic valve is trileaflet. There is no aortic valvular sten osis. No aortic regurgitation is present. Mitral Valve The mitral valve is normal in structure. No evidence of mitral valve stenosis. Trace to mild mitral r egurgitation. Tricuspid Valve The tricuspid valve is normal in structure. There is no tricuspid valve stenosis. Trace tricuspid reg urgitation. Unable to assess PA pressure. Pulmonic Valve The pulmonary valve is normal in structure. There is no pulmonic valvular stenosis. Trace pulmonic re gurgitation. Great Vessels The aortic root is normal in size. The ascending aorta is normal in size. Aortic arch is not well vis ualized. IVC is normal in size and collapses >50% with inspiration. Pericardium There is no pericardial effusion. 2D Dimensions IVSD d PLAX 1.07 cm F: 0.6-1.0 LV Vol A2C d MOD 80.4 mL LVPW d PLAX 1.05 cm F: 0.6 - 1.0 LV Vol A4C d MOD 95.9 mL LVID d PLAX 4.15 cm F: 3.8 - 5.2 LA Area A4C s MOD 14.80 cm2 LVDs 2.75 cm F: 2.2 - 3.5 LA Area A2C s MOD 11.78 cm2 Ao Root d 3.10 cm F: 2.7 - 3.3 LV EF A4C MOD 60.7 % RA Area A4C 16.56 cm2 LV EF A2C MOD 59.1 % Ao Asc Diam d 3.28 cm F: 2.3 - 3.1 LV EF Biplane MOD 60.7 % LV EF Teichholz 62.2 % SV 54.55 mL LVEF (Danielle's) 60.70 % F: 54 - 74 LV Volume 89.87 mL F: 46 - 106 LV Volume Index 45.61 mL/m2 F: 29 - 61 LV Vol Biplane MOD 89.9 mL FS 33.10 % M-Mode TAPSE 1.79 cm (M/F) >1.7 LV Diastology MV E' medial 0.096 (>0.07 m/s) E/A Ratio 0.9 LV E/e MED 7.15 (<14) MV E Vmax 0.69 (0.4-1.3 m/s) MV E' lateral 0.114 (>0.1 m/s) MV A Vmax 0.80 (0.4-1.3 m/s) LV E/e LAT 6.05 (<14) MV E/A Ratio 0.82 MV E/E' medial 7.19 MV E/E' lateral 6.06 Aortic Valve LVOT Area 3.48 cm2 AoV Area Vmax 2.92 cm2 LVOT Vmax 0.93 m/s TAYLER Mean Gio. 2.60 cm2 LVOT Mean Gio. 0.61 m/s LVOT Peak Grad 3.4 mmHg LVOT Mean Grad 1.8 mmHg LVOT VTI 0.177 m LVOT Diam s 2.10 cm AoV Vmax 1.11 m/s Velocity Ratio 0.83 AoV Mean Gio. 0.82 m/s AoV Peak Grad 4.9 mmHg LVOT SV 61.67 mL AoV Mean Grad 2.9 mmHg AoV VTI 0.196 m AoV Area VTI 3.15 cm2 Mitral Valve MV DT 235 (160-240 msec) MV PHT 68 msec MV Area PHT 3.23 cm2 MV VTI 0.185 m MV Area VTI 3.33 (4.0-6.0 cm2) Pulmonary Valve PV Vmax 1.04 (0.5-1.5 m/s) RVOT Peak Gr. 2.38 mmHg PV Peak Grad 4.4 mmHg RVOT Mean Gr. 1.05 mmHg PV Mean Grad 2.0 mmHg RVOT VTI 0.141 m PV VTI 0.164 m RVOT Vmax 0.77 m/s
--- NOTE | 2022-07-02 15:29 | DSE_ITS ---
Date of service: 07/02/22 Time of Service: 15:29 DS: Diagnosis Discharge Diagnosis (1) Palpitations: Status: Acute Discharge Plan Disposition Patient Disposition: Home Condition: Good Discharge Details Reason For Visit: Palpitations Admit Date/Time: 07/01/22 19:12 Admit Provider: Howard Barrios Attending Provider: Howard Barrios Primary Care Provider: Deidra Hawkins [place] Hospital Course Hospital Course: This is a 42 year old Caucasion female with h/o anxiety, substance abuse that presented to the [facility] ED with complaints of anxiety. She had been on Xanax for many years, reported not taking it for about 6 months, in preparation for going into a Rehab center (for cocaine abuse); stated a subsequent drug screen was negative for benzos (in consequence of her stopping her Xanax) but was interpreted by her PCP as indicating that she may have been selling it and he declined to prescribe further. Since stopping the Xanax 6 months ago she has been experiencing palpitations and anxiety. Two days prior to admission, she had some vague chest and LUE discomfort, lasting approximately one hour, none before or since. What precipitated her visit tonight was that she felt her palpitations were more bothersome, she was getting anxious about what it might portend. In ED w/u of note for EKG with sinus tachycardia without ischemic changes, troponin 1 and 2 of 69 and 72, negative d-Dimer and normal CXR, and negative UDS. Patient given ASA 325 and Ativan 1 mg. States the Ativan has helped. She was admitted overnight, had no chest pain, no palpitations and did well with lorazepam, and ambien for sleep. Amlodipine was stopped and shes was started on labetalol. She was discharged to home stable with cardiac event m onitor. Discussed with Dr Spence ? Home Meds and New Rx's Prescriptions: New labetalol 100 mg Tablet 100 mg PO BID Qty: 60 0RF zolpidem [Ambien] 10 mg tablet 10 mg PO QHS PRNQty: 30 0RF lorazepam 0.5 mg tablet 0.5 mg PO TID PRNQty: 30 0RF Continued ibuprofen 600 mg tablet 600 mg PO Q8H PRN (Reason: pain) Qty: 30 0RF venlafaxine [Effexor XR] 150 MG capsule,extended release 24hr 150 mg PO BID clonidine HCl 0.2 mg Tablet 0.2 mg PO QHS pantoprazole 20 mg tablet,delayed release (DR/EC) 40 mg PO DAILY Label Comments: TK 1 T PO D zolpidem 5 mg tablet 5 mg PO HS Discontinued amlodipine 5 mg tablet 5 tab PO 1XD Discharge Instructions Instructions: Labetalol (By mouth), How to Stop Smoking (DC) Additional Instructions: Follow up with PCP regarding change in medication. Follow up with Cora Mcneal, they will adjust any medications that need adjusting. Where event monitor for 30 days. Stop smoking. Stop Amlodipine. Start Labetolol 100 mg twice a day; continue all other medications as you took them before hospitalization - follow up with PCP & Sherita Mcneal. Stand Alone Forms: Nursing Discharge Form Referrals: Cora Mcneal [NURSE PRACTITIONER] - 07/16/22 9:00 am (first available ) Deidra Hawkins [Primary Care Provider] - 08/07/22 8:30 am (1-2 weeks ) Activity:: Activity as Tolerated Equipment/Supplies:: No Equipment Needed Diet:: As Tolerated Discharge Orders Discharge Orders: Discharge Order (Routine); Ordered 07/02/22 Ordered By: Stephanie Jensen Discharge Data Discharge Date/Time-TO BE ENTERED AT DEPARTURE: 07/02/22 16:37 DS: Summary Time Spent with Patient providing and/or coordinating discharge services: Less than 30 minutes Status at Discharge Functional status at discharge: independent ambulation Overall status at discharge: patient is back to baseline Mental Status: mental status grossly normal Speech and Movement: speech and movement normal Mood: congruent mood Affect: normal affect Exam Psych Mental Status: mental status grossly normal Speech and Movement: speech and movement normal Mood: congruent mood Affect: normal affect DS: Data Vitals/I&O Vitals and I&O: Vital Signs Temperature 36.2 C L 07/02/22 11:14 Temperature Source Tympanic 07/02/22 11:14 Pulse 101 H 07/02/22 11:14 Pulse Rhythm Regular 07/02/22 07:45 Pulse 115 H 07/01/22 20:01 Respiratory Rate 20 07/02/22 11:14 Respiratory Effort Non-Labored 07/02/22 07:45 Respiratory Depth Normal 07/02/22 07:45 Respiratory Pattern Normal 07/02/22 07:45 Blood Pressure 127/91 H 07/02/22 11:14 Blood Pressure Mean 105 07/01/22 20:01 Blood Pressure Position Sitting 07/01/22 14:11 Pulse Oximetry 95 07/02/22 11:14 Oxygen Delivery Method Room Air 07/02/22 11:14 Oxygen Flow Rate 0 07/02/22 11:14 Pain Level 0 07/02/22 03:15 Intake & Output 07/01/22 07/02/22 07/02/22 23:59 11:59 23:59 Intake Total 1250 / 1250 360 / 360 Output Total 400 / 400 800 / 800 Balance 850 / 850 -440 / -440 Weight 90.718 kg Intake: IV 1250 / 1250 Oral 360 / 360 Output: Urine 400 / 400 800 / 800 Other: Urine Color Yellow Yellow Urine Appearance Clear Clear Urine Odor None Comment patient voids independently without assistance. Voiding Methods Toilet Toilet Data Completed and Pending Labs on day of discharge: Labs from last 24 hours 07/02/22 07/01/22 07/01/22 06:20 22:30 20:29 Troponin I 78 H* Cancelled 80 H* Urine Opiates Screen Urine Methadone Screen Ur Barbiturates Screen Ur Tricyclics Screen Ur Amphetamines Screen U Benzodiazepines Scrn Urine Cocaine Screen Ur THC Screen COVID-19 Source SARS-CoV-2 (PCR) 07/01/22 07/01/22 07/01/22 17:25 15:30 15:30 Troponin I 79 H* Urine Opiates Screen Negative Urine Methadone Screen Negative Ur Barbiturates Screen Negative Ur Tricyclics Screen Negative Ur Amphetamines Screen Negative U Benzodiazepines Scrn Negative Urine Cocaine Screen Negative Ur THC Screen Negative COVID-19 Source Nasal/Nares SARS-CoV-2 (PCR) Negative PFSH All Active Problems (Updated 07/03/22 @ 00:08 by KRISTI LANCE) Tachycardia (Acute) Palpitations (Acute) Acute otalgia (Acute) Psychiatric disorder (Chronic) Tendonitis of left rotator cuff (Chronic) Injected: 12/08/2019 Open fracture of tuft of distal phalanx of finger (Acute) LRF Vomiting (Acute) Epigastric abdominal pain (Acute) Vomiting (Acute) Epigastric abdominal pain (Acute) Kidney stone (Chronic) Medical History Endometriosis GERD (gastroesophageal reflux disease) Hiatal hernia Hx of sleep apnea pt. reports she has a machine, uses some Hydronephrosis Infection of kidney Obstruction of right ureteropelvic junction (UPJ) due to stone UTI (urinary tract infection) Surgical History Extracorporeal shock wave lithotripsy Hx of esophagogastroduodenoscopy Hx of laparoscopy pt. reports for endometriosos Hx of submucous nasal surgery pt. reports she has a nasal cyst removed at age 9-10 under anesthesia Ligation of fallopian tube S/P cystoscopy with ureteral stent placement 11/20/21, right Social History Smoking/Tobacco Use Status: Current every day Tobacco Type: cigarettes Smoking risk assessment performed?: Yes Alcohol Intake: never Drug use: Current Sobriety Substance use type: marijuana Current gender identity: female Do you feel safe at home: Yes Do you feel safe in your relationship?: Yes
== END 2022-07-02 16:37 | disposition home or self-care (01) ==
LOC: ER 20:05 → MS 20:15
PROVIDERS: Physician Assistant; Admitting Provider General Practice; Emergency Provider Registered Nurse Emergency; PCP Nurse Practitioner Family; Visit Provider General Practice
DX: R00.2 Palpitations (principal); R07.89 Other chest pain; R06.00 Dyspnea, unspecified; R74.8 Abnormal levels of other serum enzymes; I10 Essential (primary) hypertension; F17.210 Nicotine dependence, cigarettes, uncomplicated; Z79.899 Other long term (current) drug therapy; F19.11 Other psychoactive substance abuse, in remission; F41.9 Anxiety disorder, unspecified; F99 Mental disorder, not otherwise specified; K21.9 Gastro-esophageal reflux disease without esophagitis; K44.9 Diaphragmatic hernia without obstruction or gangrene; G47.30 Sleep apnea, unspecified; Z20.822 Contact with and (suspected) exposure to COVID-19
CPT/HCPCS: 36415; 80053; 80307; 87635; 93005; 93270; 96361; 96374; 99285; 71046; 83735; 83880; 84443; 84484; 85025; 85379; 85610; 85730; 93010; 93306; 99217; 99219; G0378; J2060

== ENCOUNTER 2022-08-07 10:36 | Outpatient (CLI) | payer MEDICAID, SELFPAY ==
--- NOTE | 2022-08-07 10:44 | W.CARDEVENT ---
Date of service: 08/07/22 Time of Service: 10:44 Cardiac Event Recorder Referring Provider:: Deidra Hawkins Indications:: Palpitations Cardiac Event Note: This is a cardiac event monitor ordered for palpitations. Patient was monitored for a period of 7 days Rhythm throughout was sinus with an average heart rate of 100. There was no bradycardia. Maximum heart rate was 150, sinus tachycardia there was no atrial fibrillation, no supraventricular tachycardia, no high-grade AV block, no pauses greater than 3 seconds. There were no significant ventricular dysrhythmias
== END 2022-08-07 10:37 | disposition home or self-care (01) ==
LOC: CARDOPNVT 10:36
PROVIDERS: PCP Nurse Practitioner Family; Visit Provider Internal Medicine Cardiovascular Disease
DX: R00.0 Tachycardia, unspecified (principal)

== ENCOUNTER 2022-09-14 14:21 | Emergency (ER) | payer MEDICAID, SELFPAY ==
[2022-09-14] VITALS (16 sets, daily range): BP systolic 128–154; BP diastolic 77–112; PULSE 78–105; RESP 15–24; TEMP 36.7; O2SAT 96–98
--- NOTE | 2022-09-14 14:15 | RT.EKG_ITS ---
APPROVED REPORT Exam: Resting ECG Reason for Exam: Chest pain Patient Location: E HR:81 bpm ECG Measurements Heart Rate 81 AXIS ND 141 P -1 QRSd 83 QRS 39 QT 375 T 25 QTc 437 Conclusion Sinus rhythm...normal P axis, V-rate 60- 99 Normal Barton I have reviewed and interpreted ECG and agree with software generated interpretation. Normal Electrocardiogram
--- NOTE | 2022-09-14 14:30 | ED.GENADUL_ITS ---
Discharge Plan Disposition Patient Disposition: Home Discharge Details Clinical Impression: Chest wall pain Primary Care Provider: Deidra Hawkins ED Provider: Jesus Han Home Meds and New Rx's Prescriptions: Continued ibuprofen 600 mg tablet 600 mg PO Q8H PRN (Reason: pain) Qty: 30 0RF trazodone 150 mg tablet 150 mg PO DAILY Trintellix 5 mg tablet 5 mg PO DAILY venlafaxine [Effexor XR] 150 MG capsule,extended release 24hr 150 mg PO BID clonidine HCl 0.2 mg Tablet 0.2 mg PO QHS pantoprazole 20 mg tablet,delayed release (DR/EC) 40 mg PO DAILY Patient Comments: TK 1 T PO D labetalol 100 mg Tablet 100 mg PO BID Qty: 60 0RF lorazepam 0.5 mg tablet 0.5 mg PO TID PRNQty: 30 0RF hydroxyzine HCl 10 mg tablet 10 mg PO DAILY Discharge Instructions Instructions: Chest Wall Pain (ED) Additional Instructions: You were seen in the ED for chest pain which is reproducible with movement, breathing, palpation. Your EKG is normal. Your laboratory studies are reassuring. Chest x-ray without acute cardiopulmonary findings. Pain is likely chest wall pain/costochondritis as we discussed. Please take your Motrin 3 times a day with food over the weekend. You may ice on and off to help with discomfort. You may also take acetaminophen if needed for pain. Follow-up with primary care next week if it is not improving. Return to the ED if you develop new or worsening pain, shortness of breath, fever, other concerns. Medical Decision Making Patient presenting to ED with sharp chest pain that is worse with movement or deep breaths. Pain has been present since about 8:30 AM. Patient's EKG is normal per my review. Pain is reproducible with palpation to the left upper sternal border. Lungs are clear. Initial heart rate and blood pressure s omewhat elevated but normal in the room. Saturations normal. Patient is low risk for PE by revised Cheatham score. Subsequently able to PERC out and does not need further testing. She has had pain for 6 hours now and will only need 1 troponin but this does not appear to be cardiac in nature. Suspect this is chest wall/costochondritis based on exam. Labs and chest x-ray ordered. Patient given ketorolac for pain. Patient's laboratory studies are unremarkable. Troponin is negative. HEART score puts her at low risk. Chest x-ray normal per my review. Ketorolac helped some though she still has pain. Discussed using ibuprofen and ice on and off over the weekend see how she does. Follow-up with primary care next week if not improving. Return precautions discussed including new or worsening pain, shortness of breath, fever, other concerns. Medical Records Medical records reviewed: Yes I reviewed the patient's medical records. Imaging Data Radiologic Study: Attestation: I personally reviewed and interpreted this imaging study as follows: Imaging: X-Ray My impression: normal CXR Lab Data Lab results reviewed: Yes I reviewed the patient's lab results. ECG Data Attestation: I personally reviewed and interpreted this ECG (s) as follows: Prior ECG tracings: available for review Interpretation: see EKG HPI General Mode of arrival: ambulatory . Date/Time Provider Initiated Documentation: 09/14/22 14:30 . Limitations to Documentation: no limitations . Information obtained by: patient . HPI Narrative: Patient presents to ED with central chest pain that is described as worse with movement and deep breath. Pain occasionally radiates to the back but for the most part is central chest. Pain has been present since at least 830 this morning and worsening. She did take an aspirin but has not taken anything else. She denies any recent injury or illness. She has no fever or cough. She denies any abdominal pain, nausea, vomiting. She denies any leg pain or leg swelling. She does have a history of hypertension. She does smoke. Otherwise negative cardiac risk factors. No prior PE or DVT. Related Data Home Medications Medication Instructions Recorded Confirmed venlafaxine 150 mg 150 mg PO BID 03/02/13 09/14/22 capsule,extended release 24 hr (Effexor XR) clonidine HCl 0.2 mg tablet 0.2 mg PO QHS 12/02/19 09/14/22 pantoprazole 20 mg tablet,delayed 40 mg PO DAILY 06/15/20 09/14/22 release ibuprofen 600 mg tablet 600 mg PO Q8H PRN pain #30 tabs 01/08/22 09/14/22 labetalol 100 mg tablet 100 mg PO BID #60 tabs 07/02/22 09/14/22 lorazepam 0.5 mg tablet 0.5 mg PO TID PRN #30 tabs 07/02/22 09/14/22 trazodone 150 mg tablet 150 mg PO DAILY 08/30/22 09/14/22 vortioxetine 5 mg tablet 5 mg PO DAILY 08/30/22 09/14/22 (Trintellix) hydroxyzine HCl 10 mg tablet 10 mg PO DAILY 09/14/22 09/14/22 Previous Rx's Medication Instructions Recorded ibuprofen 600 mg tablet 600 mg PO Q8H PRN pain #30 tabs 01/08/22 labetalol 100 mg tablet 100 mg PO BID #60 tabs 07/02/22 lorazepam 0.5 mg tablet 0.5 mg PO TID PRN #30 tabs 07/02/22 Allergies Allergy/AdvReac Type Severity Reaction Status Date / Time No Known Allergies Allergy Unverified 09/14/22 14:26 General Stated Complaint: Chest Pain RAJEEV: 2 Review of Systems Narrative: Per HPI PFSH All Active Problems (Updated 09/14/22 @ 15:49 by Jesus Han MD) Chest wall pain (Acute) Tachycardia (Acute) Palpitations (Acute) Acute otalgia (Acute) Tendonitis of left rotator cuff (Chronic) Injected: 12/08/2019 Open fracture of tuft of distal phalanx of finger (Acute) LRF Vomiting (Acute) Epigastric abdominal pain (Acute) Vomiting (Acute) Epigastric abdominal pain (Acute) Kidney stone (Chronic) Medical History Endometriosis GERD (gastroesophageal reflux disease) Hiatal hernia History of kidney stones (04/03/16) Hx of sleep apnea pt. reports she has a machine, uses some Psychiatric disorder Surgical History Extracorporeal shock wave lithotripsy Hx of esophagogastroduodenoscopy Hx of laparoscopy pt. reports for endometriosos Hx of submucous nasal surgery pt. reports she has a nasal cyst removed at age 9-10 under anesthesia Ligation of fallopian tube S/P cystoscopy with ureteral stent placement 11/20/21, right Social History Smoking/Tobacco Use Status: Current every day Tobacco Type: cigarettes Smoking risk assessment performed?: Yes Alcohol Intake: never Drug use: Current Sobriety Substance use type: marijuana Current gender identity: female Do you feel safe at home: Yes Do you feel safe in your relationship?: Yes Exam Narrative Exam Narrative: Const: WDWN female in NAD. HEENT: NC/AT. Normal facial exam. Eyes: Normal conjunctiva and sclera. Neck: Supple. Trachea midline. Chest: Tender to palpation along the left sternal border Lungs: Normal respiratory effort. Lungs are clear. Cor: RRR without murmur/gallop. Good radial pulses. GI: Soft. NT/ND. No guarding or rebound. Neuro: A+O x 3. Normal speech, mentation, gait. Cranial nerves II - XII grossly intact. No gross motor or sensory deficit. Ext: No C/C/E. No calf tenderness. Skin: Warm and dry without rash. Course Vital Signs Vital signs: Vital Signs Temperature 98.0 F 09/14/22 14:24 Pulse 105 H 09/14/22 14:24 Respiratory Rate 18 09/14/22 14:24 Blood Pressure 154/112 H 09/14/22 14:24 Pulse Oximetry 98 09/14/22 14:24 Temperature 98.0 F 09/14/22 14:24 Pulse 105 H 09/14/22 14:24 Respiratory Rate 18 09/14/22 14:24 Respiratory Effort Normal, Non-Labored 09/14/22 14:26 Blood Pressure 154/112 H 09/14/22 14:24 Pulse Oximetry 98 09/14/22 14:24 Oxygen Delivery Method Room Air 09/14/22 14:24 Oxygen Flow Rate 0 09/14/22 14:24
[2022-09-14 14:58] LABS: Abs Immature Grans 0.03 10^3/uL (0.0-0.06); Absolute Basophil Count 0.04 10^3/uL (0.0-0.2); Absolute Eosinophil Count 0.22 10^3/uL (0.0-0.7); Absolute Lymphocyte Count 3.13 10^3/uL (1.2-3.4); Absolute Monocyte Count 0.67 10^3/uL (0.1-0.8); Absolute Neutrophil Count 5.17 10^3/uL (1.2-6.7); Basophils % 0.4; Eosinophils % 2.4; HCT 39.9 % (36.0-46.0); HGB 13.1 g/dL (11.2-15.7); Immature Grans % 0.3; Lymphocytes % 33.8; MCH 28.6 pg (27.0-33.0); MCHC 32.8 % (32.0-36.0); MCV 87 fL (80-95); MPV 9.3 fL (8.0-11.0); Monocytes % 7.2; Neutrophils % 55.9; Platelet Count 370 10^3/uL (130-400); RBC 4.58 10^6/uL (3.93-5.22); RDW 12.6 % (11.7-14.6); RDW-SD 39.8 fL; WBC 9.26 10^3/uL (4.4-10.8)
[2022-09-14] MEDS: Ketorolac 30 MG/ML VIAL IVP (14:59)
[2022-09-14 15:11] LABS: Bilirubin Negative (Negative); Blood Trace-intact (Negative); Clarity Sl Cloudy (Clear); Glucose Negative (Negative); Ketones Negative (Negative); Leukocyte Esterase Negative (Negative); Nitrite Negative (Negative); Specific Gravity >= 1.030 (1.005-1.025); Urobilinogen 0.2 EU/dL (Up TO 0.2); pH 5.5 (5-8)
[2022-09-14 15:14] LABS: ALT 23 U/L (14-59); AST 17 U/L (15-37); Albumin 3.8 g/dL (3.4-5.0); Alkaline Phosphatase 88 U/L (46-116); Anion Gap 9.2 mmol/L (3-11); BUN 11 mg/dL (7-18); Bilirubin, Total 0.2 mg/dL (0.2-1.0); CO2 23.8 mmol/L (21.0-32.0); CREATININE 0.8 mg/dL (0.55-1.02); Calcium 8.9 mg/dL (8.5-10.1); Chloride 105 mmol/L (98-107); Estimated GFR 94.87 (mL/min/1.73m2); Glucose 95 mg/dL (74-106); Potassium 3.7 mmol/L (3.5-5.1); Sodium 138 mmol/L (136-145); Total Protein 7.4 g/dL (6.4-8.2); Troponin I < 50 ng/L (<or=60)
[2022-09-14 15:23] LABS: Epithelial Cells Many HPF (Negative); RBC 0-2 HPF (0-2)
[2022-09-14 15:24] LABS: Bacteria Few HPF (Negative); C & S Indicated? No/Sq. Contamination; Casts Negative LPF (Negative); Crystals Negative HPF (Negative); Mucus Negative (Negative)
--- NOTE | 2022-09-14 15:26 | DI.RAD_ITS ---
Exam(s) XR CHEST 2V PA LATERAL EXAM: XR CHEST 2V PA LATERAL CLINICAL HISTORY: CP TECHNIQUE: 2D digital imaging was performed of the chest. Two images were obtained. PA and lateral views were obtained. COMPARISON: CR,XR XR CHEST 2V PA LATERAL from 07/01/2022 FINDINGS: MEDIASTINUM: Normal. HEART: Normal. PULMONARY VASCULATURE: Normal. LUNGS: Clear. PLEURAL SPACE: No pleural effusion or pneumothorax. BONE:Within normal limits for the patient's age. OTHER FINDINGS:Normal. IMPRESSION: No acute pulmonary findings. DATA REPOSITORY: RADIATION DOSE DELIVERED:
== END 2022-09-14 16:24 | disposition home or self-care (01) ==
PROVIDERS: Emergency Provider Emergency Medicine; PCP Nurse Practitioner Family
DX: R07.89 Other chest pain (principal); Z87.442 Personal history of urinary calculi
CPT/HCPCS: 36415; 80053; 81025; 93005; 96374; 99284; 71046; 81003; 81015; 83735; 84484; 85025; 93010; 99285; J1885

== ENCOUNTER 2022-11-05 18:13 | Outpatient (REF) | payer MEDICAID, SELFPAY ==
[2022-11-05 20:42] LABS: Abs Immature Grans 0.03 10^3/uL (0.0-0.06); Absolute Basophil Count 0.11 10^3/uL (0.0-0.2); Absolute Eosinophil Count 0.41 10^3/uL (0.0-0.7); Absolute Lymphocyte Count 3.63 10^3/uL (1.2-3.4); Absolute Monocyte Count 0.82 10^3/uL (0.1-0.8); Basophils % 0.9; Eosinophils % 3.4; HCT 45.3 % (36.0-46.0); HGB 14.9 g/dL (11.2-15.7); Immature Grans % 0.2; Lymphocytes % 30.2; MCHC 32.9 % (32.0-36.0); MCV 85 fL (80-95); MPV 9.8 fL (8.0-11.0); Monocytes % 6.8; Neutrophils % 58.5; Platelet Count 372 10^3/uL (130-400); RBC 5.33 10^6/uL (3.93-5.22); RDW 12.8 % (11.7-14.6); WBC 12.01 10^3/uL (4.4-10.8)
[2022-11-05 20:43] LABS: Absolute Neutrophil Count 7.03 10^3/uL (1.2-6.7)
[2022-11-05 20:58] LABS: ALT 30 U/L (14-59); AST 14 U/L (15-37); Albumin 3.8 g/dL (3.4-5.0); Alkaline Phosphatase 91 U/L (46-116); Anion Gap 9.5 mmol/L (3-11); BUN 7 mg/dL (7-18); Bilirubin, Total 0.3 mg/dL (0.2-1.0); CO2 26.5 mmol/L (21.0-32.0); CREATININE 0.9 mg/dL (0.55-1.02); Calcium 9.4 mg/dL (8.5-10.1); Chloride 105 mmol/L (98-107); Estimated GFR 82.37 (mL/min/1.73m2); Glucose 89 mg/dL (74-106); Potassium 3.9 mmol/L (3.5-5.1); Sodium 141 mmol/L (136-145); Total Protein 7.3 g/dL (6.4-8.2)
== END 2022-11-05 18:14 | disposition home or self-care (01) ==
LOC: LBN 18:13
PROVIDERS: PCP Nurse Practitioner Family; Visit Provider Nurse Practitioner Family
DX: R23.3 Spontaneous ecchymoses (principal)
CPT/HCPCS: 80053; 85025

== ENCOUNTER 2023-04-18 16:36 | Outpatient (REF) | payer MEDICAID, SELFPAY ==
[2023-04-20 22:51] LABS: Chlamydia Result Negative (Negative); GC Result Negative (Negative)
== END 2023-04-18 16:37 | disposition home or self-care (01) ==
LOC: LBO 16:36
PROVIDERS: PCP Nurse Practitioner Adult Health; Visit Provider Nurse Practitioner Adult Health
DX: N89.8 Other specified noninflammatory disorders of vagina (principal); Z11.3 Encounter for screening for infections with a predominantly sexual mode of transmission
CPT/HCPCS: 87491; 87591; 87480; 87510; 87660

== ENCOUNTER 2023-08-29 11:43 | Outpatient (REF) | payer MEDICAID, SELFPAY ==
--- NOTE | 2023-08-29 11:00 | PAPFT_PTH ---
PATIENT: Destiney Springer LOC: [facility] U#:[id number] AGE/SX: 43/F ROOM: RE08/29/[address]: Gabrielle Morse APRN : 1980 BED: DIS: 08/29/2023 SPEC #: [id number] RECD: 08/29/23 17:42 STATUS: NINA GRADY #: [id number] MITCH: 08/29/23 11:[address]: Gabrielle Morse DEPT: [facility] Cytology RECD BY: Jovana Levine Tissues: 1 - CX/ENDOCX FOR PAP SMEARS Procedures: PAP THIN PREP/UVM Screening HPV DNA PROBE Comments: [id number]
[2023-08-30 14:32] LABS: Chlamydia Result Negative (Negative); GC Result Negative (Negative)
== END 2023-08-29 11:44 | disposition home or self-care (01) ==
LOC: LBN 11:43
PROVIDERS: PCP Nurse Practitioner Adult Health; Visit Provider Nurse Practitioner Adult Health
DX: Z11.3 Encounter for screening for infections with a predominantly sexual mode of transmission (principal); Z01.419 Encounter for gynecological examination (general) (routine) without abnormal findings
CPT/HCPCS: 87491; 87591; 88142; 87480; 87510; 87624; 87660

== ENCOUNTER 2023-08-30 02:01 | Outpatient (CLI) | payer MEDICAID, SELFPAY ==
[2023-08-30 11:04] LABS: ALT 21 U/L (14-59); AST 12 U/L (15-37); Albumin 3.7 g/dL (3.4-5.0); Alkaline Phosphatase 98 U/L (46-116); Anion Gap 6.2 mmol/L (3-11); BUN 13 mg/dL (7-18); Bilirubin, Total 0.4 mg/dL (0.2-1.0); CO2 25.8 mmol/L (21.0-32.0); CREATININE 1.1 mg/dL (0.55-1.02); Calculated LDL 125 mg/dL (<100); Chloride 107 mmol/L (98-107); Cholesterol 221 mg/dL (<200); Estimated GFR 64.34 (mL/min/1.73m2); Glucose 97 mg/dL (74-106); HDL Cholesterol 41 mg/dL (40-60); Sodium 139 mmol/L (136-145); TSH (W/Ref FT4) 1.94 uIU/mL (0.36-3.74); Total Protein 7.6 g/dL (6.4-8.2); Triglyceride 277 mg/dL (<150)
[2023-08-30 18:40] LABS: HIV-1/2 Ag & Ab Screen Negative (Negative)
[2023-08-30 18:41] LABS: Hepatitis C Ab w Rflx HCV PCR Negative (Negative)
== END 2023-08-30 02:02 | disposition home or self-care (01) ==
LOC: LBO 02:02
PROVIDERS: PCP Nurse Practitioner Adult Health; Visit Provider Nurse Practitioner Adult Health
DX: Z11.4 Encounter for screening for human immunodeficiency virus [HIV] (principal); Z11.59 Encounter for screening for other viral diseases; Z13.1 Encounter for screening for diabetes mellitus; Z13.220 Encounter for screening for lipoid disorders; N92.6 Irregular menstruation, unspecified; R23.2 Flushing; R45.86 Emotional lability
CPT/HCPCS: 36415; 80053; 80061; 86803; 87389; 84443

== ENCOUNTER → 2023-09-02 02:38 | Outpatient (CLI) | payer MEDICAID, SELFPAY ==
--- NOTE | 2023-09-02 06:45 | DI.RAD_ITS ---
Exam(s) XR KNEE RT 3V AP,LAT,SUMMER EXAM: XR KNEE RT 3V AP,LAT,SUMMER CLINICAL HISTORY: assess bony alignment,RT KNEE PAIN,M25.51. TECHNIQUE: 2D digital imaging was performed of the right knee. Three views obtained. AP, lateral an d PA tunnel views were obtained. COMPARISON: No priors for comparison. FINDINGS: BONES: No acute fracture is present. No bony destructive lesion is seen. JOINTS: The knee is normally aligned. No significant joint effusion is seen. SOFT TISSUE: Normal. IMPRESSION: Unremarkable radiographs of the right knee. DATA REPOSITORY: RADIATION DOSE DELIVERED:
--- NOTE | 2023-09-02 08:22 | DI.MAMMO_ITS ---
Exam(s) MAMMO SCREENING EXAM: MAMMO SCREENING CLINICAL HISTORY: screening,Z12.39 TECHNIQUE: Bilateral full field digital CC and MLO mammographic images were obtained with 3D tomosyn thesis and utilizing computer aided detection (CAD). COMPARISON: Available for comparison. FINDINGS: Masses/Architectural Distortion: There are stable nodule seen in the left breast. No new nodules or areas of architectural distortion are seen. Microcalcifications: No suspicious pleomorphic-type are seen. Skin Thickening/Nipple Retraction: None. IMPRESSION: 1. No significant interval change with no specific features of malignancy noted. 2. Unless there is more urgent need, screening mammography is recommended, as per [employer] guidelines. BI-RADS Category 2 - Benign Findings Breast Density - Category B - Scattered areas of fibroglandular density Breast density category C or D implies that the patient has dense breast tissue. Dense breast tissue is very common and is not abnormal but dense breast tissue can make it harder to find cancer on a ma mmogram. Also, dense breast tissue may increase their breast cancer risk. This information about the result of the mammogram report was provided to the patient to raise their awareness. Use this report when you speak with the patient about their risks for breast cancer, which includes their family hist ory. At that time, you may recommend for more screening tests (Ultrasound or MRI) as they might be us eful based on their risk. A negative radiographic report should not delay biopsy if a dominant or clinically suspicious mass is present. Up to ten percent of cancers are not identified on mammography. A negative report may reinforce clinical impression. Adenosis and dense breasts may obscure an underlying neoplasm. False positive reports average 6 to 10%. Patient will receive a letter notifying them of these results.
== END ==
PROVIDERS: PCP Nurse Practitioner Adult Health; Visit Provider Nurse Practitioner Adult Health
DX: Z12.31 Encounter for screening mammogram for malignant neoplasm of breast (principal); M25.561 Pain in right knee
CPT/HCPCS: 73562; 77063; 77067

== ENCOUNTER 2023-11-22 03:19 | Outpatient (CLI) | payer MEDICAID, SELFPAY ==
[2023-11-22 13:27] LABS: Abs Immature Grans 0.05 10^3/uL (0.0-0.06); Absolute Basophil Count 0.06 10^3/uL (0.0-0.2); Absolute Eosinophil Count 0.29 10^3/uL (0.0-0.7); Absolute Lymphocyte Count 2.96 10^3/uL (1.2-3.4); Absolute Neutrophil Count 7.47 10^3/uL (1.2-6.7); Basophils % 0.5; Eosinophils % 2.5; HCT 38.4 % (36.0-46.0); HGB 12.6 g/dL (11.2-15.7); Immature Grans % 0.4; Lymphocytes % 25.7; MCH 29.1 pg (27.0-33.0); MCHC 32.8 % (32.0-36.0); MCV 89 fL (80-95); MPV 8.9 fL (8.0-11.0); Monocytes % 6.1; Neutrophils % 64.8; Platelet Count 302 10^3/uL (130-400); RBC 4.33 10^6/uL (3.93-5.22); RDW 12.3 % (11.7-14.6); RDW-SD 40.6 fL; WBC 11.53 10^3/uL (4.4-10.8)
[2023-11-22 13:58] LABS: ALT 26 U/L (14-59); AST 12 U/L (15-37); Albumin 3.7 g/dL (3.4-5.0); Alkaline Phosphatase 97 U/L (46-116); Anion Gap 10.1 mmol/L (3-11); BUN 12 mg/dL (7-18); Bilirubin, Total 0.3 mg/dL (0.2-1.0); CO2 25.9 mmol/L (21.0-32.0); CREATININE 1.1 mg/dL (0.55-1.02); Calcium 8.9 mg/dL (8.5-10.1); Chloride 108 mmol/L (98-107); Estimated GFR 64.34 (mL/min/1.73m2); Glucose 95 mg/dL (74-106); Lipase 15 U/L (16-77); Potassium 3.5 mmol/L (3.5-5.1); Sodium 144 mmol/L (136-145); Total Protein 7.3 g/dL (6.4-8.2)
[2023-11-26 13:38] LABS: Helicobacter pylori Ag, Feces Negative (Negative)
== END 2023-11-22 03:20 | disposition home or self-care (01) ==
LOC: LBO 03:20
PROVIDERS: PCP Nurse Practitioner Adult Health; Visit Provider Nurse Practitioner Adult Health
DX: R10.13 Epigastric pain (principal)
CPT/HCPCS: 36415; 80053; 83690; 87338; 85025

== ENCOUNTER 2023-11-26 14:42 | Emergency (ER) | payer MEDICAID, SELFPAY ==
[2023-11-26 14:44] VITALS: BP 138/91; PULSE 112; RESP 18; TEMP 36.3
--- NOTE | 2023-11-26 15:19 | ED.GENADUL_ITS ---
Discharge Plan Disposition Patient Disposition: Home Condition: Stable Discharge Details Clinical Impression: Epigastric abdominal pain Primary Care Provider: Gabrielle Morse ED Provider: Opal Molina Home Meds and New Rx's Prescriptions: New dexlansoprazole 60 mg capsule,biphase delayed releas 60 mg PO DAILY Qty: 14 0RF No Action ibuprofen 600 mg tablet 600 mg PO Q8H PRN (Reason: pain) Qty: 30 0RF trazodone 150 mg tablet 150 mg PO DAILY desvenlafaxine succinate [Pristiq] 100 mg tablet extended release 24 hr 100 mg PO DAILY topiramate [Topamax] 100 mg tablet 100 mg PO DAILY sucralfate [Carafate] 1 gram tablet 1 g PO QACHS Qty: 120 0RF pantoprazole 20 mg tablet,delayed release (DR/EC) 40 mg PO DAILY Patient Comments: TK 1 T PO D lorazepam 0.5 mg tablet 0.5 mg PO TID PRNQty: 30 0RF Discharge Instructions Instructions: Diet for Stomach Ulcers and Gastritis (ED), Abdominal Pain (ED) Additional Instructions: Please follow-up with your primary care provider tomorrow. Continue taking your medications as prescribed. Return to the Emergency Department with any worsening symptoms or any other concerns as discussed which includes but not limited to worsening pain, inability to eat and drink, blood in stool or vomit, etc. HPI General Date/Time Provider Initiated Documentation: 11/26/23 14:52 . HPI Narrative: The patient is a 43-year-old female with a history of reflux who comes to the emergency department for abdominal pain. Reports she has had this for the past couple of months. Reports that she is being followed up by their primary care doctor regarding this and had blood work done just a few days ago. Reports that she was told there were something wrong with her kidney and that they are waiting for H. pylori test to be resulted still. Reports that symptom continued in spite of her taking the antacid and sucralfate that she is prescribed. Reports that she tried calling her primary care doctor's office but they are not available until Saturday so came to the emergency department today. Reports it is along her esophagus. Reports this is a hot sensation. Reports that this is better after she eats food which only last for a few minutes. Reports her appetite has been fine. Admits to feeling nauseous but denies vomiting. Denies changes in bowel habits. Denies any fevers or chills. Denies chest pain or shortness of breath. Related Data Home Medications Medication Instructions Recorded Confirmed pantoprazole 20 mg tablet,delayed 40 mg PO DAILY 06/15/20 11/20/23 release ibuprofen 600 mg tablet 600 mg PO Q8H PRN pain #30 tabs 01/08/22 11/20/23 lorazepam 0.5 mg tablet 0.5 mg PO TID PRN #30 tabs 07/02/22 11/20/23 trazodone 150 mg tablet 150 mg PO DAILY 08/30/22 11/20/23 desvenlafaxine succinate 100 mg 100 mg PO DAILY 08/29/23 11/20/23 tablet,extended release 24 hr (Pristiq) topiramate 100 mg tablet (Topamax) 100 mg PO DAILY 08/29/23 11/20/23 sucralfate 1 gram tablet (Carafate) 1 g PO QACHS #120 tabs 11/20/23 11/20/23 dexlansoprazole 60 mg 60 mg PO DAILY #14 caps 11/26/23 capsule,biphase delayed release Previous Rx's Medication Instructions Recorded ibuprofen 600 mg tablet 600 mg PO Q8H PRN pain #30 tabs 01/08/22 lorazepam 0.5 mg tablet 0.5 mg PO TID PRN #30 tabs 07/02/22 sucralfate 1 gram tablet (Carafate) 1 g PO QACHS #120 tabs 11/20/23 dexlansoprazole 60 mg 60 mg PO DAILY #14 caps 11/26/23 capsule,biphase delayed release Allergies Allergy/AdvReac Type Severity Reaction Status Date / Time No Known Allergies Allergy Unverified 11/20/23 18:25 General Stated Complaint: Nausea/Vomit/Diar RAJEEV: 3 Review of Systems Narrative: Review of systems are negative except as mentioned. Exam Narrative Exam Narrative: The patient is in no acute distress. Oral mucosal membranes are moist. Heart is regular in rate and rhythm. Lungs are clear to auscultation bilaterally. The abdomen is soft, has normal bowel sounds and no reproducible tenderness is noted to palpation throughout. Patient has equal radial pulses. No CVA tenderness noted to palpation bilaterally. Course Vital Signs Vital signs: Vital Signs Temperature 36.3 C L 11/26/23 14:44 Pulse 112 H 11/26/23 14:44 Respiratory Rate 18 11/26/23 14:44 Blood Pressure 138/91 H 11/26/23 14:44 Temperature 36.3 C L 11/26/23 14:44 Temperature Source Tympanic 11/26/23 14:44 Pulse 112 H 11/26/23 14:44 Respiratory Rate 18 11/26/23 14:44 Blood Pressure 138/91 H 11/26/23 14:44 Blood Pressure Position Sitting 11/26/23 14:44 Oxygen Delivery Method Room Air 11/26/23 14:44 Oxygen Flow Rate 0 11/26/23 14:44 Pain Level 7 11/26/23 14:44 Lab/Test Results Lab/Test Results: Laboratory Tests Range/Units 11/26/23 14:59 WBC Cancelled RBC Cancelled Hgb Cancelled Hct Cancelled MCV Cancelled MCH Cancelled MCHC Cancelled RDW Cancelled Plt Count Cancelled MPV Cancelled Immature Gran % Cancelled Neutrophils % Cancelled Band Neutrophils % Cancelled Lymphocytes % Cancelled Atypical Lymphs % Cancelled Monocytes % Cancelled Eosinophils % Cancelled Basophils % Cancelled Metamyelocytes % Cancelled Myelocytes % Cancelled Promyelocytes % Cancelled Other Cells % Cancelled Nucleated RBC % Cancelled Absolute Neutrophils Cancelled Absolute Lymphocytes Cancelled Absolute Monocytes Cancelled Absolute Eosinophils Cancelled Absolute Basophils Cancelled RBC Morphology Cancelled Polychromasia Cancelled Hypochromasia Cancelled Poikilocytosis Cancelled Basophilic Stippling Cancelled Anisocytosis Cancelled Microcytosis Cancelled Macrocytosis Cancelled Spherocytes Cancelled Tear Drop Cells Cancelled Ovalocytes Cancelled Stomatocytes Cancelled [place] Bodies Cancelled Tyree Cells/Echinocytes Cancelled Acanthocytes (Spur) Cancelled Schistocytes Cancelled Sodium Cancelled Potassium Cancelled Chloride Cancelled Carbon Dioxide Cancelled Anion Gap Cancelled BUN Cancelled Creatinine Cancelled Est GFR (CKD-EPI 2020) Cancelled Glucose Cancelled Calcium Cancelled Total Bilirubin Cancelled AST Cancelled ALT Cancelled Alkaline Phosphatase Cancelled Total Protein Cancelled Albumin Cancelled Lipase Cancelled Medical Decision Making The patient reports that the blood work was not done through the emergency department but that she still waiting for the result. Reports at some point someone had told her that she had kidney disease. Patient is therefore quite concerned regarding this. I told her I can certainly check her blood work once more but that the H. pylori test is not something I can expedite. Upon review of her medical records through [employer] and the patient had blood work just on the . Blood work is overall benign which I explained to her. After long conversation the patient does not want repeat blood work. I did talk to her about giving her IV fluids, IV nausea medication which she declined. I talked her about trying laying lidocaine with Mylanta to see if this will give her symptomatic relief and she would like to give this a try. For this reason blood work had been canceled. IV fluid and Zofran has been canceled also. Patient had improvement of symptoms with GI cocktail. Patient reports he is ready to go home. She will therefore be discharged shortly. She is asked to continue taking her prescribed medication as indicated but urged to follow-up with her primary care provider tomorrow. I told her I can add a different kind of acid reducing medication to further help with her symptoms and she is comfortable with this so this is sent to her preferred pharmacy. She is encouraged to change her diet also to a more bland diet to help with her symptoms. I told her however in the meantime should she get worse or develop any new or concerning symptoms return to the emergency department otherwise follow-up on outpatient basis. Quality:SDOH Health Related Social Needs: Health related social needs food insecurity, personal safety Health related social needs details n/a PFSH All Active Problems (Updated 11/26/23 @ 15:47 by Opal Molina DO) Short-segment Cervantes's esophagus (Acute ~2018) Epigastric abdominal pain (Acute) 2020 & 11/2023 Hyperlipidemia (Acute ~08/2023) Right anterior knee pain (Acute) GERD (gastroesophageal reflux disease) (Chronic) History of nicotine dependence (Acute ~03/2023) Tachycardia (Acute) Medical History (Updated 11/26/23 @ 15:47 by Opal Molina DO) Fatty liver History of crack cocaine use History of kidney stones (04/03/16) Palpitations Hx of sleep apnea pt. reports she has a machine, uses some Vomiting Open fracture of tuft of distal phalanx of finger LRF Tendonitis of left rotator cuff (~12/2019) Injected: 12/08/2019 Psychiatric disorder Acute otalgia Hiatal hernia Endometriosis Surgical History (Updated 11/20/23 @ 19:30 by Gabrielle Morse NP) S/P cystoscopy with ureteral stent placement (~11/2021) 11/20/21, right Hx of laparoscopy pt. reports for endometriosos Hx of esophagogastroduodenoscopy (~2018) [facility] GI--short-segment barretts per historical records Hx of submucous nasal surgery pt. reports she has a nasal cyst removed at age 9-10 under anesthesia Ligation of fallopian tube Extracorporeal shock wave lithotripsy Family History Maternal Aunt Breast cancer Brother Diabetes Alcohol use disorder Father Alcohol use disorder Multiple sclerosis Mother Alcohol use disorder Brother Alcohol use disorder Maternal Aunt Cirrhosis of liver Maternal Aunt Pancreatic cancer Social History (Updated 08/29/23 @ 11:04 by Jerrica Vences) Smoking/Tobacco Use Status: Former Tobacco Use Tobacco: How many years used: 25 Quit status: quit date established (January 17, 2023) Smoking risk assessment performed?: Yes Alcohol Intake: never Drug use: Rarely Substance use type: unknown Details: monthly or less Adopted: No Caregiver/Support person: No Foster care: No Household members: children Housing: apartment Number of Children: 3 number of grandchildren: 0 Communication Needs: None Education Level: high school Do you need help understanding health information?: Never current occupation: Unemployed Pets and animals: No Sexually active: No Do you think of yourself as: straight/heterosexual Current gender identity: female What is your relationship status?: How often do you talk on the phone with friends or family?: three or more times per week How often do you get together with friends or relatives?: once per week How often do you attend judaism or presybeterian services?: decline to answer Do you belong to any clubs or organized social groups?: no Panel score (0-1 are the most socially isolated patients): 1 What type of physical activity do you participate in: none and decline to answer Duration: decline to answer Frequency: decline to answer Angélica/Anabaptism: Pentecostal Special angélica needs: No Seatbelt use: sometimes Helmet use: No (Never needs one) Drive intox or ride w/intox certified driver examiner: No Do you feel safe at home: Yes Do you feel safe in your relationship?: Yes
== END 2023-11-26 16:01 | disposition home or self-care (01) ==
PROVIDERS: Emergency Provider Emergency Medicine; PCP Nurse Practitioner Adult Health
DX: R10.13 Epigastric pain (principal); R11.10 Vomiting, unspecified; E78.5 Hyperlipidemia, unspecified; Z87.891 Personal history of nicotine dependence
CPT/HCPCS: 80053; 83690; 96360; 96372; 99284; 85025

== ENCOUNTER 2023-12-02 18:02 | Outpatient (CLI) | payer MEDICAID, SELFPAY ==
[2023-12-02 13:08] LABS: Abs Immature Grans 0.07 10^3/uL (0.0-0.06); Absolute Basophil Count 0.06 10^3/uL (0.0-0.2); Absolute Eosinophil Count 0.28 10^3/uL (0.0-0.7); Absolute Lymphocyte Count 2.84 10^3/uL (1.2-3.4); Absolute Neutrophil Count 7.77 10^3/uL (1.2-6.7); Basophils % 0.5; Eosinophils % 2.4; HCT 38.7 % (36.0-46.0); HGB 12.6 g/dL (11.2-15.7); Immature Grans % 0.6; Lymphocytes % 24.4; MCHC 32.6 % (32.0-36.0); MCV 89 fL (80-95); MPV 9.1 fL (8.0-11.0); Monocytes % 5.2; Neutrophils % 66.9; Platelet Count 286 10^3/uL (130-400); RBC 4.34 10^6/uL (3.93-5.22); RDW 12.4 % (11.7-14.6); WBC 11.62 10^3/uL (4.4-10.8)
[2023-12-02 13:48] LABS: Anion Gap 8.7 mmol/L (3-11); BUN 14 mg/dL (7-18); CO2 23.3 mmol/L (21.0-32.0); CREATININE 1.1 mg/dL (0.55-1.02); Calcium 9.2 mg/dL (8.5-10.1); Chloride 107 mmol/L (98-107); Estimated GFR 64.34 (mL/min/1.73m2); Ferritin 130 ng/mL (8-252); Glucose 106 mg/dL (74-106); Potassium 3.5 mmol/L (3.5-5.1); Sodium 139 mmol/L (136-145)
[2023-12-02 14:04] LABS: Iron 70 ug/dL (50-170)
[2023-12-02 22:25] LABS: Hepatitis B Surface Ag Negative (Negative)
[2023-12-02 22:54] LABS: Hepatitis C Ab w Rflx HCV PCR Negative (Negative)
[2023-12-02 23:06] LABS: HBs Antibody, Quant 51.8 mIU/mL (See Note); Hepatitis B Surface Ab Positive (See Note)
[2023-12-02 23:47] LABS: Hep B Core Antibody Negative (Negative)
[2023-12-02 23:48] LABS: Hep A Total Ab w Rflx IgM Negative (Negative)
[2023-12-03 08:38] LABS: Alpha 1 Antitrypsin,Serum 127 mg/dL (90-200)
[2023-12-03 13:53] LABS: ANA Interpretation Positive (Negative); ANA Titer Pattern 1:80 Homogeneous
[2023-12-04 10:42] LABS: Ceruloplasmin 28.3 mg/dL
[2023-12-04 12:09] LABS: Smooth Muscle Ab Screen Negative (Negative)
[2023-12-04 12:21] LABS: Liver/Kidney Microsome Type 1 <5.0 U
[2023-12-05 14:12] LABS: Mitochondrial Ab, M2 <0.1 U
== END 2023-12-02 18:03 | disposition home or self-care (01) ==
LOC: LBO 18:04
PROVIDERS: PCP Nurse Practitioner Adult Health; Visit Provider Nurse Practitioner Adult Health
DX: K76.0 Fatty (change of) liver, not elsewhere classified (principal)
CPT/HCPCS: 36415; 80048; 82390; 83516; 86704; 86706; 86709; 86803; 87340; 82103; 82728; 83540; 85025; 86038; 86255

== ENCOUNTER 2023-12-05 14:43 | Outpatient (REF) | payer MEDICAID, SELFPAY ==
[2023-12-07 17:38] LABS: Calprotectin <50.0 mcg/g
== END 2023-12-05 14:44 | disposition home or self-care (01) ==
LOC: LBN 14:43
PROVIDERS: PCP Nurse Practitioner Adult Health; Visit Provider Nurse Practitioner Adult Health
DX: R19.8 Other specified symptoms and signs involving the digestive system and abdomen (principal)
CPT/HCPCS: 83993

== ENCOUNTER 2024-01-08 11:45 | Outpatient (CLI) | payer MEDICAID, SELFPAY ==
--- NOTE | 2024-01-08 11:45 | RT.EKG_ITS ---
APPROVED REPORT Exam: Resting ECG Reason for Exam: chest discomfort Patient Location: O HR:75 bpm ECG Measurements Heart Rate 75 AXIS NH 147 P 22 QRSd 88 QRS 47 QT 376 T 26 QTc 420 Conclusion Sinus rhythm...normal P axis, V-rate 50- 99 Normal Electrocardiogram
== END 2024-01-08 11:46 | disposition home or self-care (01) ==
PROVIDERS: PCP Nurse Practitioner Adult Health; Visit Provider Physician Assistant
DX: R07.89 Other chest pain (principal); R07.9 Chest pain, unspecified
CPT/HCPCS: 93010

== ENCOUNTER → 2024-01-08 12:56 | Outpatient (CLI) | payer MEDICAID, SELFPAY ==
--- NOTE | 2024-01-08 12:49 | DI.RAD_ITS ---
Exam(s) XR CHEST 2V PA LATERAL EXAM: XR CHEST 2V PA LATERAL CLINICAL HISTORY: CHEST PAIN-R07.9 TECHNIQUE: 2D digital imaging was performed of the chest. Two images were obtained. PA and lateral views were obtained. COMPARISON: CR XR CHEST 2V PA LATERAL from 09/14/2022 FINDINGS: MEDIASTINUM: Normal. HEART: Normal. PULMONARY VASCULATURE: Normal. LUNGS: Clear. PLEURAL SPACE: No pleural effusion or pneumothorax. BONE:Within normal limits for the patient's age. OTHER FINDINGS:Normal. IMPRESSION: No acute pulmonary findings. DATA REPOSITORY: RADIATION DOSE DELIVERED:
== END ==
PROVIDERS: PCP Nurse Practitioner Adult Health; Visit Provider Physician Assistant
DX: R07.89 Other chest pain (principal)
CPT/HCPCS: 71046

== ENCOUNTER 2024-01-08 12:58 | Outpatient (CLI) | payer MEDICAID, SELFPAY ==
[2024-01-08 13:20] LABS: Abs Immature Grans 0.02 10^3/uL (0.0-0.06); Absolute Basophil Count 0.04 10^3/uL (0.0-0.2); Absolute Eosinophil Count 0.35 10^3/uL (0.0-0.7); Absolute Lymphocyte Count 3.13 10^3/uL (1.2-3.4); Absolute Monocyte Count 0.59 10^3/uL (0.1-0.8); Absolute Neutrophil Count 5.59 10^3/uL (1.2-6.7); Basophils % 0.4 %; Eosinophils % 3.6 %; HCT 39.2 % (36.0-46.0); HGB 12.8 g/dL (11.2-15.7); Immature Grans % 0.2 %; Lymphocytes % 32.2 %; MCH 28.9 pg (27.0-33.0); MCHC 32.7 % (32.0-36.0); MCV 89 fL (80-95); MPV 9.1 fL (8.0-11.0); Monocytes % 6.1 %; Neutrophils % 57.5 %; Platelet Count 312 10^3/uL (130-400); RBC 4.43 10^6/uL (3.93-5.22); RDW 12.2 % (11.7-14.6); RDW-SD 39.8 fL; WBC 9.72 10^3/uL (4.4-10.8)
[2024-01-08 13:50] LABS: D-Dimer 345 ng/mlFEU (<500)
[2024-01-08 13:53] LABS: TSH (W/Ref FT4) 2.53 uIU/mL (0.36-3.74); Troponin I < 50 ng/L (< or =60)
[2024-01-09 10:18] LABS: Lyme Ab w Rflx to Lyme Confirm Negative (Negative)
[2024-01-11 13:23] LABS: Anaplasma phagocytophilum Negative (Negative); B. miyamotoi PCR Negative (Negative); Babesia divergens/MO-1 Negative (Negative); Babesia duncani Negative (Negative); Babesia microti Negative (Negative); Ehrlichia chaffeensis Negative (Negative); Ehrlichia ewingii/canis Negative (Negative); Ehrlichia muris eauclairensis Negative (Negative)
== END 2024-01-08 12:59 | disposition home or self-care (01) ==
LOC: LBO 12:58
PROVIDERS: PCP Nurse Practitioner Adult Health; Visit Provider Physician Assistant
DX: R07.9 Chest pain, unspecified (principal)
CPT/HCPCS: 36415; 87798; 84443; 84484; 85025; 85379; 86618

== ENCOUNTER → 2024-01-13 01:57 | Outpatient (CLI) | payer MEDICAID, SELFPAY ==
--- NOTE | 2024-01-13 06:00 | ETT_ITS ---
APPROVED REPORT Exam: Exercise Treadmill Patient Location: Out-Patient Room/Bed: Stress Nurse: Maile Sanchez RN Ordering Provider:MAGDALENE RODRIGUEZ, Contact Number: [phone] BMI: 36.10 Baseline Rhythm: Sinus Rhythm Indications: Chest pain, Medical History Medical History: IBS, NAFLD, walters's esophagus, HLD, GERD, tachycardia, sleep apnea, psychiatric di sorder, endometriosis, hx of crack cocaine, hx of nicotine dependence Cardiac Medications: Topamax, trazodone, lorazepam, pristiq Allergies: None Cardiac Risk Factors: Family hx, HLD, pre diabetes, former smoker Previous Cardiac Procedures: None Pretest Chest Pain Characteristics: None Exercise History: Sedentary Physical Disabilities: None Lung Sounds: Clear to auscultation Heart Sounds: Regular Stress Test Details Test: Exercise stress testing was performed using a Tee protocol. Rest Stress HR Resting HR Supine: 82 bpm Max Heart Rate (APMHR): 178 bpm Resting HR Standin bpm Target HR (85% APMHR): 151 bpm Max HR Achieved: 162 bpm % of APMHR: 91 Recovery HR: 95 bpm HR response to stress: Normal HR response to stress BP Resting BP Supine: 102/68 mmHg Resting BP Standin/90 mmHg Max BP: 160/78 mmHg Recovery BP: 120/78 mmHg BP response to stress: Normal blood pressure response to stress. ECG Resting ECG: Sinus Rhythm Ectopy: None Stress ECG: Sinus Tachycardia ST Change: No significant ST segment changes noted Arrhythmia: None Recovery ECG: Sinus Rhythm Recovery ST Change: No significant ST segment changes noted Recovery Arrhythmia: None Clinical Reason for Termination: Target HR Achieved, Fatigue Stress Symptoms: General Fatigue Exercise duration: 06 min26 sec Highest Stage Reached: Stage 2: 2.5 mph at 12% grade. Exercise capacity: 7/73 METs Angina Score: None Alex Treadmill Score: 5.2 Rate Pressure Product: [id number] Stress ECG Conclusion 1. Resting electrocardiogram was within normal limits 2. Patient exercised on the Tee protocol and completed a workload of 7.73 METS 3. Normal heart rate and blood pressure response to exercise. The patient achieved 91% of predicted heart rate for age 4. There was no electrocardiographic evidence of myocardial ischemia 5. There were no dysrhythmias Alex Treadmill Score is 5.2 which is Low risk. Stress Test Summary STAGE Time (mins) Speed (mph) Grade (%) HR BP SpO2 SYMPTOMS METS Supine 82 102/68 95 Standing 86 120/90 1 3 1.7 10 133 95 4.5 2 6 2.5 12 162 7 1 min recovery 141 152/82 3 min recovery 108 160/78 97 6 min recovery 95 120/78 96
== END ==
PROVIDERS: PCP Nurse Practitioner Adult Health; Visit Provider Physician Assistant
DX: R07.9 Chest pain, unspecified (principal)
CPT/HCPCS: 93017

== ENCOUNTER 2024-06-24 17:36 | Emergency (ER) | payer MEDICAID, SELFPAY ==
[2024-06-24 17:39] VITALS: BP 130/84; PULSE 100; RESP 24; TEMP 36.8; O2SAT 97
[2024-06-24 17:41] VITALS: BP 130/84; PULSE 100; RESP 24; TEMP 36.8; O2SAT 97
--- NOTE | 2024-06-24 17:47 | ED.GENADUL_ITS ---
Discharge Plan Disposition Patient Disposition: Home Condition: Stable Discharge Details Clinical Impression: UTI (urinary tract infection) Primary Care Provider: Gabrielle Morse ED Provider: Jairo Hernández Home Meds and New Rx's Prescriptions: New nitrofurantoin monohyd/m-cryst [Macrobid] 100 mg capsule 100 mg PO Q12H 5 Days Qty: 10 0RF Rx Instructions: must administer with a meal/food phenazopyridine [Pyridium] 200 mg tablet 200 mg PO TID PRNQty: 6 0RF Continued ibuprofen 600 mg tablet 600 mg PO Q8H PRN (Reason: pain) Qty: 30 0RF trazodone 150 mg tablet 150 mg PO DAILY desvenlafaxine succinate [Pristiq] 100 mg tablet extended release 24 hr 150 mg PO DAILY topiramate [Topamax] 100 mg tablet 100 mg PO BID lisdexamfetamine [Vyvanse] 40 mg capsule 40 mg PO QAM Rx Instructions: Weight and Appetite--Slowly titrating up-- dexlansoprazole 60 mg capsule,biphase delayed releas 60 mg PO DAILY Qty: 30 0RF lorazepam 0.5 mg tablet 0.5 mg PO TID PRNQty: 30 0RF pantoprazole 40 mg tablet,delayed release (DR/EC) 40 mg PO DAILY Patient Comments: TAKE ONE TABLET BY MOUTH EVERY DAY 30 MINUTES BEFORE EVENING MEAL Discharge Instructions Additional Instructions: Your urine shows evidence of a infection If your symptoms do not improve with antibiotic then recommend following up with [facility] your primary care provider If you feel more ill, have high fevers or severe worsening pain return to the emergency department for reevaluation HPI General Mode of arrival: ambulatory . Date/Time Provider Initiated Documentation: 06/24/24 17:37 . Limitations to Documentation: no limitations . Information obtained by: patient . History of Present Illness 44 year old F presents to the emergency department with the chief complaint of dysuria, described as moderate, Patient started experiencing this hour(s) (3) and it has been constant. No relieving factors improve symptom(s), No exacerbating factors reported . Patient notes denies chest pain, fever/chills, nausea/vomiting and shortness of breath. Patient did receive the following treatments prior to arrival, none Related Data Home Medications ?Medication ?Instructions ?Recorded ?Confirmed ibuprofen 600 mg tablet 600 mg PO Q8H PRN pain #30 tabs 01/08/22 06/24/24 lorazepam 0.5 mg tablet 0.5 mg PO TID PRN #30 tabs 07/02/22 06/24/24 trazodone 150 mg tablet 150 mg PO DAILY 08/30/22 06/24/24 dexlansoprazole 60 mg 60 mg PO DAILY #30 caps 12/12/23 06/24/24 capsule,biphase delayed release desvenlafaxine succinate 100 mg 150 mg PO DAILY 01/08/24 06/24/24 tablet,extended release 24 hr (Pristiq) topiramate 100 mg tablet (Topamax) 100 mg PO BID 01/08/24 06/24/24 lisdexamfetamine 40 mg capsule 40 mg PO QAM 03/25/24 06/24/24 (Vyvanse) nitrofurantoin 100 mg PO Q12H 5 days #10 caps 06/24/24 monohydrate/macrocrystals 100 mg capsule (Macrobid) pantoprazole 40 mg tablet,delayed 40 mg PO DAILY 06/24/24 06/24/24 release phenazopyridine 200 mg tablet 200 mg PO TID PRN 6 doses #6 tabs 06/24/24 (Pyridium) Previous Rx's ?Medication ?Instructions ?Recorded ibuprofen 600 mg tablet 600 mg PO Q8H PRN pain #30 tabs 01/08/22 lorazepam 0.5 mg tablet 0.5 mg PO TID PRN #30 tabs 07/02/22 dexlansoprazole 60 mg 60 mg PO DAILY #30 caps 12/12/23 capsule,biphase delayed release nitrofurantoin 100 mg PO Q12H 5 days #10 caps 06/24/24 monohydrate/macrocrystals 100 mg capsule (Macrobid) phenazopyridine 200 mg tablet 200 mg PO TID PRN 6 doses #6 tabs 06/24/24 (Pyridium) Allergies Allergy/AdvReac Type Severity Reaction Status Date / Time No Known Allergies Allergy Unverified 06/24/24 17:42 General Stated Complaint: Urinary RAJEEV: 3 Review of Systems All systems reviewed & are unremarkable except as noted in HPI and below Constitutional Constitutional: Denies chills, Denies fever(s) and Denies weakness Cardiovascular Cardiovascular: Denies chest pain and Denies dyspnea Respiratory Respiratory: Denies cough and Denies dyspnea Gastrointestinal Gastrointestinal: Denies abdominal pain, Denies nausea and Denies vomiting Genitourinary Genitourinary: Reports dysuria Integumentary/Breasts Skin/Breast: Denies rash Neurologic Neurologic: Denies weakness Exam Const General: no acute distress Orientation: alert [facility] Head: normal to inspection Ears: external ears normal General nose exam: external nose normal Mouth: moist mucous membranes Eyes General: appearance normal, both eyes and all related structures Neck Neck: normal visual inspection Resp Effort & Inspection: normal respiratory effort and able to speak in complete sentences Cardio Rate: regular rate GI Palpation: soft and nontender Back/Spine/Pelvis Back: no CVA tenderness Skin General skin exam: no rashes or lesions noted Neuro General: patient alert and patient oriented x3 Extrem General: normal to inspection Psych Mental Status: mental status grossly normal Course Vital Signs Vital signs: Vital Signs Temperature 36.8 C 06/24/24 17:39 Pulse 100 H 06/24/24 17:39 Respiratory Rate 24 06/24/24 17:39 Blood Pressure 130/84 06/24/24 17:39 Pulse Oximetry 97 06/24/24 17:39 Temperature 36.8 C 06/24/24 17:41 Pulse 100 H 06/24/24 17:41 Respiratory Rate 24 06/24/24 17:41 Respiratory Effort Normal 06/24/24 17:41 Blood Pressure 130/84 06/24/24 17:41 Blood Pressure Position Sitting 06/24/24 17:41 Pulse Oximetry 97 06/24/24 17:41 Oxygen Delivery Method Room Air 06/24/24 17:41 Oxygen Flow Rate 0 06/24/24 17:39 Pain Level 7 06/24/24 17:39 Medical Decision Making 44-year-old female comes in with several hours of frequent urination and burning with urination. Denies any vaginal bleeding or discharge. Denies any abdominal pain or back pain. She is well-appearing and afebrile on arrival. She has no CVA tenderness or abdominal tenderness. Her urine collected is positive for nitrites. Given her symptoms will initiate antibiotics with Macrobid. She has no fevers, abdominal pain or back pain to suggest pyelonephritis. Given she is afebrile and well-appearing do not feel lab work other than a UA was indicated. She will follow-up with her PCP if she is not improving and return precautions given Differential Diagnosis Differential Diagnosis: cystitis, uti Quality:SDOH Health Related Social Needs: Health related social needs food insecurity(Z59.41), p robinalem related to primary support group(Z63.9) Health related social needs details n/a PFSH All Active Problems (Updated 06/24/24 @ 18:15 by Jairo Hernández MD) UTI (urinary tract infection) (Acute) Left arm numbness (Acute) Atypical chest pain (Acute) IBS (irritable bowel syndrome) (Chronic ~12/2023) [facility] 12/27/23 Functional dyspepsia (Acute ~12/2023) [facility] 12/27/23 NAFL (nonalcoholic fatty liver) (Acute ~12/2023) [facility] 12/27/23 Hyperlipidemia (Acute ~08/2023) Right anterior knee pain (Acute) GERD (gastroesophageal reflux disease) (Chronic) History of nicotine dependence (Acute ~03/2023) Medical History Epigastric abdominal pain 2020 & 11/2023-->GERD, stable on PPI Short-segment Cervantes's esophagus (~2018) Resolved on 12/2023 upper EGD Tachycardia Fatty liver History of crack cocaine use History of kidney stones (04/03/16) Palpitations Hx of sleep apnea pt. reports she has a machine, uses some Vomiting Open fracture of tuft of distal phalanx of finger LRF Tendonitis of left rotator cuff (~12/2019) Injected: 12/08/2019 Psychiatric disorder Acute otalgia Hiatal hernia Endometriosis Surgical History S/P cystoscopy with ureteral stent placement (~11/2021) 11/20/21, right Hx of laparoscopy pt. reports for endometriosos Hx of esophagogastroduodenoscopy (~2018) [facility]--short-segment barretts per historical records 12/04/23-EGD [id number] Hx of submucous nasal surgery pt. reports she has a nasal cyst removed at age 9-10 under anesthesia Ligation of fallopian tube Extracorporeal shock wave lithotripsy Family History Maternal Aunt Breast cancer Brother Diabetes Alcohol use disorder Father Alcohol use disorder Multiple sclerosis Mother Alcohol use disorder Brother Alcohol use disorder Maternal Aunt Cirrhosis of liver Maternal Aunt Pancreatic cancer Social History Smoking/Tobacco Use Status: Former Tobacco Use Tobacco: How many years used: 25 Quit status: quit date established (January 17, 2023) Smoking risk assessment performed?: Yes Alcohol Intake: never Drug use: Rarely Substance use type: unknown Details: monthly or less Adopted: No Caregiver/Support person: No Foster care: No Household members: children Housing: apartment Number of Children: 3 number of grandchildren: 0 Communication Needs: None Education Level: high school Do you need help understanding health information?: Never current occupation: Unemployed Pets and animals: No Sexually active: No Do you think of yourself as: straight/heterosexual Current gender identity: female What is your relationship status?: How often do you talk on the phone with friends or family?: three or more times per week How often do you get together with friends or relatives?: once per week How often do you attend hinduism or anabaptist services?: decline to answer Do you belong to any clubs or organized social groups?: no Panel score (0-1 are the most socially isolated patients): 1 What type of physical activity do you participate in: none and decline to answer Duration: decline to answer Frequency: decline to answer Angélica/Orthodoxy: Christianity Special angélica needs: No Seatbelt use: sometimes Helmet use: No (Never needs one) Drive intox or ride w/intox straddle bug driver: No Do you feel safe at home: Yes Do you feel safe in your relationship?: Yes
[2024-06-24 17:55] LABS: Bilirubin Negative (Negative); Blood Large (Negative); Clarity Cloudy (Clear); Glucose Negative (Negative); Ketones Negative (Negative); Leukocyte Esterase Small (Negative); Nitrite Positive (Negative); Specific Gravity >= 1.030 (1.005-1.025); Urobilinogen 0.2 mg/dL (Up to 0.2); pH 5.5 (5-8)
[2024-06-24 18:22] LABS: Bacteria Moderate HPF (Negative); Epithelial Cells Few HPF (Negative); RBC >50 HPF (0-2); WBC >50 HPF (0-5)
[2024-06-24 18:23] LABS: C & S Indicated? Yes
[2024-06-24 18:36] VITALS: BP 131/88; PULSE 93; RESP 89; TEMP 36.6; O2SAT 96
[2024-06-24] MEDS: MacroBID 100 MG CAP PO (18:38)
[2024-06-24] MEDS: Phenazopyridine 200 MG TAB PO (18:38)
== END 2024-06-24 18:59 | disposition home or self-care (01) ==
LOC: ER 18:48
PROVIDERS: Emergency Provider Emergency Medicine; PCP Nurse Practitioner Adult Health
DX: R30.0 Dysuria (principal); R31.0 Gross hematuria; R35.0 Frequency of micturition; N39.0 Urinary tract infection, site not specified; Z59.41 Food insecurity; Z63.9 Problem related to primary support group, unspecified; Z87.891 Personal history of nicotine dependence
CPT/HCPCS: 87077; 99283; 81003; 81015; 87086; 87186

== ENCOUNTER 2024-07-03 21:00 | Outpatient (REF) | payer MEDICAID, SELFPAY ==
[2024-07-03 21:25] LABS: Bacteria Few HPF (Negative); C & S Indicated? C&S Done As Ordered; Casts Negative LPF (Negative); Crystals Negative HPF (Negative); Epithelial Cells Few HPF (Negative); Mucus Negative (Negative); RBC >50 HPF (0-2); WBC >50 HPF (0-5)
== END 2024-07-03 21:01 | disposition home or self-care (01) ==
LOC: LBN 21:00
PROVIDERS: PCP Nurse Practitioner Adult Health; Visit Provider Physician Assistant Medical
DX: R30.0 Dysuria (principal)
CPT/HCPCS: 81015; 87086; 87480; 87510; 87660

== ENCOUNTER 2024-07-30 11:39 | Emergency (ER) | payer MEDICAID, SELFPAY ==
[2024-07-30 11:43] VITALS: BP 145/74; PULSE 80; RESP 18; TEMP 36.7; O2SAT 98
[2024-07-30 12:00] LABS: Bilirubin Negative (Negative); Blood Trace-intact (Negative); Clarity Clear (Clear); Glucose Negative (Negative); Ketones Negative (Negative); Leukocyte Esterase Moderate (Negative); Nitrite Negative (Negative); Urobilinogen 0.2 mg/dL (Up to 0.2); pH 5.5 (5-8)
--- NOTE | 2024-07-30 12:13 | ED.GENADUL_ITS ---
Discharge Plan Disposition Patient Disposition: Home Condition: Stable Discharge Details Clinical Impression: UTI (urinary tract infection) Primary Care Provider: Gabrielle Morse ED Provider: Zarina Hernandez Home Meds and New Rx's Prescriptions: New cephalexin 500 mg capsule 500 mg PO BID 5 Days Qty: 10 0RF cephalexin 250 mg capsule 250 mg PO ONCE PRNQty: 20 0RF Rx Instructions: take 1 cap after intercourse No Action ibuprofen 600 mg tablet 600 mg PO Q8H PRN (Reason: pain) Qty: 30 0RF trazodone 150 mg tablet 150 mg PO DAILY desvenlafaxine succinate [Pristiq] 100 mg tablet extended release 24 hr 150 mg PO DAILY topiramate [Topamax] 100 mg tablet 100 mg PO BID dexlansoprazole 60 mg capsule,biphase delayed releas 60 mg PO DAILY Qty: 30 0RF lorazepam 0.5 mg tablet 0.5 mg PO TID PRNQty: 30 0RF pantoprazole 40 mg tablet,delayed release (DR/EC) 40 mg PO DAILY Patient Comments: TAKE ONE TABLET BY MOUTH EVERY DAY 30 MINUTES BEFORE EVENING MEAL Discharge Instructions Instructions: Urinary Tract Infection, Adult ED Additional Instructions: You do have some signs of infection in your urinalysis today. We will start 5 days of antibiotics to treat this. I have also prescribed a second prescription of the same antibiotic. You will take 1 of these pills after intercourse to prevent future infections HPI General Date/Time Provider Initiated Documentation: 07/30/24 11:46 . Limitations to Documentation: no limitations . Information obtained by: patient . HPI Narrative: 44-year-old female with nonalcoholic fatty liver, IBS, repeated UTI presents for evaluation of urinary tract symptoms. She was treated last month for a urinary tract infections with antibiotic. She reports recurrence of her symptoms about a week ago. It has not been as bad. She states that she has burning with urination. She reports some mild nausea and some back pain. No fever. She reports that she recently got a new sexual partner and seems to have recurrent urine infections since then. Related Data Home Medications ?Medication ?Instructions ?Recorded ?Confirmed ibuprofen 600 mg tablet 600 mg PO Q8H PRN pain #30 tabs 01/08/22 07/30/24 lorazepam 0.5 mg tablet 0.5 mg PO TID PRN #30 tabs 07/02/22 07/30/24 trazodone 150 mg tablet 150 mg PO DAILY 08/30/22 07/30/24 dexlansoprazole 60 mg 60 mg PO DAILY #30 caps 12/12/23 07/30/24 capsule,biphase delayed release desvenlafaxine succinate 100 mg 150 mg PO DAILY 01/08/24 07/30/24 tablet,extended release 24 hr (Pristiq) topiramate 100 mg tablet (Topamax) 100 mg PO BID 01/08/24 07/30/24 pantoprazole 40 mg tablet,delayed 40 mg PO DAILY 06/24/24 07/30/24 release cephalexin 250 mg capsule 250 mg PO ONCE PRN #20 caps 07/30/24 cephalexin 500 mg capsule 500 mg PO BID 5 days #10 caps 07/30/24 Previous Rx's ?Medication ?Instructions ?Recorded ibuprofen 600 mg tablet 600 mg PO Q8H PRN pain #30 tabs 01/08/22 lorazepam 0.5 mg tablet 0.5 mg PO TID PRN #30 tabs 07/02/22 dexlansoprazole 60 mg 60 mg PO DAILY #30 caps 12/12/23 capsule,biphase delayed release cephalexin 250 mg capsule 250 mg PO ONCE PRN #20 caps 07/30/24 cephalexin 500 mg capsule 500 mg PO BID 5 days #10 caps 07/30/24 Allergies Allergy/AdvReac Type Severity Reaction Status Date / Time No Known Allergies Allergy Unverified 07/30/24 11:45 General Stated Complaint: Urinary RAJEEV: 4 Exam Narrative Exam Narrative: Review of Systems: All systems reviewed & are unremarkable except as noted in HPI and below Well-developed, no acute distress Afebrile NCAT RRR Unlabored respiratory effort Nondistended abdomen mild suprapubic tenderness, no CVA tenderness Course Vital Signs Vital signs: Vital Signs Temperature 36.7 C 07/30/24 11:43 Pulse 80 07/30/24 11:43 Respiratory Rate 18 07/30/24 11:43 Blood Pressure 145/74 H 07/30/24 11:43 Pulse Oximetry 98 07/30/24 11:43 Temperature 36.7 C 07/30/24 11:43 Pulse 80 07/30/24 11:43 Respiratory Rate 18 07/30/24 11:43 Blood Pressure 145/74 H 07/30/24 11:43 Pulse Oximetry 98 07/30/24 11:43 Pain Level 8 07/30/24 12:12 Lab/Test Results Lab/Test Results: Laboratory Tests Range/Units 07/30/24 11:55 Urine Color (Yellow) Yellow Urine Clarity (Clear) Clear Urine pH (5-8) 5.5 Ur Specific [place] (1.005-1.025) 1.020 Urine Protein (Neg-Trace) mg/dL Negative Urine Ketones (Negative) mg/dL Negative Urine Blood (Negative) Trace-intact H Urine Nitrite (Negative) Negative Urine Bilirubin (Negative) Negative Urine Urobilinogen (Up to 0.2) mg/dL 0.2 Ur Leukocyte Esterase (Negative) Moderate H Urine Glucose (Negative) mg/dL Negative POC- Test(urine) Negative Medical Decision Making Emergent evaluation of urinary symptoms. Initial differential includes UTI pyelonephritis STI. Patient is afebrile and does not have CVA tenderness so I doubt pyelonephritis. I reviewed her medical record and noted that she had a urinary tract infection on June 28. She does report that she has also been seen at urgent care. But otherwise I do not see a significant amount of visits for this issue. Will get urinalysis today. Discussed post coital prophylactic antibiotic Mild signs of infection noted in the urine. Patient refused Macrobid as she stated that this did not work and it made her feel bad. Although there is no evidence that it was ineffective, if symptomatically she did not tolerate it, I can change to Keflex with treatment plan and as needed postcoital dosing Quality:SDOH Health Related Social Needs: Health related social needs food insecurity(Z59.41), p cassiam related to primary support group(Z63.9) Health related social needs details n/a PFSH All Active Problems (Updated 07/30/24 @ 12:59 by Zarina Hernandez MD) UTI (urinary tract infection) (Acute) Vaginal candidiasis (Acute) Left arm numbness (Acute) Atypical chest pain (Acute) IBS (irritable bowel syndrome) (Chronic ~12/2023) [facility] 12/27/23 Functional dyspepsia (Acute ~12/2023) [facility] 12/27/23 NAFL (nonalcoholic fatty liver) (Acute ~12/2023) [facility] 12/27/23 Hyperlipidemia (Acute ~08/2023) Right anterior knee pain (Acute) GERD (gastroesophageal reflux disease) (Chronic) History of nicotine dependence (Acute ~03/2023) Medical History Epigastric abdominal pain 2020 & 11/2023-->GERD, stable on PPI Short-segment Cervantes's esophagus (~2018) Resolved on 12/2023 upper EGD Tachycardia Fatty liver History of crack cocaine use History of kidney stones (04/03/16) Palpitations Hx of sleep apnea pt. reports she has a machine, uses some Vomiting Open fracture of tuft of distal phalanx of finger LRF Tendonitis of left rotator cuff (~12/2019) Injected: 12/08/2019 Psychiatric disorder Acute otalgia Hiatal hernia Endometriosis Surgical History S/P cystoscopy with ureteral stent placement (~11/2021) 11/20/21, right Hx of laparoscopy pt. reports for endometriosos Hx of esophagogastroduodenoscopy (~2018) [facility]--short-segment barretts per historical records 12/04/23-EGD [id number] Hx of submucous nasal surgery pt. reports she has a nasal cyst removed at age 9-10 under anesthesia Ligation of fallopian tube Extracorporeal shock wave lithotripsy Family History Maternal Aunt Breast cancer Brother Diabetes Alcohol use disorder Father Alcohol use disorder Multiple sclerosis Mother Alcohol use disorder Brother Alcohol use disorder Maternal Aunt Cirrhosis of liver Maternal Aunt Pancreatic cancer Social History Smoking/Tobacco Use Status: Former Tobacco Use Tobacco: How many years used: 25 Quit status: quit date established (January 17, 2023) Smoking risk assessment performed?: Yes Alcohol Intake: never Drug use: Rarely Substance use type: unknown Details: monthly or less Adopted: No Caregiver/Support person: No Foster care: No Household members: children Housing: apartment Number of Children: 3 number of grandchildren: 0 Communication Needs: None Education Level: high school Do you need help understanding health information?: Never current occupation: Unemployed Pets and animals: No Sexually active: No Do you think of yourself as: straight/heterosexual Current gender identity: female What is your relationship status?: How often do you talk on the phone with friends or family?: three or more times per week How often do you get together with friends or relatives?: once per week How often do you attend congregation or nondenominational services?: decline to answer Do you belong to any clubs or organized social groups?: no Panel score (0-1 are the most socially isolated patients): 1 What type of physical activity do you participate in: none and decline to answer Duration: decline to answer Frequency: decline to answer Angélica/Presybeterian: Zoroastrianism Special angélica needs: No Seatbelt use: sometimes Helmet use: No (Never needs one) Drive intox or ride w/intox charter and tour bus driver: No Do you feel safe at home: Yes Do you feel safe in your relationship?: Yes
[2024-07-30] MEDS: Ketorolac 10 MG TAB PO (12:17)
[2024-07-30] MEDS: Acetaminophen 500 MG TAB 1000 MG PO (12:17)
[2024-07-30] MEDS: Ondansetron O.D.T. 4 MG TABEF (12:18)
[2024-07-30 12:28] LABS: Bacteria Few HPF (Negative); C & S Indicated? No/Sq. Contamination; Casts Negative LPF (Negative); Crystals Negative HPF (Negative); Epithelial Cells Many HPF (Negative); Mucus Negative (Negative); WBC 20-50 HPF (0-5)
--- NOTE | 2024-07-30 16:47 | NUR.NOTE ---
Chart accessed to review discharge packet per pt's request to figure out new prescriptions, as she called the ER. Nursing Note:
--- NOTE | 2024-07-30 16:56 | NUR.NOTE ---
Nursing Note: Patient called looking for clarification on prescriptions that were sent to her pharmacy- she received 500mg tablets of cephalexin and another bottle of macrobid, but not the 250mg tablets of cephalexin. Patient was updated that the macrobid was dc'd and replaced with the cephalexin and not to take macrobid. [facility] in [place] was contacted and spoke w/pharmacy associate, they will fill the 250mg tablets of cephalexin and no more macrobid.
== END 2024-07-30 13:12 | disposition home or self-care (01) ==
PROVIDERS: Emergency Provider Emergency Medicine; PCP Nurse Practitioner Adult Health
DX: N39.0 Urinary tract infection, site not specified (principal); Z87.891 Personal history of nicotine dependence
CPT/HCPCS: 81025; 99283; 81003; 81015

== ENCOUNTER 2024-08-03 09:47 | Outpatient (REF) | payer MEDICAID, SELFPAY | END 2024-08-03 09:48 | disposition home or self-care (01) | LOC: LBN 09:47 | PROVIDERS: PCP Nurse Practitioner Adult Health; Visit Provider Nurse Practitioner | DX: R30.0 Dysuria (principal); N39.0 Urinary tract infection, site not specified | CPT/HCPCS: 87086 ==

== ENCOUNTER 2024-08-11 03:07 | Emergency (ER) | payer MEDICAID, SELFPAY ==
--- NOTE | 2024-08-11 03:11 | ED.GENADUL_ITS ---
Discharge Plan Disposition Patient Disposition: Home Condition: Good Discharge Details Clinical Impression: UTI (urinary tract infection) Primary Care Provider: Gabrielle Morse ED Provider: Jesus Han [facility] Meds and New Rx's Prescriptions: New sulfamethoxazole-trimethoprim [Bactrim DS] 800-160 mg tablet 1 tab PO BID Qty: 14 0RF phenazopyridine [Pyridium] 100 mg tablet 100 mg PO TID Qty: 6 0RF Continued ibuprofen 600 mg tablet 600 mg PO Q8H PRN (Reason: pain) Qty: 30 0RF trazodone 150 mg tablet 150 mg PO DAILY desvenlafaxine succinate [Pristiq] 100 mg tablet extended release 24 hr 150 mg PO DAILY topiramate [Topamax] 100 mg tablet 100 mg PO BID dexlansoprazole 60 mg capsule,biphase delayed releas 60 mg PO DAILY Qty: 30 0RF lorazepam 0.5 mg tablet 0.5 mg PO TID PRNQty: 30 0RF cephalexin 250 mg capsule 250 mg PO ONCE PRNQty: 20 0RF Rx Instructions: take 1 cap after intercourse pantoprazole 40 mg tablet,delayed release (DR/EC) 40 mg PO DAILY Patient Comments: TAKE ONE TABLET BY MOUTH EVERY DAY 30 MINUTES BEFORE EVENING MEAL desvenlafaxine succinate 50 mg tablet extended release 24 hr 150 mg PO DAILY Patient Comments: TAKE ONE TABLET BY MOUTH EVERY DAY WITH ER 100MG FOR A TOTAL OF 150MG DAILY Discharge Instructions Additional Instructions: You were seen for continued back pain and urinary symptoms. Urinalysis tonight is consistent with infection and a culture is in progress. Your CT scan shows evidence of cystitis/bladder inflammation but no evidence of obstruction or ureteral stone. You have received a dose of IV ceftriaxone which will cover you for the next 24 hours. We will start you on Bactrim as you seemingly have failed Macrobid and Keflex. You may use Pyridium for the next couple of days. Continue to drink plenty of water and stay hydrated. Tylenol or Motrin as needed for pain. Follow-up with urology as scheduled. Return to ED for any severe worsening pain, persistent vomiting, spiking fevers, other concerns. HPI General Mode of arrival: ambulatory . Date/Time Provider Initiated Documentation: 08/11/24 03:11 . Limitations to Documentation: no limitations . Information obtained by: patient, RN notes reviewed and old records reviewed . HPI Narrative: Patient presents to ED with complaint of bilateral back pain, urgency, dysuria. Patient has been on Macrobid and cephalexin on and off since the end of June for reported UTIs. She just finished Macrobid after seeing her primary care August 03. She has never had fever, vomiting, or abdominal pain. She denies vaginal discharge, pelvic pain. Symptoms although urinary with frequency, urgency, dysuria. Over the last 2 weeks she has been having low back pain which is bilateral. She does seem to get somewhat better while on antibiotics and Pyridium but symptoms always return. Related Data Home Medications ?Medication ?Instructions ?Recorded ?Confirmed ibuprofen 600 mg tablet 600 mg PO Q8H PRN pain #30 tabs 01/08/22 08/11/24 lorazepam 0.5 mg tablet 0.5 mg PO TID PRN #30 tabs 07/02/22 08/11/24 trazodone 150 mg tablet 150 mg PO DAILY 08/30/22 08/11/24 dexlansoprazole 60 mg 60 mg PO DAILY #30 caps 12/12/23 08/11/24 capsule,biphase delayed release desvenlafaxine succinate 100 mg 150 mg PO DAILY 01/08/24 08/11/24 tablet,extended release 24 hr (Pristiq) topiramate 100 mg tablet (Topamax) 100 mg PO BID 01/08/24 08/11/24 pantoprazole 40 mg tablet,delayed 40 mg PO DAILY 06/24/24 08/11/24 release cephalexin 250 mg capsule 250 mg PO ONCE PRN #20 caps 07/30/24 08/11/24 desvenlafaxine succinate 50 mg 150 mg PO DAILY 08/11/24 08/11/24 tablet,extended release 24 hr phenazopyridine 100 mg tablet 100 mg PO TID 6 doses #6 tabs 08/11/24 (Pyridium) sulfamethoxazole 800 1 tab PO BID #14 tabs 08/11/24 mg-trimethoprim 160 mg tablet (Bactrim DS) Previous Rx's ?Medication ?Instructions ?Recorded ibuprofen 600 mg tablet 600 mg PO Q8H PRN pain #30 tabs 01/08/22 lorazepam 0.5 mg tablet 0.5 mg PO TID PRN #30 tabs 07/02/22 dexlansoprazole 60 mg 60 mg PO DAILY #30 caps 12/12/23 capsule,biphase delayed release cephalexin 250 mg capsule 250 mg PO ONCE PRN #20 caps 07/30/24 phenazopyridine 100 mg tablet 100 mg PO TID 6 doses #6 tabs 08/11/24 (Pyridium) sulfamethoxazole 800 1 tab PO BID #14 tabs 08/11/24 mg-trimethoprim 160 mg tablet (Bactrim DS) Allergies Allergy/AdvReac Type Severity Reaction Status Date / Time No Known Allergies Allergy Verified 08/11/24 03:30 General RAJEEV: 4 Review of Systems Narrative: Per HPI Exam Narrative Exam Narrative: Const: WDWN female in NAD. VS per triage. HEENT: NC/AT. Normal facial exam. Neck: Supple. Trachea midline. Lungs: Normal respiratory effort. GI: Soft/ND/NT. Back: No CVAT. Pelvic: deferred Neuro: A+O x 3. Normal speech, mentation, gait. Cranial nerves II - XII grossly intact. No gross motor or sensory deficit. Ext: No C/C/E. Medical Decision Making Patient presenting to ED with persistent urinary symptoms, now back pain for 2 weeks despite multiple rounds of antibiotics that have included Macrobid and cephalexin. She has one culture from June that grew pansensitive E. coli. Other cultures have been mixed gram-positive alvaro and few gram-negative. She denies fever, vomiting, or abdominal pain, pelvic pain, vaginal discharge, dyspareunia. She does have a history of kidney stones and had an infected stone back in 2021. She is afebrile here. She is mildly tachycardic. Exam is unremarkable with no abdominal tenderness and no CVAT. Given her history of kidney stones and persistent urinary symptoms with back pain, it is reasonable to obtain CT of the abdomen pelvis to be sure were not missing something. She does have follow-up with urology already scheduled. Patient's urine definitely appears infected with red cells, white cells, bacteria, very few epithelial cells. Culture has been plated. CT scan preliminary read shows evidence of cystitis only. There are stones within the kidney but there is no evidence of ureteral stone, hydronephrosis. Patient has received a dose of IV ceftriaxone. Will begin her on Bactrim as she is seemingly failed Macrobid and Keflex. She will need follow-up with urology as planned. Medical Records Medical records reviewed: Yes I reviewed the patient's medical records. Medical records narrative: Recent notes, labs, cultures, 2021 urology notes Imaging Data Radiologic Study: Imaging: CT Scan Radiologist's impression: Preliminary vRad read Abd/Pelvis CT - IMPRESSION: Cystitis. Lab Data Lab results reviewed: Yes I reviewed the patient's lab results. Lab results narrative: See [facility] All Active Problems (Updated 08/11/24 @ 04:57 by Jesus Han MD) Tendonitis of left rotator cuff (Acute ~12/2019) Injected: 12/08/2019 UTI (urinary tract infection) (Acute) Vaginal candidiasis (Acute) Left arm numbness (Acute) Functional dyspepsia (Acute ~12/2023) [facility] 12/27/23 Right anterior knee pain (Acute) History of nicotine dependence (Acute ~03/2023) Medical History IBS (irritable bowel syndrome) (~12/2023) [facility] 12/27/23 NAFL (nonalcoholic fatty liver) (~12/2023) [facility] 12/27/23 Hyperlipidemia (~08/2023) GERD (gastroesophageal reflux disease) Short-segment Cervantes's esophagus (~2018) Resolved on 12/2023 upper EGD History of crack cocaine use History of kidney stones (04/03/16) Palpitations Hx of sleep apnea pt. reports she has a machine, uses some Hiatal hernia Endometriosis Surgical History S/P cystoscopy with ureteral stent placement (~11/2021) 11/20/21, right Hx of laparoscopy pt. reports for endometriosos Hx of esophagogastroduodenoscopy (~2018) [facility]--short-segment barretts per historical records 12/04/23-EGD [id number] Hx of submucous nasal surgery pt. reports she has a nasal cyst removed at age 9-10 under anesthesia Ligation of fallopian tube Extracorporeal shock wave lithotripsy Family History Maternal Aunt Breast cancer Brother Diabetes Alcohol use disorder Father Alcohol use disorder Multiple sclerosis Mother Alcohol use disorder Brother Alcohol use disorder Maternal Aunt Cirrhosis of liver Maternal Aunt Pancreatic cancer Social History Smoking/Tobacco Use Status: Former Tobacco Use Tobacco: How many years used: 25 Quit status: quit date established (January 17, 2023) Smoking risk assessment performed?: Yes Alcohol Intake: never Drug use: Rarely Substance use type: unknown Details: monthly or less Adopted: No Caregiver/Support person: No Foster care: No Household members: children Housing: apartment Number of Children: 3 number of grandchildren: 0 Communication Needs: None Education Level: high school Do you need help understanding health information?: Never current occupation: Unemployed Pets and animals: No Sexually active: No Do you think of yourself as: straight/heterosexual Current gender identity: female What is your relationship status?: How often do you talk on the phone with friends or family?: three or more times per week How often do you get together with friends or relatives?: once per week How often do you attend gnosticist or adventism services?: decline to answer Do you belong to any clubs or organized social groups?: no Panel score (0-1 are the most socially isolated patients): 1 What type of physical activity do you participate in: none and decline to answer Duration: decline to answer Frequency: decline to answer Angélica/Restorationist: Samaritan Special angélica needs: No Seatbelt use: sometimes Helmet use: No (Never needs one) Drive intox or ride w/intox stock car driver: No Do you feel safe at home: Yes Do you feel safe in your relationship?: Yes
[2024-08-11 03:12] VITALS: BP 133/98; PULSE 110; RESP 18; TEMP 36.1; O2SAT 98
--- NOTE | 2024-08-11 03:30 | DI.CT_ITS ---
Exam(s) CT ABDOMEN PELVIS W EXAM: CT ABDOMEN PELVIS W CLINICAL HISTORY: persistent back pain/urinary symptoms TECHNIQUE: Imaging Protocol: Axial computed tomography images with coronal and sagittal reformatted images were created and reviewed. CONTRAST MATERIAL: Intravenous: Omnipaque 350 Contrast volume:100 mL Oral: No COMPARISON: CT CT RENAL COLIC WO from 11/19/[address] RENAL COLIC WO from 11/20/2021 FINDINGS: ABDOMEN: Lung Bases: No acute abnormality. Liver: Normal density. No measurable mass. Portal, Superior Mesenteric, and Splenic Veins: Unremarkable. Gallbladder and Biliary Tract: No radiodense calculus or dilation. Pancreas: Normal density, no abnormal calcifications or inflammatory process. Spleen: Normal. Adrenals: No masses seen. Kidneys: Normal size, contour and axis. Bilateral nephrolithiasis. No ureterolithiasis or hydronephr osis. There is a tiny hypodensity in the inferior pole of the left kidney. It is too small for furt her characterization, but likely reflects a small cyst. No follow-up is recommended. Abdominal Aorta: Abdominal portion non-dilated. Bowel: The stomach is incompletely distended limiting evaluation. There is no evidence of bowel obst ruction. No bowel wall thickening is seen. The appendix measures 7 mm in diameter. There is air se en within the appendix. No Gabi appendiceal inflammation, wall thickening or pending clip is seen. Appendicitis is considered less likely. Please correlate clinically. Peritoneal Cavity: No ascites, collection or mesenteric inflammatory response. No free air. Lymph Nodes: Within normal limits. Bones: Within normal limits for the patient's age. Soft Tissues: Unremarkable. PELVIS: Bladder: There is thickening of the wall of the urinary bladder and mild enhancement seen. The urina ry bladder is not well distended. This does limit the evaluation. Reproductive Organs: Unremarkable as visualized. Lymph Nodes: Within normal limits. Bones: Within normal limits for the patient's age. IMPRESSION: 1. Bilateral nephrolithiasis. No ureterolithiasis or obstructive uropathy. 2. Diffuse thickening and mild enhancement of the wall of the urinary bladder. Evaluation is limited due to decreased distension, however cystitis should be considered. 3. Appendix measures 7 mm but shows no evidence of inflammation/infection. Please correlate clinical ly. RADIATION DOSE DELIVERED: 600.03mGy.cm Total DLP DATA REPOSITORY: All CT scans at this facility are submitted to the National Radiology Data Registry (NRDR) Dose Index Registry (DIR) with the [employer] ([employer]). RADIATION OPTIMIZATION: All CT scans at this facility use at least one of these dose optimization te chniques: automated exposure control; mA and/or kV adjustment per patient size (includes targeted exa ms where dose is matched to clinical indication); or iterative reconstruction.
[2024-08-11 03:35] LABS: Bilirubin Negative (Negative); Blood Large (Negative); Clarity Turbid (Clear); Glucose Negative (Negative); Ketones Negative (Negative); Leukocyte Esterase Moderate (Negative); Nitrite Negative (Negative); Specific Gravity 1.025 (1.005-1.025); Urobilinogen 0.2 mg/dL (Up to 0.2)
[2024-08-11] MEDS: Ketorolac 30 MG/ML VIAL IVP (03:37)
[2024-08-11 03:41] LABS: Bacteria Moderate HPF (Negative); C & S Indicated? Yes; Casts Negative LPF (Negative); Crystals Negative HPF (Negative); Epithelial Cells Few HPF (Negative); Mucus Trace (Negative); RBC >50 HPF (0-2)
[2024-08-11 03:45] LABS: Abs Immature Grans 0.04 10^3/uL (0.0-0.06); Absolute Basophil Count 0.04 10^3/uL (0.0-0.2); Absolute Eosinophil Count 0.36 10^3/uL (0.0-0.7); Absolute Lymphocyte Count 2.45 10^3/uL (1.2-3.4); Absolute Monocyte Count 0.72 10^3/uL (0.1-0.8); Basophils % 0.4 %; Eosinophils % 3.6 %; HCT 38.6 % (36.0-46.0); HGB 12.6 g/dL (11.2-15.7); Immature Grans % 0.4 %; Lymphocytes % 24.5 %; MCH 29.3 pg (27.0-33.0); MCHC 32.6 % (32.0-36.0); MCV 90 fL (80-95); MPV 9.1 fL (8.0-11.0); Monocytes % 7.2 %; Neutrophils % 63.9 %; Platelet Count 303 10^3/uL (130-400); RDW 12.7 % (11.7-14.6); RDW-SD 41.6 fL; WBC 10.01 10^3/uL (4.4-10.8)
[2024-08-11] MEDS: Omnipaque 350 MG/ML 100 ML BTL IJ (03:47)
[2024-08-11] MEDS: Normal Saline Flush 10 ML SYR IVP (03:48)
[2024-08-11] MEDS: Normal Saline - Diluent 50 ML VIAL IJ (03:48)
[2024-08-11 03:55] LABS: Anion Gap 5.8 mmol/L (3-11); BUN 12 mg/dL (7-18); CO2 26.2 mmol/L (21.0-32.0); CREATININE 1.1 mg/dL (0.55-1.02); Calcium 8.7 mg/dL (8.5-10.1); Chloride 109 mmol/L (98-107); Estimated GFR 63.94 (mL/min/1.73m2); Glucose 103 mg/dL (74-106); Potassium 3.5 mmol/L (3.5-5.1); Sodium 141 mmol/L (136-145)
[2024-08-11] MEDS: cefTRIAXone 1 GM/50 ML BAG IVPB (04:03)
[2024-08-11 04:30] VITALS: BP 108/64; PULSE 78; RESP 16; O2SAT 98
--- NOTE | 2024-08-11 04:49 | DI.VRAD_ITS ---
PROCEDURE INFORMATION: Exam: CT Abdomen And Pelvis With Contrast Exam date and time: 08/11/2024 3:49 AM Age: 44 years old Clinical indication: Prior surgery; Surgery date: 6+ months; Surgery type: Tubal ligation; Patient HX: Persistent back pain/urinary symptoms; Additional info: HX of kidney stones, frequent utis TECHNIQUE: Imaging protocol: Computed tomography of the abdomen and pelvis with contrast. Radiation optimization: All CT scans at this facility use at least one of these dose optimization techniques: automated exposure control; mA and/or kV adjustment per patient size (includes targeted exams where dose is matched to clinical indication); or iterative reconstruction. Contrast material: OMNIPAQUE 350; Contrast volume: 100 ml; Contrast route: INTRAVENOUS (IV); COMPARISON: CT RENAL COLIC WO 11/20/2021 9:16 PM FINDINGS: Liver: Normal. No mass. Gallbladder and biliary ducts: Normal. No calcified stones. No ductal dilation. Pancreas: Unremarkable. Spleen: Normal. Adrenal glands: Normal. No mass. Kidneys and ureters: Nonobstructing stones in the kidneys bilaterally. Stomach and bowel: Unremarkable. No bowel wall thickening or intestinal obstruction. Appendix: Normal appendix. Intraperitoneal space: Unremarkable. No pneumoperitoneum. No abscess. Vasculature: Unremarkable. Lymph nodes: Unremarkable. Urinary bladder: Inflammatory thickening of the wall of the urinary bladder consistent with cystitis. Reproductive: Unremarkable as visualized. Bones/joints: Unremarkable. No acute fracture. Soft tissues: Unremarkable. IMPRESSION: Cystitis. Dictated and Authenticated by: Deonte Berumen MD. Ordering:STEPHANIE Lee MD
[2024-08-11 05:12] VITALS: BP 122/78; PULSE 72; RESP 16; O2SAT 98
== END 2024-08-11 05:13 | disposition home or self-care (01) ==
PROVIDERS: Emergency Provider Emergency Medicine; PCP Nurse Practitioner Adult Health
DX: N39.0 Urinary tract infection, site not specified (principal); E78.5 Hyperlipidemia, unspecified; Z87.891 Personal history of nicotine dependence
CPT/HCPCS: 36415; 80048; 81025; 87077; 96374; 96375; 99285; 74177; 81003; 81015; 85025; 87086; 87186; J0696; J1885; J3490

== ENCOUNTER 2024-09-08 13:23 | Outpatient (REF) | payer MEDICAID, SELFPAY ==
[2024-09-08 13:35] LABS: Bilirubin Negative (Negative); Blood Small (Negative); Clarity Cloudy (Clear); Glucose Negative (Negative); Ketones Negative (Negative); Leukocyte Esterase Moderate (Negative); Nitrite Negative (Negative); Specific Gravity 1.025 (1.005-1.025); Urobilinogen 0.2 mg/dL (Up to 0.2)
[2024-09-08 13:51] LABS: Bacteria Moderate HPF (Negative); C & S Indicated? C&S Done As Ordered; Casts 0-2 Hyaline LPF (Negative); Crystals Rare Calcium Oxalate HPF (Negative); Epithelial Cells Many HPF (Negative); Mucus Trace (Negative); WBC 20-50 HPF (0-5)
== END 2024-09-08 13:24 | disposition home or self-care (01) ==
LOC: LBN 13:23
PROVIDERS: PCP Nurse Practitioner Adult Health; Visit Provider Nurse Practitioner Gerontology
DX: N39.0 Urinary tract infection, site not specified (principal)
CPT/HCPCS: 87077; 81003; 81015; 87086; 87186

== ENCOUNTER 2024-10-02 00:25 | Outpatient (CLI) | payer MEDICAID, SELFPAY ==
--- NOTE | 2024-10-02 07:15 | DI.MAMMO_ITS ---
Exam(s) MAMMO SCREENING EXAM: MAMMO SCREENING CLINICAL HISTORY: screening,Z12.39 TECHNIQUE: Mammograms were interpreted according to the usual protocol including computer analysis w [employer] CAD system, tomosynthesis and C-view imaging. COMPARISON: 2020 and 2023 FINDINGS: The breasts are composed of scattered fibroglandular densities, Breast Density category B. No suspicious masses or suspicious microcalcifications are seen. No skin thickening or abnormal axillary lymph nodes are seen. There has been no significant change from prior exams. IMPRESSION: BI-RADS Category 1, Negative mammogram Yearly screening mammography is recommended. Breast Density - Category B, scattered fibroglandular densities. A negative radiographic report should not delay biopsy if a dominant or clinically suspicious mass is present. Up to ten percent of cancers are not identified on mammography. A negative report may reinforce clinical impression. Adenosis and dense breasts may obscure an underlying neoplasm. False positive reports average 6 to 10%. Patient will receive a letter notifying them of these results.
== END 2024-10-02 00:45 ==
LOC: DI 00:25
PROVIDERS: PCP Nurse Practitioner Adult Health; Visit Provider Nurse Practitioner Adult Health
DX: Z12.31 Encounter for screening mammogram for malignant neoplasm of breast (principal); R92.323 Mammographic fibroglandular density, bilateral breasts
CPT/HCPCS: 77063; 77067

== ENCOUNTER 2024-10-27 20:24 | Emergency (ER) | payer MEDICAID, SELFPAY ==
[2024-10-27 20:28] VITALS: BP 137/97; PULSE 104; RESP 24; TEMP 36.8; O2SAT 96
--- NOTE | 2024-10-27 20:30 | DI.RAD_ITS ---
Exam(s) XR CHEST 2V PA LATERAL EXAM: XR CHEST 2V PA LATERAL CLINICAL HISTORY: Wheezing TECHNIQUE: 2D digital imaging was performed. Two views. COMPARISON: CR XR CHEST 2V PA LATERAL from 01/08/2024 FINDINGS: HEART: Normal size. Aorta: Not dilated. PULMONARY VASCULATURE: Normal. MEDIASTINUM: Unremarkable. LUNGS: Clear. PLEURAL SPACE: No pleural effusion or pneumothorax. BONE:Unremarkable for age. SOFT TISSUES: Unremarkable. IMPRESSION: No acute abnormality. DATA REPOSITORY: RADIATION DOSE DELIVERED:
[2024-10-27 20:38] VITALS: BP 137/97; PULSE 104; RESP 24; TEMP 36.8; O2SAT 96
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
[2024-10-27] MEDS: predniSONE 20 MG TAB 60 MG PO (20:46)
[2024-10-27 20:47] VITALS: PULSE 104; RESP 24; RESP 8; RESP 9; O2SAT 97
[2024-10-27] MEDS: Albuterol/Ipratropium 3 ML UPD VIAL UPD (20:47)
--- NOTE | 2024-10-27 22:15 | DI.VRAD_ITS ---
PROCEDURE INFORMATION: Exam: XR Chest Exam date and time: 10/27/2024 8:59 PM Age: 44 years old Clinical indication: Wheezing TECHNIQUE: Imaging protocol: Radiologic exam of the chest. Views: 2 views. COMPARISON: CR XR CHEST 2V PA LATERAL 01/08/2024 12:46 PM FINDINGS: Lungs: Unremarkable. No consolidation. Pleural spaces: Unremarkable. No pleural effusion. No pneumothorax. Heart/Mediastinum: Unremarkable. No cardiomegaly. Bones/joints: Unremarkable. IMPRESSION: No acute findings. Dictated and Authenticated by: Christal Skaggs MD. Orderin Bimal Infante MD
[2024-10-27] MEDS: Albuterol HFA 8 GM 60 PUFF INH IH (22:31)
[2024-10-27 22:36] VITALS: BP 119/74; PULSE 88; RESP 18; O2SAT 97
[2024-10-27 22:46] LABS: COVID-19 PCR Negative (Negative); Influenza A PCR Negative (Negative); Influenza B PCR Negative (Negative); RSV PCR Negative (Negative)
[2024-10-27 22:48] LABS: Source Nasopharynx
== END 2024-10-27 22:36 | disposition home or self-care (01) ==
PROVIDERS: Emergency Provider Registered Nurse Emergency; PCP Nurse Practitioner Adult Health
DX: R06.2 Wheezing (principal); E78.5 Hyperlipidemia, unspecified; Z87.891 Personal history of nicotine dependence
CPT/HCPCS: 87637; 94640; 99284; 71046; J7512; J7620

== ENCOUNTER 2024-11-13 17:46 | Emergency (ER) | payer MEDICAID, SELFPAY ==
[2024-11-13 17:47] VITALS: BP 124/85; PULSE 97; RESP 18; TEMP 36.5; O2SAT 96
[2024-11-13 17:51] VITALS: BP 124/85; PULSE 97; RESP 18; TEMP 36.5; O2SAT 96
[2024-11-13 18:06] VITALS: RESP 20
[2024-11-13 18:43] LABS: Bilirubin Negative (Negative); Blood Negative (Negative); Clarity Sl Cloudy (Clear); Glucose Negative (Negative); Ketones Negative (Negative); Leukocyte Esterase Small (Negative); Nitrite Negative (Negative); Urobilinogen 0.2 mg/dL (Up to 0.2)
[2024-11-13 18:54] LABS: Bacteria Moderate HPF (Negative); C & S Indicated? No; Casts 0-2 Coarse Granular LPF (Negative); Crystals Negative HPF (Negative); Epithelial Cells Few HPF (Negative); Mucus Trace (Negative); RBC 0-2 HPF (0-2)
[2024-11-13 19:40] LABS: COVID-19 PCR Negative (Negative); Influenza A PCR Negative (Negative); Influenza B PCR Negative (Negative); RSV PCR Negative (Negative)
[2024-11-13 19:48] LABS: Source Nasopharynx
[2024-11-13 20:03] LABS: Abs Immature Grans 0.09 10^3/uL (0.0-0.06); Absolute Eosinophil Count 0.17 10^3/uL (0.0-0.7); Absolute Monocyte Count 1.16 10^3/uL (0.1-0.8); Basophils % 0.5 %; HGB 12.5 g/dL (11.2-15.7); Immature Grans % 0.5 %; MCH 28.9 pg (27.0-33.0); MCHC 32.1 % (32.0-36.0); MCV 90 fL (80-95); MPV 9.1 fL (8.0-11.0); Platelet Count 328 10^3/uL (130-400); RBC 4.32 10^6/uL (3.93-5.22); RDW 12.6 % (11.7-14.6); RDW-SD 41.6 fL; WBC 16.51 10^3/uL (4.4-10.8)
[2024-11-13 20:06] LABS: Absolute Basophil Count 0.08 10^3/uL (0.0-0.2); Absolute Neutrophil Count 11.23 10^3/uL (1.2-6.7)
[2024-11-13 20:17] LABS: ALT 23 U/L (14-59); AST 8 U/L (15-37); Albumin 3.2 g/dL (3.4-5.0); Alkaline Phosphatase 78 U/L (46-116); Anion Gap 13.1 mmol/L (3-11); BUN 14 mg/dL (7-18); Bilirubin, Total 0.1 mg/dL (0.2-1.0); CO2 23.9 mmol/L (21.0-32.0); CREATININE 0.8 mg/dL (0.55-1.02); Calcium 8.9 mg/dL (8.5-10.1); Chloride 106 mmol/L (98-107); Glucose 96 mg/dL (74-106); Potassium 3.5 mmol/L (3.5-5.1); Sodium 143 mmol/L (136-145); Total Protein 6.7 g/dL (6.4-8.2)
--- NOTE | 2024-11-13 20:30 | DI.RAD_ITS ---
Exam(s) XR CHEST 2V PA LATERAL EXAM: XR CHEST 2V PA LATERAL CLINICAL HISTORY: fever TECHNIQUE: 2D digital imaging was performed. Two views. COMPARISON: No exams were available for comparison FINDINGS: HEART: Normal size. Aorta: Not dilated. PULMONARY VASCULATURE: Normal. MEDIASTINUM: Unremarkable. LUNGS: Clear. PLEURAL SPACE: No pleural effusion or pneumothorax. BONE:Unremarkable for age. SOFT TISSUES: Unremarkable. IMPRESSION: No acute abnormality. DATA REPOSITORY: RADIATION DOSE DELIVERED:
[2024-11-13] MEDS: Dexamethasone 4 MG TAB 8 MG PO (21:56)
[2024-11-13 21:59] VITALS: RESP 20
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
--- NOTE | 2024-11-13 23:36 | DI.VRAD_ITS ---
PROCEDURE INFORMATION: Exam: XR Chest Exam date and time: 11/13/2024 9:03 PM Age: 44 years old Clinical indication: Fever TECHNIQUE: Imaging protocol: Radiologic exam of the chest. Views: 2 views. COMPARISON: CR XR CHEST 2V PA LATERAL 10/27/2024 8:59 PM FINDINGS: Lungs: Unremarkable. No consolidation. Pleural spaces: Unremarkable. No pleural effusion. No pneumothorax. Heart/Mediastinum: Unremarkable. No cardiomegaly. Bones/joints: Unremarkable. IMPRESSION: No acute findings. Dictated and Authenticated by: Christal Skaggs MD. Orderin Jigar Whaley MD
== END 2024-11-13 21:59 | disposition home or self-care (01) ==
PROVIDERS: Emergency Provider Physician Assistant; PCP Nurse Practitioner Adult Health
DX: J02.9 Acute pharyngitis, unspecified (principal); B34.9 Viral infection, unspecified; K64.9 Unspecified hemorrhoids; Z60.8 Other problems related to social environment
CPT/HCPCS: 80053; 81025; 87637; 99283; 71046; 81003; 81015; 85025; 99284; J8540

== ENCOUNTER 2024-11-18 13:50 | Outpatient (REF) | payer MEDICAID, SELFPAY | END 2024-11-18 13:51 | disposition home or self-care (01) | LOC: LBN 13:50 | PROVIDERS: PCP Nurse Practitioner Adult Health; Visit Provider Nurse Practitioner Family | DX: N89.8 Other specified noninflammatory disorders of vagina (principal); R82.90 Unspecified abnormal findings in urine; B96.89 Other specified bacterial agents as the cause of diseases classified elsewhere | CPT/HCPCS: 87077; 87086; 87186; 87480; 87510; 87660 ==

== ENCOUNTER 2025-01-10 19:43 | Emergency (ER) | payer MEDICAID, SELFPAY ==
[2025-01-10 19:57] VITALS: BP 119/87; PULSE 99; RESP 20; TEMP 36.8; O2SAT 95
[2025-01-10 20:18] LABS: Bilirubin Negative (Negative); Blood Large (Negative); Clarity Cloudy (Clear); Glucose Negative (Negative); Ketones Negative (Negative); Leukocyte Esterase Trace (Negative); Nitrite Negative (Negative); Specific Gravity >= 1.030 (1.005-1.025); Urobilinogen 0.2 mg/dL (Up to 0.2); pH 5.5 (5-8)
[2025-01-10 20:36] LABS: Bacteria Rare HPF (Negative); C & S Indicated? No; Casts Negative LPF (Negative); Crystals Negative HPF (Negative); Epithelial Cells Moderate HPF (Negative); Mucus Negative (Negative); Other Cells Few Transitional (Negative); RBC >50 HPF (0-2); WBC 0-2 HPF (0-5)
[2025-01-10] MEDS: Ibuprofen 600 MG TAB PO (20:43)
[2025-01-10] MEDS: Ondansetron O.D.T. 4 MG TABEF PO (21:02)
[2025-01-10] MEDS: Phenazopyridine 100 MG TAB PO (21:02)
[2025-01-10 21:05] VITALS: BP 127/92; PULSE 82; RESP 16; TEMP 36.6; O2SAT 95
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
== END 2025-01-10 21:10 | disposition home or self-care (01) ==
PROVIDERS: Emergency Provider Emergency Medicine; PCP Nurse Practitioner Adult Health
DX: J06.9 Acute upper respiratory infection, unspecified (principal); Z96.0 Presence of urogenital implants; Z60.8 Other problems related to social environment
CPT/HCPCS: 99283 ×2; 81025; 81003; 81015

== ENCOUNTER 2025-01-13 17:01 | Emergency (ER) | payer MEDICAID, SELFPAY ==
[2025-01-13 17:08] VITALS: BP 144/102; PULSE 106; RESP 20; TEMP 36.9; O2SAT 97
--- NOTE | 2025-01-13 17:15 | DI.CT_ITS ---
Exam(s) CT RENAL COLIC WO EXAM: CT RENAL COLIC WO CLINICAL HISTORY: left flank pain. TECHNIQUE: Imaging Protocol: Axial computed tomography images with coronal and sagittal reformatted images were created and reviewed. COMPARISON: CT CT ABDOMEN PELVIS W from 08/11/2024 FINDINGS: ABDOMEN: Lung Bases: Normal where visualized. Liver: Normal density. No measurable mass. Gallbladder and biliary tract: No radiodense calculus or biliary ductal dilation. Pancreas: Normal density, no abnormal calcifications or inflammatory process. Spleen: Normal. Kidneys: Normal size, contour and axis.There is bilateral nephrolithiasis. No hydronephrosis is pres ent. There is a left nephroureteral stent which is in good position. No stones are seen along the c ourse of the stent. No masses seen. Adrenal glands: No mass is seen. Lymph nodes: Within normal limits. Abdominal Aorta: Abdominal portion non-dilated. PELVIS: Bladder:Symmetric distention, no gross wall thickening. Bowel: No obstruction or bowel wall thickening. Appendix is unremarkable. The stomach is incompletel y distended limiting evaluation. Peritoneal cavity: No ascites, collection or mesenteric inflammatory response. No free air. Reproductive organs: Unremarkable as visualized. Bones: Within normal limits. Soft Tissues: Within normal limits. IMPRESSION: 1. Bilateral nephrolithiasis. No hydronephrosis. 2. There is a left nephroureteral stent. No stones are seen along the course of the stent. The sten t is in good position. 3. No acute abdominal or pelvic process. RADIATION DOSE DELIVERED: 737.74mGy.cm Total DLP DATA REPOSITORY: All CT scans at this facility are submitted to the National Radiology Data Registry (NRDR) Dose Index Registry (DIR) with the [employer] (ACR). RADIATION OPTIMIZATION: All CT scans at this facility use at least one of these dose optimization te chniques: automated exposure control; mA and/or kV adjustment per patient size (includes targeted exa ms where dose is matched to clinical indication); or iterative reconstruction.
[2025-01-13 17:44] LABS: Bilirubin Small (Negative); Blood Large (Negative); Clarity Sl Cloudy (Clear); Glucose 100 mg/dL (Negative); Ketones Trace mg/dL (Negative); Leukocyte Esterase Trace (Negative); Nitrite Positive (Negative); Specific Gravity 1.025 (1.005-1.025)
[2025-01-13 17:49] LABS: Abs Immature Grans 0.03 10^3/uL (0.0-0.06); Absolute Basophil Count 0.06 10^3/uL (0.0-0.2); Absolute Eosinophil Count 0.53 10^3/uL (0.0-0.7); Absolute Monocyte Count 0.57 10^3/uL (0.1-0.8); Absolute Neutrophil Count 5.13 10^3/uL (1.2-6.7); Basophils % 0.7 %; Eosinophils % 5.7 %; HCT 38.3 % (36.0-46.0); HGB 12.2 g/dL (11.2-15.7); Immature Grans % 0.3 %; Lymphocytes % 31.5 %; MCH 28.6 pg (27.0-33.0); MCHC 31.9 % (32.0-36.0); MCV 90 fL (80-95); MPV 9.1 fL (8.0-11.0); Monocytes % 6.2 %; Neutrophils % 55.6 %; Platelet Count 353 10^3/uL (130-400); RBC 4.27 10^6/uL (3.93-5.22); RDW 12.5 % (11.7-14.6); RDW-SD 40.6 fL; WBC 9.22 10^3/uL (4.4-10.8)
[2025-01-13 17:51] LABS: C & S Indicated? Yes; RBC >50 HPF (0-2)
[2025-01-13] MEDS: Normal Saline 1,000 ML 1000 ML IV (17:54)
[2025-01-13] MEDS: Ondansetron 4 MG/2 ML VIAL IVP (17:54)
[2025-01-13] MEDS: Ketorolac 15 MG/ML VIAL IVP (17:54)
[2025-01-13 18:04] LABS: ALT 33 U/L (14-59); AST 19 U/L (15-37); Albumin 3.6 g/dL (3.4-5.0); Alkaline Phosphatase 75 U/L (46-116); Anion Gap 9.1 mmol/L (3-11); BUN 15 mg/dL (7-18); Bilirubin, Total 0.2 mg/dL (0.2-1.0); CO2 24.9 mmol/L (21.0-32.0); Calcium 8.7 mg/dL (8.5-10.1); Chloride 107 mmol/L (98-107); Estimated GFR 71.69 (mL/min/1.73m2); Glucose 87 mg/dL (74-106); Potassium 3.3 mmol/L (3.5-5.1); Sodium 141 mmol/L (136-145); Total Protein 7.3 g/dL (6.4-8.2)
[2025-01-13] MEDS: MORPHine 10 MG/ML VIAL 6 MG IVP (18:34)
[2025-01-13] MEDS: Normal Saline Flush 10 ML SYR IVP (18:35)
[2025-01-13] MEDS: cefTRIAXone 1 GM/50 ML BAG IVPB (18:35)
[2025-01-13 18:36] LABS: Procalcitonin < 0.10 ng/mL
[2025-01-13 18:47] VITALS: BP 144/102; PULSE 106; RESP 20; TEMP 36.9; O2SAT 97
[2025-01-13] MEDS: MORPHine IR 15 MG TAB, 4 TABS/BTL PO (19:58)
[2025-01-13 20:03] VITALS: BP 157/105; PULSE 86; TEMP 37.6
[2025-01-13 20:18] VITALS: BP 157/105; PULSE 86; RESP 20; O2SAT 97
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
== END 2025-01-13 20:19 | disposition home or self-care (01) ==
PROVIDERS: Emergency Provider Emergency Medicine; PCP Nurse Practitioner Adult Health
DX: R10.9 Unspecified abdominal pain (principal); N20.0 Calculus of kidney; E78.5 Hyperlipidemia, unspecified; Z96.0 Presence of urogenital implants; Z87.891 Personal history of nicotine dependence
CPT/HCPCS: 36415; 80053; 84145; 96361; 96365; 96375; 99284; 74176; 81003; 81015; 85025; 87086; J0696; J1885; J2270; J2405

== ENCOUNTER 2025-01-17 19:51 | Emergency (ER) | payer MEDICAID, SELFPAY ==
[2025-01-17] VITALS (8 sets, daily range): BP systolic 134–162; BP diastolic 88–99; PULSE 95–111; RESP 16–18; TEMP 36.7; O2SAT 94–99
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
[2025-01-17 20:27] LABS: Abs Immature Grans 0.04 10^3/uL (0.0-0.06); Absolute Basophil Count 0.07 10^3/uL (0.0-0.2); Absolute Neutrophil Count 6.97 10^3/uL (1.2-6.7); Basophils % 0.6 %; HCT 39.5 % (36.0-46.0); HGB 12.6 g/dL (11.2-15.7); Immature Grans % 0.3 %; Lymphocytes % 27.1 %; MCH 28.6 pg (27.0-33.0); MCHC 31.9 % (32.0-36.0); MCV 90 fL (80-95); MPV 9.2 fL (8.0-11.0); Monocytes % 5.9 %; Neutrophils % 59.1 %; Platelet Count 354 10^3/uL (130-400); RBC 4.41 10^6/uL (3.93-5.22); RDW 12.5 % (11.7-14.6); RDW-SD 41.1 fL; WBC 11.79 10^3/uL (4.4-10.8)
[2025-01-17 20:29] LABS: Absolute Eosinophil Count 0.83 10^3/uL (0.0-0.7)
[2025-01-17] MEDS: Ketorolac 15 MG/ML VIAL IVP (20:33)
[2025-01-17] MEDS: Normal Saline 1,000 ML 1000 ML IV (20:34)
[2025-01-17] MEDS: MORPHine 4 MG/ML SYR IVP (20:34)
[2025-01-17] MEDS: Ondansetron 4 MG/2 ML VIAL IVP (20:35)
[2025-01-17 20:43] LABS: ALT 29 U/L (14-59); AST 16 U/L (15-37); Albumin 3.8 g/dL (3.4-5.0); Alkaline Phosphatase 89 U/L (46-116); Anion Gap 10.6 mmol/L (3-11); BUN 12 mg/dL (7-18); Bilirubin, Total 0.3 mg/dL (0.2-1.0); CO2 24.4 mmol/L (21.0-32.0); CREATININE 1.2 mg/dL (0.55-1.02); Calcium 9.1 mg/dL (8.5-10.1); Chloride 104 mmol/L (98-107); Glucose 124 mg/dL (74-106); Potassium 3.2 mmol/L (3.5-5.1); Sodium 139 mmol/L (136-145); Total Protein 7.6 g/dL (6.4-8.2)
[2025-01-17 20:48] LABS: Bilirubin Small (Negative); Blood Large (Negative); Clarity Sl Cloudy (Clear); Glucose 100 mg/dL (Negative); Ketones Trace mg/dL (Negative); Leukocyte Esterase Trace (Negative); Nitrite Positive (Negative); Specific Gravity >= 1.030 (1.005-1.025)
[2025-01-17 20:55] LABS: Bacteria Moderate HPF (Negative); C & S Indicated? Yes; Casts Negative LPF (Negative); Crystals Negative HPF (Negative); Epithelial Cells Few HPF (Negative); Mucus Moderate (Negative); RBC 20-50 HPF (0-2)
[2025-01-17] MEDS: HYDROmorphone 2 MG/ML SYR 1 MG IVP (21:07)
[2025-01-17] MEDS: MORPHine IR 15 MG TAB, 4 TABS/BTL PO (21:40)
--- NOTE | 2025-01-20 08:18 | NUR.NOTE ---
Accessed PT chart to see if Pt was given antibiotics. There was no antibiotic prescribed.
== END 2025-01-17 21:45 | disposition home or self-care (01) ==
PROVIDERS: Emergency Provider Emergency Medicine; PCP Nurse Practitioner Adult Health
DX: R10.32 Left lower quadrant pain (principal); Z96.0 Presence of urogenital implants
CPT/HCPCS: 99284 ×2; 96374; 96375; 81025; 80053; 81003; 81015; 83735; 85025; 87086; J1171; J1885; J2270; J2405

== ENCOUNTER 2025-05-31 14:22 | Emergency (ER) | payer MEDICAID, SELFPAY ==
[2025-05-31 14:25] VITALS: BP 154/97; PULSE 105; RESP 16; TEMP 37.2; O2SAT 98
[2025-05-31 14:27] VITALS: BP 154/97; PULSE 105; RESP 16; TEMP 37.2; O2SAT 98
[2025-05-31 14:43] LABS: Glucose Negative (Negative)
[2025-05-31 15:17] LABS: Abs Immature Grans 0.04 10^3/uL (0.0-0.06); HCT 40.3 % (36.0-46.0); HGB 13.0 g/dL (11.2-15.7); Immature Grans % 0.3 %; MCH 28.6 pg (27.0-33.0); MCHC 32.3 % (32.0-36.0); MCV 89 fL (80-95); MPV 9.3 fL (8.0-11.0); Platelet Count 323 10^3/uL (130-400); RBC 4.55 10^6/uL (3.93-5.22); RDW 12.9 % (11.7-14.6); RDW-SD 42.0 fL; WBC 11.76 10^3/uL (4.4-10.8)
[2025-05-31] MEDS: Ketorolac 15 MG/ML VIAL IVP (15:20)
[2025-05-31] MEDS: Acetaminophen 500 MG TAB 1000 MG PO (15:20)
[2025-05-31] MEDS: Lactated Ringers 1,000 ML 1000 ML IV (15:21)
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
[2025-05-31] MEDS: Omnipaque 350 MG/ML 100 ML BTL IJ (15:22)
[2025-05-31] MEDS: Normal Saline - Diluent 50 ML VIAL IJ (15:22)
[2025-05-31] MEDS: Normal Saline Flush 10 ML SYR IVP (15:22)
[2025-05-31 15:30] LABS: ALT 23 U/L (14-59); AST 19 U/L (15-37); Albumin 4.0 g/dL (3.4-5.0); Alkaline Phosphatase 84 U/L (46-116); Anion Gap 9.0 mmol/L (3-11); BUN 17 mg/dL (7-18); Bilirubin, Total 0.3 mg/dL (0.2-1.0); CO2 25.0 mmol/L (21.0-32.0); Calcium 9.0 mg/dL (8.5-10.1); Chloride 105 mmol/L (98-107); Estimated GFR 71.24 (mL/min/1.73m2); Glucose 84 mg/dL (74-106); Lipase 20 U/L (<78); Magnesium 2.2 mg/dL (1.8-2.4); Potassium 3.7 mmol/L (3.5-5.1); Sodium 139 mmol/L (136-145); Total Protein 8.0 g/dL (6.4-8.2)
--- NOTE | 2025-05-31 15:30 | DI.CT_ITS ---
Exam(s) CT ABDOMEN PELVIS W EXAM: CT ABDOMEN PELVIS W CLINICAL HISTORY: R. flank pain, hx kidney stones. TECHNIQUE: Imaging Protocol: Axial computed tomography images with coronal and sagittal reformatted images were created and reviewed CONTRAST MATERIAL: Intravenous: Omnipaque-350 100cc Oral: None COMPARISON: CT CT ABDOMEN PELVIS W from 08/11/[address] RENAL COLIC WO from 01/13/2025 FINDINGS: VISUALIZED LUNG BASES: No nodules nor pleural effusions evident. ABDOMEN: There is no ascites. LIVER: There are no focal hepatic lesions evident. No dilated intrahepatic ducts. GALLBLADDER/BILIARY: No obvious gallbladder pathology. CBD is not dilated. PANCREAS: Pancreatic head is mildly hypodense probably within normal limits and appearing unchanged from prior contrast infused CT scan of August 2024. SPLEEN: Spleen is not enlarged. No obvious intrasplenic lesions. Splenic and portal veins are patent. ADRENALS: There are no significant adrenal masses. KIDNEYS:Previously present left ureteral stent has been removed. There presently no calculi in the left kidney and no hydronephrosis. Small benign sub cm cyst in the inferior pole left kidney is again noted. There is no hydronephrosis nor hydroureter on the left side . No solid renal masses nor cys ts evident in either kidney. There are few small calculi in the right kidney measuring up to 4 mm size. There is no hydronephrosis larger ureter. Urinary bladder is collapsed. There are no radiopaque calculi seen in the pelvic ureters nor at the UVJ levels nor within the collapsed urinary bladder.. ABDOMINAL AORTA: Abdominal aorta is not enlarged. LYMPH NODES:There is no retroperitoneal nor paraaortic adenopathy. ABDOMINAL WALL: No evidence of significant anterior abdominal wall nor inguinal hernia. GI: There is no evidence of bowel obstruction, free air, nor abscess. PELVIS: GI: Retrocecal appendix. No evidence of appendicitis.No evidence of sigmoid diverticulitis. LYMPH NODES: There is no intrapelvic nor inguinal adenopathy. REPRODUCTIVE: Bicornuate appearing uterus. Thickened endometrial lining. There is a fibroid at the uterine fundus level which measures approximately 2.5 x 2.5 cm. There is a cyst in the right ovary measuring 2.6 by 2.6 cm. There is a smaller 1.6 cm cyst also evident in the same-right ovary. There is a tiny amount of fluid in the right adnexa adjacent to the ovary.. Left ovary appears age-appropriate. URINARY BLADDER: See above OSSEOUS: No fractures and no significant osseous lesions. IMPRESSION: 1. Compared to the prior CT scan of 01/13/2025 the left ureteral stent is been removed and there are presently no calculi in left collecting system nor hydronephrosis. Are a few nonobstructive calculi in lower pole region of the opposite-right kidney again noted. There are no calculi seen in the ureters nor within the nondistended urinary bladder. 2. No evidence of appendicitis nor diverticulitis. 3. There is a 2.6 x 2.6 cm cyst in the right ovary. There is also a smaller 1.6 cm cyst in the same-right ovary. There is a small amount of fluid in the right adnexa. 4. Somewhat thickened endometrium, possibly upper limits normal for this age group. Called by myself to ER 05/31/2025 at 4 p.m. RADIATION DOSE DELIVERED: 586.83mGy.cm Total DLP DATA REPOSITORY: All CT scans at this facility are submitted to the National Radiology Data Registry (NRDR) Dose Index Registry (DIR) with the [employer] (ACR). RADIATION OPTIMIZATION: All CT scans at this facility use at least one of these dose optimization techniques: automated exposure control; mA and/or kV adjustment per patient size (includes targeted exams where dose is matched to clinical indication); or iterative reconstruction.
[2025-05-31] MEDS: HYDROmorphone 2 MG/ML SYR 0.5 MG IVP (15:36)
[2025-05-31 16:30] VITALS: BP 146/96; PULSE 79; RESP 12; O2SAT 100
== END 2025-05-31 16:32 | disposition home or self-care (01) ==
PROVIDERS: Emergency Provider Emergency Medicine; PCP Nurse Practitioner Adult Health
DX: R10.9 Unspecified abdominal pain (principal); N20.0 Calculus of kidney
CPT/HCPCS: 99284; 99285; 81025; 36415; 96374; 96375; 80053; 83690; 96361; 74177; 81003; 83735; 85025; J1171; J1885; J3490